=== PATIENT | male | born 1935 | race Caucasian/White ===

== ENCOUNTER 2017-01-01 13:13 | Emergency (ER) | payer MEDICARE ==
[~2017-01-01] VITALS: Ht 182.9 cm; Wt 72.8 kg
[~2017-01-01 13:13] MED LIST: ASPI325T PO; AVOD0.5C PO; CARB25TA9 PO; CLON0.5T PO; GEMF600T PO; LIPI20TA PO; NIFE15TA PO; PLAV75TA29 PO; WALKER WHEELS/F1 MIS
[2017-01-01 13:35] VITALS: BP 123/64; PULSE 82; RESP 16; TEMP 98.2; O2SAT 100
[2017-01-01] MEDS ORDERED: BACT400T PO (15:10)
[2017-01-01] MEDS ORDERED: CALCTAB80 PO (15:10)
[2017-01-01] MEDS ORDERED: FISH120014 (15:10)
[2017-01-01] MEDS ORDERED: LEVI20TA PO (15:10)
[2017-01-01] MEDS ORDERED: CLINDAMYCIN INJ 900 MG in SODIUM CHLORIDE 0.9% INJ 100 ML IV ONE (15:45)
--- NOTE | 2017-01-01 15:58 | PD ---
HPI Chief Complaint: Skin Problem Time Seen by Provider: 15:49 Travel History International Travel<30 days: No Contact w/Intl Traveler<30days: No Traveled to known affect area: No History of Present Illness HPI Patient is an 81-year-old male brought in by his for evaluation of of right elbow swelling. He states it started 3 weeks ago, and was a lot more swollen then. Patient went to his primary doctor last week and was prescribed Bactrim, states it started to get better until yesterday when the redness returned. She does state that it is much less swollen than it was initially. reports picking the scab on his elbow thinking it was a foreign body. Patient has not had any fevers, chills, nausea, vomiting, chest pain, shortness of breath, headache. PFSH Past Medical History Cancer: Yes (NON MALIGNANT SKIN CANCER) Cardiovascular Problems: No High Cholesterol: Yes Cerebrovascular Accident: Yes (TIA) Coronary Artery Disease: Yes Diabetes: No Diminished Hearing: No Endocrine: No GERD: Yes Glaucoma: No Genitourinary: No Hepatitis: No Hiatal Hernia: No Hypertension: Yes Immune Disorder: No Musculoskeletal: No Parkinson's Disease: Yes Psychiatric: No Reproductive: No Respiratory: No Thyroid Disease: Yes (THYROID PROBLEM S/P VIRUS--RESOLVED) Tetanus Vaccination: > 5 Years Influenza Vaccination: Yes Past Surgical History AICD: No Eye Surgery: Yes (CATARACTS) Joint Replacement: No Pacemaker: No Tonsillectomy: Yes Other Surgery: Yes (carotid endarterectomy) Social History Alcohol Use: No Tobacco Use: No Substance Use: No Allergies-Medications (Allergen,Severity, Reaction): Coded Allergies: Enalapril (Verified Allergy, Severe, SWELLING, 09/19/16) Reported Meds & Prescriptions Reported Meds & Active Scripts Active Walker with Front Wheels (Device) 1 Mis Mis 1 Units .XX DIRECTED Lipitor (Atorvastatin Calcium) 20 Mg Tab 20 Mg PO HS Aspirin 325 Mg Tab 325 Mg PO DAILY 30 Days Reported Bactrim (Sulfamethoxazole-Trimethoprim) 400-80 Mg Tab 1 Tab PO BID Calcium 1000 + D (Calcium Carbonate-Cholecalciferol) 1,000-800 Mg-Unit Tab 1 Tab PO Fish Oil ([place]-3 Fatty Acids) 1,200 Mg Cap Levitra (Vardenafil) 20 Mg Tab 20 Mg PO DAILY PRN Avodart (Dutasteride) 0.5 Mg Cap 0.5 Mg PO DAILY Gemfibrozil 600 Mg Tab 600 Mg PO DAILY Take 30 minutes prior to breakfast and dinner. Clonazepam 0.5 Mg Tab 0.5 Mg PO HS Carbidopa-Levodopa 25-100 Mg Tab 1 Tab PO Q5 Review of Systems Except as stated in HPI: all other systems reviewed are Neg Musculoskeletal: Positive: Edema Skin: Positive Change in Pigmentation Physical Exam Narrative GENERAL: Well-developed, well-nourished, alert elderly gentleman. Resting comfortably in no acute distress. at bedside. SKIN: Warm and dry. Dry flaky skin. HEAD: Atraumatic. Normocephalic. EYES: Pupils equal and round. No scleral icterus. No injection or drainage. ENT: No nasal bleeding or discharge. Mucous membranes pink and moist. NECK: Trachea midline. No JVD. CARDIOVASCULAR: Regular rate and rhythm. No murmur appreciated. RESPIRATORY: No accessory muscle use. Clear to auscultation. Breath sounds equal bilaterally. GASTROINTESTINAL: Abdomen soft, non-tender, nondistended. Hepatic and splenic margins not palpable. MUSCULOSKELETAL: No obvious deformities. No clubbing. No cyanosis. Edema noted to the right old cranial process. Mildly erythematous, warm to the touch. Nontender to palpation, full range of motion in right elbow. Positive radial pulse, brisk less than 3 second capillary refill. NEUROLOGICAL: Awake and alert. No obvious cranial nerve deficits. Motor grossly within normal limits. Normal speech. PSYCHIATRIC: Appropriate mood and affect; insight and judgment normal. Data Data Last Documented VS Vital Signs Date Time Temp Pulse Resp B/P Pulse Ox O2 Delivery O2 Flow Rate FiO2 01/01/17 13:35 98.2 82 16 123/64 100 Orders Complete Blood Count With Diff (01/01/17 15:40) Comprehensive Metabolic Panel (01/01/17 15:40) Iv Access Insert/Monitor (01/01/17 15:40) Clindamycin Inj (Cleocin Inj) (01/01/17 15:45) Sodium Chlor 0.9% 1000 Ml Inj (Ns 1000 M (01/01/17 16:45) Labs Laboratory Tests Test 01/01/17 16:10 White Blood Count 5.9 TH/MM3 Red Blood Count 4.43 MIL/MM3 Hemoglobin 13.2 GM/DL Hematocrit 40.1 % Mean Corpuscular Volume 90.4 FL Mean Corpuscular Hemoglobin 29.7 PG Mean Corpuscular Hemoglobin 32.9 % Concent Red Cell Distribution Width 11.9 % Platelet Count 171 TH/MM3 Mean Platelet Volume 8.8 FL Neutrophils (%) (Auto) 60.3 % Lymphocytes (%) (Auto) 24.9 % Monocytes (%) (Auto) 9.2 % Eosinophils (%) (Auto) 4.7 % Basophils (%) (Auto) 0.9 % Neutrophils # (Auto) 3.5 TH/MM3 Lymphocytes # (Auto) 1.5 TH/MM3 Monocytes # (Auto) 0.5 TH/MM3 Eosinophils # (Auto) 0.3 TH/MM3 Basophils # (Auto) 0.1 TH/MM3 CBC Comment DIFF FINAL Differential Comment Sodium Level 139 MEQ/L Potassium Level 4.5 MEQ/L Chloride Level 104 MEQ/L Carbon Dioxide Level 28.5 MEQ/L Anion Gap 7 MEQ/L Blood Urea Nitrogen 32 MG/DL Creatinine 1.80 MG/DL Estimat Glomerular Filtration 36 ML/MIN Rate Random Glucose 90 MG/DL Calcium Level 9.2 MG/DL Total Bilirubin 0.3 MG/DL Aspartate Amino Transf 19 U/L (AST/SGOT) Alanine Aminotransferase 9 U/L (ALT/SGPT) Alkaline Phosphatase 70 U/L Total Protein 7.9 GM/DL Albumin 3.8 GM/DL MDM Medical Decision Making Medical Screen Exam Complete: Yes Emergency Medical Condition: Yes Interpretation(s) Vital Signs Date Time Temp Pulse Resp B/P Pulse Ox O2 Delivery O2 Flow Rate FiO2 01/01/17 13:35 98.2 82 16 123/64 100 Differential Diagnosis Cellulitis versus bursitis versus abscess versus septic arthritis Narrative Course Patient is a 81-year-old male presenting to emergency department for evaluation of right elbow swelling. Exam is consistent with bursitis, it is mildly erythematous and warm to the touch. Patient has been on Bactrim consistently for the last 5 days, reported interval improvement until yesterday when she states it started to get more red again. Patient is afebrile, his vital signs are stable. We will check CBC and chemistry and patient will be given one dose of IV clindamycin in the emergency department. Prior to discharge patient will be changed to oral clindamycin. He has a follow-up appointment on Wednesday with Dr. Caal, orthopedic surgeon. 1625- CBC reviewed and is unremarkable. 1637-chemistry with elevated BUN and creatinine, consistent with a prior evaluation in September 2016. Patient will be given 1 L IV fluids prior to discharge. Patient was encouraged to increase oral fluid intake at home, he states he doesn 't drink a lot of water, mostly coffee. They were encouraged to keep appointment with orthopedic surgeon on Wednesday. Encouraged to return to emergency department for any new or worsening symptoms in the interim. They verbalized understanding of these instructions. Patient will be stable for discharge. Diagnosis Primary Impression: Bursitis of elbow Qualified Code: M70.30 - Bursitis of elbow, unspecified laterality Additional Impression: Cellulitis Qualified Code: L03.113 - Cellulitis of right upper extremity Referrals: Abilio Patten Jr., MD 3 days As scheduled on Wednesday Patient Instructions: Cellulitis (ED), Elbow Bursitis (ED), General Instructions Additional Instructions: Follow-up with your primary doctor Follow up with Dr. Caal on Wednesday as scheduled Discontinue the Bactrim Complete full course of antibiotics as prescribed Return to emergency department for any new or worsening symptoms Med/Other Pt SpecificInfo: Prescription(s) given Scripts Saccharomyces Boulardii (Florastor)250 Mg Nuv249 Mg PO TIDPC 7 Days Ref 0 Prov:Karina Cevallos 01/01/17 Clindamycin 300 Mg Agv143 Mg PO TID 7 Days Ref 0 Prov:Karina Cevallos 01/01/17 Disposition: 01 DISCHARGE HOME Condition: Stable Karina Cevallos Jan 01, 2017 15:58
[2017-01-01 16:18] LABS: AUTOMATED NEUTROPHIL # 3.5 TH/MM3 (1.8-7.7); BASOPHIL # 0.1 TH/MM3 (0-0.2); BASOPHIL % 0.9 % (0.0-2.0); EOSINOPHIL # 0.3 TH/MM3 (0-0.4); EOSINOPHIL % 4.7 % (0.0-4.0); HEMATOCRIT 40.1 % (39.0-51.0); HEMO FLAGS DIFF FINAL; LYMPH % 24.9 % (9.0-44.0); LYMPHOCYTE # 1.5 TH/MM3 (1.0-4.8); MEAN CELL VOLUME 90.4 FL (80.0-100.0); MEAN CORPUSCULAR HEMOGLOBIN 29.7 PG (27.0-34.0); MEAN CORPUSCULAR HGB CONC 32.9 % (32.0-36.0); MONO % 9.2 % (0.0-8.0); NEUT % 60.3 % (16.0-70.0); PLATELET COUNT 171 TH/MM3 (150-450); RED BLOOD COUNT 4.43 MIL/MM3 (4.50-5.90); RED CELL DISTRIBUTION WIDTH 11.9 % (11.6-17.2); WHITE BLOOD COUNT 5.9 TH/MM3 (4.0-11.0)
[2017-01-01 16:26] LABS: CHLORIDE 104 MEQ/L (98-107); POTASSIUM 4.5 MEQ/L (3.5-5.1); SODIUM (NA) 139 MEQ/L (136-145)
[2017-01-01 16:30] LABS: ANION GAP 7 MEQ/L (5-15); BICARBONATE 28.5 MEQ/L (21.0-32.0); BLOOD UREA NITROGEN 32 MG/DL (7-18)
[2017-01-01 16:33] LABS: ALT (GPT) 9 U/L (12-78); AST (GOT) 19 U/L (15-37); GLOMERULAR FILTRATION RATE 36 ML/MIN (>89)
[2017-01-01 16:35] LABS: TOTAL BILIRUBIN ADULT 0.3 MG/DL (0.2-1.0)
[2017-01-01 16:36] LABS: ALKALINE PHOSPHATASE 70 U/L (45-117)
[2017-01-01] MEDS ORDERED: SODIUM CHLOR 0.9% 1000 ML INJ 1,000 ML IV ONE (16:45)
[2017-01-01] MEDS ORDERED: CLIN1CAP6 PO (16:57)
[2017-01-01] MEDS ORDERED: FLOR250C PO (16:57)
== END 2017-01-01 17:42 | disposition home or self-care (01) ==
LOC: PHED 13:13 → PHEFT 17:42
DX: M70.31 Other bursitis of elbow, right elbow (principal); L03.113 Cellulitis of right upper limb
CPT/HCPCS: 80053; 85025; 96365; 99283; J7030

== ENCOUNTER 2017-05-06 09:50 | Emergency (ER) | payer MEDICARE ==
[~2017-05-06] VITALS: Ht 182.9 cm; Wt 70.0 kg
[~2017-05-06 09:50] MED LIST changes: +BACT400T PO; +CALCTAB80 PO; +CLIN1CAP6 PO; +FISH120014; +FLOR250C PO; +LEVI20TA PO; -NIFE15TA PO; -PLAV75TA29 PO
[2017-05-06 09:54] VITALS: BP 121/61; PULSE 80; RESP 16; TEMP 98.3; O2SAT 100
--- NOTE | 2017-05-06 10:38 | PD ---
HPI Chief Complaint: Laceration/Skin Injury Time Seen by Provider: 10:31 Travel History International Travel<30 days: No Contact w/Intl Traveler<30days: No Traveled to known affect area: No History of Present Illness HPI This is an 82-year-old gentleman who has a history of Parkinson's disease who likes to work out in the yard and was lifting a pot when he fell forward scraping admission in his left arm. He has a small wound on his left lower leg which he thought might need stitches. Otherwise he didn't hit his head and denies any other injuries. He does take aspirin every day. He doesn't remember when his last tetanus shot was. PFSH Past Medical History Cancer: Yes (NON MALIGNANT SKIN CANCER) Cardiovascular Problems: No High Cholesterol: Yes Cerebrovascular Accident: Yes (TIA) Coronary Artery Disease: Yes Diabetes: No Diminished Hearing: No Endocrine: No Gastrointestinal Disorders: No GERD: Yes Glaucoma: No Genitourinary: No Hepatitis: No Hiatal Hernia: No Hypertension: Yes Immune Disorder: No Implanted Vascular Access Dvce: No Medical other: No Musculoskeletal: No Parkinson's Disease: Yes Psychiatric: No Reproductive: No Respiratory: No Thyroid Disease: Yes (THYROID PROBLEM S/P VIRUS--RESOLVED) Past Surgical History AICD: No Eye Surgery: Yes (CATARACTS) Joint Replacement: No Pacemaker: No Tonsillectomy: Yes Other Surgery: Yes (carotid endarterectomy) Social History Alcohol Use: No Tobacco Use: No Substance Use: No Allergies-Medications (Allergen,Severity, Reaction): Coded Allergies: Enalapril (Verified Allergy, Severe, SWELLING, 05/06/17) Reported Meds & Prescriptions Reported Meds & Active Scripts Active Aspirin 325 Mg Tab 325 Mg PO DAILY 30 Days Reported Viagra (Sildenafil Citrate) 50 Mg Tab 50 Mg PO DAILY PRN Calcium 1000 + D (Calcium Carbonate-Cholecalciferol) 1,000-800 Mg-Unit Tab 1 Tab PO Avodart (Dutasteride) 0.5 Mg Cap 0.5 Mg PO DAILY Gemfibrozil 600 Mg Tab 600 Mg PO DAILY Take 30 minutes prior to breakfast and dinner. Clonazepam 0.5 Mg Tab 0.5 Mg PO HS Carbidopa-Levodopa 25-100 Mg Tab 1 Tab PO Q5 Review of Systems General / Constitutional: No: Fever, Chills Respiratory: No: Shortness of Breath Physical Exam Narrative GENERAL: Well-appearing, no acute distress, nontoxic SKIN: 2 cm skin tear left lower extremity, small abrasions right forearm HEAD: Atraumatic. Normocephalic. ENT: No nasal bleeding or discharge. Moist mucous membranes MUSCULOSKELETAL: No obvious deformities. No clubbing. No cyanosis. No edema. NEUROLOGICAL: Awake and alert. No obvious cranial nerve deficits. Motor grossly within normal limits. Normal speech. PSYCHIATRIC: Appropriate mood and affect; insight and judgment normal. Data Data Last Documented VS Vital Signs Date Time Temp Pulse Resp B/P Pulse Ox O2 Delivery O2 Flow Rate FiO2 05/06/17 09:54 98.3 80 16 121/61 100 Orders Tetanus/Diphtheria Tox Adult (Tetanus/Di (05/06/17 10:45) MDM Medical Decision Making Medical Screen Exam Complete: Yes Emergency Medical Condition: Yes Differential Diagnosis laceration, abrasion, wound infection Narrative Course This is an 82-year-old male who presents to the emergency department having sustained a skin tear while he was working outside. He was given a tetanus shot. Wound care was provided by the ED technicians. Steri-Strips were applied to the wound. Patient was prescribed a topical antibiotic and discharged home. Diagnosis Primary Impression: Skin tear of left lower leg without complication Qualified Code: S81.812A - Skin tear of left lower leg without complication, initial encounter Patient Instructions: General Instructions Additional Instructions: If you develop fevers, redness, swelling, or discharge from your wound return to the emergency room. Keep your wound dry for 24 hours. After that time, wash gently with warm soap and water. Do not use peroxide. Do not soak in baths or go swimming. Med/Other Pt SpecificInfo: Prescription(s) given Scripts Bacitracin-Polymyxin B Topical (Polysporin Topical)500-10,000 Unit/Gm Oint1 Applic TOPICAL BID #1 TUBE Ref 0 Prov:Guerda Cavazos MD 05/06/17 Disposition: 01 DISCHARGE HOME Condition: Stable Guerda Cavazos MD May 06, 2017 10:38
[2017-05-06] MEDS ORDERED: VIAG50TA PO (10:39)
[2017-05-06] MEDS ORDERED: BACI28.3 TOPICAL (10:44)
[2017-05-06] MEDS ORDERED: TETANUS/DIPHTHERIA TOXOID ADULT 0.5 ML VIAL IM ONE (10:45)
== END 2017-05-06 10:56 | disposition home or self-care (01) ==
LOC: PHED 09:50
DX: S81.812A Laceration without foreign body, left lower leg, initial encounter (principal); W19.XXXA Unspecified fall, initial encounter; G20 Parkinson's disease; I10 Essential (primary) hypertension; K21.9 Gastro-esophageal reflux disease without esophagitis; I25.10 Atherosclerotic heart disease of native coronary artery without angina pectoris; Z86.73 Personal history of transient ischemic attack (TIA), and cerebral infarction without residual deficits; E78.00 Pure hypercholesterolemia, unspecified; Z85.828 Personal history of other malignant neoplasm of skin
CPT/HCPCS: 90471; 90714

== ENCOUNTER 2017-06-06 18:07 | Emergency (ER) | payer MEDICARE ==
[~2017-06-06] VITALS: Ht 182.9 cm; Wt 69.0 kg
[~2017-06-06 18:07] MED LIST changes: +BACI28.3 TOPICAL; -BACT400T PO; -CLIN1CAP6 PO; -FISH120014; -FLOR250C PO; -LEVI20TA PO; -LIPI20TA PO; +VIAG50TA PO; -WALKER WHEELS/F1 MIS
[2017-06-06 18:20] VITALS: BP 99/76; PULSE 20; PULSE 76; RESP 20; TEMP 98.1; O2SAT 100
[2017-06-06] MEDS ORDERED: SODIUM CHLORIDE 0.9% FLUSH 10 ML FLUSH IVF PRN (18:30)
--- NOTE | 2017-06-06 18:33 | PD ---
HPI Chief Complaint: Fall Time Seen by Provider: 18:20 Travel History International Travel<30 days: No Contact w/Intl Traveler<30days: No Traveled to known affect area: No History of Present Illness HPI 82-year-old male with history of Parkinson's, previous CVA with mild residual left-sided facial droop presents for evaluation after fall. He reports that he was at a great grandchild's birthday walking in the house. He reports that he was walking when he stepped up onto an elevated floor and he fell backwards, landing on his back. He says that he felt mildly dizzy causing the fall. He reports that he hit his head on a cushion. He is now complaining of some pain in his mid and lower back. The pain is mild, aggravated by movement. He denies any other injuries. He denies any headache, blurred vision, chest pain or shortness of breath, nausea or vomiting, abdominal pain, injury or weakness to the extremities. He does report that he occasionally gets dizzy secondary to hypotension, he reports that he is prescribed steroids in order to help with the hypotension but he did not take his usual dose today. Upon my initial examination he was quite hypertensive with blood pressure of 230/100. He reports that he has "terrible white coat syndrome." He takes an aspirin daily. No other blood thinners. No other complaints. PFSH Past Medical History Hx Anticoagulant Therapy: Yes (asa) Cancer: Yes (NON MALIGNANT SKIN CANCER) Cardiovascular Problems: No High Cholesterol: Yes Cerebrovascular Accident: Yes (stroke and parkinsons) Coronary Artery Disease: Yes Diabetes: No Diminished Hearing: No Endocrine: No Gastrointestinal Disorders: No GERD: Yes Glaucoma: No Genitourinary: No Hepatitis: No Hiatal Hernia: No Hypertension: Yes Immune Disorder: No Implanted Vascular Access Dvce: No Musculoskeletal: No Parkinson's Disease: Yes Psychiatric: No Reproductive: No Respiratory: No Thyroid Disease: Yes (THYROID PROBLEM S/P VIRUS--RESOLVED) Past Surgical History AICD: No Eye Surgery: Yes (CATARACTS) Joint Replacement: No Pacemaker: No Tonsillectomy: Yes Other Surgery: Yes (carotid endarterectomy) Social History Alcohol Use: No Tobacco Use: No Substance Use: No Allergies-Medications (Allergen,Severity, Reaction): Coded Allergies: Enalapril (Verified Allergy, Severe, SWELLING, 7/30/17) Reported Meds & Prescriptions Reported Meds & Active Scripts Active Tramadol (Tramadol HCl) 50 Mg Tab 50 Mg PO Q6H PRN Aspirin 325 Mg Tab 325 Mg PO DAILY 30 Days Reported Fludrocortisone (Fludrocortisone Acetate) 0.1 Mg Tab 0.1 Mg PO BID Viagra (Sildenafil Citrate) 50 Mg Tab 50 Mg PO DAILY PRN Calcium 1000 + D (Calcium Carbonate-Cholecalciferol) 1,000-800 Mg-Unit Tab 1 Tab PO Avodart (Dutasteride) 0.5 Mg Cap 0.5 Mg PO DAILY Gemfibrozil 600 Mg Tab 600 Mg PO DAILY Take 30 minutes prior to breakfast and dinner. Clonazepam 0.5 Mg Tab 0.5 Mg PO HS Carbidopa-Levodopa 25-100 Mg Tab 1 Tab PO Q5 Review of Systems Except as stated in HPI: all other systems reviewed are Neg Physical Exam Narrative GENERAL: Pleasant well-developed well-nourished male in no acute distress resting comfortable in hospital bed. SKIN: Warm and dry. HEAD: Atraumatic. Normocephalic. EYES: Pupils equal and round. No scleral icterus. No injection or drainage. ENT: No nasal bleeding or discharge. Mucous membranes pink and moist. NECK: Trachea midline. No JVD. CARDIOVASCULAR: Regular rate and rhythm. No murmur appreciated. RESPIRATORY: No accessory muscle use. Clear to auscultation. Breath sounds equal bilaterally. GASTROINTESTINAL: Abdomen soft, non-tender, nondistended. Hepatic and splenic margins not palpable. MUSCULOSKELETAL: No obvious deformities. No tenderness to palpation along the cervical thoracic or lumbar midline spine. No tenderness to palpation of the rib cage, no Bruising or soft tissue swelling NEUROLOGICAL: Awake and alert. No obvious cranial nerve deficits. Motor grossly within normal limits. Normal speech. PSYCHIATRIC: Appropriate mood and affect; insight and judgment normal. Data Data Last Documented VS Vital Signs Date Time Temp Pulse Resp B/P Pulse Ox O2 Delivery O2 Flow Rate FiO2 06/06/17 19:55 78 18 215/109 99 Room Air 06/06/17 18:20 98.1 Orders Electrocardiogram (06/06/17 18:29) Basic Metabolic Panel (Bmp) (06/06/17 18:29) Complete Blood Count With Diff (06/06/17 18:29) Magnesium (Mg) (06/06/17 18:29) Ckmb (Isoenzyme) Profile (06/06/17 18:29) Troponin I (06/06/17 18:29) Ct Brain W/O Iv Contrast(Rout) (06/06/17 18:29) Ecg Monitoring (06/06/17 18:29) Iv Access Insert/Monitor (06/06/17 18:29) Oximetry (06/06/17 18:29) Sodium Chloride 0.9% Flush (Ns Flush) (06/06/17 18:30) Spine, Thoracic-Ap/Lat/Sw(3vw) (06/06/17 ) Spine, Lumbar - Ltd (Ap & Lat) (06/06/17 ) Ct Lumb Spine W/O Contrast (06/06/17 ) Morphine Inj (Morphine Inj) (06/06/17 19:30) Ondansetron Inj (Zofran Inj) (06/06/17 19:30) Clonidine (Catapres) (06/06/17 20:15) Splint Or Brace Apply/Monitor (06/06/17 20:26) CKMB (06/06/17 20:00) CKMB% (06/06/17 20:00) Labs Laboratory Tests Test 06/06/17 20:00 White Blood Count 8.2 TH/MM3 Red Blood Count 4.60 MIL/MM3 Hemoglobin 13.7 GM/DL Hematocrit 41.7 % Mean Corpuscular Volume 90.7 FL Mean Corpuscular Hemoglobin 29.9 PG Mean Corpuscular Hemoglobin 33.0 % Concent Red Cell Distribution Width 12.8 % Platelet Count 155 TH/MM3 Mean Platelet Volume 8.8 FL Neutrophils (%) (Auto) 74.1 % Lymphocytes (%) (Auto) 15.0 % Monocytes (%) (Auto) 7.8 % Eosinophils (%) (Auto) 2.8 % Basophils (%) (Auto) 0.3 % Neutrophils # (Auto) 6.1 TH/MM3 Lymphocytes # (Auto) 1.2 TH/MM3 Monocytes # (Auto) 0.6 TH/MM3 Eosinophils # (Auto) 0.2 TH/MM3 Basophils # (Auto) 0.0 TH/MM3 CBC Comment DIFF FINAL Differential Comment Sodium Level 141 MEQ/L Potassium Level 4.0 MEQ/L Chloride Level 105 MEQ/L Carbon Dioxide Level 30.6 MEQ/L Anion Gap 5 MEQ/L Blood Urea Nitrogen 23 MG/DL Creatinine 1.32 MG/DL Estimat Glomerular Filtration 52 ML/MIN Rate Random Glucose 87 MG/DL Calcium Level 8.9 MG/DL Magnesium Level 2.4 MG/DL Total Creatine Kinase 199 U/L Troponin I LESS THAN 0.02 NG/ML MDM Medical Decision Making Medical Screen Exam Complete: Yes Emergency Medical Condition: Yes Medical Record Reviewed: Yes Interpretation(s) EKG sinus rhythm, occasional PVCs CT lumbar spine reveals acute compression deformity at L3 CBC unremarkable BMP BUN 23 creatinine 1.32 consistent with baseline Total CK unremarkable, troponin negative Differential Diagnosis Orthostatic hypotension, electrolyte abnormality, arrhythmia, contusion, fracture, retroperitoneal hematoma Narrative Course 82-year-old male presents after a brief dizzy episode resulted in him falling backwards and landing on his back. He hit his head on a trace and has no pain in his head. He is complaining of mild pain in his mid and lower back. He reports that the dizziness has completely resolved and he has no other symptoms currently. The patient's laboratory and imaging studies to been reviewed. His lumbar spine CT does reveal an acute compression deformity at L3 with loss of height 10 %. I discussed with the on-call neurosurgeon Dr. Ho who does recommend outpatient follow-up with neurosurgery, O brace. I discussed these recommendations with the patient. I did discuss the option of possibly the patient however he reports that he feels quite well. He has mild pain when he was sitting on the edge of the bed but he felt fine when standing. He has had no additional dizziness or lightheadedness. He would prefer to be discharged for outpatient follow-up. Diagnosis Primary Impression: Compression fracture of L3 lumbar vertebra Qualified Code: S32.030A - Compression fracture of L3 lumbar vertebra, closed , initial encounter Referrals: Ran Jesus MD Additional Instructions: As discussed, follow-up with a neurosurgeon such as Dr. Jesus in the next week. Tramadol for breakthrough pain. Do not drive or drink alcohol when using this medication. Monitor blood pressure on a regular basis. Follow-up with primary care physician and return for any emergent medical conditions. Med/Other Pt SpecificInfo: Prescription(s) given, Orthopedic Instructions Scripts Tramadol 50 Mg Tab50 Mg PO Q6H PRN (PAIN) #20 TAB Ref 0 Prov:Jamarcus Short MD 06/06/17 Disposition: 01 DISCHARGE HOME Condition: Stable Everett Levy Jun 06, 2017 18:33
[2017-06-06 18:35] VITALS: RESP 19; O2SAT 96
[2017-06-06] MEDS ORDERED: FLUD.1 PO (18:59)
--- NOTE | 2017-06-06 19:15 | RADRPT ---
EXAM DATE/TIME: 06/06/2017 18:42 [facility] COMPARISON: No previous studies available for comparison. INDICATIONS : Back pain due to fall today. MEDICAL HISTORY : Parkinsons Disease. SURGICAL HISTORY : None. ENCOUNTER: Initial ACUITY: 1 day PAIN SCORE: 6/10 LOCATION: middle Lower back FINDINGS: There is normal alignment of the thoracic vertebral bodies. Vertebral body height is maintained. No evidence of fracture or subluxation. Pedicles are intact at all levels. Bridging anterior paravert ebral ossification is present throughout the thoracic spine. The lateral paravertebral reflections a re intact.. CONCLUSION: No evidence of compression deformity or spondylolisthesis. Bridging anterior paravertebral ossificat ion throughout the thoracic spine characteristic of idiopathic skeletal hyperostosis. Ascencion Frausto MD on June 06, 2017 at 19:12 Board Certified Radiologist. This report was verified electronically.
--- NOTE | 2017-06-06 19:16 | RADRPT ---
EXAM DATE/TIME: 06/06/2017 18:43 [facility] COMPARISON: No previous studies available for comparison. INDICATIONS : Back pain due to fall today. MEDICAL HISTORY : Parkinson Disease. SURGICAL HISTORY : None. ENCOUNTER: Initial ACUITY: 1 day PAIN SCORE: 6/10 LOCATION: middle Lower back FINDINGS: There is angulated compression of the superior endplate of L3 with approximately 10% loss of vertebra l body height. The posterior cortex of the lumbar vertebral bodies remains in alignment. Nonbridgin g anterior paravertebral ossification is present throughout the lumbar spine. Pedicles are seen at t he levels. CONCLUSION: Superior endplate compression fracture of L3 with 10% loss of height. Ascencion Frausto MD on June 06, 2017 at 19:13 Board Certified Radiologist. This report was verified electronically.
[2017-06-06 19:28] VITALS: BP_SYST 142; BP_SYST 160; BP_SYST 208; BP_SYST 209; BP_SYST 222; BP_SYST 237; BP_DIAS 102; BP_DIAS 11; BP_DIAS 71; BP_DIAS 74; BP_DIAS 95; BP_DIAS 97; RESP 18
[2017-06-06] MEDS ORDERED: MORPHINE SULFATE 4 MG/ML INJ IV PUSH ONE (19:30)
[2017-06-06] MEDS ORDERED: ONDANSETRON HCL 4 MG/2 ML VIAL IV PUSH ONE (19:30)
--- NOTE | 2017-06-06 19:41 | RADRPT ---
EXAM DATE/TIME: 06/06/2017 19:21 [facility] COMPARISON: CT BRAIN W/O CONTRAST, September 19, 2016, 12:09. INDICATIONS : Dizziness today. RADIATION DOSE: 56.35 CTDIvol (mGy) MEDICAL HISTORY : Stroke. Parkinsons. Hypertension.skin cancer SURGICAL HISTORY : None. ENCOUNTER: Initial ACUITY: 1 day PAIN SCALE: 0/10 LOCATION: Bilateral head TECHNIQUE: Multiple contiguous axial images were obtained of the head. Using automated exposure control and adj ustment of the mA and/or kV according to patient size, radiation dose was kept as low as reasonably a chievable to obtain optimal diagnostic quality images. DICOM format image data is available electro nically for review and comparison. FINDINGS: CEREBRUM: The ventricles are normal for age. No evidence of midline shift, mass lesion, hemorrhage or acute in farction. No extra-axial fluid collections are seen. POSTERIOR FOSSA: The cerebellum and brainstem are intact. The 4th ventricle is midline. The cerebellopontine angle i s unremarkable. EXTRACRANIAL: The visualized portion of the orbits is intact. SKULL: The calvaria is intact. No evidence of skull fracture. CONCLUSION: Age-appropriate atrophy. No acute findings. Ascencion Frausto MD on June 06, 2017 at 19:38 Board Certified Radiologist. This report was verified electronically.
[2017-06-06 19:55] VITALS: BP 215/109; PULSE 78; RESP 18; O2SAT 99
[2017-06-06] MEDS ORDERED: cloNIDine HCL 0.1 MG TAB PO ONE (20:15)
[2017-06-06 20:19] LABS: AUTOMATED NEUTROPHIL # 6.1 TH/MM3 (1.8-7.7); BASOPHIL % 0.3 % (0.0-2.0); EOSINOPHIL # 0.2 TH/MM3 (0-0.4); EOSINOPHIL % 2.8 % (0.0-4.0); HEMATOCRIT 41.7 % (39.0-51.0); HEMO FLAGS DIFF FINAL; LYMPHOCYTE # 1.2 TH/MM3 (1.0-4.8); MEAN CELL VOLUME 90.7 FL (80.0-100.0); MEAN CORPUSCULAR HEMOGLOBIN 29.9 PG (27.0-34.0); MONO % 7.8 % (0.0-8.0); NEUT % 74.1 % (16.0-70.0); PLATELET COUNT 155 TH/MM3 (150-450); RED CELL DISTRIBUTION WIDTH 12.8 % (11.6-17.2); WHITE BLOOD COUNT 8.2 TH/MM3 (4.0-11.0)
--- NOTE | 2017-06-06 20:19 | RADRPT ---
EXAM DATE/TIME: 06/06/2017 19:29 [facility] COMPARISON: SPINE LUMBAR LTD (AP & LAT), June 06, 2017, 18:43. INDICATIONS : Trauma, fall today. RADIATION DOSE: 17.0 CTDIvol (mGy) MEDICAL HISTORY : Stroke. Parkinsons. Hypertension.skin cancer SURGICAL HISTORY : None. ENCOUNTER: Initial ACUITY: 1 day PAIN SCALE: 5/10 LOCATION: Bilateral lower back TECHNIQUE: Volumetric scanning of the lumbar spine was performed. Multiplanar reconstructions in the sagittal, coronal and oblique axial planes were performed. Using automated exposure control and adjustment of the mA and/or kV according to patient size, radiation dose was kept as low as reasonably achievable t o obtain optimal diagnostic quality images. DICOM format image data is available electronically for review and comparison. FINDINGS: There is normal alignment of the vertebral bodies of the lumbar spine and the height of the posterior vertebral bodies is maintained at all levels. There is an acute compression fracture of the anterio r one half of the superior endplate of L3 with 1 mm step off of the left lateral fracture line and no step-off of the right fracture line. There is a horizontal component through the anterior one third of the L1 vertebral body with 2-3 mm separation. No fracture seen of the pedicle or posterior eleme nts. The remainder of the lumbar vertebral bodies are intact. No additional fractures seen. There is mild bulging of the L3-4 and L4-5 disc causing flattening of the ventral margin of the theca l sac. The neuroforamina remain patent. CONCLUSION: Acute horizontal fracture of the anterior one third of L3 extending to the superior endplate. There is less than 10% loss of height. No involvement of the posterior half of L3 or the posterior element jorge Frausto MD on June 06, 2017 at 20:14 Board Certified Radiologist. This report was verified electronically.
[2017-06-06 20:39] LABS: ANION GAP 5 MEQ/L (5-15); BICARBONATE 30.6 MEQ/L (21.0-32.0); BLOOD UREA NITROGEN 23 MG/DL (7-18); CHLORIDE 105 MEQ/L (98-107); GLOMERULAR FILTRATION RATE 52 ML/MIN (>89); MAGNESIUM 2.4 MG/DL (1.5-2.5); SODIUM (NA) 141 MEQ/L (136-145)
[2017-06-06 20:43] LABS: CREATINE KINASE 199 U/L (39-308)
[2017-06-06] MEDS ORDERED: TRAM50TA PO (20:44)
--- NOTE | 2017-06-07 14:22 | EKG ---
Date Performed: 06/06/2017 Time Performed: 20:12:59 PTAGE: 82 years EKG: Sinus rhythm WITH OCCASIONAL VENTRICULAR PREMATURE COMPLEXES WITH OCCASIONAL SUPRAVENTRICULAR PREMATURE COMPLEXES POSSIBLE RIGHT VENTRICULAR CONDUCTION DELAY Compared to prior tracing no significant change BORDERLI NE ECG PREVIOUS TRACING :09/19/16 DOCTOR: Iglesia Kidd Interpretating Date/Time 06/07/2017 14:21:31
== END 2017-06-06 21:30 | disposition home or self-care (01) ==
LOC: NEPC 18:07
DX: S32.030A Wedge compression fracture of third lumbar vertebra, initial encounter for closed fracture (principal); R42 Dizziness and giddiness; I10 Essential (primary) hypertension; I25.10 Atherosclerotic heart disease of native coronary artery without angina pectoris; G20 Parkinson's disease; W19.XXXA Unspecified fall, initial encounter; Y93.01 Activity, walking, marching and hiking; Z79.82 Long term (current) use of aspirin; Z79.899 Other long term (current) drug therapy
CPT/HCPCS: 70450; 72072; 72100; 72131; 80048; 82550; 82552; 83735; 84484; 85025; 93005; 96374; 96375; 99285; J2270; J2405; L0484

== ENCOUNTER 2017-06-09 09:54 | Observation (INO) | payer MEDICARE ==
[~2017-06-09] VITALS: Ht 182.9 cm; Wt 75.0 kg
[~2017-06-09 09:54] MED LIST changes: -BACI28.3 TOPICAL; +FLUD.1 PO; +TRAM50TA PO
[2017-06-09 09:56] VITALS: BP 196/87; PULSE 86; RESP 16; TEMP 98.3; O2SAT 98
[2017-06-09 11:19] LABS: AUTOMATED NEUTROPHIL # 7.6 TH/MM3 (1.8-7.7); BASOPHIL % 0.4 % (0.0-2.0); EOSINOPHIL # 0.1 TH/MM3 (0-0.4); EOSINOPHIL % 0.7 % (0.0-4.0); HEMATOCRIT 40.3 % (39.0-51.0); HEMO FLAGS DIFF FINAL; LYMPH % 6.1 % (9.0-44.0); LYMPHOCYTE # 0.5 TH/MM3 (1.0-4.8); MEAN CELL VOLUME 90.5 FL (80.0-100.0); MEAN CORPUSCULAR HEMOGLOBIN 29.6 PG (27.0-34.0); MEAN CORPUSCULAR HGB CONC 32.7 % (32.0-36.0); MONO % 8.3 % (0.0-8.0); NEUT % 84.5 % (16.0-70.0); PLATELET COUNT 136 TH/MM3 (150-450); RED BLOOD COUNT 4.45 MIL/MM3 (4.50-5.90); RED CELL DISTRIBUTION WIDTH 12.6 % (11.6-17.2)
[2017-06-09 11:24] LABS: PROTHROMBIN TIME - PATIENT 11.1 SEC (9.8-11.6)
[2017-06-09 11:50] LABS: BICARBONATE 26.7 MEQ/L (21.0-32.0)
--- NOTE | 2017-06-09 11:56 | PD ---
HPI Chief Complaint: Altered Mental Status Time Seen by Provider: 11:53 Travel History International Travel<30 days: No Contact w/Intl Traveler<30days: No Traveled to known affect area: No History of Present Illness HPI 82-year-old male presents to the emergency department with his daughter and at bedside for evaluation of altered mental status. The patient was seen here on June 06, 2017 for evaluation after a fall. Patient was found to have acute horizontal fracture the anterior one third at L3 extending to the superior endplate with less than 10% loss of height. Neurosurgeon was contacted who recommended brace and follow-up. He was discharged prescription for tramadol for pain. His states that she felt this on Wednesday. She states that he started yesterday with altered mentation. He is hallucinating, bleeding that his cat that has been for years is still alive and not making sense. He normally is alert and oriented 3 without any hallucinations or problems. She states she was concerned it might be due to the tramadol also she stopped giving it to him. His last dose was last night at 6 PM. However, she states that the mentation has not changed. She denies any new injury. She does state that he took his Parkinson's medication, carbidopa twice this morning by accident. Otherwise, he has not had any new incident happened. He does state that he vomited once this morning. He complains of constipation. His gave him a Dulcolax and stated that he had a small bowel movement this morning. The patient complains of constipation and states that he is unable to have a bowel movement. Patient denies any fevers or chills. No headache. No chest pain or shortness of breath. Patient states his history of Parkinson's, CVA, hyperlipidemia. The patient and his state that his blood pressure normally runs low and he is actually on medication to raise his blood pressure. However, he has severe white coat syndrome and his blood pressure is always elevated when he is at the doctor's office or in the hospital. PFSH Past Medical History Hx Anticoagulant Therapy: Yes (ASPIRIN) Cancer: Yes (NON MALIGNANT SKIN CANCER) Cardiovascular Problems: No High Cholesterol: Yes Cerebrovascular Accident: Yes (SEPTEMBER 2016, ENDARTERECTOMY) Coronary Artery Disease: Yes Diabetes: No Diminished Hearing: No Endocrine: No Gastrointestinal Disorders: No GERD: Yes Glaucoma: No Genitourinary: No Hepatitis: No Hiatal Hernia: No Hypertension: Yes Immune Disorder: No Implanted Vascular Access Dvce: No Musculoskeletal: No Parkinson's Disease: Yes Psychiatric: No Reproductive: No Respiratory: No Thyroid Disease: Yes (THYROID PROBLEM S/P VIRUS--RESOLVED) Past Surgical History AICD: No Eye Surgery: Yes (CATARACTS) Joint Replacement: No Pacemaker: No Tonsillectomy: Yes Other Surgery: Yes (carotid endarterectomy) Social History Alcohol Use: No Tobacco Use: No Substance Use: No Allergies-Medications (Allergen,Severity, Reaction): Coded Allergies: Enalapril (Verified Allergy, Severe, SWELLING, 06/09/17) Reported Meds & Prescriptions Reported Meds & Active Scripts Active Tramadol (Tramadol HCl) 50 Mg Tab 50 Mg PO Q6H PRN Aspirin 325 Mg Tab 325 Mg PO DAILY 30 Days Reported Fludrocortisone (Fludrocortisone Acetate) 0.1 Mg Tab 0.1 Mg PO BID Viagra (Sildenafil Citrate) 50 Mg Tab 50 Mg PO DAILY PRN Calcium 1000 + D (Calcium Carbonate-Cholecalciferol) 1,000-800 Mg-Unit Tab 1 Tab PO Avodart (Dutasteride) 0.5 Mg Cap 0.5 Mg PO DAILY Gemfibrozil 600 Mg Tab 600 Mg PO DAILY Take 30 minutes prior to breakfast and dinner. Clonazepam 0.5 Mg Tab 0.5 Mg PO HS Carbidopa-Levodopa 25-100 Mg Tab 1 Tab PO Q5 Review of Systems Except as stated in HPI: all other systems reviewed are Neg Physical Exam Narrative GENERAL: Well-nourished, well-developed elderly male patient, afebrile. Patient is alert and oriented to person, place, time. However, he takes a while to think when asked what the year or the president was. At first he stated present was pushed, but then changed his mind. He states this is unusual for him. His family agrees that this is unusual. SKIN: Focused skin assessment warm/dry. HEAD: Normocephalic. Atraumatic. EYES: No scleral icterus. No injection or drainage. PERRLA. EOM intact. ENT: Mucosa pink and moist. No erythema or exudates. No uvular edema. No uvular , palatal, or tonsillar deviation. Airway patent. Nasal turbinates appear normal without nasal blood, purulent drainage or septal hematoma. Bilateral tympanic membranes are clear without erythema or perforation. NECK: Supple, trachea midline. No JVD or lymphadenopathy. CARDIOVASCULAR: Regular rate and rhythm without murmurs, gallops, or rubs. RESPIRATORY: Breath sounds equal bilaterally. No accessory muscle use. Lungs sounds are clear to auscultation. GASTROINTESTINAL: Abdomen soft, non-tender, nondistended. MUSCULOSKELETAL: No cyanosis, or edema. Bilateral upper and lower extremity strength 5/5. All extremities are neurovascularly intact. BACK: Nontender without obvious deformity. No CVA tenderness. Data Data Last Documented VS Vital Signs Date Time Temp Pulse Resp B/P Pulse Ox O2 Delivery O2 Flow Rate FiO2 06/09/17 12:19 16 99 Room Air 06/09/17 12:10 97.8 78 178/93 Orders Iv Access Insert/Monitor (06/09/17 10:05) Complete Blood Count With Diff (06/09/17 10:05) Prothrombin Time / Inr (Pt) (06/09/17 10:05) Basic Metabolic Panel (Bmp) (06/09/17 10:05) Urinalysis - C+S If Indicated (06/09/17 10:05) Lactic Acid (06/09/17 10:05) Blood Culture (06/09/17 10:05) Electrocardiogram (06/09/17 11:50) Chest, Single Ap (06/09/17 11:50) Ct Brain W/O Iv Contrast(Rout) (06/09/17 11:50) Blood Glucose (06/09/17 11:50) Ecg Monitoring (06/09/17 11:50) Oximetry (06/09/17 11:50) Sodium Chloride 0.9% Flush (Ns Flush) (06/09/17 12:00) Hepatic Functional Panel (06/09/17 11:50) Sodium Chlorid 0.9% 500 Ml Inj (Ns 500 M (06/09/17 12:00) Creatine Kinase (Cpk) (06/09/17 11:50) Troponin I (06/09/17 11:50) Cath For Specimen (06/09/17 11:50) Ct Abd/Pel W Iv Contrast(Rout) (06/09/17 ) Lipase (06/09/17 11:59) Iohexol 350 Inj (Omnipaque 350 Inj) (06/09/17 13:03) Admit Order (Ed Use Only) (06/09/17 13:59) Labs Laboratory Tests Test 06/09/17 06/09/17 06/09/17 10:20 11:50 12:22 White Blood Count 9.0 TH/MM3 Red Blood Count 4.45 MIL/MM3 Hemoglobin 13.2 GM/DL Hematocrit 40.3 % Mean Corpuscular Volume 90.5 FL Mean Corpuscular Hemoglobin 29.6 PG Mean Corpuscular Hemoglobin 32.7 % Concent Red Cell Distribution Width 12.6 % Platelet Count 136 TH/MM3 Mean Platelet Volume 9.2 FL Neutrophils (%) (Auto) 84.5 % Lymphocytes (%) (Auto) 6.1 % Monocytes (%) (Auto) 8.3 % Eosinophils (%) (Auto) 0.7 % Basophils (%) (Auto) 0.4 % Neutrophils # (Auto) 7.6 TH/MM3 Lymphocytes # (Auto) 0.5 TH/MM3 Monocytes # (Auto) 0.7 TH/MM3 Eosinophils # (Auto) 0.1 TH/MM3 Basophils # (Auto) 0.0 TH/MM3 CBC Comment DIFF FINAL Differential Comment Prothrombin Time 11.1 SEC Prothromb Time International 1.0 RATIO Ratio Sodium Level 138 MEQ/L Potassium Level 4.0 MEQ/L Chloride Level 102 MEQ/L Carbon Dioxide Level 26.7 MEQ/L Anion Gap 9 MEQ/L Blood Urea Nitrogen 31 MG/DL Creatinine 1.24 MG/DL Estimat Glomerular Filtration 56 ML/MIN Rate Random Glucose 113 MG/DL Lactic Acid Level 1.2 mmol/L Calcium Level 9.7 MG/DL Total Bilirubin 0.7 MG/DL Direct Bilirubin 0.2 MG/DL Indirect Bilirubin 0.5 MG/DL Aspartate Amino Transf 22 U/L (AST/SGOT) Alanine Aminotransferase 8 U/L (ALT/SGPT) Alkaline Phosphatase 59 U/L Total Creatine Kinase 176 U/L Troponin I LESS THAN 0.02 NG/ML Total Protein 8.0 GM/DL Albumin 3.9 GM/DL Lipase 73 U/L Urine Color YELLOW Urine Turbidity CLEAR Urine pH 5.5 Urine Specific [place] 1.027 Urine Protein 30 mg/dL Urine Glucose (UA) NEG mg/dL Urine Ketones 10 mg/dL Urine Occult Blood SMALL Urine Nitrite NEG Urine Bilirubin NEG Urine Urobilinogen LESS THAN 2.0 MG/DL Urine Leukocyte Esterase NEG Urine RBC 13 /hpf Urine WBC 4 /hpf Urine Squamous Epithelial <1 /hpf Cells Urine Hyaline Casts 2 /lpf Urine Mucus FEW /lpf Microscopic Urinalysis Comment CATH-CULT NOT IND MDM Medical Decision Making Medical Screen Exam Complete: Yes Emergency Medical Condition: Yes Medical Record Reviewed: Yes Interpretation(s) CT brain - CONCLUSION: 1. Senescent changes 2. No acute intracranial abnormality or significant interval change. CT abdomen/pelvis - CONCLUSION: Moderate stool throughout the colon. Prominent prostate with mild prominence to the distal ureters. Otherwise negative for acute process. chest x-ray - CONCLUSION: No acute disease. Differential Diagnosis Electrolyte abnormality versus dehydration versus medication reaction versus intracranial abnormality versus UTI versus diverticulitis versus bowel obstruction Narrative Course 82-year-old male presents to the emergency department with his and daughter at bedside for evaluation of altered mentation that started yesterday. He does report vomiting 1 and is complaining of constipation. EKG, CBC, CMP , lactic acid, lipase, CK, troponin, PT/INR, UA, blood cultures x2 are ordered and pending. CT of the brain and CT abdomen/pelvis are ordered and pending. Chest x-ray is ordered and pending. Patient is given normal saline 500 mL bolus. EKG shows sinus tachycardia, HR 102, no acute ST changes. CBC shows normal WBC of 9.0, neutrophil 84.5. CMP shows BUN 31, currently 1.24, glucose 113. CK is 176. Troponin is less than 0.02. Lipase is 73. Lactic acid is 1.2. PT/INR are unremarkable. UA shows small occult blood, no evidence of acute infection. Chest x-ray shows no acute disease. Ct of the brain shows no acute changes. CT abdomen/pelvis shows moderate stool, prominent prostate with mild prominence to the distal ureters, otherwise negative for acute process [facility] is paged for admission. Dr. Noonan accepted admission. Diagnosis Primary Impression: Altered mental status, unspecified Admitting Information Admitting Physician Requests: Desirae Youssef Jun 09, 2017 11:56
[2017-06-09] MEDS ORDERED: SODIUM CHLORIDE 0.9% FLUSH 5 ML FLUSH IV FLUSH PRN (12:00)
[2017-06-09] MEDS ORDERED: SODIUM CHLORID 0.9% 500 ML INJ 500 ML IV ONE (12:00)
[2017-06-09 12:10] VITALS: BP 178/93; PULSE 78; RESP 17; TEMP 97.8; O2SAT 98
[2017-06-09 12:19] VITALS: RESP 16; O2SAT 99
[2017-06-09 12:32] LABS: ALT (GPT) 8 U/L (12-78); AST (GOT) 22 U/L (15-37)
[2017-06-09 12:35] LABS: ALKALINE PHOSPHATASE 59 U/L (45-117); CREATINE KINASE 176 U/L (39-308); INDIRECT BILIRUBIN 0.5 MG/DL (0.0-0.8); TOTAL BILIRUBIN ADULT 0.7 MG/DL (0.2-1.0)
[2017-06-09] MEDS ORDERED: IOHEXOL 350 MG/ML 10 ML VIAL (for RAD DIAG) IV ONE (13:03)
[2017-06-09 13:06] LABS: BLOOD, URINE SMALL (NEG); GLUCOSE,URINE NEG (NEG); HYALINE CAST, URINE 2 /lpf (RARE); KETONE, URINE 10 mg/dL (NEG); MUCUS URINE FEW /lpf (OCC); NITRITE,URINE NEG (NEG); PH, URINE 5.5 (5.0-8.5); SQUAMOUS EPITHELIAL CELL URINE <1 /hpf (0-5); URINE COLOR YELLOW (YELLW/STRAW)
[2017-06-09 13:09] LABS: COMMENT (UR) CATH-CULT NOT IND; CULTURE IF INDICATED CATH CULTURE NOT IND
--- NOTE | 2017-06-09 13:34 | RADRPT ---
EXAM DATE/TIME: 06/09/2017 12:46 [facility] COMPARISON: CT BRAIN W/O CONTRAST, June 06, 2017, 19:21. INDICATIONS : Fall Wednesday now having altered mental status RADIATION DOSE: 56.35 CTDIvol (mGy) MEDICAL HISTORY : Cardiovascular disease. Hypertension. Parkinsons. SURGICAL HISTORY : Endarectomy ENCOUNTER: Initial ACUITY: 2 days PAIN SCALE: 6/10 LOCATION: cranial TECHNIQUE: Multiple contiguous axial images were obtained of the head. Using automated exposure control and adj ustment of the mA and/or kV according to patient size, radiation dose was kept as low as reasonably a chievable to obtain optimal diagnostic quality images. DICOM format image data is available electro nically for review and comparison. FINDINGS: CEREBRUM: Moderate diffuse cerebral atrophy. Mild periventricular white matter hypodensities consistent with is chemic white matter demyelination. The ventricles are normal for degree of atrophy and stable from pr ior exam. No evidence of midline shift, mass lesion, hemorrhage or acute infarction. No extra-axial fluid collections are seen. POSTERIOR FOSSA: The cerebellum and brainstem are intact. The 4th ventricle is midline. The cerebellopontine angle i s unremarkable. EXTRACRANIAL: The visualized portion of the orbits is intact. SKULL: The calvaria is intact. No evidence of skull fracture. CONCLUSION: 1. Senescent changes 2. No acute intracranial abnormality or significant interval change. Baldemar Jacobs MD on June 09, 2017 at 13:30 Board Certified Radiologist. This report was verified electronically.
--- NOTE | 2017-06-09 13:37 | RADRPT ---
EXAM DATE/TIME: 06/09/2017 12:52 [facility] COMPARISON: No previous studies available for comparison. INDICATIONS : Fall Wednesday, back pain with constipation. IV CONTRAST: 71 cc Omnipaque 350 (iohexol) IV ORAL CONTRAST: No oral contrast ingested. RADIATION DOSE: 9.96 CTDIvol (mGy) MEDICAL HISTORY : Cardiovascular disease. Hypertension. Parkinsons. SURGICAL HISTORY : Endarectomy ENCOUNTER: Initial ACUITY: 1 day PAIN SCALE: 6/10 LOCATION: Abdomen TECHNIQUE: Volumetric scanning of the abdomen and pelvis was performed. Using automated exposure control and ad justment of the mA and/or kV according to patient size, radiation dose was kept as low as reasonably achievable to obtain optimal diagnostic quality images. DICOM format image data is available electro nically for review and comparison. FINDINGS: LOWER LUNGS: The visualized lower lungs are clear. LIVER: Incidental 5 mm low-density lesion is evident. SPLEEN: Granulomas are noted. PANCREAS: Within normal limits. KIDNEYS: 1 cm incidental left renal cyst is noted. ADRENAL GLANDS: Within normal limits. VASCULAR: Moderate vascular calcifications are noted. BOWEL/MESENTERY: The stomach, small bowel, and colon demonstrate no acute abnormality. There is no free intraperitone al air or fluid. ABDOMINAL WALL: Within normal limits. RETROPERITONEUM: There is no lymphadenopathy. BLADDER: Prominent with enlarged prostate. The ureters are prominent as well. INGUINAL: There is no lymphadenopathy or hernia. MUSCULOSKELETAL: Degenerative changes are seen both SI joints. CONCLUSION: Moderate stool throughout the colon. Prominent prostate with mild prominence to the distal ureters. Otherwise negative for acute process. Zachary Arango MD FACR on June 09, 2017 at 13:30 Board Certified Radiologist. This report was verified electronically.
--- NOTE | 2017-06-09 14:07 | RADRPT ---
EXAM DATE/TIME: 06/09/2017 13:18 [facility] COMPARISON: CHEST SINGLE AP, September 19, 2016, 12:15. INDICATIONS : Weakness. Altered mental status. MEDICAL HISTORY : Cardiovascular disease. Hypertension. Parkinsons. SURGICAL HISTORY : Endarectomy ENCOUNTER: Initial ACUITY: 1 day PAIN SCORE: 0/10 LOCATION: Bilateral chest FINDINGS: A single view of the chest demonstrates the lungs to be symmetrically aerated without evidence of mas s, infiltrate or effusion. The cardiomediastinal contours are unremarkable. Osseous structures are intact. CONCLUSION: No acute disease. Zachary Arango MD FACR on June 09, 2017 at 14:06 Board Certified Radiologist. This report was verified electronically.
[2017-06-09 14:16] VITALS: BP_SYST 181; BP_DIAS 86; BP_DIAS 96; PULSE 81; RESP 16; TEMP 97.9; O2SAT 98
[2017-06-09] MEDS ORDERED: ACETAMINOPHEN 325 MG TAB PO PRN (14:45)
[2017-06-09] MEDS ORDERED: SODIUM CHLORIDE 0.9% FLUSH 10 ML FLUSH IV FLUSH PRN (14:45)
[2017-06-09] MEDS ORDERED: NALOXONE HCL 0.4 MG/ML AMP IV PRN (14:45)
[2017-06-09] MEDS ORDERED: MAGNESIUM HYDROXIDE SUSP 30 ML CUP PO PRN (14:45)
[2017-06-09] MEDS ORDERED: ONDANSETRON HCL 4 MG/2 ML VIAL IVP PRN (14:45)
--- NOTE | 2017-06-09 15:17 | HHI.HP ---
HPI Service [facility] Hospitalists Primary Care Physician Marco Monae M.D. Admission Diagnosis altered mental status Chief Complaint: AMS Travel History International Travel<30 Days: No Contact w/Intl Traveler <30 Da: No Traveled to Known Affected Are: No History of Present Illness Patient is a pleasant 82-year-old male with history of Parkinson's disease, TIA , carotid endarterectomy. Patient was seen in the [place] ER 06/06/17 following a fall. At that time patient was diagnosed with acute L3 compression fracture. Case was reviewed by neurosurgery and conservative therapy with brace and outpatient follow-up was recommended. Patient was prescribed Toradol for pain. Per patient's , patient soon thereafter became confused with hallucinations. Patient received last dose of Toradol 6 PM yesterday. denies any new falls or injuries. Patient vomited once this morning. And accidentally took an extra dose of his Sinemet this morning as well. CT of the brain was obtained in the ER (06/09/17) showing no acute findings. Most likely patient's acute altered mental status is due to narcotics, pain, and decreased oral intake. Patient is admitted to [facility] for further evaluation and treatment. Review of Systems Constitutional: DENIES: Diaphoretic episodes, Fatigue, Fever, Weight gain, Weight loss, Chills, Dizziness, Change in appetite, Night Sweats Endocrine: DENIES: Heat/cold intolerance, Polydipsia, Polyuria, Polyphagia Eyes: DENIES: Blurred vision, Diplopia, Eye inflammation, Eye pain, Vision loss , Photosensitivity, Double Vision Ears, nose, mouth, throat: DENIES: Tinnitus, Hearing loss, Vertigo, Nasal discharge, Oral lesions, Throat pain, Hoarseness, Ear Pain, Running Nose, Epistaxis, Sinus Pain, Toothache, Odynophagia Respiratory: DENIES: Apneas, Cough, Snoring, Wheezing, Hemoptysis, Sputum production, Shortness of breath Cardiovascular: DENIES: Chest pain, Palpitations, Syncope, Dyspnea on Exertion , PND, Lower Extremity Edema, Orthopnea, Claudication Gastrointestinal: DENIES: Abdominal pain, Black stools, Bloody stools, BRB per rectum, Constipation, Diarrhea, GERD, Nausea, Reflux, Vomiting, Difficulty Swallowing, Anorexia Genitourinary: DENIES: Urinary frequency, Urinary incontinence, Urgency, Hematuria, Dysuria, Nocturia Musculoskeletal: DENIES: Joint pain, Muscle aches, Stiffness, Joint Swelling, Back pain, Neck pain Integumentary: DENIES: Abnormal pigmentation, Nail changes, Pruritus, Rash Hematologic/lymphatic: DENIES: Bruising, Lymphadenopathy Immunologic/allergic: DENIES: Eczema, Urticaria Neurologic: DENIES: Abnormal gait, Headache, Localized weakness, Paresthesias, Seizures, Speech Problems, Tremor, Poor Balance Psychiatric: DENIES: Anxiety, Confusion, Mood changes, Depression, Hallucinations, Agitation, Suicidal Ideation, Homicidal Ideation, Delusions, History of Bipolar, History of Schizophrenia Past Family Social History Past Medical History 1) OA 2) BPH 3) Hyperlipidemia 4) Hypothyroid 5) lumbar radiculopathy 6) Parkinson's disease, patient follows with Dr. 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 SKIN: No rashes, ecchymoses or lesions. Cool and dry. HEAD: Atraumatic. Normocephalic. No temporal or scalp tenderness. EYES: Pupils equal round and reactive. Extraocular motions intact. No scleral icterus. No injection or drainage. ENT: Nose without bleeding, purulent drainage or septal hematoma. Throat without erythema, tonsillar hypertrophy or exudate. Uvula midline. Airway patent. NECK: Trachea midline. No JVD or lymphadenopathy. Supple, nontender, no meningeal signs. CARDIOVASCULAR: Regular rate and rhythm without murmurs, gallops, or rubs. RESPIRATORY: Clear to auscultation. Breath sounds equal bilaterally. No wheezes , rales, or rhonchi. GASTROINTESTINAL: Abdomen soft, non-tender, nondistended. No hepato-splenomegaly , or palpable masses. No guarding. MUSCULOSKELETAL: Extremities without clubbing, cyanosis, or edema. No joint tenderness, effusion, or edema noted. No calf tenderness. Negative Homans sign bilaterally. NEUROLOGICAL: Awake and alert. Cranial nerves II through XII intact. Motor and sensory grossly within normal limits. Five out of 5 muscle strength in all muscle groups. Normal speech. Laboratory Laboratory Tests Test 06/09/17 06/09/17 06/09/17 10:20 11:50 12:22 White Blood Count 9.0 Red Blood Count 4.45 Hemoglobin 13.2 Hematocrit 40.3 Mean Corpuscular Volume 90.5 Mean Corpuscular Hemoglobin 29.6 Mean Corpuscular Hemoglobin 32.7 Concent Red Cell Distribution Width 12.6 Platelet Count 136 Mean Platelet Volume 9.2 Neutrophils (%) (Auto) 84.5 Lymphocytes (%) (Auto) 6.1 Monocytes (%) (Auto) 8.3 Eosinophils (%) (Auto) 0.7 Basophils (%) (Auto) 0.4 Neutrophils # (Auto) 7.6 Lymphocytes # (Auto) 0.5 Monocytes # (Auto) 0.7 Eosinophils # (Auto) 0.1 Basophils # (Auto) 0.0 CBC Comment DIFF FINAL Differential Comment Prothrombin Time 11.1 Prothromb Time International 1.0 Ratio Sodium Level 138 Potassium Level 4.0 Chloride Level 102 Carbon Dioxide Level 26.7 Anion Gap 9 Blood Urea Nitrogen 31 Creatinine 1.24 Estimat Glomerular Filtration 56 Rate Random Glucose 113 Lactic Acid Level 1.2 Calcium Level 9.7 Total Bilirubin 0.7 Direct Bilirubin 0.2 Indirect Bilirubin 0.5 Aspartate Amino Transf 22 (AST/SGOT) Alanine Aminotransferase 8 (ALT/SGPT) Alkaline Phosphatase 59 Total Creatine Kinase 176 Troponin I LESS THAN 0.02 Total Protein 8.0 Albumin 3.9 Lipase 73 Urine Color YELLOW Urine Turbidity CLEAR Urine pH 5.5 Urine Specific [place] 1.027 Urine Protein 30 Urine Glucose (UA) NEG Urine Ketones 10 Urine Occult Blood SMALL Urine Nitrite NEG Urine Bilirubin NEG Urine Urobilinogen LESS THAN 2.0 Urine Leukocyte Esterase NEG Urine RBC 13 Urine WBC 4 Urine Squamous Epithelial <1 Cells Urine Hyaline Casts 2 Urine Mucus FEW Microscopic Urinalysis Comment CATH-CULT NOT IND Date/Time Procedure Status Source Growth 06/09/17 10:20 Aerobic Blood Culture Received Blood Peripheral Pending 06/09/17 10:20 Anaerobic Blood Culture Received Blood Peripheral Pending Result Diagram: 06/09/17 1020 06/09/17 1020 Imaging Last Impressions Head CT 06/09/17 1150 Signed Impressions: Service Date/Time: Friday, June 09, 2017 12:46 - CONCLUSION: 1. Senescent changes 2. No acute intracranial abnormality or significant interval change. Baldemar Jacobs MD Chest X-Ray 06/09/17 1150 Signed Impressions: Service Date/Time: Wednesday, June 09, 2017 13:18 - CONCLUSION: No acute disease. Zachary Arango MD FACR Abdomen/Pelvis CT 06/09/17 0000 Signed Impressions: Service Date/Time: Friday, June 09, 2017 12:52 - CONCLUSION: Moderate stool throughout the colon. Prominent prostate with mild prominence to the distal ureters. Otherwise negative for acute process. Zachary Arango MD FACR Septic Shock Reassessment Heart: Regular rate and rhythm Lungs: Clear Skin: Warm Peripheral Pulses: Bounding Right Radial Bounding Left Radial Bounding Right Popliteal Bounding Left Popliteal Bounding Right Dorsalis Pedis Bounding Left Dorsalis Pedis Bounding Right Posterior Tibial Bounding Left Posterior Tibial Capillary Refill: Brisk Assessment and Plan Problem List: (1) Altered mental status, unspecified Status: Acute Plan: - Patient has prior history of TIA requiring admission September 2016 - Patient underwent right carotid endarterectomy [address] Patel - Given patient's history, confusion is most likely due to narcotic, pain, and oral intake - CT brain (06/09/17) showed no acute findings - Obtain MRI brain, to rule out acute processes - Obtain TSH, free T4, B-12, folate, RPR, ammonia level - Hold narcotics - Intravenous fluids - Supportive care - DVT prophylaxis (2) Compression fracture of L3 lumbar vertebra Status: Acute Plan: - See above - Hold narcotics for now - TSLO brace while out of bed - Request physical therapy evaluation - Patient might benefit from SNF at the end of this hospitalization (3) BPH (benign prostatic hyperplasia) Status: Chronic Plan: - Continue Avodart (4) Parkinson disease Status: Chronic Plan: - Continue Sinemet Problem Qualifiers (1) BPH (benign prostatic hyperplasia): Qualified Code: N40.0 - Benign prostatic hyperplasia, unspecified whether lower urinary tract symptoms present Kolby Noonan DO Jun 09, 2017 15:17
--- NOTE | 2017-06-09 15:54 | PD ---
Physical Exam Narrative GENERAL: Well-nourished, well-developed patient. SKIN: Warm and dry. HEAD: Normocephalic and atraumatic. EYES: No injection or drainage. ENT: No nasal drainage noted. NECK: Supple, trachea midline. RESPIRATORY: No increased effort. No accessory muscle use. NEUROLOGICAL: Moves extremities, clear speech Data Data Last Documented VS Vital Signs Date Time Temp Pulse Resp B/P Pulse Ox O2 Delivery O2 Flow Rate FiO2 06/09/17 12:19 16 99 Room Air 06/09/17 12:10 97.8 78 178/93 Orders Iv Access Insert/Monitor (06/09/17 10:05) Complete Blood Count With Diff (06/09/17 10:05) Prothrombin Time / Inr (Pt) (06/09/17 10:05) Basic Metabolic Panel (Bmp) (06/09/17 10:05) Urinalysis - C+S If Indicated (06/09/17 10:05) Lactic Acid (06/09/17 10:05) Blood Culture (06/09/17 10:05) Electrocardiogram (06/09/17 11:50) Chest, Single Ap (06/09/17 11:50) Ct Brain W/O Iv Contrast(Rout) (06/09/17 11:50) Blood Glucose (06/09/17 11:50) Ecg Monitoring (06/09/17 11:50) Oximetry (06/09/17 11:50) Sodium Chloride 0.9% Flush (Ns Flush) (06/09/17 12:00) Hepatic Functional Panel (06/09/17 11:50) Sodium Chlorid 0.9% 500 Ml Inj (Ns 500 M (06/09/17 12:00) Creatine Kinase (Cpk) (06/09/17 11:50) Troponin I (06/09/17 11:50) Cath For Specimen (06/09/17 11:50) Ct Abd/Pel W Iv Contrast(Rout) (06/09/17 ) Lipase (06/09/17 11:59) Iohexol 350 Inj (Omnipaque 350 Inj) (06/09/17 13:03) Admit Order (Ed Use Only) (06/09/17 13:59) Labs Laboratory Tests Test 8/2/17 8/2/17 8/2/17 10:20 11:50 12:22 White Blood Count 9.0 TH/MM3 Red Blood Count 4.45 MIL/MM3 Hemoglobin 13.2 GM/DL Hematocrit 40.3 % Mean Corpuscular Volume 90.5 FL Mean Corpuscular Hemoglobin 29.6 PG Mean Corpuscular Hemoglobin 32.7 % Concent Red Cell Distribution Width 12.6 % Platelet Count 136 TH/MM3 Mean Platelet Volume 9.2 FL Neutrophils (%) (Auto) 84.5 % Lymphocytes (%) (Auto) 6.1 % Monocytes (%) (Auto) 8.3 % Eosinophils (%) (Auto) 0.7 % Basophils (%) (Auto) 0.4 % Neutrophils # (Auto) 7.6 TH/MM3 Lymphocytes # (Auto) 0.5 TH/MM3 Monocytes # (Auto) 0.7 TH/MM3 Eosinophils # (Auto) 0.1 TH/MM3 Basophils # (Auto) 0.0 TH/MM3 CBC Comment DIFF FINAL Differential Comment Prothrombin Time 11.1 SEC Prothromb Time International 1.0 RATIO Ratio Sodium Level 138 MEQ/L Potassium Level 4.0 MEQ/L Chloride Level 102 MEQ/L Carbon Dioxide Level 26.7 MEQ/L Anion Gap 9 MEQ/L Blood Urea Nitrogen 31 MG/DL Creatinine 1.24 MG/DL Estimat Glomerular Filtration 56 ML/MIN Rate Random Glucose 113 MG/DL Lactic Acid Level 1.2 mmol/L Calcium Level 9.7 MG/DL Total Bilirubin 0.7 MG/DL Direct Bilirubin 0.2 MG/DL Indirect Bilirubin 0.5 MG/DL Aspartate Amino Transf 22 U/L (AST/SGOT) Alanine Aminotransferase 8 U/L (ALT/SGPT) Alkaline Phosphatase 59 U/L Total Creatine Kinase 176 U/L Troponin I LESS THAN 0.02 NG/ML Total Protein 8.0 GM/DL Albumin 3.9 GM/DL Lipase 73 U/L Urine Color YELLOW Urine Turbidity CLEAR Urine pH 5.5 Urine Specific [place] 1.027 Urine Protein 30 mg/dL Urine Glucose (UA) NEG mg/dL Urine Ketones 10 mg/dL Urine Occult Blood SMALL Urine Nitrite NEG Urine Bilirubin NEG Urine Urobilinogen LESS THAN 2.0 MG/DL Urine Leukocyte Esterase NEG Urine RBC 13 /hpf Urine WBC 4 /hpf Urine Squamous Epithelial <1 /hpf Cells Urine Hyaline Casts 2 /lpf Urine Mucus FEW /lpf Microscopic Urinalysis Comment CATH-CULT NOT IND MDM Supervised Visit with CATHY: Yes Interpretation(s) CBC & BMP Diagram 06/09/17 10:20 Last [address] 06/09/17 1150 Signed Impressions: Service Date/Time: Friday, June 09, 2017 12:46 - CONCLUSION: 1. Senescent changes 2. No acute intracranial abnormality or significant interval change. Baldemar Jacobs MD Chest X-Ray 06/09/17 1150 Signed Impressions: Service Date/Time: Friday, June 09, 2017 13:18 - CONCLUSION: No acute disease. Zachary Arango MD FACR Abdomen/Pelvis CT 06/09/17 0000 Signed Impressions: Service Date/Time: Friday, June 09, 2017 12:52 - CONCLUSION: Moderate stool throughout the colon. Prominent prostate with mild prominence to the distal ureters. Otherwise negative for acute process. Zachary Arango MD FACR Narrative Course I, Dr. calvillo, have reviewed the advance practice practitioner's documentation and am in agreement, met with the patient face to face, made the diagnosis, and the medical decision making was done by me. *My assessment and Findings: 82-year-old male presents with altered mental status. Initial workup shows no acute process. We will place patient in observation Diagnosis Primary Impression: Altered mental status, unspecified Monica Calvillo MD Jun 09, 2017 15:54
[2017-06-09] MEDS: NS + KCL 20 MEQ INJ 1,000 ML IV SCH (16:32)
[2017-06-09] MEDS: CARBIDOPA/LEVODOPA 25 MG/100 MG TAB PO SCH ×2 (16:35→22:48)
[2017-06-09 20:22] VITALS: BP 167/87; PULSE 74; RESP 16; TEMP 97.8; O2SAT 94
[2017-06-09] MEDS: SODIUM CHLORIDE 0.9% FLUSH 10 ML FLUSH IV FLUSH SCH (21:00)
--- NOTE | 2017-06-09 21:42 | RADRPT ---
EXAM DATE/TIME: 06/09/2017 20:59 [facility] COMPARISON: No previous studies available for comparison. INDICATIONS : Hematuria. MEDICAL HISTORY : Hypercholesterolemia. Gastroesophageal reflux disease. Cerebrovascular accident. Coronary artery d isease. Acid reflux. Parkinsons. Carcinoma, skin. SURGICAL HISTORY : Tonsillectomy. Total knee replacement, right. Carotid endarterectomy. ENCOUNTER: Initial ACUITY: 1 day PAIN SCORE: 6/10 LOCATION: Bilateral flank MEASUREMENTS: RIGHT KIDNEY: 9.2 x 4.4 x 4.3 cm LEFT KIDNEY: 9.1 x 4.5 x 5.2 cm FINDINGS: RIGHT KIDNEY: Renal cortex is normal in thickness and echotexture. No hydronephrosis, stone, or mass. LEFT KIDNEY: Renal cortex is normal in thickness and echotexture. No hydronephrosis, stone, or mass. BLADDER: Moderate distention. The prostate is prominent measuring 7.0 x 6.3 x 4.7 cm. CONCLUSION: 1. Negative ultrasound of the kidneys without evidence of hydronephrosis. 2. Enlarged prostate. Ascencion Frausto MD on June 09, 2017 at 21:40 Board Certified Radiologist. This report was verified electronically.
[2017-06-10] VITALS (8 sets, daily range): BP systolic 142–185; BP diastolic 65–84; PULSE 70–104; RESP 18; TEMP 97.8–98.8; O2SAT 94–98
[2017-06-10] MEDS: NS + KCL 20 MEQ INJ 1,000 ML IV SCH (03:46)
[2017-06-10] MEDS: CARBIDOPA/LEVODOPA 25 MG/100 MG TAB PO SCH ×4 (04:29→21:20)
[2017-06-10 07:33] LABS: AUTOMATED NEUTROPHIL # 9.8 TH/MM3 (1.8-7.7); BASOPHIL % 0.2 % (0.0-2.0); EOSINOPHIL % 0.1 % (0.0-4.0); HEMATOCRIT 36.7 % (39.0-51.0); HEMO FLAGS DIFF FINAL; LYMPH % 5.3 % (9.0-44.0); LYMPHOCYTE # 0.6 TH/MM3 (1.0-4.8); MEAN CELL VOLUME 88.9 FL (80.0-100.0); MEAN CORPUSCULAR HEMOGLOBIN 29.8 PG (27.0-34.0); MEAN CORPUSCULAR HGB CONC 33.6 % (32.0-36.0); MONO % 9.3 % (0.0-8.0); NEUT % 85.1 % (16.0-70.0); PLATELET COUNT 131 TH/MM3 (150-450); RED BLOOD COUNT 4.13 MIL/MM3 (4.50-5.90); RED CELL DISTRIBUTION WIDTH 12.4 % (11.6-17.2); WHITE BLOOD COUNT 11.5 TH/MM3 (4.0-11.0)
[2017-06-10] MEDS: GEMFIBROZIL 600 MG TAB PO SCH (08:20)
[2017-06-10 08:21] LABS: BICARBONATE 27.3 MEQ/L (21.0-32.0); POTASSIUM 3.5 MEQ/L (3.5-5.1)
[2017-06-10] MEDS: ASPIRIN 325 MG TAB PO SCH (08:21)
[2017-06-10] MEDS: FINASTERIDE 5 MG TAB PO SCH (08:21)
[2017-06-10] MEDS: SODIUM CHLORIDE 0.9% FLUSH 10 ML FLUSH IV FLUSH SCH ×2 (08:22→21:19)
[2017-06-10 08:47] LABS: FREE T4 1.08 NG/DL (0.76-1.46)
--- NOTE | 2017-06-10 11:01 | HHI.PR ---
Subjective Remarks confused at times, but per mentation is overall improved from admission Pt's back pain is controlled. Objective Vitals Vital Signs Date Time Temp Pulse Resp B/P Pulse Ox O2 Delivery O2 Flow Rate FiO2 06/10/17 07:54 98.4 83 18 185/84 97 06/10/17 05:50 98.4 74 18 147/74 97 06/10/17 01:26 98.8 74 18 157/84 98 06/09/17 20:22 97.8 74 16 167/87 94 06/09/17 14:16 97.9 81 16 181/86 98 Room Air 06/09/17 12:19 16 99 Room Air 06/09/17 12:10 97.8 78 17 178/93 98 Room Air 06/09/17 12:09 86 17 98 Room Air Result Diagram: 06/10/17 0715 06/10/17 0715 Imaging Last Impressions Head CT 06/09/17 1150 Signed Impressions: Service Date/Time: Friday, June 09, 2017 12:46 - CONCLUSION: 1. Senescent changes 2. No acute intracranial abnormality or significant interval change. Baldemar Jacobs MD Chest X-Ray 06/09/17 1150 Signed Impressions: Service Date/Time: Friday, June 09, 2017 13:18 - CONCLUSION: No acute disease. Zachary Arango MD FACR Renal Ultrasound 06/09/17 0000 Signed Impressions: Service Date/Time: Friday, June 09, 2017 20:59 - CONCLUSION: 1. Negative ultrasound of the kidneys without evidence of hydronephrosis. 2. Enlarged prostate. Ascencion Frausto MD Abdomen/Pelvis CT 06/09/17 0000 Signed Impressions: Service Date/Time: Friday, June 09, 2017 12:52 - CONCLUSION: Moderate stool throughout the colon. Prominent prostate with mild prominence to the distal ureters. Otherwise negative for acute process. Zachary Arango MD FACR Objective Remarks GENERAL: This is a well-nourished, well-developed patient, in no apparent distress. CARDIOVASCULAR: Regular rate and rhythm without murmurs, gallops, or rubs. RESPIRATORY: Clear to auscultation. Breath sounds equal bilaterally. No wheezes , rales, or rhonchi. GASTROINTESTINAL: Abdomen soft, non-tender, nondistended. Normal active bowel sounds MUSCULOSKELETAL: Extremities without clubbing, cyanosis, or edema. NEURO: Alert & Oriented x3, but confused at times. BOYD A/P Problem List: (1) Altered mental status, unspecified Status: Acute Plan: - Patient has prior history of TIA requiring admission September 2016 - Patient underwent right carotid endarterectomy [address] Patel - Given patient's history, confusion is most likely due to narcotic, pain, and oral intake - CT brain (06/09/17) showed no acute findings - MRI brain (06/09/17) --> pending - TSH, free T4, RPR --> WNL - B-12, folate --> elevated (supplements?) - RPR --> pending - Hold narcotics - Supportive care - DVT prophylaxis (2) Compression fracture of L3 lumbar vertebra Status: Acute Plan: - See above - Hold narcotics for now - TSLO brace while out of bed - PT - SNF at the conclusion of hospitalization, probably 06/11 (3) BPH (benign prostatic hyperplasia) Status: Chronic Plan: - Continue Avodart (4) Parkinson disease Status: Chronic Plan: - Continue Sinemet (5) HTN (hypertension) Status: Chronic Plan: - pt actually takes fludrocortisone at home to raise his blood pressure - start procardia XL 30mg daily - observe response Problem Qualifiers (1) BPH (benign prostatic hyperplasia): Qualified Code: N40.0 - Benign prostatic hyperplasia, unspecified whether lower urinary tract symptoms present (2) HTN (hypertension): Qualified Code: I10 - Essential hypertension Kolby Noonan DO Jun 10, 2017 11:01
[2017-06-10] MEDS ORDERED: LORazepam 2 MG/ML VIAL IM PRN (11:30)
[2017-06-10] MEDS ORDERED: NIFEdipine 30 MG SUSTAINED RELEASE TAB PO SCH (12:00)
[2017-06-10] MEDS: cloNIDine HCL 0.2 MG TAB PO PRN ×2 (12:38→21:20)
[2017-06-10] MEDS: NIFEdipine 30 MG SUSTAINED RELEASE TAB PO SCH (14:38)
--- NOTE | 2017-06-10 15:04 | EKG ---
Date Performed: 06/09/2017 Time Performed: 12:40:13 PTAGE: 82 years EKG: SINUS TACHYCARDIA WITH OCCASIONAL SUPRAVENTRICULAR PREMATURE COMPLEXES MINIMAL VOLTAGE CRIT ERIA FOR LVH, CONSIDER NORMAL VARIANT SEPTAL MYOCARDIAL INFARCTION Baserline artifact When compared t o previous tracing, patient is now tachycardic. ABNORMAL ECG PREVIOUS TRACING : 06/06/2017 20.12 DOCTOR: Kaylynn Parrish Interpretating Date/Time 06/10/2017 15:03:39
--- NOTE | 2017-06-10 16:46 | RADRPT ---
EXAM DATE/TIME: 06/10/2017 15:29 [facility] COMPARISON: No previous studies available for comparison. INDICATIONS : Patient has been constipated since yesterday. MEDICAL HISTORY : Hypercholesterolemia. Gastroesophageal reflux disease. Cerebrovascular accident. SURGICAL HISTORY : Tonsillectomy. Total knee replacement, right. Carotid endarterectomy. ENCOUNTER: Initial ACUITY: 1 day PAIN SCORE: 2/10 LOCATION: Bilateral Abdomen. FINDINGS: Supine view of the abdomen was performed. The abdominal bowel gas pattern is normal. No abnormal ma sses, calcifications, or organomegaly is seen. The osseous structures are unremarkable. CONCLUSION: Normal bowel gas pattern. No high volume of stool to suggest constipation. Ascencion Etienne Jr., MD on June 10, 2017 at 16:44 Board Certified Radiologist. This report was verified electronically.
[2017-06-10] MEDS ORDERED: LORazepam 2 MG/ML VIAL IV PUSH PRN (20:23)
--- NOTE | 2017-06-10 22:37 | RADRPT ---
EXAM DATE/TIME: 06/10/2017 21:37 [facility] COMPARISON: CT BRAIN W/O CONTRAST, June 09, 2017, 12:46. MRI BRAIN W & W/O CONTRAST, September 19, 2016, 15:15 . INDICATIONS : Altered mental status. CONTRAST: 15 cc Omniscan (gadodiamide) IV MEDICAL HISTORY : Hypertension. Parkinson's. SURGICAL HISTORY : Knee surgery. ENCOUNTER: Initial ACUITY: 3 day PAIN SCORE: 0/10 LOCATION: Head. TECHNIQUE: Multiplanar, multisequence MRI of the brain was performed both prior to and following the administrat ion of paramagnetic contrast. FINDINGS: CEREBRUM: The ventricles, sulci, basal cisterns are prominent, characteristic of moderate severity central jaci ical atrophy; the atrophy is unchanged from prior examination in September 2016.. No evidence of midl ine shift, mass lesion, hemorrhage or acute infarction. No extraaxial fluid collections are seen. T he pituitary gland and suprasellar cistern are normal in configuration. WHITE MATTER: No significant signal abnormalities are seen in the white matter. POSTERIOR FOSSA: The cerebellum and brainstem are intact. The 4th ventricle is midline. The cerebellopontine angle is unremarkable. The cerebellar tonsils are normal in position. DIFFUSION IMAGING: No focal areas of restricted diffusion are seen. No evidence of acute infarction. EXTRACRANIAL: The visualized portions of the orbits and paranasal sinuses are unremarkable. POST-CONTRAST: No abnormal areas of parenchymal or dural enhancement. No evidence of blood-brain barrier breakdown. CONCLUSION: No acute findings. Moderate central and cortical atrophy, stable. Ascencion Frausto MD on June 10, 2017 at 22:32 Board Certified Radiologist. This report was verified electronically.
[2017-06-10] MEDS ORDERED: GADODIAMIDE PF 287 MG/ML 5 ML VIAL (for RAD MRI) IV ONE (22:43)
[2017-06-11 00:13] VITALS: BP 147/75; PULSE 74; RESP 18; TEMP 98.4; O2SAT 97
[2017-06-11 04:00] VITALS: BP 135/62; PULSE 67; RESP 20; TEMP 98.4; O2SAT 98
[2017-06-11] MEDS: CARBIDOPA/LEVODOPA 25 MG/100 MG TAB PO SCH ×3 (04:11→16:33)
[2017-06-11 08:02] VITALS: BP 129/62; PULSE 66; RESP 16; TEMP 99; O2SAT 97
[2017-06-11] MEDS: GEMFIBROZIL 600 MG TAB PO SCH (08:16)
[2017-06-11] MEDS: NIFEdipine 30 MG SUSTAINED RELEASE TAB PO SCH (08:17)
[2017-06-11] MEDS: ASPIRIN 325 MG TAB PO SCH (08:17)
[2017-06-11] MEDS: FINASTERIDE 5 MG TAB PO SCH (08:17)
[2017-06-11] MEDS: SODIUM CHLORIDE 0.9% FLUSH 10 ML FLUSH IV FLUSH SCH (08:18)
[2017-06-11 12:05] VITALS: BP 140/68; PULSE 79; RESP 18; TEMP 98.1; O2SAT 98
[2017-06-11 15:54] VITALS: BP 161/70; PULSE 74; RESP 16; TEMP 98.2; O2SAT 98
[2017-06-11] MEDS ORDERED: NIFE30TA8 PO (16:16)
[2017-06-11] MEDS ORDERED: CLON0.5T PO (16:28)
[2017-06-11] MEDS ORDERED: ACET1TAB86 PO (16:30)
--- NOTE | 2017-06-11 16:34 | HHI.PR ---
Subjective Remarks improved mentation from admission. still with some mild confusion, baseline? pain is controlled. Objective Vitals Vital Signs Date Time Temp Pulse Resp B/P Pulse Ox O2 Delivery O2 Flow Rate FiO2 06/11/17 15:54 98.2 74 16 161/70 98 06/11/17 12:05 98.1 79 18 140/68 98 06/11/17 08:02 99.0 66 16 129/62 97 06/11/17 04:00 98.4 67 20 135/62 98 06/11/17 00:13 98.4 74 18 147/75 97 06/10/17 20:06 97.8 104 18 179/81 94 06/10/17 06/10/17 06/11/17 15:00 23:00 07:00 Intake Total 510 ml Balance 510 ml Intake IV Total 510 ml # Bowel Movements 10 Result Diagram: 06/10/17 0715 06/10/17 0715 Imaging Last Impressions Brain MRI 06/10/17 0000 Signed Impressions: Service Date/Time: June 21:37 - CONCLUSION: No acute findings. Moderate central and cortical atrophy, stable. Ascencion Frausto MD Abdomen X-Ray 06/10/17 0000 Signed Impressions: Service Date/Time: June 15:29 - CONCLUSION: Normal bowel gas pattern. No high volume of stool to suggest constipation. Ascencion Etienne Jr., MD Head CT 06/09/17 1150 Signed Impressions: Service Date/Time: Friday, June 09, 2017 12:46 - CONCLUSION: 1. Senescent changes 2. No acute intracranial abnormality or significant interval change. Baldemar Jacobs MD Chest X-Ray 06/09/17 1150 Signed Impressions: Service Date/Time: Friday, June 09, 2017 13:18 - CONCLUSION: No acute disease. Zachary Arango MD FACR Renal Ultrasound 06/09/17 0000 Signed Impressions: Service Date/Time: Friday, June 09, 2017 20:59 - CONCLUSION: 1. Negative ultrasound of the kidneys without evidence of hydronephrosis. 2. Enlarged prostate. Ascencion Frausto MD Abdomen/Pelvis CT 06/09/17 0000 Signed Impressions: Service Date/Time: Wednesday, June 09, 2017 12:52 - CONCLUSION: Moderate stool throughout the colon. Prominent prostate with mild prominence to the distal ureters. Otherwise negative for acute process. Zachary Arango MD FACR Objective Remarks GENERAL: This is a well-nourished, well-developed patient, in no apparent distress. CARDIOVASCULAR: Regular rate and rhythm without murmurs, gallops, or rubs. RESPIRATORY: Clear to auscultation. Breath sounds equal bilaterally. No wheezes , rales, or rhonchi. GASTROINTESTINAL: Abdomen soft, non-tender, nondistended. Normal active bowel sounds MUSCULOSKELETAL: Extremities without clubbing, cyanosis, or edema. NEURO: Alert & Oriented x3, but confused at times. BOYD A/P Problem List: (1) Altered mental status, unspecified Status: Acute Plan: - Patient has prior history of TIA requiring admission September 2016 - Patient underwent right carotid endarterectomy [address] Patel - Given patient's history, confusion is most likely due to narcotic, pain, and oral intake - CT brain (06/09/17) showed no acute findings - MRI brain (06/09/17) --> N0 acute findings - TSH, free T4 --> WNL - B-12, folate --> elevated (supplements?) - RPR --> negative - Hold narcotics - tylenol prn pain - transfer to SNF - see discharge orders (2) Compression fracture of L3 lumbar vertebra Status: Acute Plan: - See above - Hold narcotics for now - TSLO brace while out of bed - PT - SNF at the conclusion of hospitalization, probably 06/11 (3) BPH (benign prostatic hyperplasia) Status: Chronic Plan: - Continue Avodart (4) Parkinson disease Status: Chronic Plan: - Continue Sinemet (5) HTN (hypertension) Status: Chronic Plan: - pt actually takes fludrocortisone at home to raise his blood pressure - continue procardia XL 30mg daily - observe response Problem Qualifiers (1) BPH (benign prostatic hyperplasia): Qualified Code: N40.0 - Benign prostatic hyperplasia, unspecified whether lower urinary tract symptoms present (2) HTN (hypertension): Qualified Code: I10 - Essential hypertension Kolby Noonan DO Jun 11, 2017 16:33
== END 2017-06-11 17:37 ==
LOC: NEPC 09:54 → NEDA 14:00 → NEPFCDU 15:55
PROVIDERS: ADMIT Hospitalist; ATTEND Hospitalist
DX: R41.82 Altered mental status, unspecified (principal); S32.039A Unspecified fracture of third lumbar vertebra, initial encounter for closed fracture; W19.XXXA Unspecified fall, initial encounter; G20 Parkinson's disease; E78.5 Hyperlipidemia, unspecified; K59.00 Constipation, unspecified; I10 Essential (primary) hypertension; E78.00 Pure hypercholesterolemia, unspecified; K21.9 Gastro-esophageal reflux disease without esophagitis; I25.10 Atherosclerotic heart disease of native coronary artery without angina pectoris; R94.31 Abnormal electrocardiogram [ECG] [EKG]; E03.9 Hypothyroidism, unspecified; N40.0 Benign prostatic hyperplasia without lower urinary tract symptoms; G62.9 Polyneuropathy, unspecified; M19.90 Unspecified osteoarthritis, unspecified site; Z86.73 Personal history of transient ischemic attack (TIA), and cerebral infarction without residual deficits; Z85.828 Personal history of other malignant neoplasm of skin; Z79.899 Other long term (current) drug therapy
CPT/HCPCS: 70450; 70553; 71010; 74000; 74177; 76775; 80048; 80076; 81001; 82140; 82550; 82607; 82746; 83605; 83690; 84439; 84443; 84484; 85025; 85610; 86592; 87040; 88304; 93005; 96361; 96374; 97162; 99285; A9579; G0378; G8987; G8988; J2060; J3480; J7040; P9612; Q9967; 88300

== ENCOUNTER 2018-02-27 18:28 | Inpatient (IN) | payer MEDICARE ==
[~2018-02-27] VITALS: Ht 182.9 cm; Wt 66.2 kg
[2018-02-27] VITALS (7 sets, daily range): BP systolic 118–227; BP diastolic 61–107; PULSE 56–88; RESP 13–20; TEMP 97.8–98.7; O2SAT 97–100
[~2018-02-27 18:28] MED LIST changes: +ASPI-516 CHEW; -ASPI325T PO; +CITA10TA4; +FAMO1TAB37 PO; -FLUD.1 PO; +NIFE30TA8 PO; +PLAV75TA29 PO; -TRAM50TA PO; -VIAG50TA PO
[2018-02-27] MEDS ORDERED: IOHEXOL 350 MG/ML 10 ML VIAL (for RAD DIAG) IVCONTRAST ONE (18:29)
[2018-02-27] MEDS ORDERED: LABETALOL HCL 100 MG/20 ML VIAL IV PUSH ONE ×3 (18:45→19:15)
--- NOTE | 2018-02-27 18:53 | RADRPT ---
EXAM DATE/TIME: 02/27/2018 18:42 [facility] COMPARISON: CT BRAIN W/O CONTRAST, September 12, 2017, 18:51. INDICATIONS : Stroke alert, slurred speech. RADIATION DOSE: 38.99 CTDIvol (mGy) This report was called by Dr. Saucedo to [facility] at 1850 MEDICAL HISTORY : Non-responsive. SURGICAL HISTORY : Non-responsive. ENCOUNTER: Initial ACUITY: 1 day PAIN SCALE: Non-responsive LOCATION: Bilateral head TECHNIQUE: Multiple contiguous axial images were obtained of the head. Using automated exposure control and adj ustment of the mA and/or kV according to patient size, radiation dose was kept as low as reasonably a chievable to obtain optimal diagnostic quality images. DICOM format image data is available electro nically for review and comparison. FINDINGS: CEREBRUM: The ventricles are normal for age. Mild, symmetric cortical atrophy. Minimal periventricular small v essel ischemic demyelination around the frontal horns. No evidence of midline shift, mass lesion, hem orrhage or acute infarction. No extra-axial fluid collections are seen. POSTERIOR FOSSA: The cerebellum and brainstem are intact. The 4th ventricle is midline. The cerebellopontine angle i s unremarkable. EXTRACRANIAL: The visualized portion of the orbits is intact. SKULL: The calvaria is intact. No evidence of skull fracture. CONCLUSION: 1. Stable, minimal chronic changes with some symmetric cortical atrophy and some periventricular smal l vessel ischemic demyelination around the frontal horns of the lateral ventricles. 2. No acute intracranial process. No hemorrhage. Mikey Saucedo MD on February 27, 2018 at 18:47 Board Certified Radiologist. This report was verified electronically.
[2018-02-27 18:55] LABS: BASOPHIL % 0.9 % (0.0-2.0); EOSINOPHIL # 0.2 TH/MM3 (0-0.4); HEMATOCRIT 39.6 % (39.0-51.0); LYMPH % 33.1 % (9.0-44.0); LYMPHOCYTE # 1.8 TH/MM3 (1.0-4.8); MEAN CELL VOLUME 87.9 FL (80.0-100.0); MEAN CORPUSCULAR HEMOGLOBIN 28.8 PG (27.0-34.0); MEAN CORPUSCULAR HGB CONC 32.8 % (32.0-36.0); MEAN PLATELET VOLUME 8.6 FL (7.0-11.0); MONO % 8.2 % (0.0-8.0); MONOCYTE # 0.4 TH/MM3 (0-0.9); NEUT % 54.8 % (16.0-70.0); PLATELET COUNT 183 TH/MM3 (150-450); RED CELL DISTRIBUTION WIDTH 13.3 % (11.6-17.2); WHITE BLOOD COUNT 5.5 TH/MM3 (4.0-11.0)
--- NOTE | 2018-02-27 19:03 | RADRPT ---
EXAM DATE/TIME: 02/27/2018 18:46 [facility] COMPARISON: No previous studies available for comparison. INDICATIONS : Stroke Alert. Right hand weakness with slurred speech. IV CONTRAST: 85 cc Omnipaque 350 (iohexol) IV ; Cumulative dose for multiple exams. RADIATION DOSE: 22.79 CTDIvol (mGy) MEDICAL HISTORY : Parkinson's. Cerebrovascular disease. Hypertension. SURGICAL HISTORY : None. ENCOUNTER: Initial ACUITY: 1 day PAIN SCALE: 0/10 LOCATION: cranial TECHNIQUE: Volumetric scanning was performed using a multi-row detector CT scanner. The data was post processed with a variety of visualization algorithms including full volume maximum intensity projection, multi -planar sliding thin slab reformation, curved planar reformation, and surface rendering techniques. Using automated exposure control and adjustment of the mA and/or kV according to patient size, radiat ion dose was kept as low as reasonably achievable to obtain optimal diagnostic quality images. DICO M format image data is available electronically for review and comparison. FINDINGS: Anterior circulation: The internal carotid arteries demonstrate no significant stenosis. There is mild atherosclerotic calc ification of the intracranial internal carotid arteries. A1 segments and more distal anterior cerebra l arteries are symmetric and within normal limits. The middle cerebral artery branches demonstrate a symmetric appearance. No aneurysm or high-grade stenosis is identified. Posterior circulation: There are patent posterior cerebral arteries bilaterally. Left vertebral artery is dominant. The basi lar artery and posterior cerebral arteries demonstrate no significant stenosis or abnormality. No ane urysm is visualized. CONCLUSION: No acute intracranial vascular abnormality is identified. Siva Rojas MD on February 27, 2018 at 18:58 Board Certified Radiologist. This report was verified electronically.
[2018-02-27 19:09] LABS: TROPONIN I LESS THAN 0.02 NG/ML (0.02-0.05)
[2018-02-27] MEDS ORDERED: SODIUM CHLORIDE 0.9% 50 ML BAG IVF ONE (19:15)
[2018-02-27] MEDS ORDERED: NURSING INFORMATION XX PRN (19:15)
[2018-02-27] MEDS ORDERED: ALTEPLASE BOLUS 9 MG/9 ML SYR IV ONE (19:15)
[2018-02-27] MEDS ORDERED: ALTEPLASE DRIP IV ONE (19:15)
[2018-02-27 19:22] LABS: INTERNATIONAL NORMALIZED RATIO 1.1 RATIO; PROTHROMBIN TIME - PATIENT 10.7 SEC (9.8-11.6)
--- NOTE | 2018-02-27 19:30 | RADRPT ---
EXAM DATE/TIME: 02/27/2018 18:46 [facility] COMPARISON: No previous studies available for comparison. INDICATIONS : Stroke Alert. Right hand weakness with slurred speech. IV CONTRAST: 85 cc Omnipaque 350 (iohexol) IV ; Cumulative dose for multiple exams. RADIATION DOSE: 27.78 CTDIvol (mGy) MEDICAL HISTORY : Parkinson's. Cerebrovascular disease. Hypertension. SURGICAL HISTORY : None. ENCOUNTER: Initial ACUITY: 1 day PAIN SCALE: 0/10 LOCATION: Bilateral carotids Elevated flow velocities and ICA/CCA ratios have been found to correlate with increased degrees of vessel stenosis, calculated as percentage of diameter relative to a normal segment of distal ICA/CCA. TECHNIQUE: Volumetric scanning was performed using a multirow detector CT scanner. The data was post processed with a variety of visualization algorithms including full-volume maximum intensity projection, multip lanar sliding thin-slab reformation, curved-planar reformation, and surface-rendering techniques. Us ing automated exposure control and adjustment of the mA and/or kV according to patient size, radiatio n dose was kept as low as reasonably achievable to obtain optimal diagnostic quality images. DICOM f ormat image data is available electronically for review and comparison. FINDINGS: AORTIC ARCH: There is a three-vessel origin of the great vessels from the aorta. No evidence of ostial narrowing. RIGHT CAROTID: Common carotid artery demonstrates no significant stenosis. There may be intimal thickening of the ca rotid bulb and internal carotid artery but again the adjacent clips this could be related to prior en darterectomy. There is no significant stenosis of the internal carotid artery. LEFT CAROTID: Common carotid artery demonstrates no significant stenosis. There is mild calcified and noncalcified plaque in the carotid bulb and proximal internal carotid artery. There is less than 50% stenosis pres ent. VERTEBRALS: Left vertebral artery is dominant. No significant stenosis is identified. The visualized surrounding structures demonstrate no acute abnormality. There is mild parasepta l emphysema in the upper lobes. Focal area of groundglass opacity in the right upper lobe measures ap proximately 9 mm. CONCLUSION: 1. 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 No significant stenosis is prese nt within either internal carotid artery (less than 50% stenosis). 2. There is focal 9 mm opacity in the right upper lobe. Suggest attention to this at followup CT. Siva Rojas MD on February 27, 2018 at 19:25 Board Certified Radiologist. This report was verified electronically.
--- NOTE | 2018-02-27 19:39 | PD ---
HPI Chief Complaint: Stroke Alert Time Seen by Provider: 18:34 Travel History International Travel<30 days: No Contact w/Intl Traveler<30days: No Traveled to known affect area: No History of Present Illness HPI Patient is a 82-year-old male approximately 20 minutes prior to arrival the patient was getting in the shower and then had a slip and fall, after the patient's found him he was having severe difficulty speaking and making up words according for and she noticed some right hand weakness. Patient apparently had a history of recurrent small TIA/strokes in the past is never received TPA but his recognizes symptoms and brought here emergently, on arrival the patient is only moderately dysarthric and having trouble finding some words. 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 He denies any headache denies any injuries to any extremities. Symptoms are moderate, started approximately 20 minutes prior to arrival, context as above, associated signs and symptoms. states on arrival the patient's symptoms are improving. PFSH Past Medical History Hx Anticoagulant Therapy: Yes (ASA) Asthma: No Blood Disorders: No Heart Rhythm Problems: No Cancer: Yes (hx of skin cancer) Cardiovascular Problems: Yes High Cholesterol: Yes Chemotherapy: No Chest Pain: No Congestive Heart Failure: No COPD: No Cerebrovascular Accident: Yes Coronary Artery Disease: Yes Diabetes: No Diminished Hearing: No Endocrine: No Gastrointestinal Disorders: Yes (acid reflux) GERD: Yes Glaucoma: No Genitourinary: No Hepatitis: No Hiatal Hernia: No Hypertension: Yes Immune Disorder: No Implanted Vascular Access Dvce: No Musculoskeletal: Yes (parkinsons) Neurologic: Yes ( reports hx of TIA, parkinsons) Parkinson's Disease: Yes Psychiatric: No Reproductive: No Respiratory: No Radiation Therapy: No Sleep Apnea: No Thyroid Disease: No Tetanus Vaccination: < 5 Years Influenza Vaccination: Yes Past Surgical History AICD: No Eye Surgery: Yes (CATARACTS) Joint Replacement: No Pacemaker: No Tonsillectomy: Yes Other Surgery: Yes (carotid endarterectomy) Social History Alcohol Use: No Tobacco Use: No (QUIT 30 YEARS) Substance Use: No Allergies-Medications (Allergen,Severity, Reaction): Coded Allergies: enalaprilat (Verified Allergy, Severe, SWELLING, 02/27/18) Reported Meds & Prescriptions Reported Meds & Active Scripts Active Nifedipine ER 24 HR (Nifedipine) 30 Mg Tab 30 Mg PO BID Aspirin 81 Mg Chew 81 Mg CHEW DAILY 30 Days Clonazepam 0.5 Mg Tab 0.5 Mg PO Q8H PRN Reported Pepcid (Famotidine) 20 Mg Tab 20 Mg PO DAILY Calcium 1000 + D (Calcium Carbonate-Cholecalciferol) 1,000-800 Mg-Unit Tab 1 Tab PO Avodart (Dutasteride) 0.5 Mg Cap 0.5 Mg PO DAILY Gemfibrozil 600 Mg Tab 600 Mg PO DAILY Take 30 minutes prior to breakfast and dinner. Carbidopa-Levodopa 25-100 Mg Tab 1.5 Tab PO TID Review of Systems Except as stated in HPI: all other systems reviewed are Neg Physical Exam Narrative GENERAL: WD/WN in nad. SKIN: Focused skin assessment warm/dry. HEAD: Atraumatic. Normocephalic. No ibrahim signs no raccoons eyes EYES: Pupils equal and round. No scleral icterus. No injection or drainage. ENT: No nasal bleeding or discharge. Mucous membranes pink and moist. NECK: Trachea midline. No JVD. CARDIOVASCULAR: Regular rate and rhythm. No murmur appreciated. RESPIRATORY: No accessory muscle use. Clear to auscultation. Breath sounds equal bilaterally. GASTROINTESTINAL: Abdomen soft, non-tender, nondistended. Hepatic and splenic margins not palpable. MUSCULOSKELETAL: No obvious deformities. No clubbing. No cyanosis. No edema. NEUROLOGICAL: Awake and alert. Cranial nerves II through XII are grossly intact and nonfocal, patient does have dysarthric and stuttering speech. He is perhaps 4 out of 5 strength in the right seaman officer strength and 5 out of 5 strength in the left upper extremity as well as 5 out of 5 strength in bilateral lower extremities. Babinski was not able to be elicited bilaterally, total NIH stroke scale is 2. PSYCHIATRIC: Appropriate mood and affect; insight and judgment normal. Data Data Last Documented VS Vital Signs Date Time Temp Pulse Resp B/P (MAP) Pulse Ox O2 Delivery O2 Flow Rate FiO2 02/27/18 19:00 77 17 227/100 (142) 100 Room Air 02/27/18 18:35 21 02/27/18 18:31 97.8 Orders Orders Electrocardiogram (02/27/18 ) I-Stat Profile (02/27/18 18:34) Prothrombin Time / Inr (Pt) (02/27/18 18:34) Act Partial Throm Time (Ptt) (02/27/18 18:34) Complete Blood Count With Diff (02/27/18 18:34) Fibrinogen (02/27/18 18:34) Creatine Kinase (Cpk) (02/27/18 18:34) Troponin I (02/27/18 18:34) Drug Screen, Random Urine (02/27/18 18:34) Type And Screen (02/27/18 18:34) Ct Brain W/O Iv Contrast(Rout) (02/27/18 ) Chest, Single Ap (02/27/18 ) Cta Brain W Iv Contrast W 3d (02/27/18 18:34) Cta Neck W Iv Contrast W 3d (02/27/18 18:34) Labetalol Inj (Trandate Inj) (02/27/18 18:45) Iohexol 350 Inj (Omnipaque 350 Inj) (02/27/18 18:29) ^ Call Pharmacy (02/27/18 19:11) Nih Stroke Scale - Nihss .ONCE (02/27/18 19:11) Urinary Catheter Insert/Apply (02/27/18 19:11) Anticoagulant Alert (02/27/18 19:11) ^ Post Infusion Restrictions (02/27/18 19:11) ^ Medication Alert (02/27/18 19:11) Vital Signs (Adult) .As directed (02/27/18 19:11) Notify Dr: Blood Pressure (02/27/18 19:11) ^ Medication Alert (02/27/18 19:11) Alteplase Bolus (Activase Bolus) (02/27/18 19:15) Alteplase Drip (Activase Drip) (02/27/18 19:15) Sodium Chloride 0.9% Inj (Ns Inj) (02/27/18 19:15) Misc Nursing Information (02/27/18 19:15) Resp Oxygen Nc Stroke (02/27/18 ) Ct Brain W/O Iv Contrast(Rout) (02/28/18 ) Nicardipine Inj (Cardene Inj) (02/27/18 19:15) Labetalol Inj (Trandate Inj) (02/27/18 19:15) Labetalol Inj (Trandate Inj) (02/27/18 19:15) Consult Neurology (02/27/18 ) Admit Order (Ed Use Only) (02/27/18 ) Labs Laboratory Tests Test 02/27/18 18:40 White Blood Count 5.5 TH/MM3 Red Blood Count 4.50 MIL/MM3 Hemoglobin 13.0 GM/DL Bedside Hemoglobin 12.9 G/DL Hematocrit 39.6 % Bedside Hematocrit 38.0 % Mean Corpuscular Volume 87.9 FL Mean Corpuscular Hemoglobin 28.8 PG Mean Corpuscular Hemoglobin Concent 32.8 % Red Cell Distribution Width 13.3 % Platelet Count 183 TH/MM3 Mean Platelet Volume 8.6 FL Neutrophils (%) (Auto) 54.8 % Lymphocytes (%) (Auto) 33.1 % Monocytes (%) (Auto) 8.2 % Eosinophils (%) (Auto) 3.0 % Basophils (%) (Auto) 0.9 % Neutrophils # (Auto) 3.0 TH/MM3 Lymphocytes # (Auto) 1.8 TH/MM3 Monocytes # (Auto) 0.4 TH/MM3 Eosinophils # (Auto) 0.2 TH/MM3 Basophils # (Auto) 0.0 TH/MM3 CBC Comment DIFF FINAL Differential Comment Prothrombin Time 10.7 SEC Prothromb Time International Ratio 1.1 RATIO Activated Partial Thromboplast Time 23.9 SEC Fibrinogen 282 mg/dL Bedside Sodium 143 MMOL/L Bedside Potassium 3.3 MMOL/L Bedside Chloride 102 MMOL/L Bedside Blood Urea Nitrogen 22 MG/DL Bedside Creatinine 1.2 MG/DL Bedside Glucose 89 MG/DL Total Creatine Kinase 156 U/L Troponin I LESS THAN 0.02 NG/ML MDM Medical Screen Exam Complete: Yes Emergency Medical Condition: Yes Differential Diagnosis Acute embolic CVA, hemorrhagic stroke, head injury, Narrative Course Patient arrived him a stroke alert still for an NIH stroke scale of 2 his speech deficits seem to be the only symptom on arrival. He was taken to the CAT scan we had a noncontrast CT which was negative, initial blood pressure 170 systolic, repeated and the CAT scan are now 240 systolic, his states that he has significant trouble controlling his blood pressure at home. Patient had CTA performed while nurses were getting labetalol. He was taken back to the examination room where he was reexamined and his symptoms had significantly worsened, he is having extreme difficulty finding any words and has inattention now as well. He is unable to identify my pen or my glasses. His NIH stroke scale has an increase to 8. I did discuss with the patient's is a patient is currently unable to make his own decisions, discussed the risk of bleeding and the TPA may help him have more profound recovery, after discussions his risk benefits complications and alternatives patient's consented for TPA verbally. The patient's blood pressure significantly elevated on return from CAT scan, 10 mg of labetalol was given in CT, an additional 20 mg was given when he returned to the examination room, Cardene drip was also started but was quickly weaned off his blood pressure seemed to respond quite well to labetalol. Having been in the reference range for TPA a bolus dose was given at 1910 followed by the infusion. Patient was then discussed with Dr. Allen for admission. Critical Care Narrative Aggregate critical care time was 65 minutes. Time to perform other separately billable procedures was not included in the critical care time. My time did not include minutes spent treating any other patients simultaneously or on activities that did not directly contribute to the patient's treatment. The services I provided to this patient were to treat and/or prevent clinically significant deterioration that could result in: , disability, organ failure I provided critical care services requiring my management, as noted below: Chart data review, documentation time, medication orders and management, vital sign assessments/reviewing monitor data, ordering and reviewing lab tests, ordering and interpreting/reviewing x-rays and diagnostic studies, care of the patient and discussion of the patient with the admitting physicians. Stroke Alert NIHSS NIH Stroke Scale Result: 2 NIHSS Time Completed: 18:33 Thrombolytic Contraindications Contraindications Comment: Patient declined any recent surgeries history of blood thinner use or prior intracranial hemorrhage or GI hemorrhage. Thrombolytic Delayed Delay Comment: There was some delay as the patient's blood pressure needed to be managed. Diagnosis Diagnosis: Primary Impression: CVA (cerebral vascular accident) Qualified Codes: I63.9 - Cerebral infarction, unspecified Admitting Physician Requests: Admit Condition: Stable Clint Vasquez MD Feb 27, 2018 19:39
[2018-02-27] MEDS ORDERED: VIAG50TA PO (19:44)
[2018-02-27] MEDS ORDERED: VITA1000 PO (19:44)
[2018-02-27] MEDS ORDERED: CITA10TA4 PO (19:44)
[2018-02-27] MEDS: niCARdipine INJ 25 MG in SODIUM CHLOR 0.9% 250 ML INJ 240 ML IV PRN (19:55)
[2018-02-27] MEDS ORDERED: RESP: ALBUTEROL 2.5 MG/IPRATROPIUM 0.5 MG NEB (PRN) INH (20:30)
[2018-02-27] MEDS ORDERED: BISACODYL 10 MG SUPP RECTAL PRN (20:30)
[2018-02-27] MEDS ORDERED: LACTULOSE SYRUP 20 GM/30 ML CUP PO PRN (20:30)
[2018-02-27] MEDS ORDERED: SODIUM CHLORIDE 0.9% FLUSH 10 ML FLUSH IV FLUSH PRN (20:30)
[2018-02-27] MEDS ORDERED: CHLORHEXIDINE GLUCONATE 2 % 1 PACK (2 CLOTHS) TOP PRN (20:30)
[2018-02-27] MEDS ORDERED: MAGNESIUM HYDROXIDE SUSP 30 ML CUP PO PRN (20:30)
[2018-02-27] MEDS ORDERED: clonazePAM 0.5 MG TAB PO PRN (20:30)
[2018-02-27] MEDS ORDERED: ONDANSETRON HCL 4 MG/2 ML VIAL IV PUSH PRN (20:30)
[2018-02-27] MEDS ORDERED: NURSING INFORMATION XX SCH (20:30)
[2018-02-27] MEDS ORDERED: ACETAMINOPHEN 325 MG TAB PO PRN (20:30)
[2018-02-27] MEDS ORDERED: SENNOSIDES 8.6 MG TAB PO PRN (20:30)
[2018-02-27] MEDS ORDERED: PILL SPLITTER OTHER PRN (20:45)
[2018-02-27] MEDS: DOCUSATE SODIUM 50 MG/SENNA 8.6 MG TAB PO SCH (21:00)
--- NOTE | 2018-02-27 21:00 | RADRPT ---
EXAM DATE/TIME: 02/27/2018 20:34 [facility] COMPARISON: CHEST SINGLE AP, June 09, 2017, 13:18. INDICATIONS : Stroke Alert MEDICAL HISTORY : Parkinson's. cerebrovascular disease. hypertension SURGICAL HISTORY : None. ENCOUNTER: Initial ACUITY: 1 day PAIN SCORE: Non-responsive. LOCATION: chest FINDINGS: Portable AP view of the chest demonstrates a normal-sized cardiac silhouette. EKG lines overlie the p atient. No effusion, consolidation, or pneumothorax is identified. The bones and soft tissues demonst rate no acute finding. CONCLUSION: No acute cardiopulmonary abnormality is identified. Siva Rojas MD on February 27, 2018 at 20:55 Board Certified Radiologist. This report was verified electronically.
[2018-02-27] MEDS: FAMOTIDINE 20 MG/2 ML VIAL IV PUSH SCH (22:06)
[2018-02-27] MEDS: SODIUM CHLORIDE 0.9% FLUSH 10 ML FLUSH IV FLUSH SCH (22:06)
[2018-02-27] MEDS: SODIUM CHLOR 0.9% 1000 ML INJ 1,000 ML IV SCH (22:06)
--- NOTE | 2018-02-27 23:05 | HHI.HP ---
HPI Service Critical Care Medicine Primary Care Physician Larry Monae M.D. Admission Diagnosis Acute Stroke Diagnosis: Travel History International Travel<30 Days: No Contact w/Intl Traveler <30 Da: No Traveled to Known Affected Are: No History of Present Illness 82-year-old male presents as a stroke alert. About 20 minutes prior to arrival the patient was getting in the shower and then had a slip and fall, after the patient's found him he was having severe difficulty speaking and making up words according for and she noticed some right hand weakness. The patient has a history of multiple TIA/strokes in the past but has never received TPA. The patient's recognizes symptoms and brought here emergently. On arrival the patient was only moderately dysarthric and having trouble finding some words. The case was discussed with neurologist on-call and the decision was made to administer TPA infusion. Review of Systems ROS Unable to obtain due to patient's dysarthria Past Family Social History Allergies: Coded Allergies: enalaprilat (Verified Allergy, Severe, SWELLING, 02/27/18) Past Medical History Osteoarthritis BPH Hyperlipidemia Hypothyroid lumbar radiculopathy Parkinson's disease, patient follows with Dr. Cobos GERD peripheral neuropathy skin cancer, unspecified L3 compression fracture, dx 06/06/17 Past Surgical History cataract surgery epidural steroid injection knee arthroscopy needle biopsy of the prostate Reported Medications Reported Meds & Active Scripts Active Aspirin 81 Mg Chew 81 Mg CHEW DAILY 30 Days Clonazepam 0.5 Mg Tab 0.5 Mg PO Q8H PRN Reported Viagra (Sildenafil Citrate) 50 Mg Tab 50 Mg PO DAILY PRN Citalopram (Citalopram Hydrobromide) 10 Mg Tab 10 Mg PO DAILY Vitamin D-1000 (Cholecalciferol) 1,000 Unit Tab 1,000 Units PO DAILY Pepcid (Famotidine) 20 Mg Tab 20 Mg PO DAILY Calcium 1000 + D (Calcium Carbonate-Cholecalciferol) 1,000-800 Mg-Unit Tab 1 Tab PO Avodart (Dutasteride) 0.5 Mg Cap 0.5 Mg PO DAILY Gemfibrozil 600 Mg Tab 600 Mg PO DAILY Take 30 minutes prior to breakfast and dinner. Carbidopa-Levodopa 25-100 Mg Tab 1.5 Tab PO TID Active Ordered Medications Current Medications Medications (Trade) Dose Ordered Sig/Leida Route PRN Reason Start Time Stop Time Status Last Admin Dose Admin Miscellaneous Information No Heparin, Warfarin, Aspir... UNSCH PRN XX SEE DOSE INSTRUCTIONS 02/27/18 19:15 02/28/18 19:14 Nicardipine HCl 25 mg/Sodium Chloride 250 ml @ 50 mls/hr TITRATE PRN IV Blood pressure management 02/27/18 19:15 02/27/18 19:55 Aspirin (Aspirin Chew) 81 mg DAILY CHEW 02/28/18 09:00 Carbidopa/Levodopa (Sinemet 25-100 Mg) 1.5 tab TID PO 02/28/18 09:00 Citalopram Hydrobromide (CeleXA) 10 mg DAILY PO 02/28/18 09:00 Clonazepam (KlonoPIN) 0.5 mg q8h PRN PO agitation 02/27/18 20:30 Gemfibrozil (Lopid) 600 mg DAILY PO 02/28/18 09:00 Finasteride (Proscar) 5 mg DAILY PO 02/28/18 09:00 Miscellaneous (Pill Splitter) 1 ea UNSCH PRN OTHER SEE LABEL COMMENTS 02/27/18 20:45 Sodium Chloride 1,000 ml @ 84 mls/hr [id number] IV 02/27/18 21:00 02/27/18 22:06 Sodium Chloride (NS Flush) 2 ml UNSCH PRN IV FLUSH FLUSH AFTER USING IV ACCESS 02/27/18 20:30 Sodium Chloride (NS Flush) 2 ml BID IV FLUSH 02/27/18 21:00 02/27/18 22:06 Acetaminophen (Tylenol) 650 mg Q6H PRN PO PAIN 1-10 AND/OR FEVER >101F 02/27/18 20:30 Famotidine (Pepcid Inj) 20 mg Q12HR IV PUSH 02/27/18 21:00 02/27/18 22:06 Ondansetron HCl (Zofran Inj) 4 mg Q6H PRN IV PUSH NAUSEA OR VOMITING 02/27/18 20:30 Albuterol/ Ipratropium (Duoneb Neb) 1 ampule Q2HR NEB PRN INH WHEEZING 02/27/18 20:30 Heparin Sodium (Porcine) (Heparin Inj) 5,000 units Q8H SQ 02/28/18 22:00 Miscellaneous Information 1 Q361D XX 02/27/18 20:30 02/27/18 20:30 Chlorhexidine Gluconate (Chlorhexidine 2% Cloth) 3 pack Taper DAILY@04 TOP 02/28/18 04:00 02/24/19 03:59 Chlorhexidine Gluconate (Chlorhexidine 2% Cloth) 3 pack UNSCH PRN TOP HYGIENIC CARE 02/27/18 20:30 Senna/Docusate Sodium (Jessie-Colace) 1 tab BID PO 02/27/18 21:00 Magnesium Hydroxide (Milk Of Magnesia Liq) 30 ml Q12H PRN PO Mild constipation 02/27/18 20:30 Sennosides (Senokot) 17.2 mg Q12H PRN PO Moderate constipation 02/27/18 20:30 Bisacodyl (Dulcolax Supp) 10 mg DAILY PRN RECTAL SEVERE CONSITIPATION 02/27/18 20:30 Lactulose (Lactulose Liq) 30 ml DAILY PRN PO SEVERE CONSITIPATION 02/27/18 20:30 Family History No family history significant of early coronary artery disease or strokes Social History Negative for tobacco, alcohol, or illicit drug abuse Physical Exam Vital Signs Vital Signs Date Time Temp Pulse Resp B/P (MAP) Pulse Ox O2 Delivery O2 Flow Rate FiO2 02/27/18 20:43 78 17 153/90 (111) 98 02/27/18 19:55 70 211/91 02/27/18 19:00 77 17 227/100 (142) 100 Room Air 02/27/18 18:35 99 21 02/27/18 18:35 99 21 02/27/18 18:31 97.8 81 17 223/107 (145) 98 02/27/18 18:31 85 18 98 Physical Exam GENERAL: Elderly gentleman with slurred speech in no acute distress. SKIN: Focused skin assessment warm/dry. HEAD: Atraumatic. Normocephalic. No ibrahim signs no raccoons eyes EYES: Pupils equal and round. No scleral icterus. No injection or drainage. ENT: No nasal bleeding or discharge. Mucous membranes pink and moist. NECK: Trachea midline. No JVD. CARDIOVASCULAR: Regular rate and rhythm. No murmur appreciated. RESPIRATORY: No accessory muscle use. Clear to auscultation. Breath sounds equal bilaterally. GASTROINTESTINAL: Abdomen soft, non-tender, nondistended. Hepatic and splenic margins not palpable. MUSCULOSKELETAL: No obvious deformities. No clubbing. No cyanosis. No edema. NEUROLOGICAL: Awake and alert. Cranial nerves II through XII are grossly intact and nonfocal, patient does have dysarthric and slurred speech. 4 out of 5 strength in the right core machine operator strength and 5 out of 5 strength in the left upper extremity. 5 out of 5 strength in bilateral lower extremities. Babinski was not able to be elicited bilaterally. Laboratory Laboratory Tests Test 02/27/18 18:40 02/27/18 20:00 02/27/18 20:58 White Blood Count 5.5 Red Blood Count 4.50 Hemoglobin 13.0 Bedside Hemoglobin 12.9 Hematocrit 39.6 Bedside Hematocrit 38.0 Mean Corpuscular Volume 87.9 Mean Corpuscular Hemoglobin 28.8 Mean Corpuscular Hemoglobin Concent 32.8 Red Cell Distribution Width 13.3 Platelet Count 183 Mean Platelet Volume 8.6 Neutrophils (%) (Auto) 54.8 Lymphocytes (%) (Auto) 33.1 Monocytes (%) (Auto) 8.2 Eosinophils (%) (Auto) 3.0 Basophils (%) (Auto) 0.9 Neutrophils # (Auto) 3.0 Lymphocytes # (Auto) 1.8 Monocytes # (Auto) 0.4 Eosinophils # (Auto) 0.2 Basophils # (Auto) 0.0 CBC Comment DIFF FINAL Differential Comment Prothrombin Time 10.7 Prothromb Time International Ratio 1.1 Activated Partial Thromboplast Time 23.9 Fibrinogen 282 Bedside Sodium 143 Bedside Potassium 3.3 Bedside Chloride 102 Bedside Blood Urea Nitrogen 22 Bedside Creatinine 1.2 Bedside Glucose 89 Total Creatine Kinase 156 Troponin I LESS THAN 0.02 Urine Opiates Screen NEG Urine Barbiturates Screen NEG Urine Amphetamines Screen NEG Urine Benzodiazepines Screen NEG Urine Cocaine Screen NEG Urine Cannabinoids Screen NEG Result Diagram: 02/27/181839 Imaging Last 24 hours Impressions Neck CTA 02/27/181833 Signed Impressions: Service Date/Time: Tuesday, February 27, 2018 18:46 - CONCLUSION: 1. 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 No significant stenosis is present within either internal carotid artery (less than 50%% stenosis). 2. There is focal 9 mm opacity in the right upper lobe. Suggest attention to this at followup CT. Siva Rojas MD Head CTA 02/27/18 1834 Signed Impressions: Service Date/Time: Tuesday, February 27, 2018 18:46 - CONCLUSION: No acute intracranial vascular abnormality is identified. Siva Rojas MD Head CT 02/27/18 0000 Signed Impressions: Service Date/Time: Tuesday, February 27, 2018 18:42 - CONCLUSION: 1. Stable, minimal chronic changes with some symmetric cortical atrophy and some periventricular small vessel ischemic demyelination around the frontal horns of the lateral ventricles. 2. No acute intracranial process. No hemorrhage. Mikey Saucedo MD Chest X-Ray 02/27/18 0000 Signed Impressions: Service Date/Time: Tuesday, February 27, 2018 20:34 - CONCLUSION: No acute cardiopulmonary abnormality is identified. MD Tawanda Alonso VTE Risk Assessment Tawanda VTE Risk Assessment: Mod/High Risk (score >= 2) Caprini Risk Assessment Model Point Value = 1 Point Value = 2 Point Value = 3 Point Value = 5 Age 41-60 Minor surgery BMI > 25 kg/m2 Swollen legs Varicose veins or History of unexplained or recurrent spontaneous Oral contraceptives or hormone replacement Sepsis (< 1 month) Serious lung disease, including pneumonia (< 1 month) Abnormal pulmonary function Acute myocardial infarction Congestive heart failure (< 1 month) History of inflammatory bowel disease Medical patient at bed rest Age 61-74 Arthroscopic surgery Major open surgery (> 45 min) Laparoscopic surgery (> 45 min) Malignancy Confined to bed (> 72 hours) Immobilizing plaster cast Central venous access Age >= 75 History of VTE Family history of VTE Factor V Leiden Prothrombin 30420P Lupus anticoagulant Anticardiolipin antibodies Elevated serum homocysteine Heparin-induced thrombocytopenia Other congenital or acquired thrombophilia Stroke (< 1 month) Elective arthroplasty Hip, pelvis, or leg fracture Acute spinal cord injury (< 1 month) Prophylaxis Regimen Total Risk Factor Score Risk Level Prophylaxis Regimen 0-1 Low Early ambulation 2 Moderate Order ONE of the following: *Sequential Compression Device (SCD) *Heparin 5000 units SQ BID 3-4 Higher Order ONE of the following medications: *Heparin 5000 units SQ TID *Enoxaparin/Lovenox 40 mg SQ daily (WT < 150 kg, CrCl > 30 mL/min) *Enoxaparin/Lovenox 30 mg SQ daily (WT < 150 kg, CrCl > 10-29 mL/min) *Enoxaparin/Lovenox 30 mg SQ BID (WT < 150 kg, CrCl > 30 mL/min) AND/OR *Sequential Compression Device (SCD) 5 or more Highest Order ONE of the following medications: *Heparin 5000 units SQ TID (Preferred with Epidurals) *Enoxaparin/Lovenox 40 mg SQ daily (WT < 150 kg, CrCl > 30 mL/min) *Enoxaparin/Lovenox 30 mg SQ daily (WT < 150 kg, CrCl > 10-29 mL/min) *Enoxaparin/Lovenox 30 mg SQ BID (WT < 150 kg, CrCl > 30 mL/min) AND *Sequential Compression Device (SCD) Assessment and Plan Assessment and Plan Acute CVA/TIA -Status post TPA administration -Admit to neuro ICU -Neuro checks per unit protocol -CT head a.m. -Management per neurology Hypertension -Cardene drip -Labetalol as needed to keep SBP less than 180 Parkinson's disease - Carbidopa/Levodopa Depression/anxiety - Citalopram - Clonazepam Dyslipidemia - Gemfibrozil BPH - Finasteride DVT GI prophylaxis -Chuck's and SCDs -Subcu heparin to start 24 hours post TPA administration -Pepcid Critical Care: The total critical care time was 35 minutes. Time to perform other separately billable procedures was not included in the critical care time. Jonhy Allen MD Feb 27, 2018 11:05 pm
--- NOTE | 2018-02-27 23:47 | EKG ---
Date Performed: 02/27/2018 Time Performed: 18:35:18 PTAGE: 82 years EKG: Sinus rhythm WITH FIRST DEGREE AV BLOCK WITH OCCASIONAL SUPRAVENTRICULAR PREMATURE COMPLEXES POSSIBLE RIGHT VENTR ICULAR CONDUCTION DELAY SEPTAL MYOCARDIAL INFARCTION ABNORMAL ECG Since the PREVIOUS TRACING , no significant change noted DOCTOR: Lloyd Jean-Baptiste Interpretating Date/Time 02/27/2018 23:46:55
[2018-02-28] VITALS (25 sets, daily range): BP systolic 119–149; BP diastolic 55–68; PULSE 64–92; RESP 12–24; TEMP 97.9–99.1; O2SAT 93–100
--- NOTE | 2018-02-28 00:12 | MB ---
cc: Jesse Solitario MD DATE: 02/27/2018 HISTORY OF PRESENT ILLNESS: This is an 82-year-old. He is seen for a stroke alert call. The case was discussed with Dr. Patel on a couple of occasions before I came to see the patient. This evening, apparently about 20 minutes before coming to the hospital, he had a fall at home and his found him to have a lot of difficulty speaking, and he also admitted some right hand numbness. He was brought to the hospital quickly. He was evaluated and felt to be a candidate for tPA. His NIH stroke scale was about 6. Initially he seemed to be doing better in the emergency room, but at the time he went to the CAT scan, and there in the CT scan his speech became more impaired again. I came in just about the time the tPA was completed. The patient was lying in bed flat, awake, alert, in no obvious distress, at times trying to verbalize some simple words but quite significantly aphasic, difficult for him to comprehend and follow simple commands. To mimics, he seemed to be following commands. He was moving all 4 extremities grossly equally. There was no arm drift. There was no obvious facial weakness. He seems to be gazing right and left and seems to respond to visual threat. Probably has symmetrical perception to sensory stimulation. Reflexes were 1+, trace but present at the ankles, and plantar responses were flexor. The patient had a CT brain that was negative for acute process. CT angio head and neck essentially negative studies, and specifically, no intracranial thrombus noted. The CTA neck was also showing less than 50% stenosis. The patient has a history of Parkinson's, taking Sinemet, apparently 1-1/2 tablets of 25 mg, 25/100 mg 3 times a day. He may take some Florinef, Avodart and gemfibrozil. He had a couple of strokes in the past; the first one was in September 2016, the second one in September 2017. He had carotid endarterectomy, apparently right side, after the first stroke. He recovered well from previous strokes. ASSESSMENT AND PLAN: Stroke alert, left middle cerebral artery distribution ischemic event. He was felt to be a tPA candidate. His blood pressure initially was around 240 and he was treated with Cardene and subsequently given tPA. CT angio shows no lesion compatible with interventional treatment/thrombectomy. He is going to be transferred to the intensive care unit for close monitoring with post-tPA protocol orders. Discussed with the patient's and their son at bedside. I will follow the neurological course. Plan to obtain echocardiogram, continue cardiac monitoring. So far, no atrial fibrillation. Checking a lipid profile. Start antiplatelet therapy, and depending upon the clinical course, even anticoagulant therapy after 24 hours. Thank you for asking us to assist in his care. We will follow the patient with you. MD KETURAH Weinstein/SUGEY , 09:10 PM , 12:11 AM
[2018-02-28] MEDS: CHLORHEXIDINE GLUCONATE 2 % 1 PACK (2 CLOTHS) TOP SCH (01:39)
[2018-02-28] MEDS: SODIUM CHLOR 0.9% 1000 ML INJ 1,000 ML IV SCH (08:34)
[2018-02-28] MEDS: SODIUM CHLORIDE 0.9% FLUSH 10 ML FLUSH IV FLUSH SCH ×2 (08:35→20:17)
[2018-02-28] MEDS: FAMOTIDINE 20 MG/2 ML VIAL IV PUSH SCH ×2 (08:35→20:17)
[2018-02-28] MEDS: CARBIDOPA/LEVODOPA 25 MG/100 MG TAB PO SCH ×3 (08:36→17:39)
[2018-02-28] MEDS: CITALOPRAM HYDROBROMIDE 20 MG TAB PO SCH (08:36)
[2018-02-28] MEDS: FINASTERIDE 5 MG TAB PO SCH (08:36)
[2018-02-28] MEDS: GEMFIBROZIL 600 MG TAB PO SCH (08:36)
[2018-02-28] MEDS: DOCUSATE SODIUM 50 MG/SENNA 8.6 MG TAB PO SCH ×2 (08:36→20:17)
[2018-02-28] MEDS ORDERED: ASPIRIN 81 MG CHEW TAB CHEW SCH (09:00)
--- NOTE | 2018-02-28 15:51 | HHI.PR ---
Review/Management Daily Summary 02/28 doing much beetter, s/p tpa alert and talking nearly normal per moves [address] brain later today may need cardio input about rhythm and risk for cardioembolism echo pending rehab Subjective Subjective Comments No acute events reported No headache Active Medications Current Medications Medications (Trade) Dose Ordered Sig/Leida Route Start Time Stop Time Status Last Admin Miscellaneous Information No Heparin, Warfarin, Aspir... UNSCH PRN XX 02/27/18 19:15 02/28/18 19:14 Nicardipine HCl 25 mg/Sodium Chloride 250 ml @ 50 mls/hr TITRATE PRN IV 02/27/18 19:15 02/28/18 00:00 (Aspirin Chew) 81 mg DAILY CHEW 02/28/18 09:00 02/28/18 08:35 (Sinemet 25-100 Mg) 1.5 tab TID PO 02/28/18 09:00 02/28/18 12:23 (CeleXA) 10 mg DAILY PO 02/28/18 09:00 02/28/18 08:36 (KlonoPIN) 0.5 mg q8h PRN PO 02/27/18 20:30 02/28/18 01:14 (Lopid) 600 mg DAILY PO 02/28/18 09:00 02/28/18 08:36 (Proscar) 5 mg DAILY PO 02/28/18 09:00 02/28/18 08:36 (Pill Splitter) 1 ea UNSCH PRN OTHER 02/27/18 20:45 Sodium Chloride 1,000 ml @ 84 mls/hr [id number] IV 02/27/18 21:00 02/27/18 22:06 (NS Flush) 2 ml UNSCH PRN IV FLUSH 02/27/18 20:30 (NS Flush) 2 ml BID IV FLUSH 02/27/18 21:00 02/28/18 08:35 (Tylenol) 650 mg Q6H PRN PO 02/27/18 20:30 (Pepcid Inj) 20 mg Q12HR IV PUSH 02/27/18 21:00 02/28/18 08:35 (Zofran Inj) 4 mg Q6H PRN IV PUSH 02/27/18 20:30 (Duoneb Neb) 1 ampule Q2HR NEB PRN INH 02/27/18 20:30 (Heparin Inj) 5,000 units Q8H SQ 02/28/18 22:00 Miscellaneous Information 1 Q361D XX 02/27/18 20:30 02/27/18 20:30 (Chlorhexidine 2% Cloth) 3 pack Taper DAILY@04 TOP 02/28/18 04:00 02/24/19 03:59 (Chlorhexidine 2% Cloth) 3 pack UNSCH PRN TOP 02/27/18 20:30 (Jessie-Colace) 1 tab BID PO 02/27/18 21:00 02/28/18 08:36 (Milk Of Magnesia Liq) 30 ml Q12H PRN PO 02/27/18 20:30 (Senokot) 17.2 mg Q12H PRN PO 02/27/18 20:30 (Dulcolax Supp) 10 mg DAILY PRN RECTAL 02/27/18 20:30 (Lactulose Liq) 30 ml DAILY PRN PO 02/27/18 20:30 Allergies Allergies Coded Allergies enalaprilat (Verified Allergy, Severe, SWELLING, 02/27/18) Exam I&O / VS Vital Signs Date Time Temp Pulse Resp B/P (MAP) Pulse Ox O2 Delivery O2 Flow Rate FiO2 02/28/18 15:00 98.2 70 18 134/62 (86) 99 02/28/18 14:00 74 02/28/18 14:00 98.2 73 20 129/62 (84) 94 02/28/18 13:00 98.0 74 21 124/60 (81) 94 02/28/18 12:00 69 02/28/18 12:00 98.0 72 15 125/57 (79) 97 02/28/18 11:00 98.6 67 21 120/58 (78) 95 02/28/18 10:00 76 02/28/18 10:00 98.6 79 24 124/60 (81) 97 02/28/18 09:00 98.6 75 20 130/62 (84) 97 02/28/18 08:00 76 02/28/18 08:00 99.1 80 15 139/64 (89) 98 02/28/18 07:53 96 02/28/18 07:00 98 Room Air 02/28/18 07:00 99.1 77 15 139/62 (87) 97 02/28/18 06:00 82 02/28/18 06:00 98.5 82 12 119/55 (76) 98 02/28/18 05:00 98.6 88 19 131/58 (82) 97 02/28/18 04:00 86 02/28/18 04:00 98.7 87 14 129/60 (83) 98 02/28/18 03:00 98.7 86 15 129/60 (83) 94 02/28/18 02:00 88 02/28/18 02:00 98.6 88 16 140/65 (90) 93 02/28/18 01:00 98.4 91 20 133/60 (84) 100 02/28/18 00:00 98.5 92 14 137/64 (88) 98 02/28/18 00:00 92 02/28/18 00:00 92 137/64 02/27/18 23:00 98.7 88 15 139/63 (88) 97 02/27/18 23:00 88 02/27/18 22:00 98.5 82 13 121/61 (81) 100 02/27/18 21:00 98.5 81 20 146/65 (92) 99 02/27/18 20:43 78 17 153/90 (111) 98 02/27/18 19:55 70 211/91 02/27/18 19:00 77 17 227/100 (142) 100 Room Air 02/27/18 18:35 99 21 02/27/18 18:35 99 21 02/27/18 18:31 97.8 81 17 223/107 (145) 98 02/27/18 18:31 85 18 98 Objective Micro and Labs Laboratory Tests Test 02/27/18 18:40 02/27/18 20:00 02/27/18 20:58 White Blood Count 5.5 Red Blood Count 4.50 Hemoglobin 13.0 Bedside Hemoglobin 12.9 Hematocrit 39.6 Bedside Hematocrit 38.0 Mean Corpuscular Volume 87.9 Mean Corpuscular Hemoglobin 28.8 Mean Corpuscular Hemoglobin Concent 32.8 Red Cell Distribution Width 13.3 Platelet Count 183 Mean Platelet Volume 8.6 Neutrophils (%) (Auto) 54.8 Lymphocytes (%) (Auto) 33.1 Monocytes (%) (Auto) 8.2 Eosinophils (%) (Auto) 3.0 Basophils (%) (Auto) 0.9 Neutrophils # (Auto) 3.0 Lymphocytes # (Auto) 1.8 Monocytes # (Auto) 0.4 Eosinophils # (Auto) 0.2 Basophils # (Auto) 0.0 CBC Comment DIFF FINAL Differential Comment Prothrombin Time 10.7 Prothromb Time International Ratio 1.1 Activated Partial Thromboplast Time 23.9 Fibrinogen 282 Bedside Sodium 143 Bedside Potassium 3.3 Bedside Chloride 102 Bedside Blood Urea Nitrogen 22 Bedside Creatinine 1.2 Bedside Glucose 89 Total Creatine Kinase 156 Troponin I LESS THAN 0.02 Urine Opiates Screen NEG Urine Barbiturates Screen NEG Urine Amphetamines Screen NEG Urine Benzodiazepines Screen NEG Urine Cocaine Screen NEG Urine Cannabinoids Screen NEG Nasal Screen MRSA (PCR) MRSA NOT DETECTED Jesse Solitario MD Feb 28, 2018 15:51
[2018-02-28] MEDS ORDERED: POTASSIUM CHLORIDE 20 MEQ CONTROLLED RELEASE TAB PO ONE (16:00)
--- NOTE | 2018-02-28 17:22 | HHI.PR ---
Subjective Remarks Pt moving all extremities. Pt has NO new complaints. Objective Vitals Vital Signs Date Time Temp Pulse Resp B/P (MAP) Pulse Ox O2 Delivery O2 Flow Rate FiO2 02/28/18 16:00 69 02/28/18 15:00 98.2 70 18 134/62 (86) 99 02/28/18 14:00 74 02/28/18 14:00 98.2 73 20 129/62 (84) 94 02/28/18 13:00 98.0 74 21 124/60 (81) 94 02/28/18 12:00 69 02/28/18 12:00 98.0 72 15 125/57 (79) 97 02/28/18 11:00 98.6 67 21 120/58 (78) 95 02/28/18 10:00 76 02/28/18 10:00 98.6 79 24 124/60 (81) 97 02/28/18 09:00 98.6 75 20 130/62 (84) 97 02/28/18 08:00 76 02/28/18 08:00 99.1 80 15 139/64 (89) 98 02/28/18 07:53 96 02/28/18 07:00 98 Room Air 02/28/18 07:00 99.1 77 15 139/62 (87) 97 02/28/18 06:00 82 02/28/18 06:00 98.5 82 12 119/55 (76) 98 02/28/18 05:00 98.6 88 19 131/58 (82) 97 02/28/18 04:00 86 02/28/18 04:00 98.7 87 14 129/60 (83) 98 02/28/18 03:00 98.7 86 15 129/60 (83) 94 02/28/18 02:00 88 02/28/18 02:00 98.6 88 16 140/65 (90) 93 02/28/18 01:00 98.4 91 20 133/60 (84) 100 02/28/18 00:00 98.5 92 14 137/64 (88) 98 02/28/18 00:00 92 02/28/18 00:00 92 137/64 02/27/18 23:00 98.7 88 15 139/63 (88) 97 02/27/18 23:00 88 02/27/18 22:00 98.5 82 13 121/61 (81) 100 02/27/18 21:00 98.5 81 20 146/65 (92) 99 02/27/18 20:43 78 17 153/90 (111) 98 02/27/18 19:55 70 211/91 02/27/18 19:00 77 17 227/100 (142) 100 Room Air 02/27/18 18:35 99 21 02/27/18 18:35 99 21 02/27/18 18:31 97.8 81 17 223/107 (145) 98 02/27/18 18:31 85 18 98 Result Diagram: 02/27/18 1840 Imaging Last Impressions Head CT 02/28/18 0000 Signed Impressions: Service Date/Time: Wednesday, February 28, 2018 18:49 - CONCLUSION: No bleed or other acute intracranial abnormality. Siva Beckett MD Neck CTA 02/27/181833 Signed Impressions: Service Date/Time: Tuesday, February 27, 2018 18:46 - CONCLUSION: 1. 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 No significant stenosis is present within either internal carotid artery (less than 50%% stenosis). 2. There is focal 9 mm opacity in the right upper lobe. Suggest attention to this at followup CT. Siva Rojas MD Head CTA 02/27/181833 Signed Impressions: Service Date/Time: Tuesday, February 27, 2018 18:46 - CONCLUSION: No acute intracranial vascular abnormality is identified. Siva Rojas MD Chest X-Ray 02/27/18 0000 Signed Impressions: Service Date/Time: Tuesday, February 27, 2018 20:34 - CONCLUSION: No acute cardiopulmonary abnormality is identified. Siva Rojas MD Objective Remarks GENERAL: This is a well-nourished, well-developed patient, in no apparent distress. CARDIOVASCULAR: Regular rate and rhythm without murmurs, gallops, or rubs. RESPIRATORY: Clear to auscultation. Breath sounds equal bilaterally. No wheezes , rales, or rhonchi. GASTROINTESTINAL: Abdomen soft, non-tender, nondistended. Normal active bowel sounds MUSCULOSKELETAL: Extremities without clubbing, cyanosis, or edema. NEURO: Alert & Oriented x4 to person, place, time, situation. Moves all ext x4 A/P Problem List: (1) CVA (cerebral vascular accident) ICD Codes: I63.9 - Cerebral infarction, unspecified Status: Acute Plan: - Pt admitted with c/o difficulty speaking and right hand weakness - Pt with prior h/o TIA - Pt received TPA in the ER - CT brain (02/27) --> NO acute findings - CTA brain (02/27) --> NO acute findings - CTA neck (02/27) --> NO hemodynamically significant stenosis - LDL 87 (02/28) - Pt receiving Lopid - PT/ST ordered - comgmt with Neurology - Pt on cardene drip, orders to wean - outpt metoprolol resumed - DVT prophylaxis - supportive care (2) HTN (hypertension) ICD Codes: I10 - Essential (primary) hypertension Status: Chronic Plan: - see above (3) Parkinson disease ICD Codes: G20 - Parkinson's disease Status: Chronic Plan: - continue outpt sinemet (4) BPH (benign prostatic hyperplasia) ICD Codes: N40.0 - Benign prostatic hyperplasia without lower urinary tract symptoms Status: Chronic Plan: - continue outpt medications Problem Qualifiers (1) CVA (cerebral vascular accident): Qualified Codes: I63.9 - Cerebral infarction, unspecified (2) HTN (hypertension): Qualified Codes: I10 - Essential (primary) hypertension (3) BPH (benign prostatic hyperplasia): Qualified Codes: N40.0 - Benign prostatic hyperplasia without lower urinary tract symptoms Kolby Noonan DO Feb 28, 2018 17:22
[2018-02-28] MEDS: METOPROLOL TARTRATE 25 MG TAB PO SCH (17:45)
--- NOTE | 2018-02-28 19:11 | RADRPT ---
EXAM DATE/TIME: 02/28/2018 18:49 [facility] COMPARISON: CT BRAIN W/O CONTRAST, February 27, 2018, 18:42. INDICATIONS : Post TPA. RADIATION DOSE: 38.47 CTDIvol (mGy) ; Patient motion MEDICAL HISTORY : Parkinson's. Stroke Hypertension. SURGICAL HISTORY : Carotid endarterectomy. ENCOUNTER: Initial ACUITY: 1 day PAIN SCALE: 0/10 LOCATION: Bilateral head TECHNIQUE: Multiple contiguous axial images were obtained of the head. Using automated exposure control and adj ustment of the mA and/or kV according to patient size, radiation dose was kept as low as reasonably a chievable to obtain optimal diagnostic quality images. DICOM format image data is available electro nically for review and comparison. FINDINGS: CEREBRUM: The ventricles are normal for age. No evidence of midline shift, mass lesion, hemorrhage or acute in farction. No extra-axial fluid collections are seen. POSTERIOR FOSSA: The cerebellum and brainstem are intact. The 4th ventricle is midline. The cerebellopontine angle i s unremarkable. EXTRACRANIAL: The visualized portion of the orbits is intact. SKULL: The calvaria is intact. No evidence of skull fracture. CONCLUSION: No bleed or other acute intracranial abnormality. Siva Beckett MD on February 28, 2018 at 19:08 Board Certified Radiologist. This report was verified electronically.
[2018-02-28] MEDS: clonazePAM 0.5 MG TAB PO PRN (20:31)
--- NOTE | 2018-02-28 20:37 | EKG ---
Date Performed: 02/28/2018 Time Performed: 17:54:22 PTAGE: 82 years EKG: Sinus rhythm WITH OCCASIONAL VENTRICULAR PREMATURE COMPLEXES SEPTAL MYOCARDIAL INFARCTION , OF INDETERMINATE AGE ABNORMAL ECG PREVIOUS TRACING : 02/27/2018 18.35 No significant change from previous tracing noted. DOCTOR: Saad Coates Interpretating Date/Time 02/28/2018 20:36:13
[2018-02-28] MEDS ORDERED: HEPARIN SODIUM - SQ 10,000 UNITS/ML VIAL SQ SCH (22:00)
[2018-02-28 22:11] LABS: AUTOMATED NEUTROPHIL # 6.9 TH/MM3 (1.8-7.7); BASOPHIL % 0.2 % (0.0-2.0); EOSINOPHIL # 0.1 TH/MM3 (0-0.4); EOSINOPHIL % 1.1 % (0.0-4.0); HEMATOCRIT 36.2 % (39.0-51.0); LYMPH % 13.3 % (9.0-44.0); LYMPHOCYTE # 1.2 TH/MM3 (1.0-4.8); MEAN CELL VOLUME 87.9 FL (80.0-100.0); MEAN CORPUSCULAR HEMOGLOBIN 29.1 PG (27.0-34.0); MEAN CORPUSCULAR HGB CONC 33.1 % (32.0-36.0); MEAN PLATELET VOLUME 9.3 FL (7.0-11.0); MONO % 9.8 % (0.0-8.0); MONOCYTE # 0.9 TH/MM3 (0-0.9); NEUT % 75.6 % (16.0-70.0); PLATELET COUNT 173 TH/MM3 (150-450); RED BLOOD COUNT 4.12 MIL/MM3 (4.50-5.90); RED CELL DISTRIBUTION WIDTH 13.1 % (11.6-17.2); WHITE BLOOD COUNT 9.1 TH/MM3 (4.0-11.0)
[2018-02-28 22:27] LABS: ALBUMIN 3.4 GM/DL (3.4-5.0); ALT (GPT) 12 U/L (12-78); AST (GOT) 39 U/L (15-37); BICARBONATE 26.3 MEQ/L (21.0-32.0); BLOOD UREA NITROGEN 22 MG/DL (7-18); CALCIUM 8.6 MG/DL (8.5-10.1); CHLORIDE 110 MEQ/L (98-107); CHOLESTEROL 155 MG/DL (120-200); CREATININE 1.21 MG/DL (0.60-1.30); GLOMERULAR FILTRATION RATE 57 ML/MIN (>89); GLUCOSE,RANDOM 88 MG/DL (74-106); MAGNESIUM 2.2 MG/DL (1.5-2.5); SODIUM (NA) 145 MEQ/L (136-145)
[2018-02-28 22:31] LABS: ALKALINE PHOSPHATASE 56 U/L (45-117); CHOLESTEROL/ HDL RATIO 2.64 RATIO; HDL CHOLESTEROL 58.5 MG/DL (40.0-60.0); LDL CHOLESTEROL 87 MG/DL (0-99); TOTAL BILIRUBIN ADULT 0.7 MG/DL (0.2-1.0); TOTAL PROTEIN 7.1 GM/DL (6.4-8.2); TRIGLYCERIDES 46 MG/DL (42-150)
[2018-02-28] MEDS: niCARdipine INJ 25 MG in SODIUM CHLOR 0.9% 250 ML INJ 240 ML IV PRN ×3 (22:31)
[2018-03-01] VITALS (17 sets, daily range): BP systolic 117–154; BP diastolic 58–73; PULSE 57–84; RESP 12–29; TEMP 97.8–98.7; O2SAT 95–99
[2018-03-01] MEDS ORDERED: ICU - POTASSIUM PHOSPHATE 30 MMOL/NS 250 ML IV ONE ×2 (03:00)
[2018-03-01] MEDS: CHLORHEXIDINE GLUCONATE 2 % 1 PACK (2 CLOTHS) TOP SCH (03:37)
[2018-03-01] MEDS: CARBIDOPA/LEVODOPA 25 MG/100 MG TAB PO SCH ×3 (06:42→16:35)
[2018-03-01] MEDS: niCARdipine INJ 25 MG in SODIUM CHLOR 0.9% 250 ML INJ 240 ML IV PRN ×3 (06:47→16:35)
[2018-03-01] MEDS: CITALOPRAM HYDROBROMIDE 20 MG TAB PO SCH (09:21)
[2018-03-01] MEDS: FAMOTIDINE 20 MG/2 ML VIAL IV PUSH SCH (09:21)
[2018-03-01] MEDS: FINASTERIDE 5 MG TAB PO SCH (09:21)
[2018-03-01] MEDS: SODIUM CHLORIDE 0.9% FLUSH 10 ML FLUSH IV FLUSH SCH ×2 (09:22→21:40)
[2018-03-01] MEDS: DOCUSATE SODIUM 50 MG/SENNA 8.6 MG TAB PO SCH ×2 (09:22→21:40)
[2018-03-01] MEDS: GEMFIBROZIL 600 MG TAB PO SCH (09:22)
[2018-03-01] MEDS: METOPROLOL TARTRATE 25 MG TAB PO SCH (09:22)
--- NOTE | 2018-03-01 16:58 | HHI.PR ---
Subjective Remarks No new complaints. Pt ambulated in the hallway using walker and with physical therapist. Nursing reports that pt can be impulsive at times. Objective Vitals Vital Signs Date Time Temp Pulse Resp B/P (MAP) Pulse Ox O2 Delivery O2 Flow Rate FiO2 03/01/18 16:35 84 130/59 03/01/18 16:00 66 03/01/18 14:00 66 03/01/18 12:00 66 03/01/18 12:00 98.6 66 29 117/66 (83) 96 03/01/18 11:41 92 132/78 03/01/18 10:00 65 03/01/18 08:19 98 03/01/18 08:00 97.8 72 17 138/63 (88) 97 03/01/18 08:00 72 03/01/18 07:00 97 Room Air 03/01/18 06:47 86 129/60 03/01/18 06:00 98.4 84 19 154/71 (98) 97 03/01/18 06:00 84 03/01/18 05:00 98.4 76 12 146/73 (97) 99 03/01/18 04:00 78 03/01/18 04:00 98.4 78 13 150/70 (96) 95 03/01/18 03:00 98.4 77 19 145/64 (91) 96 03/01/18 02:00 98.4 57 24 121/58 (79) 96 03/01/18 02:00 57 03/01/18 01:00 98.4 60 13 132/60 (84) 98 03/01/18 00:00 98.4 65 12 135/63 (87) 96 03/01/18 00:00 75 02/28/18 23:00 98.6 68 24 133/58 (83) 97 02/28/18 22:31 68 133/63 02/28/18 22:00 98.6 64 16 129/58 (81) 94 02/28/18 22:00 75 02/28/18 21:00 98.6 70 23 149/68 (95) 97 02/28/18 20:00 75 02/28/18 20:00 98.6 72 12 137/65 (89) 97 02/28/18 19:00 97 Room Air 02/28/18 19:00 97.9 76 15 142/61 (88) 97 02/28/18 18:00 97.9 75 14 149/67 (94) 97 02/28/18 18:00 75 02/28/18 17:00 97.9 76 19 137/64 (88) 97 Result Diagram: 02/28/18212202/28/182132 Imaging Last Impressions Head CT 02/28/18 0000 Signed Impressions: Service Date/Time: Wednesday, February 28, 2018 18:49 - CONCLUSION: No bleed or other acute intracranial abnormality. Siva Beckett MD Neck CTA [id number] Signed Impressions: Service Date/Time: Tuesday, February 27, 2018 18:46 - CONCLUSION: 1. 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 No significant stenosis is present within either internal carotid artery (less than 50%% stenosis). 2. There is focal 9 mm opacity in the right upper lobe. Suggest attention to this at followup CT. Siva Rojas MD Head CTA [id number] Signed Impressions: Service Date/Time: Tuesday, February 27, 2018 18:46 - CONCLUSION: No acute intracranial vascular abnormality is identified. Siva Rojas MD Chest X-Ray 02/27/18 0000 Signed Impressions: Service Date/Time: Tuesday, February 27, 2018 20:34 - CONCLUSION: No acute cardiopulmonary abnormality is identified. Siva Rojas MD Objective Remarks GENERAL: This is a well-nourished, well-developed patient, in no apparent distress. CARDIOVASCULAR: Regular rate and rhythm without murmurs, gallops, or rubs. RESPIRATORY: Clear to auscultation. Breath sounds equal bilaterally. No wheezes , rales, or rhonchi. GASTROINTESTINAL: Abdomen soft, non-tender, nondistended. Normal active bowel sounds MUSCULOSKELETAL: Extremities without clubbing, cyanosis, or edema. NEURO: Alert & Oriented x4 to person, place, time, situation. Moves all ext x4 A/P Problem List: (1) CVA (cerebral vascular accident) ICD Codes: I63.9 - Cerebral infarction, unspecified Status: Acute Plan: - Pt admitted with c/o difficulty speaking and right hand weakness - Pt with prior h/o TIA - Pt received TPA in the ER - CT brain (02/27) --> NO acute findings - CTA brain (02/27) --> NO acute findings - CTA neck (02/27) --> NO hemodynamically significant stenosis - LDL 87 (02/28) - Pt receiving Lopid - PT/ST ordered - comgmt with Neurology - Case d/w Neurology, Dr. Bolaños (03/01) - Start ASA & plavix - obtain holter - telemetry does NOT show afib - echardiogram --> done, awaiting reading - Pt on cardene drip, orders to wean - increase metoprolol to 50mg BID - transfer to general medical floor once off cardene - DVT prophylaxis - supportive care (2) HTN (hypertension) ICD Codes: I10 - Essential (primary) hypertension Status: Chronic Plan: - see above (3) Parkinson disease ICD Codes: G20 - Parkinson's disease Status: Chronic Plan: - continue outpt sinemet (4) BPH (benign prostatic hyperplasia) ICD Codes: N40.0 - Benign prostatic hyperplasia without lower urinary tract symptoms Status: Chronic Plan: - continue outpt medications Problem Qualifiers (1) CVA (cerebral vascular accident): Qualified Codes: I63.9 - Cerebral infarction, unspecified (2) HTN (hypertension): Qualified Codes: I10 - Essential (primary) hypertension (3) BPH (benign prostatic hyperplasia): Qualified Codes: N40.0 - Benign prostatic hyperplasia without lower urinary tract symptoms Kolby Noonan DO Mar 01, 2018 16:58
[2018-03-01] MEDS: ASPIRIN EC 81 MG TABEC PO SCH (17:55)
[2018-03-01] MEDS: CLOPIDOGREL 75 MG TAB PO SCH (17:56)
[2018-03-01] MEDS ORDERED: niCARdipine INJ 25 MG in SODIUM CHLOR 0.9% 250 ML INJ 240 ML IV PRN (18:00)
[2018-03-01] MEDS ORDERED: METOPROLOL TARTRATE 50 MG TAB PO ONE (18:00)
--- NOTE | 2018-03-01 19:01 | ECHRPT ---
Indication: CVA/TIA CONCLUSIONS In limited views, the left ventricular systolic function is normal with an estimated ejection fracti on in the range of 55-60%. Trace mitral valve regurgitation. There is trace tricuspid valve regurgitation. BP: / HR: 70 Rhythm: Sinus MEASUREMENTS (Male / Female) Normal Values Technical Quality:Fair 2D ECHO LV Diastolic Diameter PLAX 4.4 cm 4.2 - 5.9 / 3.9 - 5.3 cm LV Systolic Diameter PLAX 3.3 cm IVS Diastolic Thickness 1.1 cm 0.6 - 1.0 / 0.6 - 0.9 cm LVPW Diastolic Thickness 1.1 cm 0.6 - 1.0 / 0.6 - 0.9 cm LV Relative Wall Thickness 0.5 LVOT Diameter 2.2 cm M-MODE Aortic Root Diameter MM 2.7 cm LA Systolic Diameter MM 3.0 cm LA Ao Ratio MM 1.1 AV Cusp Separation MM 1.8 cm DOPPLER AV Peak Velocity 132.0 cm/s AV Peak Gradient 7.0 mmHg LVOT Peak Velocity 79.0 cm/s LVOT Peak Gradient 2.5 mmHg AV Area Cont Eq pk 2.3 cm MR Peak Velocity 295.0 cm/s MR Peak Gradient 34.8 mmHg Mitral E Point Velocity 84.9 cm/s Mitral A Point Velocity 75.5 cm/s Mitral E to A Ratio 1.1 LV E' Lateral Velocity 6.3 cm/s Mitral E to LV E' Lateral Ratio 13.4 LV E' Septal Velocity 5.9 cm/s Mitral E to LV E' Septal Ratio 14.5 TR Peak Velocity 167.0 cm/s TR Peak Gradient 11.2 mmHg Right Atrial Pressure 10.0 mmHg Pulmonary Artery Systolic Pressu 21.2 mmHg Right Ventricular Systolic Press 21.2 mmHg PV Peak Velocity 143.0 cm/s PV Peak Gradient 8.2 mmHg FINDINGS LEFT VENTRICLE In limited views, the left ventricular systolic function is normal with an estimated ejection fracti on in the range of 55-60%. Normal left ventricular size. Wall thickness is measured at the upper limits of normal. RIGHT VENTRICLE Grossly normal LEFT ATRIUM The left atrial size is normal. RIGHT ATRIUM The right atrial size is normal. ATRIAL SEPTUM Normal atrial septal thickness AORTA The aortic root and proximal ascending aorta are normal in size on limited imaging. MITRAL VALVE Grossly normal Trace mitral valve regurgitation. AORTIC VALVE The aortic valve is not well visualized. No aortic valve regurgitation. No aortic valve stenosis. TRICUSPID VALVE Grossly normal There is trace tricuspid valve regurgitation. The estimated pulmonary arterial pressure is 21.2 mmHg. PULMONARY VALVE No pulmonary valve regurgitation or stenosis. VESSELS The inferior vena cava is normal in size. PERICARDIUM No pericardial effusion. Lloyd Jean-Baptiste DO (Electronically Signed) Final Date:01 March 2018 19:01
[2018-03-01] MEDS ORDERED: FAMOTIDINE 20 MG TAB PO SCH (21:00)
[2018-03-01] MEDS: FAMOTIDINE 20 MG TAB PO SCH (21:40)
[2018-03-01] MEDS: clonazePAM 0.5 MG TAB PO PRN (21:40)
[2018-03-02] VITALS (14 sets, daily range): BP systolic 139–174; BP diastolic 65–80; PULSE 57–96; RESP 13–27; TEMP 98.4–98.8; O2SAT 96–98
[2018-03-02] MEDS: CHLORHEXIDINE GLUCONATE 2 % 1 PACK (2 CLOTHS) TOP SCH (03:38)
[2018-03-02] MEDS: CARBIDOPA/LEVODOPA 25 MG/100 MG TAB PO SCH ×3 (06:31→16:00)
[2018-03-02] MEDS: CITALOPRAM HYDROBROMIDE 20 MG TAB PO SCH (07:45)
[2018-03-02] MEDS: METOPROLOL TARTRATE 50 MG TAB PO SCH ×2 (07:46→19:52)
[2018-03-02] MEDS: CLOPIDOGREL 75 MG TAB PO SCH (07:46)
[2018-03-02] MEDS: FAMOTIDINE 20 MG TAB PO SCH ×2 (07:46→19:51)
[2018-03-02] MEDS: DOCUSATE SODIUM 50 MG/SENNA 8.6 MG TAB PO SCH ×2 (07:47→19:51)
[2018-03-02] MEDS: SODIUM CHLORIDE 0.9% FLUSH 10 ML FLUSH IV FLUSH SCH ×2 (07:47→19:52)
[2018-03-02] MEDS: FINASTERIDE 5 MG TAB PO SCH (07:47)
[2018-03-02] MEDS: GEMFIBROZIL 600 MG TAB PO SCH (07:50)
[2018-03-02] MEDS: ASPIRIN EC 81 MG TABEC PO SCH (07:51)
--- NOTE | 2018-03-02 08:49 | HHI.PR ---
Review/Management Daily Summary 02/28 doing much beetter, s/p tpa alert and talking nearly normal per moves [address] brain later today may need cardio input about rhythm and risk for cardioembolism echo pending rehab 03/02 restless and agitated, confused moves 4 limbs well counts fingers bilaterally will run mri brain f/u stroke low dose seroquel trying to alleviate agitation without heavy sedation Subjective Subjective Comments confused and agitated Active Medications Current Medications Medications (Trade) Dose Ordered Sig/Leida Route Start Time Stop Time Status Last Admin (Aspirin Chew) 81 mg DAILY CHEW 02/28/18 09:00 Future Hold 02/28/18 08:35 (CeleXA) 10 mg DAILY PO 02/28/18 09:00 03/02/18 07:45 (Lopid) 600 mg DAILY PO 02/28/18 09:00 03/02/18 07:50 (Proscar) 5 mg DAILY PO 02/28/18 09:00 03/02/18 07:47 (Pill Splitter) 1 ea UNSCH PRN OTHER 02/27/18 20:45 (NS Flush) 2 ml UNSCH PRN IV FLUSH 02/27/18 20:30 (NS Flush) 2 ml BID IV FLUSH 02/27/18 21:00 03/02/18 07:47 (Tylenol) 650 mg Q6H PRN PO 02/27/18 20:30 (Zofran Inj) 4 mg Q6H PRN IV PUSH 02/27/18 20:30 (Duoneb Neb) 1 ampule Q2HR NEB PRN INH 02/27/18 20:30 (Heparin Inj) 5,000 units Q8H SQ 02/28/18 22:00 Future Hold Miscellaneous Information 1 Q361D XX 02/27/18 20:30 02/27/18 20:30 (Chlorhexidine 2% Cloth) 3 pack Taper DAILY@04 TOP 02/28/18 04:00 02/24/19 03:59 03/02/18 03:38 (Chlorhexidine 2% Cloth) 3 pack UNSCH PRN TOP 02/27/18 20:30 (Jessie-Colace) 1 tab BID PO 02/27/18 21:00 03/02/18 07:47 (Milk Of Magnesia Liq) 30 ml Q12H PRN PO 02/27/18 20:30 (Senokot) 17.2 mg Q12H PRN PO 02/27/18 20:30 (Dulcolax Supp) 10 mg DAILY PRN RECTAL 02/27/18 20:30 (Lactulose Liq) 30 ml DAILY PRN PO 02/27/18 20:30 02/28/18 17:45 (Sinemet 25-100 Mg) 1.5 tab TID@0600,1100,1600 PO 02/28/18 16:30 03/02/18 06:31 (KlonoPIN) 0.5 mg HS PRN PO 02/28/18 17:30 03/01/18 21:40 (Pepcid) 20 mg BID PO 03/01/18 21:00 03/02/18 07:46 (Ecotrin Ec) 81 mg DAILY PO 03/01/18 17:00 03/02/18 07:51 (Plavix) 75 mg DAILY PO 03/01/18 17:00 03/02/18 07:46 Nicardipine HCl 25 mg/Sodium Chloride 250 ml @ 50 mls/hr TITRATE PRN IV 03/01/18 18:00 (Lopressor) 50 mg Q12H PO 03/02/18 08:00 03/02/18 07:46 Allergies Allergies Coded Allergies enalaprilat (Verified Allergy, Severe, SWELLING, 02/27/18) Exam I&O / VS Vital Signs Date Time Temp Pulse Resp B/P (MAP) Pulse Ox O2 Delivery O2 Flow Rate FiO2 03/02/18 06:00 90 03/02/18 04:00 98.5 96 27 168/70 (102) 96 03/02/18 04:00 96 03/02/18 02:00 88 03/02/18 00:00 98.4 70 13 145/65 (91) 98 03/02/18 00:00 70 03/01/18 22:00 72 03/01/18 21:20 98 21 03/01/18 20:00 82 03/01/18 20:00 98.4 82 25 152/73 (99) 99 03/01/18 19:00 98 Room Air 03/01/18 18:00 82 03/01/18 16:35 84 130/59 03/01/18 16:00 66 03/01/18 16:00 98.7 76 15 153/67 (95) 98 03/01/18 14:00 66 03/01/18 12:00 66 03/01/18 12:00 98.6 66 29 117/66 (83) 96 03/01/18 11:41 92 132/78 03/01/18 10:00 65 Objective Micro and Labs Laboratory Tests Test 03/01/18 16:59 Phosphorus Level 2.5 Jesse Solitario MD Mar 02, 2018 08:49
[2018-03-02] MEDS: NIFEdipine 30 MG SUSTAINED RELEASE TAB PO SCH (12:24)
[2018-03-02] MEDS: LORazepam 2 MG/ML VIAL IV PUSH PRN (12:42)
--- NOTE | 2018-03-02 14:32 | RADRPT ---
EXAM DATE/TIME: 03/02/2018 13:40 [facility] COMPARISON: MRI BRAIN W/O CONTRAST, September 12, 2017, 20:36. INDICATIONS : Stroke alert with slurred speech and TPA. MEDICAL HISTORY : Hypertension. CAD, parkinsons SURGICAL HISTORY : Rt knee surgery ENCOUNTER: Subsequent ACUITY: 3 day PAIN SCORE: 0/10 LOCATION: cranial TECHNIQUE: Multiplanar, multisequence MRI of the brain was performed without contrast. FINDINGS: CEREBRUM: There is diffuse atrophy present. No significant mass or mass effect. WHITE MATTER: There is mild diffuse atrophy. Mild ischemic demyelinization. No mass or mass effect. POSTERIOR FOSSA: The cerebellum and brainstem are intact. The 4th ventricle is midline. The cerebellopontine angle is unremarkable. The cerebellar tonsils are normal in position. DIFFUSION IMAGING: No focal areas of restricted diffusion are seen. No evidence of acute infarction. EXTRACRANIAL: The visualized portions of the orbits and paranasal sinuses are unremarkable. CONCLUSION: Diffuse atrophy is present. No evidence of acute stroke or mass effect. No significant edema is noted . Jacques Knutsno MD on March 02, 2018 at 14:28 Board Certified Radiologist. This report was verified electronically.
--- NOTE | 2018-03-02 17:50 | HHI.PR ---
Subjective Remarks Patient calm and resting after receiving Ativan for MRI Per RN patient has had episode of agitation Objective Vitals Vital Signs Date Time Temp Pulse Resp B/P (MAP) Pulse Ox O2 Delivery O2 Flow Rate FiO2 03/02/18 16:00 59 03/02/18 16:00 98.4 57 17 159/80 (106) 98 03/02/18 14:00 68 03/02/18 12:00 67 03/02/18 12:00 98.4 59 17 164/75 (104) 98 03/02/18 10:00 95 03/02/18 08:00 95 03/02/18 08:00 98.5 81 25 139/70 (93) 96 03/02/18 07:48 97 21 03/02/18 07:00 98 Room Air 03/02/18 06:00 90 03/02/18 04:00 98.5 96 27 168/70 (102) 96 03/02/18 04:00 96 03/02/18 02:00 88 03/02/18 00:00 98.4 70 13 145/65 (91) 98 03/02/18 00:00 70 03/01/18 22:00 72 03/01/18 21:20 98 21 03/01/18 20:00 82 03/01/18 20:00 98.4 82 25 152/73 (99) 99 03/01/18 19:00 98 Room Air 03/01/18 18:00 82 Result Diagram: 02/28/18212202/28/182132 Other Results Laboratory Tests Test 02/27/18 18:40 02/27/18 20:00 02/27/18 20:58 02/28/18 21:23 White Blood Count 5.5 TH/MM3 9.1 TH/MM3 Red Blood Count 4.50 MIL/MM3 4.12 MIL/MM3 Hemoglobin 13.0 GM/DL 12.0 GM/DL Bedside Hemoglobin 12.9 G/DL Hematocrit 39.6 % 36.2 % Bedside Hematocrit 38.0 % Mean Corpuscular Volume 87.9 FL 87.9 FL Mean Corpuscular Hemoglobin 28.8 PG 29.1 PG Mean Corpuscular Hemoglobin Concent 32.8 % 33.1 % Red Cell Distribution Width 13.3 % 13.1 % Platelet Count 183 TH/MM3 173 TH/MM3 Mean Platelet Volume 8.6 FL 9.3 FL Neutrophils (%) (Auto) 54.8 % 75.6 % Lymphocytes (%) (Auto) 33.1 % 13.3 % Monocytes (%) (Auto) 8.2 % 9.8 % Eosinophils (%) (Auto) 3.0 % 1.1 % Basophils (%) (Auto) 0.9 % 0.2 % Neutrophils # (Auto) 3.0 TH/MM3 6.9 TH/MM3 Lymphocytes # (Auto) 1.8 TH/MM3 1.2 TH/MM3 Monocytes # (Auto) 0.4 TH/MM3 0.9 TH/MM3 Eosinophils # (Auto) 0.2 TH/MM3 0.1 TH/MM3 Basophils # (Auto) 0.0 TH/MM3 0.0 TH/MM3 CBC Comment DIFF FINAL DIFF FINAL Differential Comment Prothrombin Time 10.7 SEC Prothromb Time International Ratio 1.1 RATIO Activated Partial Thromboplast Time 23.9 SEC 25.3 SEC Fibrinogen 282 mg/dL Bedside Sodium 143 MMOL/L Bedside Potassium 3.3 MMOL/L Bedside Chloride 102 MMOL/L Bedside Blood Urea Nitrogen 22 MG/DL Bedside Creatinine 1.2 MG/DL Bedside Glucose 89 MG/DL Total Creatine Kinase 156 U/L Troponin I LESS THAN 0.02 NG/ML Urine Opiates Screen NEG Urine Barbiturates Screen NEG Urine Amphetamines Screen NEG Urine Benzodiazepines Screen NEG Urine Cocaine Screen NEG Urine Cannabinoids Screen NEG Nasal Screen MRSA (PCR) MRSA NOT DETECTED Test 02/28/18 21:33 03/01/18 16:59 Blood Urea Nitrogen 22 MG/DL Creatinine 1.21 MG/DL Random Glucose 88 MG/DL Total Protein 7.1 GM/DL Albumin 3.4 GM/DL Calcium Level 8.6 MG/DL Phosphorus Level 2.0 MG/DL 2.5 MG/DL Magnesium Level 2.2 MG/DL Alkaline Phosphatase 56 U/L Aspartate Amino Transf (AST/SGOT) 39 U/L Alanine Aminotransferase (ALT/SGPT) 12 U/L Total Bilirubin 0.7 MG/DL Sodium Level 145 MEQ/L Potassium Level 3.5 MEQ/L Chloride Level 110 MEQ/L Carbon Dioxide Level 26.3 MEQ/L Anion Gap 9 MEQ/L Estimat Glomerular Filtration Rate 57 ML/MIN Triglycerides Level 46 MG/DL Cholesterol Level 155 MG/DL LDL Cholesterol 87 MG/DL HDL Cholesterol 58.5 MG/DL Cholesterol/HDL Ratio 2.64 RATIO Imaging Last Impressions Head CT 02/28/18 0000 Signed Impressions: Service Date/Time: Wednesday, February 28, 2018 18:49 - CONCLUSION: No bleed or other acute intracranial abnormality. Siva Beckett MD Neck CTA [id number]/27/181833 Signed Impressions: Service Date/Time: Tuesday, February 27, 2018 18:46 - CONCLUSION: 1. 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 No significant stenosis is present within either internal carotid artery (less than 50%% stenosis). 2. There is focal 9 mm opacity in the right upper lobe. Suggest attention to this at followup CT. Siva Rojas MD Head CTA 02/27/181833 Signed Impressions: Service Date/Time: Tuesday, February 27, 2018 18:46 - CONCLUSION: No acute intracranial vascular abnormality is identified. Siva Rojas MD Chest X-Ray 02/27/18 0000 Signed Impressions: Service Date/Time: Tuesday, February 27, 2018 20:34 - CONCLUSION: No acute cardiopulmonary abnormality is identified. Siva Rojas MD Objective Remarks GENERAL: This is a well-nourished, well-developed patient, in no apparent distress. CARDIOVASCULAR: Regular rate and rhythm RESPIRATORY: Clear to auscultation. Breath sounds equal bilaterally. GASTROINTESTINAL: Abdomen soft, non-tender, nondistended. Normal active bowel sounds MUSCULOSKELETAL: Extremities without clubbing, cyanosis, or edema. NEURO: intermitted periods of confusion. Moves all ext x4 A/P Problem List: (1) CVA (cerebral vascular accident) ICD Codes: I63.9 - Cerebral infarction, unspecified Status: Acute Plan: - Pt admitted with c/o difficulty speaking and right hand weakness - Pt with prior h/o TIA - Pt received TPA in the ER - CT brain (02/27) --> NO acute findings - CTA brain (02/27) --> NO acute findings - CTA neck (02/27) --> NO hemodynamically significant stenosis - LDL 87 (02/28) - Pt receiving Lopid - PT/ST ordered - comgmt with Neurology - Case d/w Neurology, Dr. Bolaños (03/01) - Start ASA & plavix - obtain holter - telemetry does NOT show afib - echardiogram --> done, awaiting reading - Pt on cardene drip, orders to wean - increase metoprolol to 50mg BID - transfer to general medical floor once off cardene - DVT prophylaxis - supportive care (2) HTN (hypertension) ICD Codes: I10 - Essential (primary) hypertension Status: Chronic Plan: - see above (3) Parkinson disease ICD Codes: G20 - Parkinson's disease Status: Chronic Plan: - continue outpt sinemet (4) BPH (benign prostatic hyperplasia) ICD Codes: N40.0 - Benign prostatic hyperplasia without lower urinary tract symptoms Status: Chronic Plan: - continue outpt medications Problem Qualifiers (1) CVA (cerebral vascular accident): Qualified Codes: I63.9 - Cerebral infarction, unspecified (2) HTN (hypertension): Qualified Codes: I10 - Essential (primary) hypertension (3) BPH (benign prostatic hyperplasia): Qualified Codes: N40.0 - Benign prostatic hyperplasia without lower urinary tract symptoms Eli Saleh Mar 02, 2018 17:50
[2018-03-02] MEDS: cloNIDine HCL 0.1 MG TAB PO PRN (18:33)
[2018-03-02] MEDS: QUEtiapine FUMARATE 25 MG TAB PO SCH (19:52)
[2018-03-03] VITALS (9 sets, daily range): BP systolic 111–229; BP diastolic 56–98; PULSE 60–71; RESP 12–20; TEMP 97.9–98.7; O2SAT 97–100
[2018-03-03] MEDS: LORazepam 2 MG/ML VIAL IV PUSH PRN (00:42)
[2018-03-03] MEDS: CHLORHEXIDINE GLUCONATE 2 % 1 PACK (2 CLOTHS) TOP SCH (04:00)
[2018-03-03] MEDS: CARBIDOPA/LEVODOPA 25 MG/100 MG TAB PO SCH ×3 (06:45→16:27)
[2018-03-03] MEDS: METOPROLOL TARTRATE 50 MG TAB PO SCH ×2 (08:02→20:16)
[2018-03-03] MEDS: FAMOTIDINE 20 MG TAB PO SCH ×2 (08:02→20:15)
[2018-03-03] MEDS: FINASTERIDE 5 MG TAB PO SCH (08:02)
[2018-03-03] MEDS: QUEtiapine FUMARATE 25 MG TAB PO SCH ×2 (08:02→20:16)
[2018-03-03] MEDS: DOCUSATE SODIUM 50 MG/SENNA 8.6 MG TAB PO SCH ×2 (08:02→20:15)
[2018-03-03] MEDS: NIFEdipine 30 MG SUSTAINED RELEASE TAB PO SCH (08:02)
[2018-03-03] MEDS: GEMFIBROZIL 600 MG TAB PO SCH (08:02)
[2018-03-03] MEDS: ASPIRIN EC 81 MG TABEC PO SCH (08:03)
[2018-03-03] MEDS: CLOPIDOGREL 75 MG TAB PO SCH (08:03)
[2018-03-03] MEDS: CITALOPRAM HYDROBROMIDE 20 MG TAB PO SCH (08:03)
[2018-03-03] MEDS: SODIUM CHLORIDE 0.9% FLUSH 10 ML FLUSH IV FLUSH SCH ×2 (08:33→20:16)
[2018-03-03] MEDS: cloNIDine HCL 0.1 MG TAB PO PRN (08:37)
--- NOTE | 2018-03-03 17:13 | HM ---
Date Performed: 03/01/2018 Time Performed: 19:45:00 HOOKUP DATE: 03/01/18 07:45:00 PM Tue ANALYSIS START TIME: 03/01/2018 7:50:00 PM ANALYSIS END TIME: 03/02/2018 1:34:40 PM PATIENT AGE: 82 PATIENT HEIGHT PATIENT WEIGHT DRUG LIST PATIENT DIAGNOSIS: ACUTE STROKE TEST NARRATIVE: The patient's average heart rate was 80 BPM. Heart rates greater than 120 B PM were noted < 1% of the time. No episodes of bradycardia were noted. No pauses exceeding 2.0 s econds were noted. 112 ventricular ectopics, which represented < 1% of the total beat count, were noted. The highest ventricular ectopic frequency occurred from 05:00 AM to 06:00 AM Wed. During th is time 12 VE(s) occurred. Ventricular ectopics were observed as 110 isolated beat(s) and as 1 coupl et(s). No runs were noted. 428 supraventricular ectopics, which represented 1% of the total beat count, were noted. The highest supraventricular ectopic frequency occurred from 11:00 AM to 12:00 P M Wed. During this time 106 SVE(s) occurred. No episodes of ST depression (defined as -1.0 mm or more) were noted in channel 1. No episodes of ST depression (defined as -1.0 mm or more) were noted in channel 2. No episodes of ST depression (defined as -1.0 mm or more) were noted in channel 3. TEST INTERPRETATION: Patient was monitored for 17hrs and 45mins. Patient was in normal sinus ryt . Average heart rate of 80bpm. Appears in sinus bradycardia 53bpm at 1132am. Appears in sinus tachy cardia to 122bpm in 0620am. 110 PVC's and 416 PAC's. No accuracy, interpretations is limited by inter mittent baseline artifact. Signed by : Chris Thomas
--- NOTE | 2018-03-03 17:43 | RADRPT ---
EXAM DATE/TIME: 03/03/2018 17:05 [facility] COMPARISON: No previous studies available for comparison. INDICATIONS : Altered mental status RADIATION DOSE: 39.96 CTDIvol (mGy) MEDICAL HISTORY : Cerebrovascular disease. Cardiovascular disease Hypertension.Skin cancer, Parkinsons SURGICAL HISTORY : None. ENCOUNTER: Subsequent ACUITY: 4 - 6 days PAIN SCALE: 0/10 LOCATION: cranial TECHNIQUE: Multiple contiguous axial images were obtained of the head. Using automated exposure control and adj ustment of the mA and/or kV according to patient size, radiation dose was kept as low as reasonably a chievable to obtain optimal diagnostic quality images. DICOM format image data is available electro nically for review and comparison. FINDINGS: CEREBRUM: The ventricles are normal for age. No evidence of midline shift, mass lesion, hemorrhage or acute in farction. No extra-axial fluid collections are seen. POSTERIOR FOSSA: The cerebellum and brainstem are intact. The 4th ventricle is midline. The cerebellopontine angle i s unremarkable. EXTRACRANIAL: The visualized portion of the orbits is intact. SKULL: The calvaria is intact. No evidence of skull fracture. CONCLUSION: Normal examination. Jacques Knutson MD on March 03, 2018 at 17:40 Board Certified Radiologist. This report was verified electronically.
--- NOTE | 2018-03-03 18:39 | HHI.PR ---
Subjective Remarks Patient c/o constipation nurse reports episode of decreased mental status while on the BSC during attempt to have BM earlier today, patient mental status improved spontaneously after he was assisted back to bed Objective Vitals Vital Signs Date Time Temp Pulse Resp B/P (MAP) Pulse Ox O2 Delivery O2 Flow Rate FiO2 03/03/18 16:00 98.6 61 20 134/61 (85) 98 03/03/18 16:00 61 03/03/18 12:00 60 03/03/18 12:00 98.6 60 15 117/57 (77) 98 03/03/18 09:30 111/56 (74) 03/03/18 08:00 98.6 71 12 229/98 (141) 100 03/03/18 08:00 71 03/03/18 07:38 99 21 03/03/18 07:00 Room Air 03/03/18 04:00 98.7 62 12 162/68 (99) 97 03/03/18 04:00 62 03/03/18 00:00 70 03/03/18 00:00 98.6 65 16 166/74 (104) 97 03/02/18 22:00 68 03/02/18 20:00 71 03/02/18 20:00 98.8 74 15 174/75 (108) 98 03/02/18 19:08 97 21 03/02/18 19:00 98 Room Air 03/03/18 03/03/18 03/04/18 14:59 22:59 06:59 Output Total 700 ml Balance -700 ml Output Urine Total 700 ml # Bowel Movements 1 Result Diagram: 02/28/18212202/28/182132 Imaging Last Impressions Head CT 02/28/18 0000 Signed Impressions: Service Date/Time: Wednesday, February 28, 2018 18:49 - CONCLUSION: No bleed or other acute intracranial abnormality. Siva Beckett MD Neck CTA 02/27/18 1834 Signed Impressions: Service Date/Time: Tuesday, February 27, 2018 18:46 - CONCLUSION: 1. 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 No significant stenosis is present within either internal carotid artery (less than 50%% stenosis). 2. There is focal 9 mm opacity in the right upper lobe. Suggest attention to this at followup CT. Siva Rojas MD Head CTA 02/27/18 1834 Signed Impressions: Service Date/Time: Tuesday, February 27, 2018 18:46 - CONCLUSION: No acute intracranial vascular abnormality is identified. Siva Rojas MD Chest X-Ray 02/27/18 0000 Signed Impressions: Service Date/Time: Tuesday, February 27, 2018 20:34 - CONCLUSION: No acute cardiopulmonary abnormality is identified. Siva Rojas MD Objective Remarks GENERAL: This is a well-nourished, well-developed patient, in no apparent distress. CARDIOVASCULAR: Regular rate and rhythm RESPIRATORY: Clear to auscultation. Breath sounds equal bilaterally. GASTROINTESTINAL: Abdomen soft, non-tender, nondistended. Normal active bowel sounds MUSCULOSKELETAL: Extremities without clubbing, cyanosis, or edema. NEURO: intermitted periods of confusion. Moves all ext x4 A/P Problem List: (1) CVA (cerebral vascular accident) ICD Codes: I63.9 - Cerebral infarction, unspecified Status: Acute Plan: - Pt admitted with c/o difficulty speaking and right hand weakness - Pt with prior h/o TIA - Pt received TPA in the ER - CT brain (02/27) --> NO acute findings - CTA brain (02/27) --> NO acute findings - CTA neck (02/27) --> NO hemodynamically significant stenosis - LDL 87 (02/28) - Pt receiving Lopid - PT/ST ordered - comgmt with Neurology - Case d/w Neurology, Dr. Bolaños (03/01) - Start ASA & plavix - obtain holter - telemetry does NOT show afib - echardiogram --> done, awaiting reading - Pt on cardene drip, orders to wean - increase metoprolol to 50mg BID - transfer to general medical floor 03/03 episode of decreased mental status while on the BSC during attempt to have BM earlier today, patient mental status improved spontaneously after he was assisted back to bed - CT head normal exam - EEG pending - TSH, free T4, RPR, vit B-12, folate acid, ammonia pending - If labs and EEG normal plan to DC to SNF tomorrow - DVT prophylaxis - supportive care (2) HTN (hypertension) ICD Codes: I10 - Essential (primary) hypertension Status: Chronic Plan: - see above (3) Parkinson disease ICD Codes: G20 - Parkinson's disease Status: Chronic Plan: - continue outpt sinemet (4) BPH (benign prostatic hyperplasia) ICD Codes: N40.0 - Benign prostatic hyperplasia without lower urinary tract symptoms Status: Chronic Plan: - continue outpt medications Assessment and Plan Patient examined. Assessment and plan formulated with Eli Saleh PA-C. I agree with the above. Problem Qualifiers (1) CVA (cerebral vascular accident): Qualified Codes: I63.9 - Cerebral infarction, unspecified (2) HTN (hypertension): Qualified Codes: I10 - Essential (primary) hypertension (3) BPH (benign prostatic hyperplasia): Qualified Codes: N40.0 - Benign prostatic hyperplasia without lower urinary tract symptoms Eli Saleh Mar 03, 2018 18:39 Kolby Noonan DO Mar 07, 2018 05:38
[2018-03-03 19:19] LABS: FOLATE 18.3 NG/ML (3.1-17.5); FREE T4 1.13 NG/DL (0.76-1.46)
[2018-03-04] VITALS: BP 147/65; PULSE 52; RESP 11; TEMP 97.9; O2SAT 96
[2018-03-04 04:00] VITALS: BP 120/57; PULSE 53; RESP 12; TEMP 98; O2SAT 96
[2018-03-04] MEDS: CHLORHEXIDINE GLUCONATE 2 % 1 PACK (2 CLOTHS) TOP SCH (04:00)
[2018-03-04] MEDS: cloNIDine HCL 0.1 MG TAB PO PRN ×3 (04:04→17:45)
[2018-03-04] MEDS: CARBIDOPA/LEVODOPA 25 MG/100 MG TAB PO SCH ×3 (06:00→17:10)
[2018-03-04 08:00] VITALS: BP 149/63; PULSE 52; RESP 21; TEMP 98; O2SAT 97
[2018-03-04] MEDS: METOPROLOL TARTRATE 50 MG TAB PO SCH (08:00)
[2018-03-04] MEDS: QUEtiapine FUMARATE 25 MG TAB PO SCH (08:40)
[2018-03-04] MEDS: GEMFIBROZIL 600 MG TAB PO SCH (08:41)
[2018-03-04] MEDS: ASPIRIN EC 81 MG TABEC PO SCH (08:41)
[2018-03-04] MEDS: CLOPIDOGREL 75 MG TAB PO SCH (08:41)
[2018-03-04] MEDS: NIFEdipine 30 MG SUSTAINED RELEASE TAB PO SCH (08:41)
[2018-03-04] MEDS: CITALOPRAM HYDROBROMIDE 20 MG TAB PO SCH (08:41)
[2018-03-04] MEDS: FINASTERIDE 5 MG TAB PO SCH (08:41)
[2018-03-04] MEDS: FAMOTIDINE 20 MG TAB PO SCH (08:41)
[2018-03-04] MEDS: DOCUSATE SODIUM 50 MG/SENNA 8.6 MG TAB PO SCH (08:41)
[2018-03-04] MEDS: SODIUM CHLORIDE 0.9% FLUSH 10 ML FLUSH IV FLUSH SCH (08:42)
[2018-03-04 08:46] VITALS: O2SAT 97
[2018-03-04] MEDS ORDERED: PLAV75TA29 PO (08:47)
[2018-03-04] MEDS ORDERED: SERO25TA PO (08:47)
[2018-03-04] MEDS ORDERED: NIFE30TA8 PO (08:47)
[2018-03-04] MEDS ORDERED: METO-309 PO (08:47)
[2018-03-04] MEDS ORDERED: CLON.1 PO (08:47)
[2018-03-04] MEDS ORDERED: ACET325T15 PO (08:47)
--- NOTE | 2018-03-04 08:58 | HHI.DS ---
Discharge Summary Admission Date Feb 27, 2018 at 19:16 Discharge Date: Mar 04, 2018 Admitting Diagnosis Acute Stroke (1) CVA (cerebral vascular accident) Diagnosis: Principal ICD Codes: I63.9 - Cerebral infarction, unspecified Status: Acute (2) HTN (hypertension) Diagnosis: Secondary ICD Codes: I10 - Essential (primary) hypertension Status: Chronic (3) Parkinson disease Diagnosis: Secondary ICD Codes: G20 - Parkinson's disease Status: Chronic (4) BPH (benign prostatic hyperplasia) Diagnosis: Secondary ICD Codes: N40.0 - Benign prostatic hyperplasia without lower urinary tract symptoms Status: Chronic Consultants Dr. Jensen and Dr. Solitario, Neurology Dr. Allen, ICU Procedures TPA 02/27/18 CBC/BMP: 02/28/18212202/28/182132 Significant Findings Laboratory Tests Test 03/01/18 16:59 03/03/18 17:57 Folate 18.3 NG/ML (3.1-17.5) Imaging Last Impressions Head CT 03/03/18 0000 Signed Impressions: Service Date/Time: February 17:05 - CONCLUSION: Normal examination. Jacques Knutson MD Brain MRI 03/02/18 0000 Signed Impressions: Service Date/Time: Friday, March 02, 2018 13:40 - CONCLUSION: Diffuse atrophy is present. No evidence of acute stroke or mass effect. No significant edema is noted. Jacques Knutson MD Neck CTA 02/27/18 1834 Signed Impressions: Service Date/Time: Tuesday, February 27, 2018 18:46 - CONCLUSION: 1. 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 No significant stenosis is present within either internal carotid artery (less than 50%% stenosis). 2. There is focal 9 mm opacity in the right upper lobe. Suggest attention to this at followup CT. Siva Rojas MD Head CTA 02/27/18 1834 Signed Impressions: Service Date/Time: Tuesday, February 27, 2018 18:46 - CONCLUSION: No acute intracranial vascular abnormality is identified. Siva Rojas MD Chest X-Ray 02/27/18 0000 Signed Impressions: Service Date/Time: Tuesday, February 27, 2018 20:34 - CONCLUSION: No acute cardiopulmonary abnormality is identified. Siva Rojas MD PE at Discharge GENERAL: This is a well-nourished, well-developed patient, in no apparent distress. CARDIOVASCULAR: Regular rate and rhythm RESPIRATORY: Clear to auscultation. Breath sounds equal bilaterally. GASTROINTESTINAL: Abdomen soft, non-tender, nondistended. Normal active bowel sounds MUSCULOSKELETAL: Extremities without clubbing, cyanosis, or edema. NEURO: intermitted periods of confusion. Moves all ext x4 Hospital Course CVA (cerebral vascular accident) - Pt admitted with c/o difficulty speaking and right hand weakness - Pt with prior h/o TIA - Pt received TPA in the ER - CT brain (02/27) --> NO acute findings - CTA brain (02/27) --> NO acute findings - CTA neck (02/27) --> NO hemodynamically significant stenosis - LDL 87 (02/28) - Pt receiving Lopid - PT/ST ordered - comgmt with Neurology - Case d/w Neurology, Dr. Bolaños (03/01) - Start ASA & plavix - Holter monitor completed: Patient was monitored for 17 hours and 45 minutes. Patient was in normal sinus rhythm. Average heart rate 80 bpm. Appears in sinus bradycardia 53 bpm at 11:32 AM. Appears in sinus tachycardia at 122 bpm at 6:20 AM. 111 PVCs and 416 PACs. Interpretation is limited by intermittent baseline artifact - telemetry does NOT show afib - echocardiogram --> In limited views, the left ventricular systolic function is normal with an estimated ejection fraction in the range of 55-60%. Trace mitral valve regurgitation. There is trace tricuspid valve regurgitation. - Pt on cardene drip initially, which was weaned - increase metoprolol to 50mg BID, add nifedipine 30 mg daily - clonidine 0.1 mg PO PRN - transfer to general medical floor 03/03 episode of decreased mental status while on the BSC during attempt to have BM earlier today, patient mental status improved spontaneously after he was assisted back to bed - CT head normal exam - EEG read as a Normal electroencephalogram. - TSH 1.67, free T4 1.13, vit B-12 517, folate 18.3, ammonia 10 - DVT prophylaxis - supportive care HTN (hypertension) - improved - see above Parkinson disease - continue outpt Sinemet BPH (benign prostatic hyperplasia) - continue outpt medications - Patient had urinary retention 03/[address] - Will DC to SNF with gonzales in place plan for patient to have voiding trail at SNF Pt Condition on Discharge: Stable Discharge Disposition: Discharge to SNF Discharge Instructions DIET: Follow Instructions for: Heart Healthy Diet Speech Therapy-Diet Recommends: Mechanical Soft, [place] Thickened Liquids Activities you can perform: Regular-No Restrictions Follow up Referrals: Neurology - 2 Weeks with Jesse Solitario MD PCP Follow-up - [address] Monae New Medications: Acetaminophen (Eq Acetaminophen) 325 Mg Tab 650 MG PO Q6H PRN for PAIN 1-10 AND/OR FEVER >101F for 10 Days, #80 TAB 0 Refills Clonidine (Catapres) 0.1 Mg Tab 0.1 MG PO Q6H PRN for SBP>160, DBP>90 for 10 Days, #40 TAB 0 Refills Clopidogrel (Plavix) 75 Mg Tab 75 MG PO DAILY for Blood Clot Prevention, #30 TAB Metoprolol Tartrate (Lopressor) 50 Mg Tab 50 MG PO Q12H for Blood Pressure Management, #60 TAB 0 Refills Nifedipine ER 24 HR (Nifedipine ER 24 HR) 30 Mg Tab 30 MG PO DAILY for Blood Pressure Management, #30 TAB 0 Refills Quetiapine (Seroquel) 25 Mg Tab 25 MG PO BID for Agitation, #60 TAB 0 Refills Continued Medications: Aspirin (Aspirin) 81 Mg Chew 81 MG CHEW DAILY for Blood Clot Prevention for 30 Days, #30 TAB 0 Refills Calcium Carbonate-Cholecalciferol (Calcium 1000 + D) 1,000-800 Mg-Unit Tab 1 TAB PO, TAB Carbidopa-Levodopa (Carbidopa-Levodopa) 25-100 Mg Tab 1.5 TAB PO TID for Parkinson Disease Mgmt, #90 TAB 0 Refills Cholecalciferol (Vitamin D-1000) 1,000 Unit Tab 1000 UNITS PO DAILY for Nutritional Supplement, #1 BOTTLE 0 Refills Citalopram (Citalopram) 10 Mg Tab 10 MG PO DAILY for Control Depression, #30 TAB 0 Refills Dutasteride (Avodart) 0.5 Mg Cap 0.5 MG PO DAILY for Manage Prostate Problems, #30 CAP 0 Refills Famotidine (Pepcid) 20 Mg Tab 20 MG PO DAILY, #60 TAB 0 Refills Gemfibrozil (Gemfibrozil) 600 Mg Tab 600 MG PO DAILY, #60 TAB 0 Refills Take 30 minutes prior to breakfast and dinner. Discontinued Medications: Sildenafil (Viagra) 50 Mg Tab 50 MG PO DAILY PRN for ERECTILE DYSFUNCTION, TAB 0 Refills Additional Information Patient examined. Assessment and plan formulated with Eli Saleh PA-C. I agree with the above. Eli Saleh Mar 04, 2018 08:58 Kolby Noonan DO Mar 07, 2018 05:39
--- NOTE | 2018-03-04 09:44 | HHI.DCPOC ---
Discharge Care Plan Diagnosis: (1) CVA (cerebral vascular accident) (2) Parkinson disease (3) HTN (hypertension) (4) BPH (benign prostatic hyperplasia) Goals to Promote Your Health * To prevent worsening of your condition and complications * To maintain your health at the optimal level Directions to Meet Your Goals Take your medications as prescribed Follow your dietary instruction Follow activity as directed Keep your appointments as scheduled Take your immunizations and boosters as scheduled If your symptoms worsen call your PCP, if no PCP go to Urgent Care Center or Emergency Room Smoking is Dangerous to Your Health. Avoid second hand smoke Call the 24-hour hour crisis hotline for domestic abuse at Eli Saleh Mar 04, 2018 09:44
--- NOTE | 2018-03-04 10:05 | HHI.PR ---
Review/Management Daily Summary 02/28 doing much beetter, s/p tpa alert and talking nearly normal per moves [address] brain later today may need cardio input about rhythm and risk for cardioembolism echo pending rehab 03/02 restless and agitated, confused moves 4 limbs well counts fingers bilaterally will run mri brain f/u stroke low dose seroquel trying to alleviate agitation without heavy sedation 03/04 doing well today follows all commands alert and oriented though some difficulry with date knows place moves all limbs strongly at bedside no residual aphasia will sign off Subjective Subjective Comments No acute events reported No headache Active Medications Current Medications Medications (Trade) Dose Ordered Sig/Leida Route Start Time Stop Time Status Last Admin (Aspirin Chew) 81 mg DAILY CHEW 02/28/18 09:00 Future Hold 02/28/18 08:35 (CeleXA) 10 mg DAILY PO 02/28/18 09:00 03/04/18 08:41 (Lopid) 600 mg DAILY PO 02/28/18 09:00 03/04/18 08:41 (Proscar) 5 mg DAILY PO 02/28/18 09:00 03/04/18 08:41 (Pill Splitter) 1 ea UNSCH PRN OTHER 02/27/18 20:45 (NS Flush) 2 ml UNSCH PRN IV FLUSH 02/27/18 20:30 (NS Flush) 2 ml BID IV FLUSH 02/27/18 21:00 03/04/18 08:42 (Tylenol) 650 mg Q6H PRN PO 02/27/18 20:30 (Zofran Inj) 4 mg Q6H PRN IV PUSH 02/27/18 20:30 (Duoneb Neb) 1 ampule Q2HR NEB PRN INH 02/27/18 20:30 (Heparin Inj) 5,000 units Q8H SQ 02/28/18 22:00 Future Hold Miscellaneous Information 1 Q361D XX 02/27/18 20:30 02/27/18 20:30 (Chlorhexidine 2% Cloth) 3 pack Taper DAILY@04 TOP 02/28/18 04:00 02/24/19 03:59 03/02/18 03:38 (Chlorhexidine 2% Cloth) 3 pack UNSCH PRN TOP 02/27/18 20:30 (Jessie-Colace) 1 tab BID PO 02/27/18 21:00 03/04/18 08:41 (Milk Of Magnesia Liq) 30 ml Q12H PRN PO 02/27/18 20:30 03/03/18 18:34 (Senokot) 17.2 mg Q12H PRN PO 02/27/18 20:30 (Dulcolax Supp) 10 mg DAILY PRN RECTAL 02/27/18 20:30 (Lactulose Liq) 30 ml DAILY PRN PO 02/27/18 20:30 02/28/18 17:45 (Sinemet 25-100 Mg) 1.5 tab TID@0600,1100,1600 PO 02/28/18 16:30 03/04/18 06:00 (KlonoPIN) 0.5 mg HS PRN PO 02/28/18 17:30 03/01/18 21:40 (Pepcid) 20 mg BID PO 03/01/18 21:00 03/04/18 08:41 (Ecotrin Ec) 81 mg DAILY PO 03/01/18 17:00 03/04/18 08:41 (Plavix) 75 mg DAILY PO 03/01/18 17:00 03/04/18 08:41 Nicardipine HCl 25 mg/Sodium Chloride 250 ml @ 50 mls/hr TITRATE PRN IV 03/01/18 18:00 (Lopressor) 50 mg Q12H PO 03/02/18 08:00 03/03/18 20:16 (Ativan Inj) 0.5 mg Q4H PRN IV PUSH 03/02/18 11:15 03/03/18 00:42 (Procardia Xl) 30 mg DAILY PO 03/02/18 12:00 03/04/18 08:41 (Catapres) 0.1 mg Q6H PRN PO 03/02/18 17:45 03/04/18 09:40 (SEROquel) 25 mg BID PO 03/02/18 21:00 03/04/18 08:40 Allergies Allergies Coded Allergies enalaprilat (Verified Allergy, Severe, SWELLING, 02/27/18) Exam I&O / VS Vital Signs Date Time Temp Pulse Resp B/P (MAP) Pulse Ox O2 Delivery O2 Flow Rate FiO2 03/04/18 08:46 97 21 03/04/18 07:00 96 Room Air 4/27/18 04:00 98.0 53 12 120/57 (78) 96 03/04/18 04:00 53 03/04/18 00:00 52 03/04/18 00:00 97.9 52 11 147/65 (92) 96 03/03/18 20:00 97.9 66 19 138/71 (93) 98 03/03/18 20:00 61 03/03/18 19:48 97 03/03/18 19:00 96 Room Air 03/03/18 16:00 98.6 61 20 134/61 (85) 98 03/03/18 16:00 61 03/03/18 12:00 60 03/03/18 12:00 98.6 60 15 117/57 (77) 98 Objective Radiology Results Last [address] 03/03/18 0000 Signed Impressions: Service Date/Time: February 17:05 - CONCLUSION: Normal examination. Jacques Knutson MD Micro and Labs Laboratory Tests Test 03/03/18 17:57 Ammonia 11 Vitamin B12 Level 517 Folate 18.3 Free Thyroxine 1.13 Thyroid Stimulating Hormone 3rd Gen 1.670 Rapid Plasma Reagin NON-REACTIVE Jesse Solitario MD Mar 04, 2018 10:05
[2018-03-04 12:00] VITALS: BP 137/60; PULSE 61; RESP 14; TEMP 98.5; O2SAT 99
--- NOTE | 2018-03-04 15:06 | MG ---
cc: Marco Jensen MD, PhD DATE OF STUDY: 03/03/2018 TEST NUMBER: [id number] TECHNIQUE: This is a 17-channel EEG. DESCRIPTION: Background rhythm reveals a symmetrical alpha rhythm with a frequency of 8 Hz. Amplitude is about 20 microvolts. During drowsiness, there is mild slowing in the theta range at about 6 Hz. There is some muscle artifact present. There are no lateralizing features identified and no epileptiform features identified. During sleep, this is normal sleep activity in terms of sleep spindles. Photic is done in a stepwise fashion with a normal driving response. INTERPRETATION: Normal electroencephalogram. Marco Jensen MD, PhD [place] , 02:54 PM , 03:06 PM
[2018-03-04 16:00] VITALS: BP 137/60; PULSE 62; RESP 17; TEMP 98.3; O2SAT 99
== END 2018-03-04 19:04 | DRG 63 ==
LOC: NEPC 18:28 → NEDA 19:16 → N03B 20:47
PROVIDERS: ADMIT Hospitalist; ATTEND Hospitalist
DX: I63.9 Cerebral infarction, unspecified (principal); G20 Parkinson's disease; I10 Essential (primary) hypertension; N40.0 Benign prostatic hyperplasia without lower urinary tract symptoms; R33.9 Retention of urine, unspecified; E03.9 Hypothyroidism, unspecified; E78.5 Hyperlipidemia, unspecified; F41.8 Other specified anxiety disorders; I25.10 Atherosclerotic heart disease of native coronary artery without angina pectoris; R47.1 Dysarthria and anarthria; K21.9 Gastro-esophageal reflux disease without esophagitis; K59.00 Constipation, unspecified; R29.702 NIHSS score 2; W01.0XXA Fall on same level from slipping, tripping and stumbling without subsequent striking against object, initial encounter; Z85.828 Personal history of other malignant neoplasm of skin; Z86.73 Personal history of transient ischemic attack (TIA), and cerebral infarction without residual deficits; Z88.8 Allergy status to other drugs, medicaments and biological substances; Z79.82 Long term (current) use of aspirin
CPT/HCPCS: 70450; 70496; 70498; 70551; 71045; 80048; 80053; 80061; 80307; 82140; 82550; 82607; 82746; 83735; 84100; 84439; 84443; 84484; 85025; 85384; 85610; 85730; 86592; 86850; 86900; 86901; 87641; 93005; 93225; 93226; 93306; 95819; 96374; J2060; J2997; J7030; J7050; Q9967

== ENCOUNTER 2018-03-16 21:40 | Inpatient (IN) | payer MEDICARE ==
[~2018-03-16] VITALS: Ht 182.9 cm; Wt 65.8 kg
[~2018-03-16 21:40] MED LIST changes: +ACET325T15 PO; -CITA10TA4; +CITA10TA4 PO; +CLON.1 PO; -CLON0.5T PO; +METO-309 PO; +SERO25TA PO; +VITA1000 PO
[2018-03-16 22:01] VITALS: BP 222/97; PULSE 65; RESP 18; TEMP 98.2; O2SAT 100
[2018-03-16] MEDS ORDERED: ACETAMINOPHEN 325 MG TAB PO ONE (22:45)
--- NOTE | 2018-03-16 22:58 | PD ---
HPI Chief Complaint: Fall Time Seen by Provider: 22:32 Travel History International Travel<30 days: No Contact w/Intl Traveler<30days: No Traveled to known affect area: No History of Present Illness HPI Patient is an 82-year-old male with history of Parkinson's disease presents emergency department for evaluation of right hip pain after a fall. Patient states normally ambulate with a walker but wanted to try and annually without it today, he states he normally has a very short gait and his feet started going faster and faster and fell forward. Denies loss of consciousness denies any head injury or neck injury. States he landed primarily on his right knee with an abrasion but his chief complaint is right hip pain. Symptoms started just prior to arrival, right hip, associated with inability to bear weight, context as above. No numbness no tingling peer PFSH Past Medical History Hx Anticoagulant Therapy: Yes (ASA) Asthma: No Blood Disorders: No Heart Rhythm Problems: No Cancer: Yes (hx of skin cancer) Cardiovascular Problems: Yes High Cholesterol: Yes Chemotherapy: No Chest Pain: No Congestive Heart Failure: No COPD: No Cerebrovascular Accident: Yes Coronary Artery Disease: Yes Diabetes: No Diminished Hearing: No Endocrine: No Gastrointestinal Disorders: Yes (acid reflux) GERD: Yes Glaucoma: No Genitourinary: No Hepatitis: No Hiatal Hernia: No Hypertension: Yes Immune Disorder: No Implanted Vascular Access Dvce: No Musculoskeletal: Yes (parkinsons) Neurologic: Yes ( reports hx of TIA, parkinsons) Parkinson's Disease: Yes Psychiatric: No Reproductive: No Respiratory: No Radiation Therapy: No Sleep Apnea: No Thyroid Disease: No Tetanus Vaccination: < 5 Years Influenza Vaccination: Yes Past Surgical History AICD: No Eye Surgery: Yes (CATARACTS) Joint Replacement: No Pacemaker: No Tonsillectomy: Yes Other Surgery: Yes (carotid endarterectomy) Social History Alcohol Use: No (former) Tobacco Use: No (QUIT 30 YEARS) Substance Use: No Allergies-Medications (Allergen,Severity, Reaction): Coded Allergies: enalaprilat (Verified Allergy, Severe, SWELLING, 03/16/18) Reported Meds & Prescriptions Reported Meds & Active Scripts Active Seroquel (Quetiapine Fumarate) 25 Mg Tab 25 Mg PO BID Eq Acetaminophen (Acetaminophen) 325 Mg Tab 650 Mg PO Q6H PRN 10 Days Nifedipine ER 24 HR (Nifedipine) 30 Mg Tab 30 Mg PO DAILY Lopressor (Metoprolol Tartrate) 50 Mg Tab 50 Mg PO Q12H Catapres (Clonidine) 0.1 Mg Tab 0.1 Mg PO Q6H PRN 10 Days Plavix (Clopidogrel Bisulfate) 75 Mg Tab 75 Mg PO DAILY Aspirin 81 Mg Chew 81 Mg CHEW DAILY 30 Days Reported Citalopram (Citalopram Hydrobromide) 10 Mg Tab 10 Mg PO DAILY Vitamin D-1000 (Cholecalciferol) 1,000 Unit Tab 1,000 Units PO DAILY Pepcid (Famotidine) 20 Mg Tab 20 Mg PO DAILY Calcium 1000 + D (Calcium Carbonate-Cholecalciferol) 1,000-800 Mg-Unit Tab 1 Tab PO Avodart (Dutasteride) 0.5 Mg Cap 0.5 Mg PO DAILY Gemfibrozil 600 Mg Tab 600 Mg PO DAILY Take 30 minutes prior to breakfast and dinner. Carbidopa-Levodopa 25-100 Mg Tab 1.5 Tab PO TID Review of Systems Except as stated in HPI: all other systems reviewed are Neg Physical Exam Narrative GENERAL: Well-developed well-nourished no obvious SKIN: Focused skin assessment warm/dry. HEAD: Atraumatic. Normocephalic. No ibrahim signs no raccoons eyes EYES: Pupils equal and round. No scleral icterus. No injection or drainage. ENT: No nasal bleeding or discharge. Mucous membranes pink and moist. NECK: Trachea midline. No JVD. CARDIOVASCULAR: Regular rate and rhythm. No murmur appreciated. RESPIRATORY: No accessory muscle use. Clear to auscultation. Breath sounds equal bilaterally. GASTROINTESTINAL: Abdomen soft, non-tender, nondistended. Hepatic and splenic margins not palpable. MUSCULOSKELETAL: No obvious deformities. No clubbing. No cyanosis. No edema. Pelvis is stable, there is some tenderness to the right hip. There is tenderness with internal/external rotation. No true shortening. Pulses motor and sensory intact distally in all 4 extremities, 5 out of 5 plantar flexion. There is no midline CT or L-spine tenderness peer NEUROLOGICAL: Awake and alert. No obvious cranial nerve deficits. Motor grossly within normal limits. Normal speech. PSYCHIATRIC: Appropriate mood and affect; insight and judgment normal. Data Data Last Documented VS Vital Signs Date Time Temp Pulse Resp B/P (MAP) Pulse Ox O2 Delivery O2 Flow Rate FiO2 03/17/18 00:57 74 16 130/58 (82) 97 Room Air 03/16/18 22:01 98.2 Orders Orders Ice/Cold Pack (03/16/18 22:10) Hip, Uni(Ap&Lat) Wo Ap Pelvis (03/16/18 22:10) Knee, Complete (4vws) (03/16/18 22:10) Acetaminophen (Tylenol) (03/16/18 22:45) Consult Orthopedic (03/16/18 ) Basic Metabolic Panel (Bmp) (03/16/18 23:54) Ckmb (Isoenzyme) Profile (03/16/18 23:54) Complete Blood Count With Diff (03/16/18 23:54) Magnesium (Mg) (03/16/18 23:54) Prothrombin Time / Inr (Pt) (03/16/18 23:54) Act Partial Throm Time (Ptt) (03/16/18 23:54) Troponin I (03/16/18 23:54) Iv Access Insert/Monitor (03/16/18 23:54) Oximetry (03/16/18 23:54) Oxygen Administration (03/16/18 23:54) Sodium Chloride 0.9% Flush (Ns Flush) (03/17/18 00:00) Morphine Inj (Morphine Inj) (03/17/18 00:00) Ondansetron Inj (Zofran Inj) (03/17/18 00:00) Hydralazine Inj (Apresoline Inj) (03/17/18 00:15) Chest, Single Ap (03/17/18 ) Ondansetron Odt (Zofran Odt) (03/17/18 00:15) Urinalysis - C+S If Indicated (03/17/18 00:38) Vital Signs (Adult) Q4H (03/17/18 01:03) Diet Npo (03/17/18 Breakfast) Activity Bed Rest (03/17/18 01:03) Notify Dr: Other (03/17/18 01:03) Sodium Chlor 0.9% 1000 Ml Inj (Ns 1000 M (03/17/18 01:15) Admit Order (Ed Use Only) (03/17/18 ) Labs Laboratory Tests Test 03/17/18 00:20 White Blood Count 15.1 TH/MM3 Red Blood Count 4.23 MIL/MM3 Hemoglobin 12.3 GM/DL Hematocrit 37.5 % Mean Corpuscular Volume 88.5 FL Mean Corpuscular Hemoglobin 29.0 PG Mean Corpuscular Hemoglobin Concent 32.7 % Red Cell Distribution Width 13.7 % Platelet Count 258 TH/MM3 Mean Platelet Volume 8.5 FL Neutrophils (%) (Auto) 87.8 % Lymphocytes (%) (Auto) 5.7 % Monocytes (%) (Auto) 5.2 % Eosinophils (%) (Auto) 1.1 % Basophils (%) (Auto) 0.2 % Neutrophils # (Auto) 13.3 TH/MM3 Lymphocytes # (Auto) 0.9 TH/MM3 Monocytes # (Auto) 0.8 TH/MM3 Eosinophils # (Auto) 0.2 TH/MM3 Basophils # (Auto) 0.0 TH/MM3 CBC Comment DIFF FINAL Differential Comment Prothrombin Time 10.5 SEC Prothromb Time International Ratio 1.0 RATIO Activated Partial Thromboplast Time 25.2 SEC Blood Urea Nitrogen 23 MG/DL Creatinine 1.48 MG/DL Random Glucose 96 MG/DL Calcium Level 9.1 MG/DL Magnesium Level 2.2 MG/DL Sodium Level 140 MEQ/L Potassium Level 4.3 MEQ/L Chloride Level 104 MEQ/L Carbon Dioxide Level 29.3 MEQ/L Anion Gap 7 MEQ/L Estimat Glomerular Filtration Rate 46 ML/MIN Total Creatine Kinase 77 U/L Troponin I LESS THAN 0.02 NG/ML MDM Medical Decision Making Medical Screen Exam Complete: Yes Emergency Medical Condition: Yes Differential Diagnosis Hip fracture, hip strain, hip sprain, knee fracture, knee skin avulsion. Narrative Course Patient room to the emergency department, x-rays confirmed an intertrochanteric hip fracture on the right side. Knee x-ray is negative. C-spine and head were cleared clinically. He is alert and awake and oriented, discussed the results with him and discussed he will need to be admitted to the hospital for consultation with orthopedics. He is not on any blood thinners but is on aspirin and Plavix. Patient will be discussed with Dr. Garcia for admission. Patient initially reluctant to have opiate pain medications is made him "loopy" . In the past. Tylenol is not relieving his pain, we will therefore add morphine after discussion with him. Patient was discussed with Dr. Hoang Salo for admission to Dr. Momo Noonan, placed routine consult and for orthopedic surgery, will be n.p.o. as it is after midnight. His pain is much reasonably in control he was given hydralazine for asymptomatic blood pressure his blood pressures corrected nicely Diagnosis Primary Impression: Hip fracture, right Qualified Codes: S72.001A - Fracture of unspecified part of neck of right femur, initial encounter for closed fracture Admitting Information Admitting Physician Requests: Admit Condition: Stable Clint Vasquez MD March 16, 2018 22:58
[2018-03-17] MEDS ORDERED: ONDANSETRON HCL 4 MG/2 ML VIAL IV PUSH ONE
[2018-03-17] MEDS ORDERED: MORPHINE SULFATE 4 MG/ML INJ IV PUSH ONE
--- NOTE | 2018-03-17 00:04 | RADRPT ---
EXAM DATE/TIME: 03/16/2018 23:27 [facility] COMPARISON: No previous studies available for comparison. INDICATIONS : Right hip pain after fall. MEDICAL HISTORY : Cerebrovascular disease. Cardiovascular disease. Hypertension. Skin cancer. SURGICAL HISTORY : None. ENCOUNTER: Initial ACUITY: 1 day PAIN SCORE: 10/10 LOCATION: Right hip. FINDINGS: Oblique slightly displaced acute intertrochanteric fracture seen of the proximal right femur. Femoral head is intact. No subluxations. There is moderate osteoarthritis. CONCLUSION: Mildly displaced right hip intertrochanteric fracture. Siva Beckett MD on March 17, 2018 at 0:01 Board Certified Radiologist. This report was verified electronically.
--- NOTE | 2018-03-17 00:05 | RADRPT ---
EXAM DATE/TIME: 03/16/2018 23:27 [facility] COMPARISON: No previous studies available for comparison. INDICATIONS : Right knee pain after fall. MEDICAL HISTORY : Cerebrovascular disease. Cardiovascular disease. Hypertension. Skin cancer. SURGICAL HISTORY : None. ENCOUNTER: Initial ACUITY: 1 day PAIN SCORE: 10/10 LOCATION: Right knee. FINDINGS: No fracture or subluxation of the right knee. No perceptible joint effusion. There is moderate tricom partment osteoarthritis. Atherosclerotic popliteal artery. CONCLUSION: Intact right knee. Moderate severity osteoarthritis. Siva Beckett MD on March 17, 2018 at 0:03 Board Certified Radiologist. This report was verified electronically.
[2018-03-17] MEDS ORDERED: ONDANSETRON ODT 4 MG TAB PO ONE (00:15)
[2018-03-17] MEDS ORDERED: hydrALAZINE HCL 20 MG/ML VIAL IV PUSH ONE (00:15)
[2018-03-17] MEDS: SODIUM CHLORIDE 0.9% FLUSH 10 ML FLUSH IVF PRN ×2 (00:21→00:28)
--- NOTE | 2018-03-17 00:24 | RADRPT ---
EXAM DATE/TIME: 03/17/2018 00:03 [facility] COMPARISON: CHEST SINGLE AP, February 27, 2018, 20:34. INDICATIONS : Evaluate for pneumonia, pneumothorax, or any communicable disesase. Pre op right hip. MEDICAL HISTORY : Parkinson's. cerebrovascular disease. hypertension. SURGICAL HISTORY : None. ENCOUNTER: Initial ACUITY: 1 day PAIN SCORE: 0/10 LOCATION: Bilateral chest FINDINGS: A single view of the chest demonstrates the lungs to be symmetrically aerated without evidence of mas s, infiltrate or effusion. The cardiomediastinal contours are unremarkable. Osseous structures are intact. CONCLUSION: No evidence of acute cardiopulmonary disease. Siva Beckett MD on March 17, 2018 at 0:22 Board Certified Radiologist. This report was verified electronically.
[2018-03-17 00:37] LABS: AUTOMATED NEUTROPHIL # 13.3 TH/MM3 (1.8-7.7); BASOPHIL % 0.2 % (0.0-2.0); EOSINOPHIL # 0.2 TH/MM3 (0-0.4); EOSINOPHIL % 1.1 % (0.0-4.0); HEMATOCRIT 37.5 % (39.0-51.0); HEMOGLOBIN 12.3 GM/DL (13.0-17.0); LYMPH % 5.7 % (9.0-44.0); LYMPHOCYTE # 0.9 TH/MM3 (1.0-4.8); MEAN CELL VOLUME 88.5 FL (80.0-100.0); MEAN CORPUSCULAR HGB CONC 32.7 % (32.0-36.0); MEAN PLATELET VOLUME 8.5 FL (7.0-11.0); MONO % 5.2 % (0.0-8.0); MONOCYTE # 0.8 TH/MM3 (0-0.9); NEUT % 87.8 % (16.0-70.0); PLATELET COUNT 258 TH/MM3 (150-450); RED BLOOD COUNT 4.23 MIL/MM3 (4.50-5.90); RED CELL DISTRIBUTION WIDTH 13.7 % (11.6-17.2); WHITE BLOOD COUNT 15.1 TH/MM3 (4.0-11.0)
[2018-03-17 00:48] LABS: PROTHROMBIN TIME - PATIENT 10.5 SEC (9.8-11.6)
[2018-03-17 00:50] LABS: BICARBONATE 29.3 MEQ/L (21.0-32.0); BLOOD UREA NITROGEN 23 MG/DL (7-18); CALCIUM 9.1 MG/DL (8.5-10.1); CHLORIDE 104 MEQ/L (98-107); CREATININE 1.48 MG/DL (0.60-1.30); GLOMERULAR FILTRATION RATE 46 ML/MIN (>89); GLUCOSE,RANDOM 96 MG/DL (74-106); MAGNESIUM 2.2 MG/DL (1.5-2.5); SODIUM (NA) 140 MEQ/L (136-145)
[2018-03-17 00:53] LABS: TROPONIN I LESS THAN 0.02 NG/ML (0.02-0.05)
[2018-03-17 00:57] VITALS: BP 130/58; PULSE 74; RESP 16; O2SAT 97
[2018-03-17] MEDS ORDERED: SODIUM CHLOR 0.9% 1000 ML INJ 1,000 ML IV SCH (01:15)
[2018-03-17 02:05] LABS: BILIRUBIN, URINE NEG (NEG); BLOOD, URINE SMALL (NEG); GLUCOSE,URINE NEG (NEG); KETONE, URINE NEG (NEG); MUCUS URINE FEW /lpf (OCC); NITRITE,URINE NEG (NEG); URINE COLOR LIGHT-YELLOW (YELLW/STRAW); URINE LEUKOCYTE ESTERASE NEG (NEG)
[2018-03-17] MEDS: MORPHINE SULFATE 4 MG/ML INJ IV PRN ×2 (04:28→08:45)
[2018-03-17 07:36] VITALS: BP 166/76; PULSE 72; RESP 18; TEMP 98.1; O2SAT 96
[2018-03-17] MEDS: CARBIDOPA/LEVODOPA 25 MG/100 MG TAB PO SCH ×3 (09:00→17:28)
[2018-03-17] MEDS: QUEtiapine FUMARATE 25 MG TAB PO SCH ×3 (09:00→21:52)
[2018-03-17] MEDS ORDERED: cloNIDine HCL 0.1 MG TAB PO PRN (09:00)
--- NOTE | 2018-03-17 09:29 | HHI.HP ---
HPI Service [facility] Hospitalists Primary Care Physician Larry Monae M.D. Admission Diagnosis Right Hip Fracture Chief Complaint: right hip pain after a fall Travel History International Travel<30 Days: No Contact w/Intl Traveler <30 Da: No Traveled to Known Affected Are: No History of Present Illness This is a 82 year male patient with a past medical osteoarthritis, BPH, hyperlipidemia, hypothyroidism, lumbar radiculopathy, Parkinson's disease, GERD , peripheral neuropathy, skin cancer, unspecified, L3 compression fracture . Patient states normally ambulates with a walker but wanted to try to ambulate without it today. Patient reports that his feet started going faster and faster and fell forward. Denies loss of consciousness denies any head injury or neck injury. States he landed primarily on his right knee with an abrasion but his chief complaint is right hip pain. Symptoms started just prior to arrival, right hip, associated with inability to bear weight, context as above. No numbness no tingling peer right hip Xray Mildly displaced right hip intertrochanteric fracture right knee Xray intact right knee. Moderate severity osteoarthritis Patient recently had CVA received TPA 02/27/18. Review of Systems Musculoskeletal: COMPLAINS OF: Joint pain, Stiffness Past Family Social History Past Medical History Osteoarthritis BPH Hyperlipidemia Hypothyroid lumbar radiculopathy Parkinson's disease, patient follows with Dr. Papito OLIVO peripheral neuropathy skin cancer, unspecified L3 compression fracture, dx 06/06/17 Past Surgical History cataract surgery epidural steroid injection knee arthroscopy needle biopsy of the prostate Reported Medications Seroquel (Quetiapine Fumarate) 25 Mg Tab 25 Mg PO BID Eq Acetaminophen (Acetaminophen) 325 Mg Tab 650 Mg PO Q6H PRN 10 Days Nifedipine ER 24 HR (Nifedipine) 30 Mg Tab 30 Mg PO DAILY Lopressor (Metoprolol Tartrate) 50 Mg Tab 50 Mg PO Q12H Catapres (Clonidine) 0.1 Mg Tab 0.1 Mg PO Q6H PRN 10 Days Plavix (Clopidogrel Bisulfate) 75 Mg Tab 75 Mg PO DAILY Aspirin 81 Mg Chew 81 Mg CHEW DAILY 30 Days Citalopram (Citalopram Hydrobromide) 10 Mg Tab 10 Mg PO DAILY Vitamin D-1000 (Cholecalciferol) 1,000 Unit Tab 1,000 Units PO DAILY Pepcid (Famotidine) 20 Mg Tab 20 Mg PO DAILY Calcium 1000 + D (Calcium Carbonate-Cholecalciferol) 1,000-800 Mg-Unit Tab 1 Tab PO Avodart (Dutasteride) 0.5 Mg Cap 0.5 Mg PO DAILY Gemfibrozil 600 Mg Tab 600 Mg PO DAILY Take 30 minutes prior to breakfast and dinner. Carbidopa-Levodopa 25-100 Mg Tab 1.5 Tab PO TID Allergies: Coded Allergies: enalaprilat (Verified Allergy, Severe, SWELLING, 03/16/18) Family History No family history significant of early coronary artery disease or strokes Social History Negative for tobacco, alcohol, or illicit drug abuse Physical Exam Vital Signs Vital Signs Date Time Temp Pulse Resp B/P (MAP) Pulse Ox O2 Delivery O2 Flow Rate FiO2 03/17/18 07:36 98.1 72 18 166/76 (106) 96 03/17/18 02:25 03/17/18 01:30 100 Room Air 03/17/18 00:57 74 16 130/58 (82) 97 Room Air 03/16/18 22:01 98.2 65 18 222/97 (138) 100 Physical Exam GENERAL: This is an elderly 82 year old male patient, in no apparent distress. HEAD: Atraumatic. Normocephalic. No temporal or scalp tenderness. EYES: Extraocular motions intact. No scleral icterus. No injection or drainage. CARDIOVASCULAR: Regular rate and rhythm RESPIRATORY: Clear to auscultation. Breath sounds equal bilaterally. GASTROINTESTINAL: Abdomen soft, non-tender, nondistended. MUSCULOSKELETAL: Extremities without clubbing, cyanosis, or edema. No joint tenderness, effusion, or edema noted. No calf tenderness. Negative Homans sign bilaterally. right lower extremity shortened and rotated NEUROLOGICAL: Awake and alert. Motor and sensory grossly within normal limits, with the exception of right lower extremity. Normal speech. Laboratory Laboratory Tests Test 03/17/18 00:20 03/17/18 01:45 White Blood Count 15.1 Red Blood Count 4.23 Hemoglobin 12.3 Hematocrit 37.5 Mean Corpuscular Volume 88.5 Mean Corpuscular Hemoglobin 29.0 Mean Corpuscular Hemoglobin Concent 32.7 Red Cell Distribution Width 13.7 Platelet Count 258 Mean Platelet Volume 8.5 Neutrophils (%) (Auto) 87.8 Lymphocytes (%) (Auto) 5.7 Monocytes (%) (Auto) 5.2 Eosinophils (%) (Auto) 1.1 Basophils (%) (Auto) 0.2 Neutrophils # (Auto) 13.3 Lymphocytes # (Auto) 0.9 Monocytes # (Auto) 0.8 Eosinophils # (Auto) 0.2 Basophils # (Auto) 0.0 CBC Comment DIFF FINAL Differential Comment Prothrombin Time 10.5 Prothromb Time International Ratio 1.0 Activated Partial Thromboplast Time 25.2 Blood Urea Nitrogen 23 Creatinine 1.48 Random Glucose 96 Calcium Level 9.1 Magnesium Level 2.2 Sodium Level 140 Potassium Level 4.3 Chloride Level 104 Carbon Dioxide Level 29.3 Anion Gap 7 Estimat Glomerular Filtration Rate 46 Total Creatine Kinase 77 Troponin I LESS THAN 0.02 Urine Color LIGHT-YELLOW Urine Turbidity CLEAR Urine pH 7.0 Urine Specific [place] 1.008 Urine Protein TRACE Urine Glucose (UA) NEG Urine Ketones NEG Urine Occult Blood SMALL Urine Nitrite NEG Urine Bilirubin NEG Urine Urobilinogen LESS THAN 2.0 Urine Leukocyte Esterase NEG Urine RBC 24 Urine WBC 1 Urine Mucus FEW Microscopic Urinalysis Comment CULT NOT INDICATED Result Diagram: 03/17/18 0020 03/17/18 0020 Imaging Last Impressions Hip X-Ray 03/17/18 0000 Signed Impressions: Service Date/Time: March 13:28 - CONCLUSION: 1. Claudy fixation proximal right femur. Dae Foster MD Chest X-Ray 03/17/18 0000 Signed Impressions: Service Date/Time: March 00:03 - CONCLUSION: No evidence of acute cardiopulmonary disease. Siva Beckett MD Knee X-Ray [id number]/[id number] Signed Impressions: Service Date/Time: Friday, March 16, 2018 23:27 - CONCLUSION: Intact right knee. Moderate severity osteoarthritis. MD Kalyani Matthewsi VTE Risk Assessment Caprini VTE Risk Assessment: Mod/High Risk (score >= 2) Caprini Risk Assessment Model Point Value = 1 Point Value = 2 Point Value = 3 Point Value = 5 Age 41-60 Minor surgery BMI > 25 kg/m2 Swollen legs Varicose veins or History of unexplained or recurrent spontaneous Oral contraceptives or hormone replacement Sepsis (< 1 month) Serious lung disease, including pneumonia (< 1 month) Abnormal pulmonary function Acute myocardial infarction Congestive heart failure (< 1 month) History of inflammatory bowel disease Medical patient at bed rest Age 61-74 Arthroscopic surgery Major open surgery (> 45 min) Laparoscopic surgery (> 45 min) Malignancy Confined to bed (> 72 hours) Immobilizing plaster cast Central venous access Age >= 75 History of VTE Family history of VTE Factor V Leiden Prothrombin [id number] Lupus anticoagulant Anticardiolipin antibodies Elevated serum homocysteine Heparin-induced thrombocytopenia Other congenital or acquired thrombophilia Stroke (< 1 month) Elective arthroplasty Hip, pelvis, or leg fracture Acute spinal cord injury (< 1 month) Prophylaxis Regimen Total Risk Factor Score Risk Level Prophylaxis Regimen 0-1 Low Early ambulation 2 Moderate Order ONE of the following: *Sequential Compression Device (SCD) *Heparin 5000 units SQ BID 3-4 Higher Order ONE of the following medications: *Heparin 5000 units SQ TID *Enoxaparin/Lovenox 40 mg SQ daily (WT < 150 kg, CrCl > 30 mL/min) *Enoxaparin/Lovenox 30 mg SQ daily (WT < 150 kg, CrCl > 10-29 mL/min) *Enoxaparin/Lovenox 30 mg SQ BID (WT < 150 kg, CrCl > 30 mL/min) AND/OR *Sequential Compression Device (SCD) 5 or more Highest Order ONE of the following medications: *Heparin 5000 units SQ TID (Preferred with Epidurals) *Enoxaparin/Lovenox 40 mg SQ daily (WT < 150 kg, CrCl > 30 mL/min) *Enoxaparin/Lovenox 30 mg SQ daily (WT < 150 kg, CrCl > 10-29 mL/min) *Enoxaparin/Lovenox 30 mg SQ BID (WT < 150 kg, CrCl > 30 mL/min) AND *Sequential Compression Device (SCD) Assessment and Plan Problem List: (1) Hip fracture, right ICD Codes: S72.001A - Fracture of unspecified part of neck of right femur, initial encounter for closed fracture Status: Acute Plan: Patient states normally ambulates with a walker but wanted to try to ambulate without it today. Patient reports that his feet started going faster and faster and fell forward. right hip Xray Mildly displaced right hip intertrochanteric fracture right knee Xray intact right knee. Moderate severity osteoarthritis Consult orthopedic surgery patient NPO for hip surgery Anticoagulation per surgery PT requested (2) CVA (cerebral vascular accident) ICD Codes: I63.9 - Cerebral infarction, unspecified Status: Acute Plan: recent CVA CVA (cerebral vascular accident) - Pt admitted with c/o difficulty speaking and right hand weakness - Pt with prior h/o TIA - Pt received TPA in the ER - CT brain (02/27) --> NO acute findings - CTA brain (02/27) --> NO acute findings - CTA neck (02/27) --> NO hemodynamically significant stenosis - LDL 87 (02/28) - Pt receiving Lopid - PT/ST ordered - comgmt with Neurology - Case d/w Neurology, Dr. Bolaños (03/01) - Start ASA & plavix - Holter monitor completed: Patient was monitored for 17 hours and 45 minutes. Patient was in normal sinus rhythm. Average heart rate 80 bpm. Appears in sinus bradycardia 53 bpm at 11:32 AM. Appears in sinus tachycardia at 122 bpm at 6:20 AM. 111 PVCs and 416 PACs. Interpretation is limited by intermittent baseline artifact - telemetry does NOT show afib - echocardiogram --> In limited views, the left ventricular systolic function is normal with an estimated ejection fraction in the range of 55-60%. Trace mitral valve regurgitation. There is trace tricuspid valve regurgitation. - Pt on cardene drip initially, which was weaned - increase metoprolol to 50mg BID, add nifedipine 30 mg daily - clonidine 0.1 mg PO PRN - transfer to general medical floor 03/03 episode of decreased mental status while on the BSC during attempt to have BM earlier today, patient mental status improved spontaneously after he was assisted back to bed - CT head normal exam - EEG read as a Normal electroencephalogram. - TSH 1.67, free T4 1.13, vit B-12 517, folate 18.3, ammonia 10 - DVT prophylaxis - supportive care (3) BPH (benign prostatic hyperplasia) ICD Codes: N40.0 - Benign prostatic hyperplasia without lower urinary tract symptoms Status: Chronic Plan: Continue patient's home Avodart (4) HTN (hypertension) ICD Codes: I10 - Essential (primary) hypertension Status: Chronic Plan: Continue patient's home Metoprolol 50 mg Q12H, Nifedipine 30 mg daily with hold parameters clonidine as needed (5) Parkinson disease ICD Codes: G20 - Parkinson's disease Status: Chronic Plan: Continue home Carbidopa-Levodopa 25-100 mg Assessment and Plan Patient examined. Assessment and plan formulated with Eli Saleh PA-C. I agree with the above. Physician Certification 2 Midnight Certification Type: Admission for Inpatient Services Order for Inpatient Services The services are ordered in accordance with Medicare regulations or non- Medicare payer requirements, as applicable. In the case of services not specified as inpatient-only, they are appropriately provided as inpatient services in accordance with the 2-midnight benchmark. Estimated LOS (days): 2 days is the estimated time the patient will need to remain in the hospital, assuming treatment plan goals are met and no additional complications. Post-Hospital Plan: SNF Problem Qualifiers (1) Hip fracture, right: Qualified Codes: S72.001A - Fracture of unspecified part of neck of right femur , initial encounter for closed fracture Eli Saleh March 17, 2018 09:29 Kolby Noonan DO March 20, 2018 09:43
[2018-03-17] MEDS ORDERED: PILL SPLITTER OTHER PRN (09:30)
[2018-03-17] MEDS ORDERED: NALOXONE HCL 0.4 MG/ML AMP IV PUSH PRN (10:30)
[2018-03-17] MEDS ORDERED: ACETAMINOPHEN 325 MG TAB PO PRN (10:30)
[2018-03-17] MEDS ORDERED: ONDANSETRON HCL 4 MG/2 ML VIAL IVP PRN ×2 (10:30→14:00)
[2018-03-17] MEDS ORDERED: MAGNESIUM HYDROXIDE SUSP 30 ML CUP PO PRN (10:30)
[2018-03-17] MEDS ORDERED: BISACODYL 10 MG SUPP RECTAL PRN (10:30)
[2018-03-17] MEDS: METOPROLOL TARTRATE 50 MG TAB PO SCH ×2 (11:01→21:52)
[2018-03-17] MEDS: NIFEdipine 30 MG SUSTAINED RELEASE TAB PO SCH (11:01)
[2018-03-17 11:36] VITALS: BP 197/87; PULSE 77; RESP 18; TEMP 98.3; O2SAT 95
[2018-03-17] MEDS ORDERED: ceFAZolin INJ 1,000 MG VIAL ONE (11:43)
[2018-03-17] MEDS ORDERED: GENTAMICIN SULFATE 80 MG/2 ML VIAL ONE (11:43)
[2018-03-17] MEDS ORDERED: ACETAMINOPHEN 1000 MG/100 ML 100 ML IV ONE (11:44)
[2018-03-17] MEDS ORDERED: ePHEDrine/NS 25 MG/5 ML SYRINGE IV ONE (12:00)
[2018-03-17] MEDS ORDERED: PROPOFOL 200 MG/20 ML AMP IV ONE (12:00)
[2018-03-17] MEDS ORDERED: LIDOCAINE HCL 1% PF 5 ML SYRINGE OTHER ONE (12:00)
--- NOTE | 2018-03-17 13:55 | PD.CONS ---
[facility] Service Orthopedic Surgeons Consult Requested By Hoang Solis Reason for Consult Fracture of the right hip Primary Care Physician Larry Monae M.D. Admission Diagnosis Right Hip Fracture Diagnoses: (1) Hip fracture, right Diagnosis: Principal (2) CVA (cerebral vascular accident) Diagnosis: Secondary (3) BPH (benign prostatic hyperplasia) Diagnosis: Secondary (4) HTN (hypertension) Diagnosis: Secondary (5) Parkinson disease Diagnosis: Secondary Chief Complaint: Right hip pain and inability to ambulate History of Present Illness This patient is an 82-year-old male who tripped and fell sustaining an injury to his right hip. He was brought to [facility]. X-rays showed evidence of a right peritrochanteric hip fracture. I have been asked to see him in consultation regarding the same. He is felt to be a candidate for surgical treatment Review of Systems Constitutional: DENIES: Diaphoretic episodes, Fatigue, Fever, Weight gain, Weight loss, Chills, Dizziness, Change in appetite, Night Sweats Endocrine: DENIES: Heat/cold intolerance, Polydipsia, Polyuria, Polyphagia Eyes: DENIES: Blurred vision, Diplopia, Eye inflammation, Eye pain, Vision loss , Photosensitivity, Double Vision Ears, nose, mouth, throat: DENIES: Tinnitus, Hearing loss, Vertigo, Nasal discharge, Oral lesions, Throat pain, Hoarseness, Ear Pain, Running Nose, Epistaxis, Sinus Pain, Toothache, Odynophagia Respiratory: DENIES: Apneas, Cough, Snoring, Wheezing, Hemoptysis, Sputum production, Shortness of breath Cardiovascular: DENIES: Chest pain, Palpitations, Syncope, Dyspnea on Exertion , PND, Lower Extremity Edema, Orthopnea, Claudication Gastrointestinal: DENIES: Abdominal pain, Black stools, Bloody stools, Constipation, Diarrhea, Nausea, Vomiting, Difficulty Swallowing, Anorexia Genitourinary: DENIES: Urinary frequency, Urinary incontinence, Urgency, Hematuria, Dysuria, Nocturia, Penile Discharge, Testicular Pain, Testicular Swelling Musculoskeletal: COMPLAINS OF: Joint pain, Stiffness Integumentary: DENIES: Abnormal pigmentation, Nail changes, Pruritus, Rash Hematologic/lymphatic: COMPLAINS OF: Bruising Immunologic/allergic: DENIES: Eczema, Urticaria Neurologic: COMPLAINS OF: Abnormal gait, Poor Balance Psychiatric: DENIES: Anxiety, Confusion, Mood changes, Depression, Hallucinations, Agitation, Suicidal Ideation, Homicidal Ideation, Delusions Past Family Social History Allergies: Coded Allergies: enalaprilat (Verified Allergy, Severe, SWELLING, 03/16/18) Active Ordered Medications Current Medications Medications (Trade) Dose Ordered Sig/Leida Route Start Time Stop Time Status Last Admin Sodium Chloride 1,000 ml @ 42 mls/hr [id number] IV 03/17/18 01:15 03/17/18 01:15 (Morphine Inj) 4 mg Q3H PRN IV 03/17/18 04:15 03/17/18 08:45 (Sinemet 25-100 Mg) 1.5 tab TID PO 03/17/18 09:00 (CeleXA) 10 mg DAILY PO 03/17/18 09:00 (Catapres) 0.1 mg Q6H PRN PO 03/17/18 09:00 (Pepcid) 20 mg DAILY PO 03/17/18 09:00 (Lopid) 600 mg DAILY PO 03/17/18 09:00 (Lopressor) 50 mg Q12H PO 03/17/18 09:00 03/17/18 11:01 (Procardia Xl) 30 mg DAILY PO 03/17/18 09:00 03/17/18 11:01 (SEROquel) 25 mg BID PO 03/17/18 09:00 (Proscar) 5 mg DAILY PO 03/17/18 10:00 (Pill Splitter) 1 ea UNSCH PRN OTHER 03/17/18 09:30 (NS Flush) 2 ml UNSCH PRN IV FLUSH 03/17/18 10:30 (NS Flush) 2 ml BID IV FLUSH 03/17/18 21:00 (Tylenol) 650 mg Q4H PRN PO 03/17/18 10:30 (Zofran Inj) 4 mg Q6H PRN IVP 03/17/18 10:30 (Narcan Inj) 0.4 mg UNSCH PRN IV PUSH 03/17/18 10:30 (Jessie-Colace) 1 tab BID PO 03/17/18 21:00 (Milk Of Magnesia Liq) 30 ml Q12H PRN PO 03/17/18 10:30 (Dulcolax Supp) 10 mg DAILY PRN RECTAL 03/17/18 10:30 Reported Meds & Active Scripts Active Seroquel (Quetiapine Fumarate) 25 Mg Tab 25 Mg PO BID Eq Acetaminophen (Acetaminophen) 325 Mg Tab 650 Mg PO Q6H PRN 10 Days Nifedipine ER 24 HR (Nifedipine) 30 Mg Tab 30 Mg PO DAILY Lopressor (Metoprolol Tartrate) 50 Mg Tab 50 Mg PO Q12H Catapres (Clonidine) 0.1 Mg Tab 0.1 Mg PO Q6H PRN 10 Days Plavix (Clopidogrel Bisulfate) 75 Mg Tab 75 Mg PO DAILY Aspirin 81 Mg Chew 81 Mg CHEW DAILY 30 Days Reported Citalopram (Citalopram Hydrobromide) 10 Mg Tab 10 Mg PO DAILY Vitamin D-1000 (Cholecalciferol) 1,000 Unit Tab 1,000 Units PO DAILY Pepcid (Famotidine) 20 Mg Tab 20 Mg PO DAILY Calcium 1000 + D (Calcium Carbonate-Cholecalciferol) 1,000-800 Mg-Unit Tab 1 Tab PO Avodart (Dutasteride) 0.5 Mg Cap 0.5 Mg PO DAILY Gemfibrozil 600 Mg Tab 600 Mg PO DAILY Take 30 minutes prior to breakfast and dinner. Carbidopa-Levodopa 25-100 Mg Tab 1.5 Tab PO TID Physical Exam Vital Signs Vital Signs Date Time Temp Pulse Resp B/P (MAP) Pulse Ox O2 Delivery O2 Flow Rate FiO2 03/17/18 11:36 98.3 77 18 197/87 (123) 95 03/17/18 07:36 98.1 72 18 166/76 (106) 96 03/17/18 02:25 03/17/18 01:30 100 Room Air 03/17/18 00:57 74 16 130/58 (82) 97 Room Air 03/16/18 22:01 98.2 65 18 222/97 (138) 100 Physical Exam HEENT: Normocephalic atraumatic pupils equal round reactive. NECK: Supple. No abnormal masses. Full range of motion. CHEST: Clear to auscultation with no rales or rhonchi's or wheezes. HEART: Regular rate and rhythm. No murmurs. ABDOMEN: Soft, nontender, no masses. Normal active bowel sounds. GENITOURINARY: Deferred MUSCULOSKELETAL: The right hip is externally rotated. There is pain with range of motion. He tends to lie on the right side. Dorsalis pedis 1+. Sensation is normal. No calf tenderness Laboratory Laboratory Tests Test 03/17/18 00:20 03/17/18 01:45 White Blood Count 15.1 Red Blood Count 4.23 Hemoglobin 12.3 Hematocrit 37.5 Mean Corpuscular Volume 88.5 Mean Corpuscular Hemoglobin 29.0 Mean Corpuscular Hemoglobin Concent 32.7 Red Cell Distribution Width 13.7 Platelet Count 258 Mean Platelet Volume 8.5 Neutrophils (%) (Auto) 87.8 Lymphocytes (%) (Auto) 5.7 Monocytes (%) (Auto) 5.2 Eosinophils (%) (Auto) 1.1 Basophils (%) (Auto) 0.2 Neutrophils # (Auto) 13.3 Lymphocytes # (Auto) 0.9 Monocytes # (Auto) 0.8 Eosinophils # (Auto) 0.2 Basophils # (Auto) 0.0 CBC Comment DIFF FINAL Differential Comment Prothrombin Time 10.5 Prothromb Time International Ratio 1.0 Activated Partial Thromboplast Time 25.2 Blood Urea Nitrogen 23 Creatinine 1.48 Random Glucose 96 Calcium Level 9.1 Magnesium Level 2.2 Sodium Level 140 Potassium Level 4.3 Chloride Level 104 Carbon Dioxide Level 29.3 Anion Gap 7 Estimat Glomerular Filtration Rate 46 Total Creatine Kinase 77 Troponin I LESS THAN 0.02 Urine Color LIGHT-YELLOW Urine Turbidity CLEAR Urine pH 7.0 Urine Specific [place] 1.008 Urine Protein TRACE Urine Glucose (UA) NEG Urine Ketones NEG Urine Occult Blood SMALL Urine Nitrite NEG Urine Bilirubin NEG Urine Urobilinogen LESS THAN 2.0 Urine Leukocyte Esterase NEG Urine RBC 24 Urine WBC 1 Urine Mucus FEW Microscopic Urinalysis Comment CULT NOT INDICATED Result Diagram: 03/17/18 0020 03/17/18 0020 Imaging Review of x-rays and review of the radiologist's interpretation shows evidence of a right peritrochanteric hip fracture. He has moderately adequate bone stock Assessment & Plan Assessment and Plan Right peritrochanteric hip fracture. PLAN: Surgery: Open treatment internal fixation right hip fracture. Consent: There are risks of surgery including infection, bleeding, loss of motion, continued pain, need for further surgery, neurologic or vascular injury. He understands these issues and wishes to proceed forward with surgery as outlined above Christiano Sheehan MD March 17, 2018 13:54
--- NOTE | 2018-03-17 13:58 | PD.OP ---
cc: Christiano Sheehan MD Operative Report Date of Surgery: March 17, 2018 Preoperative Diagnosis: Right peritrochanteric hip fracture Postoperative Diagnosis: Same Procedure: Open treatment internal fixation right hip fracture with trochanteric nail Anesthesia: General Surgeon: Christiano Sheehan Legal Activity Adjudicator(s): DEEPTI Sales Operation and Findings: EBL: 100 cc INDICATION: This patient is an 82-year-old male who fell yesterday sustaining the above fracture. He presents for surgical treatment. NOTE: Colette Salse PA-C was present for the entire surgical procedure as my service assistant. In my medical opinion her skill and care was necessary for proper management of this patient PROCEDURE: The patient was brought to the operating room and anesthetized in the supine position. He was placed on the fracture table with the right leg held extended. The opposite leg was in the well leg meza. The hip fracture was reduced anatomically. The hip and leg was scrubbed with alcohol followed by Hibiclens followed by ChloraPrep. A timeout was done and antibiotics were given within 1 hour time window. A longitudinal incision was made over the lateral aspect of the proximal femur. Dissection continued down to the top of the greater trochanter. A cannulated awl was placed down through the top of the greater trochanter followed by placement of the guidepin along the shaft of the femur. This was reamed distally to 1 mm greater than the татьяна size and proximally to 17 mm. A separate incision was made laterally followed by placement of guidepin to the proper position of the femoral head. This is reamed and tapped in the proper length was placed up into the proper location. A single transverse screw was placed distally through the татьяна. Intraoperative x-rays were obtained. Alignment was satisfactory. No complication was noted. The wound was irrigated copiously. Hemostasis was controlled. The fascia was closed with interrupted Vicryl suture, subcutaneous tissue 2-0 Vicryl suture, skin with running intradermal 3-0 Vicryl followed by Steri-Strips and benzoin. A sterile dressing was applied The patient was awakened and taken to the recovery room in satisfactory condition. FINDINGS: There was evidence of a minimally comminuted 2 part peritrochanteric hip fracture with slight comminution of the lesser trochanter. The final fixation was excellent. We feel this patient likely can be weightbearing as tolerated Christiano Sheehan MD March 17, 2018 13:58
[2018-03-17] MEDS ORDERED: ENOX30P SQ (14:00)
[2018-03-17] MEDS ORDERED: NURSING INFORMATION XX PRN (14:00)
[2018-03-17] MEDS ORDERED: Post-op Orders (for Pharmacy) XX ONE (14:00)
[2018-03-17] MEDS ORDERED: ACETAMINOPHEN/HYDROcodone 325 MG/7.5 MG TAB PO PRN (14:00)
[2018-03-17] MEDS ORDERED: ALUMINUM/MAGNESIUM/SIMETH 30 ML CUP PO PRN (14:00)
[2018-03-17] MEDS ORDERED: PHARMACY INFORMATION XX ONE (14:00)
[2018-03-17] MEDS ORDERED: HYDR-3580 PO (14:00)
[2018-03-17] MEDS ORDERED: MORPHINE SULFATE 8 MG/ML INJ IM PRN (14:00)
[2018-03-17] MEDS ORDERED: TEMAZEPAM 15 MG CAP PO PRN (14:00)
[2018-03-17] MEDS ORDERED: DO NOT ADM ANY ANTICOAGULANT DRUGS PRN (14:45)
[2018-03-17 15:46] VITALS: BP 149/66; PULSE 83; RESP 18; TEMP 97.7; O2SAT 95
[2018-03-17] MEDS: LACTATED RINGER'S 1000 ML INJ 1,000 ML IV SCH (15:49)
[2018-03-17] MEDS: GEMFIBROZIL 600 MG TAB PO SCH (16:03)
[2018-03-17] MEDS: FAMOTIDINE 20 MG TAB PO SCH (16:04)
[2018-03-17] MEDS: CITALOPRAM HYDROBROMIDE 20 MG TAB PO SCH (16:04)
[2018-03-17] MEDS: FINASTERIDE 5 MG TAB PO SCH (16:05)
--- NOTE | 2018-03-17 16:19 | RADRPT ---
EXAM DATE/TIME: 03/17/2018 13:28 [facility] COMPARISON: No previous studies available for comparison. INDICATIONS : IM troch nail right hip. MEDICAL HISTORY : Hypertension. CAD, parkinsons SURGICAL HISTORY : Rt knee surgery ENCOUNTER: Subsequent ACUITY: 2 days PAIN SCORE: Non-responsive. LOCATION: Right Hip. FINDINGS: There is claudy fixation and screw fixation across an intratrochanteric fracture of the proximal right f emur. No complications identified. CONCLUSION: 1. Claudy fixation proximal right femur. Dae Foster MD on March 17, 2018 at 15:59 Board Certified Radiologist. This report was verified electronically.
[2018-03-17] MEDS ORDERED: ONDANSETRON ODT 4 MG TAB PO PRN (17:45)
--- NOTE | 2018-03-17 19:38 | EKG ---
Date Performed: 03/16/2018 Time Performed: 22:34:18 PTAGE: 82 years EKG: Sinus rhythm WITH FIRST DEGREE AV BLOCK POSSIBLE RIGHT VENTRICULAR CONDUCTION DELAY SEPTAL MYOCARDIAL INFARCTION ABNORMAL ECG Since the PREVIOUS TRACING , no significant change noted PREVIOUS TRACIN02/28/2018 17.54 DOCTOR: Say Mckeon Interpretating Date/Time 03/17/2018 19:35:56
[2018-03-17 21:15] VITALS: BP 190/80; PULSE 80; RESP 16; TEMP 98; O2SAT 92
[2018-03-17] MEDS: SENNOSIDES 8.6 MG TAB PO SCH (21:52)
[2018-03-17] MEDS: MAGNESIUM HYDROXIDE SUSP 30 ML CUP PO SCH (21:52)
[2018-03-17] MEDS: SODIUM CHLORIDE 0.9% FLUSH 10 ML FLUSH IV FLUSH SCH (21:53)
[2018-03-17] MEDS: DOCUSATE SODIUM 50 MG/SENNA 8.6 MG TAB PO SCH (21:53)
[2018-03-17] MEDS: ACETAMINOPHEN/HYDROcodone 325 MG/7.5 MG TAB PO PRN (21:53)
[2018-03-17] MEDS: SODIUM CHLORIDE 0.9% FLUSH 10 ML FLUSH IV FLUSH PRN (21:54)
[2018-03-18 00:50] VITALS: BP 128/53; PULSE 78; RESP 16; TEMP 98.7; O2SAT 93
[2018-03-18] MEDS: LACTATED RINGER'S 1000 ML INJ 1,000 ML IV SCH ×2 (03:30→16:00)
[2018-03-18 05:00] VITALS: BP 130/67; PULSE 67; RESP 17; TEMP 97.6; O2SAT 94
[2018-03-18] MEDS: SODIUM CHLORIDE 0.9% FLUSH 10 ML FLUSH IV FLUSH PRN (05:57)
[2018-03-18 06:14] LABS: AUTOMATED NEUTROPHIL # 8.6 TH/MM3 (1.8-7.7); BASOPHIL # 0.1 TH/MM3 (0-0.2); BASOPHIL % 0.7 % (0.0-2.0); EOSINOPHIL # 0.5 TH/MM3 (0-0.4); EOSINOPHIL % 4.9 % (0.0-4.0); HEMOGLOBIN 8.8 GM/DL (13.0-17.0); LYMPH % 8.5 % (9.0-44.0); LYMPHOCYTE # 0.9 TH/MM3 (1.0-4.8); MEAN CORPUSCULAR HEMOGLOBIN 29.6 PG (27.0-34.0); MEAN CORPUSCULAR HGB CONC 33.7 % (32.0-36.0); MEAN PLATELET VOLUME 8.6 FL (7.0-11.0); MONO % 6.1 % (0.0-8.0); MONOCYTE # 0.7 TH/MM3 (0-0.9); NEUT % 79.8 % (16.0-70.0); PLATELET COUNT 193 TH/MM3 (150-450); RED BLOOD COUNT 2.96 MIL/MM3 (4.50-5.90); RED CELL DISTRIBUTION WIDTH 13.8 % (11.6-17.2); WHITE BLOOD COUNT 10.7 TH/MM3 (4.0-11.0)
[2018-03-18 06:31] LABS: BICARBONATE 27.8 MEQ/L (21.0-32.0); CALCIUM 8.1 MG/DL (8.5-10.1); CREATININE 1.57 MG/DL (0.60-1.30)
[2018-03-18 08:00] VITALS: BP 127/60; PULSE 68; RESP 18; TEMP 98; O2SAT 100
--- NOTE | 2018-03-18 08:14 | PD.ORT.PN ---
Subjective Subjective Remarks Doing well. Lying in bed and comfortable. Complains of some pain in hip with range of motion Objective Vitals Vital Signs Date Time Temp Pulse Resp B/P (MAP) Pulse Ox O2 Delivery O2 Flow Rate FiO2 03/18/18 05:00 97.6 67 17 130/67 (88) 94 03/18/18 04:39 Nasal Cannula 2.00 03/18/18 00:50 98.7 78 16 128/53 (78) 93 03/17/18 21:15 98.0 80 16 190/80 (116) 92 03/17/18 15:46 97.7 83 18 149/66 (93) 95 03/17/18 15:00 76 16 137/61 (86) 95 Nasal Cannula 2 03/17/18 14:45 78 16 104/53 (70) 95 Nasal Cannula 2 03/17/18 14:30 78 16 131/58 (82) 95 Nasal Cannula 2 03/17/18 14:15 84 16 118/56 (76) 93 Nasal Cannula 2 03/17/18 14:00 97.5 94 16 152/70 (97) 93 Nasal Cannula 2 03/17/18 11:36 98.3 77 18 197/87 (123) 95 I/O 03/17/18 03/17/18 03/17/18 03/18/18 03/18/18 03/18/18 07:00 15:00 23:00 07:00 15:00 23:00 Intake Total 950 ml 600 ml 400 ml Output Total 120 ml 400 ml 600 ml Balance 830 ml 200 ml -200 ml Intake Oral 400 ml 400 ml IV Total 50 ml 200 ml Other 900 ml Output Urine Total 20 ml 400 ml 600 ml Estimated Blood Loss 100 ml # Bowel Movements 0 0 Result Diagram: 03/18/18 0530 03/18/18 0530 Objective Remarks Incision dry. No abnormal swelling. No calf tenderness. Motor examination is normal Assessment & Plan Assessment and Plan Right peritrochanteric hip fracture.. ORIF right hip, IM татьяна/troch nail: POD #1 PLAN: Weightbearing as tolerated. Lovenox 30 mg daily for 25 days, unless changed by medical staff. [place] as needed for pain. Likely SNF on Wednesday or Wednesday, when medically cleared. Preoperative history of Parkinson's disease which will affect rehabilitation. No dressing change unless saturated. Hemoglobin 8.8. Patient may need transfusion if it drops below 8 or clinically symptomatic. Orthopedically stable Christiano Sheehan MD March 18, 2018 08:14
[2018-03-18] MEDS: SODIUM CHLORIDE 0.9% FLUSH 10 ML FLUSH IV FLUSH SCH ×2 (09:00→20:19)
[2018-03-18] MEDS: MAGNESIUM HYDROXIDE SUSP 30 ML CUP PO SCH ×2 (09:00→20:19)
[2018-03-18] MEDS: DOCUSATE SODIUM 50 MG/SENNA 8.6 MG TAB PO SCH ×2 (09:00→20:19)
[2018-03-18] MEDS: NIFEdipine 30 MG SUSTAINED RELEASE TAB PO SCH (10:43)
[2018-03-18] MEDS: CARBIDOPA/LEVODOPA 25 MG/100 MG TAB PO SCH ×2 (10:43→16:03)
[2018-03-18] MEDS: GEMFIBROZIL 600 MG TAB PO SCH (10:44)
[2018-03-18] MEDS: CITALOPRAM HYDROBROMIDE 20 MG TAB PO SCH (10:44)
[2018-03-18] MEDS: FINASTERIDE 5 MG TAB PO SCH (10:45)
[2018-03-18] MEDS: METOPROLOL TARTRATE 50 MG TAB PO SCH ×2 (10:45→20:19)
[2018-03-18] MEDS: QUEtiapine FUMARATE 25 MG TAB PO SCH ×2 (10:45→20:18)
[2018-03-18] MEDS: FAMOTIDINE 20 MG TAB PO SCH (10:46)
[2018-03-18 12:00] VITALS: BP 139/64; PULSE 77; RESP 18; TEMP 98.1; O2SAT 100
[2018-03-18] MEDS: ENOXAPARIN SODIUM 30 MG/0.3 ML SYRINGE SQ SCH (14:10)
[2018-03-18 16:00] VITALS: BP 145/65; PULSE 82; RESP 16; TEMP 97.6; O2SAT 98
--- NOTE | 2018-03-18 16:09 | MG ---
cc: Simran Charles MD DATE OF : 1935 AGE: [age] years old EEG NUMBER: [id number] REFERRING PHYSICIAN: Kolby Noonan DO ROOM: [facility]. NOTE: With photic stimulation. EEG is awake, drowsy, asleep. Last EEG 03/04/2018 was normal. MRI 03/02/2018 shows atrophy. This is an 82-year-old man who fell without loss of consciousness, right hip fracture. Has a recent stroke. Had tPA on 02/27/2018. Had a staring spell. MEDICATIONS: Cefazolin, Lopid, Procardia, Celexa, Proscar. DESCRIPTION OF RECORD: The patient has overall some mild slowing of the background, 5 Hz. There is a lot of eye movement seen throughout. Otherwise, slowing is notable bilaterally. A lead that was replaced during epoch 42. Some arm twitching; however, just more artifact. Photic stimulation: There is minimal driving response. More eye movement artifact. The patient starts talking. IMPRESSION: Mild slowing of background likely consistent with encephalopathic process without any epileptic activity or discharges. Clinical correlation. Simran Charles MD DF/KIKE , 03:20 PM , 04:08 PM
--- NOTE | 2018-03-18 16:52 | HHI.PR ---
Subjective Remarks Patient laying in bed awake and alert with family members at bedside Per RN and patient's patient had a staring spell earlier today. Patient offers no complaints Objective Vitals Vital Signs Date Time Temp Pulse Resp B/P (MAP) Pulse Ox O2 Delivery O2 Flow Rate FiO2 03/18/18 12:00 98.1 77 18 139/64 (89) 100 03/18/18 10:45 Nasal Cannula 2.00 03/18/18 08:00 98.0 68 18 127/60 (82) 100 03/18/18 05:00 97.6 67 17 130/67 (88) 94 03/18/18 04:39 Nasal Cannula 2.00 03/18/18 00:50 98.7 78 16 128/53 (78) 93 03/17/18 21:15 98.0 80 16 190/80 (116) 92 Result Diagram: 03/18/18 0530 03/18/18 0530 Other Results Laboratory Tests Test 03/17/18 00:20 03/17/18 01:45 03/18/18 05:30 White Blood Count 15.1 TH/MM3 10.7 TH/MM3 Red Blood Count 4.23 MIL/MM3 2.96 MIL/MM3 Hemoglobin 12.3 GM/DL 8.8 GM/DL Hematocrit 37.5 % 26.0 % Mean Corpuscular Volume 88.5 FL 88.0 FL Mean Corpuscular Hemoglobin 29.0 PG 29.6 PG Mean Corpuscular Hemoglobin Concent 32.7 % 33.7 % Red Cell Distribution Width 13.7 % 13.8 % Platelet Count 258 TH/MM3 193 TH/MM3 Mean Platelet Volume 8.5 FL 8.6 FL Neutrophils (%) (Auto) 87.8 % 79.8 % Lymphocytes (%) (Auto) 5.7 % 8.5 % Monocytes (%) (Auto) 5.2 % 6.1 % Eosinophils (%) (Auto) 1.1 % 4.9 % Basophils (%) (Auto) 0.2 % 0.7 % Neutrophils # (Auto) 13.3 TH/MM3 8.6 TH/MM3 Lymphocytes # (Auto) 0.9 TH/MM3 0.9 TH/MM3 Monocytes # (Auto) 0.8 TH/MM3 0.7 TH/MM3 Eosinophils # (Auto) 0.2 TH/MM3 0.5 TH/MM3 Basophils # (Auto) 0.0 TH/MM3 0.1 TH/MM3 CBC Comment DIFF FINAL DIFF FINAL Differential Comment Prothrombin Time 10.5 SEC Prothromb Time International Ratio 1.0 RATIO Activated Partial Thromboplast Time 25.2 SEC Blood Urea Nitrogen 23 MG/DL 31 MG/DL Creatinine 1.48 MG/DL 1.57 MG/DL Random Glucose 96 MG/DL 108 MG/DL Calcium Level 9.1 MG/DL 8.1 MG/DL Magnesium Level 2.2 MG/DL Sodium Level 140 MEQ/L 139 MEQ/L Potassium Level 4.3 MEQ/L 4.9 MEQ/L Chloride Level 104 MEQ/L 104 MEQ/L Carbon Dioxide Level 29.3 MEQ/L 27.8 MEQ/L Anion Gap 7 MEQ/L 7 MEQ/L Estimat Glomerular Filtration Rate 46 ML/MIN 43 ML/MIN Total Creatine Kinase 77 U/L Troponin I LESS THAN 0.02 NG/ML Urine Color LIGHT-YELLOW Urine Turbidity CLEAR Urine pH 7.0 Urine Specific [place] 1.008 Urine Protein TRACE mg/dL Urine Glucose (UA) NEG mg/dL Urine Ketones NEG mg/dL Urine Occult Blood SMALL Urine Nitrite NEG Urine Bilirubin NEG Urine Urobilinogen LESS THAN 2.0 MG/DL Urine Leukocyte Esterase NEG Urine RBC 24 /hpf Urine WBC 1 /hpf Urine Mucus FEW /lpf Microscopic Urinalysis Comment CULT NOT INDICATED Imaging Last Impressions Hip X-Ray 03/17/18 0000 Signed Impressions: Service Date/Time: March 13:28 - CONCLUSION: 1. Claudy fixation proximal right femur. Dae Foster MD Chest X-Ray 03/17/18 0000 Signed Impressions: Service Date/Time: March 00:03 - CONCLUSION: No evidence of acute cardiopulmonary disease. Siva Beckett MD Knee X-Ray 03/16/18 2210 Signed Impressions: Service Date/Time: Friday, March 16, 2018 23:27 - CONCLUSION: Intact right knee. Moderate severity osteoarthritis. Siva Beckett MD Objective Remarks GENERAL: This is an elderly 82 year old male patient, in no apparent distress. SKIN: Post-op dressing dry and intact CARDIOVASCULAR: Regular rate and rhythm RESPIRATORY: Clear to auscultation. Breath sounds equal bilaterally. GASTROINTESTINAL: Abdomen soft, non-tender, nondistended. MUSCULOSKELETAL: Extremities without clubbing, cyanosis, or edema. No joint tenderness, effusion, or edema noted. No calf tenderness. Negative Homans sign bilaterally NEUROLOGICAL: Awake and alert. Motor and sensory grossly within normal limits, with the exception of post-op right lower extremity. Normal speech. Procedures ORIF right hip, IM claudy/troch nail 03/17/[address] Sheehan A/P Problem List: (1) Hip fracture, right ICD Codes: S72.001A - Fracture of unspecified part of neck of right femur, initial encounter for closed fracture Status: Acute Plan: Patient states normally ambulates with a walker but wanted to try to ambulate without it today. Patient reports that his feet started going faster and faster and fell forward. right hip Xray Mildly displaced right hip intertrochanteric fracture right knee Xray intact right knee. Moderate severity osteoarthritis Consult orthopedic surgery S/P ORIF right hip, IM claudy/troch nail 03/17/[address] Sheehan Anticoagulation per surgery recommendations Lovenox 30 mg SQ daily x 25 days PT requested hgb 8.8 (03/18) recheck CBC in AM, plan to transfuse if hgb< 8 Plan to DC to SNF tomorrow is patient remains stable (2) CVA (cerebral vascular accident) ICD Codes: I63.9 - Cerebral infarction, unspecified Status: Acute Plan: recent CVA 02/27/18 - Pt received TPA in the ER 02/27/18 - CT brain (02/27) --> NO acute findings - CTA brain (02/27) --> NO acute findings - CTA neck (02/27) --> NO hemodynamically significant stenosis - echocardiogram --> In limited views, the left ventricular systolic function is normal with an estimated ejection fraction in the range of 55-60%. Trace mitral valve regurgitation. There is trace tricuspid valve regurgitation. 03/03 episode of decreased mental status while on the BSC during attempt to have BM earlier today, patient mental status improved spontaneously after he was assisted back to bed - CT head normal exam - EEG read as a Normal electroencephalogram. - TSH 1.67, free T4 1.13, vit B-12 517, folate 18.3, ammonia 10 03/18 patient had "staring spell" earlier today Patient's reports this was similar to his previous episodes that he has been having at home EEG: impression mild slowing of background likely consistent with encephalopathia process without any epileptic activity or discharges. Patient has been following outpatient with Dr. Cobos and was recently started in an "antiseizure medication. Patient plans to bring in the bottle/ prescription tomorrow. Dr. Noonan placed a call to Dr. Cobos, but was unable to get in touch with him Patient's Plavix and aspirin are on hold due to surgery. Plan to touch base with orthopedic surgery tomorrow for clearance to resume aspirin and Plavix (3) BPH (benign prostatic hyperplasia) ICD Codes: N40.0 - Benign prostatic hyperplasia without lower urinary tract symptoms Status: Chronic Plan: Continue patient's home Avodart (4) HTN (hypertension) ICD Codes: I10 - Essential (primary) hypertension Status: Chronic Plan: Continue patient's home Metoprolol 50 mg Q12H, Nifedipine 30 mg daily with hold parameters clonidine as needed (5) Parkinson disease ICD Codes: G20 - Parkinson's disease Status: Chronic Plan: Continue home Carbidopa-Levodopa 25-100 mg Assessment and Plan Patient examined. Assessment and plan formulated with Eli Saleh PA-C. I agree with the above. Nursing reports that pt had staring spell earlier today. Per this has happened at home. /family are concerned that pt might have underlying seizure disorder. Pt had EEG at [facility] 03/04/18 which showed NO seizure activity. Per family, pt was started on AED drug by Dr. Cobos. Family to bring in prescription to show me. Problem Qualifiers (1) Hip fracture, right: Qualified Codes: S72.001A - Fracture of unspecified part of neck of right femur , initial encounter for closed fracture Eli Saleh March 18, 2018 16:52 Kolby Noonan DO March 19, 2018 14:10
[2018-03-18 20:00] VITALS: BP 119/58; PULSE 72; RESP 18; TEMP 98.5; O2SAT 97
[2018-03-18] MEDS: SENNOSIDES 8.6 MG TAB PO SCH (20:18)
[2018-03-19] VITALS (8 sets, daily range): BP systolic 115–131; BP diastolic 57–92; PULSE 75–98; RESP 16–18; TEMP 98.4–100.8; O2SAT 92–96
[2018-03-19] MEDS: ACETAMINOPHEN/HYDROcodone 325 MG/7.5 MG TAB PO PRN ×2 (04:00→11:54)
[2018-03-19] MEDS: LACTATED RINGER'S 1000 ML INJ 1,000 ML IV SCH ×2 (04:01→16:46)
[2018-03-19] MEDS: CARBIDOPA/LEVODOPA 25 MG/100 MG TAB PO SCH ×3 (05:35→16:46)
--- NOTE | 2018-03-19 07:08 | PD.ORT.PN ---
Subjective Subjective Remarks pt has history of parkinson's post-operative hip pain Objective Vitals Vital Signs Date Time Temp Pulse Resp B/P (MAP) Pulse Ox O2 Delivery O2 Flow Rate FiO2 03/19/18 04:00 100.8 80 18 115/57 (76) 95 03/19/18 01:56 96 03/19/18 00:00 98.4 98 18 128/92 (104) 96 03/18/18 20:18 Room Air 03/18/18 20:00 98.5 72 18 119/58 (78) 97 03/18/18 16:00 97.6 82 16 145/65 (91) 98 03/18/18 12:00 98.1 77 18 139/64 (89) 100 03/18/18 10:45 Nasal Cannula 2.00 03/18/18 08:00 98.0 68 18 127/60 (82) 100 I/O 03/18/18 03/18/18 03/18/18 03/19/18 03/19/18 03/19/18 07:00 15:00 23:00 07:00 15:00 23:00 Intake Total 400 ml 480 ml Output Total 600 ml Balance -200 ml 480 ml Intake Oral 400 ml 480 ml Output Urine Total 600 ml # Voids 3 # Bowel Movements 0 0 Result Diagram: 03/18/18 0530 03/18/18 0530 Objective Remarks R hip dressings are saturated No abnormal swelling. No calf tenderness. Motor examination is normal Assessment & Plan Assessment and Plan Right peritrochanteric hip fracture.. ORIF right hip, IM татьяна/troch nail: POD #2 PLAN: Weightbearing as tolerated. Lovenox 30 mg daily for 25 days, unless changed by medical staff. [place] as needed for pain. Likely SNF today or Wednesday, when medically cleared. Preoperative history of Parkinson's disease which will affect rehabilitation. dressing change today Hemoglobin 8.8. Patient may need transfusion if it drops below 8 or clinically symptomatic. Orthopedically stable Ermias Sheehan MD March 19, 2018 07:08
[2018-03-19 07:29] LABS: AUTOMATED NEUTROPHIL # 7.6 TH/MM3 (1.8-7.7); BASOPHIL % 0.5 % (0.0-2.0); EOSINOPHIL # 0.4 TH/MM3 (0-0.4); EOSINOPHIL % 4.2 % (0.0-4.0); HEMATOCRIT 24.2 % (39.0-51.0); HEMOGLOBIN 8.3 GM/DL (13.0-17.0); LYMPH % 6.7 % (9.0-44.0); LYMPHOCYTE # 0.6 TH/MM3 (1.0-4.8); MEAN CELL VOLUME 87.4 FL (80.0-100.0); MEAN CORPUSCULAR HEMOGLOBIN 29.9 PG (27.0-34.0); MEAN CORPUSCULAR HGB CONC 34.2 % (32.0-36.0); MONO % 6.6 % (0.0-8.0); MONOCYTE # 0.6 TH/MM3 (0-0.9); PLATELET COUNT 152 TH/MM3 (150-450); RED BLOOD COUNT 2.77 MIL/MM3 (4.50-5.90); RED CELL DISTRIBUTION WIDTH 13.6 % (11.6-17.2); WHITE BLOOD COUNT 9.2 TH/MM3 (4.0-11.0)
[2018-03-19 07:58] LABS: CREATININE 1.42 MG/DL (0.60-1.30)
[2018-03-19 07:59] LABS: BICARBONATE 28.3 MEQ/L (21.0-32.0); MAGNESIUM 2.4 MG/DL (1.5-2.5)
--- NOTE | 2018-03-19 08:17 | EKG ---
Date Performed: 03/18/2018 Time Performed: 09:23:07 PTAGE: 82 years EKG: Sinus rhythm ELECTRCAL INTERFERENCES PREVIOUS TRACING : 03/16/2018 22.34 DOCTOR: Navin Coles Interpretating Date/Time 03/19/2018 08:17:12
[2018-03-19] MEDS: CITALOPRAM HYDROBROMIDE 20 MG TAB PO SCH (09:16)
[2018-03-19] MEDS: DOCUSATE SODIUM 50 MG/SENNA 8.6 MG TAB PO SCH ×2 (09:16→21:00)
[2018-03-19] MEDS: SODIUM CHLORIDE 0.9% FLUSH 10 ML FLUSH IV FLUSH SCH ×2 (09:16→21:00)
[2018-03-19] MEDS: QUEtiapine FUMARATE 25 MG TAB PO SCH ×2 (09:16→21:00)
[2018-03-19] MEDS: NIFEdipine 30 MG SUSTAINED RELEASE TAB PO SCH (09:16)
[2018-03-19] MEDS: GEMFIBROZIL 600 MG TAB PO SCH (09:16)
[2018-03-19] MEDS: METOPROLOL TARTRATE 50 MG TAB PO SCH ×2 (09:16→21:00)
[2018-03-19] MEDS: FINASTERIDE 5 MG TAB PO SCH (09:16)
[2018-03-19] MEDS: MAGNESIUM HYDROXIDE SUSP 30 ML CUP PO SCH ×2 (09:16→21:00)
[2018-03-19] MEDS: FAMOTIDINE 20 MG TAB PO SCH (09:16)
[2018-03-19] MEDS: ENOXAPARIN SODIUM 30 MG/0.3 ML SYRINGE SQ SCH (11:54)
--- NOTE | 2018-03-19 12:01 | RADRPT ---
EXAM DATE/TIME: 03/19/2018 11:33 [facility] COMPARISON: CHEST SINGLE AP, March 17, 2018, 0:03. HIP RIGHT (AP&LAT 2/3VWS) WO AP PELVIS, March 17, 2018, 13:28. INDICATIONS : Fever and shortness of breath. MEDICAL HISTORY : Cardiovascular disease. Cerebrovascular disease. SURGICAL HISTORY : None. ENCOUNTER: Subsequent ACUITY: 2 days PAIN SCORE: 0/10 LOCATION: chest FINDINGS: Minimal apical pleural thickening is present worse on the right, nonspecific. The heart and pulmonary vascularity are normal. The portion of the bony skeleton visualized is unremarkable. CONCLUSION: Minimal asymmetrical apical pleural thickening worse on the right. Very minimal progression. Zachary Arango MD FACR on March 19, 2018 at 11:58 Board Certified Radiologist. This report was verified electronically.
--- NOTE | 2018-03-19 14:19 | HHI.PR ---
Subjective Remarks Pt had fever overnight with Tmax 100.8F at 4PM Pt denies cough or dysuria. Pt has NO new medical complaints. Objective Vitals Vital Signs Date Time Temp Pulse Resp B/P (MAP) Pulse Ox O2 Delivery O2 Flow Rate FiO2 03/19/18 08:07 96 21 03/19/18 08:00 98.9 75 16 119/57 (77) 95 03/19/18 08:00 95 Room Air 03/19/18 04:00 100.8 80 18 115/57 (76) 95 03/19/18 01:56 96 03/19/18 00:00 98.4 98 18 128/92 (104) 96 03/18/18 20:18 Room Air 03/18/18 20:00 98.5 72 18 119/58 (78) 97 03/18/18 16:00 97.6 82 16 145/65 (91) 98 Result Diagram: 03/19/18 0632 03/19/18 0556 Imaging Last Impressions Chest X-Ray 03/19/18 0000 Signed Impressions: Service Date/Time: Monday, March 19, 2018 11:33 - CONCLUSION: Minimal asymmetrical apical pleural thickening worse on the right. Very minimal progression. Zachary Arango MD FACR Hip X-Ray 03/17/18 0000 Signed Impressions: Service Date/Time: March 13:28 - CONCLUSION: 1. Claudy fixation proximal right femur. Dae Foster MD Knee X-Ray 03/16/18 2210 Signed Impressions: Service Date/Time: Friday, March 16, 2018 23:27 - CONCLUSION: Intact right knee. Moderate severity osteoarthritis. Siva Beckett MD Objective Remarks GENERAL: This is an elderly 82 year old male patient, in no apparent distress. SKIN: Post-op dressing dry and intact CARDIOVASCULAR: Regular rate and rhythm RESPIRATORY: Clear to auscultation. Breath sounds equal bilaterally. GASTROINTESTINAL: Abdomen soft, non-tender, nondistended. MUSCULOSKELETAL: Extremities without clubbing, cyanosis, or edema. No joint tenderness, effusion, or edema noted. No calf tenderness. Negative Homans sign bilaterally NEUROLOGICAL: Awake and alert. Motor and sensory grossly within normal limits, with the exception of post-op right lower extremity. Normal speech. Procedures ORIF right hip, IM claudy/troch nail 03/17/[address] Sheehan A/P Problem List: (1) Hip fracture, right ICD Codes: S72.001A - Fracture of unspecified part of neck of right femur, initial encounter for closed fracture Status: Acute Plan: - comgmt with Orthopedic Surgery - Patient states normally ambulates with a walker but wanted to try to ambulate without it today. Patient reports that his feet started going faster and faster and fell forward. - right hip Xray (03/16) Mildly displaced right hip intertrochanteric fracture - right knee Xray (03/16) intact right knee. Moderate severity osteoarthritis - S/P ORIF right hip, IM claudy/troch nail 03/17/[address] Sheehan - Lovenox 30 mg SQ daily x 25 days per Ortho - PT - hgb 8.8 (03/18), 9.2 (03/19) - hold DC d/t fever. Post op fever? - repeat UA --> pending - repeat CXR (03/19/18) --> NO infiltrates - Anticipate d/c to SNF 03/20/18 (2) CVA (cerebral vascular accident) ICD Codes: I63.9 - Cerebral infarction, unspecified Status: Acute Plan: recent CVA 02/27/18 - Pt received TPA in the ER 02/27/18 - CT brain (02/27) --> NO acute findings - CTA brain (02/27) --> NO acute findings - CTA neck (02/27) --> NO hemodynamically significant stenosis - echocardiogram --> In limited views, the left ventricular systolic function is normal with an estimated ejection fraction in the range of 55-60%. Trace mitral valve regurgitation. There is trace tricuspid valve regurgitation. 03/03 episode of decreased mental status while on the BSC during attempt to have BM earlier today, patient mental status improved spontaneously after he was assisted back to bed - CT head normal exam - EEG read as a Normal electroencephalogram. - TSH 1.67, free T4 1.13, vit B-12 517, folate 18.3, ammonia 10 03/18 patient had "staring spell" earlier today Patient's reports this was similar to his previous episodes that he has been having at home - EEG at [place] 03/04/18 which showed NO seizure activity. - Repeat EEG (03/18) impression mild slowing of background likely consistent with encephalopathia process without any epileptic activity or discharges. - Patient has been following outpatient with Dr. Cobos and was recently started in an "antiseizure medication. - Pt started on Keppra 500mg BID by outpt Neurologist, Dr. Cobos. Will resume keppra. - Case d/w Orthopedics. Okay to resume plavix and ASA (3) BPH (benign prostatic hyperplasia) ICD Codes: N40.0 - Benign prostatic hyperplasia without lower urinary tract symptoms Status: Chronic Plan: Continue patient's home Avodart (4) HTN (hypertension) ICD Codes: I10 - Essential (primary) hypertension Status: Chronic Plan: Continue patient's home Metoprolol 50 mg Q12H, Nifedipine 30 mg daily with hold parameters clonidine as needed (5) Parkinson disease ICD Codes: G20 - Parkinson's disease Status: Chronic Plan: Continue home Carbidopa-Levodopa 25-100 mg Assessment and Plan Problem Qualifiers (1) Hip fracture, right: Qualified Codes: S72.001A - Fracture of unspecified part of neck of right femur , initial encounter for closed fracture Kolby Noonan DO March 19, 2018 14:19
[2018-03-19 18:07] LABS: BILIRUBIN, URINE NEG (NEG); BLOOD, URINE NEG (NEG); GLUCOSE,URINE NEG (NEG); KETONE, URINE NEG (NEG); MUCUS URINE FEW /lpf (OCC); NITRITE,URINE NEG (NEG); PH, URINE 5.5 (5.0-8.5); URINE COLOR YELLOW (YELLW/STRAW); URINE LEUKOCYTE ESTERASE NEG (NEG)
[2018-03-19] MEDS: levETIRAcetam 500 MG TAB PO SCH (21:00)
[2018-03-19] MEDS: SENNOSIDES 8.6 MG TAB PO SCH (21:00)
[2018-03-20] VITALS: BP 143/60; PULSE 82; RESP 16; TEMP 98.7; O2SAT 92
[2018-03-20 04:00] VITALS: BP 118/57; PULSE 76; RESP 18; TEMP 98.6; O2SAT 93
[2018-03-20] MEDS: CARBIDOPA/LEVODOPA 25 MG/100 MG TAB PO SCH ×2 (05:15→11:44)
[2018-03-20 05:55] LABS: AUTOMATED NEUTROPHIL # 3.6 TH/MM3 (1.8-7.7); BASOPHIL % 0.3 % (0.0-2.0); EOSINOPHIL # 0.2 TH/MM3 (0-0.4); EOSINOPHIL % 4.8 % (0.0-4.0); HEMATOCRIT 23.1 % (39.0-51.0); HEMOGLOBIN 7.7 GM/DL (13.0-17.0); LYMPH % 13.8 % (9.0-44.0); LYMPHOCYTE # 0.7 TH/MM3 (1.0-4.8); MEAN CELL VOLUME 87.5 FL (80.0-100.0); MEAN CORPUSCULAR HEMOGLOBIN 29.2 PG (27.0-34.0); MEAN CORPUSCULAR HGB CONC 33.4 % (32.0-36.0); MEAN PLATELET VOLUME 9.1 FL (7.0-11.0); MONO % 11.2 % (0.0-8.0); MONOCYTE # 0.6 TH/MM3 (0-0.9); NEUT % 69.9 % (16.0-70.0); PLATELET COUNT 161 TH/MM3 (150-450); RED BLOOD COUNT 2.64 MIL/MM3 (4.50-5.90); RED CELL DISTRIBUTION WIDTH 13.7 % (11.6-17.2); WHITE BLOOD COUNT 5.2 TH/MM3 (4.0-11.0)
[2018-03-20 06:27] LABS: BICARBONATE 29.6 MEQ/L (21.0-32.0); CALCIUM 8.3 MG/DL (8.5-10.1); CREATININE 1.23 MG/DL (0.60-1.30)
--- NOTE | 2018-03-20 06:38 | PD.ORT.PN ---
Subjective Subjective Remarks pt has history of parkinson's post-operative hip pain Objective Vitals Vital Signs Date Time Temp Pulse Resp B/P (MAP) Pulse Ox O2 Delivery O2 Flow Rate FiO2 03/20/18 04:00 98.6 76 18 118/57 (77) 93 03/20/18 00:00 98.7 82 16 143/60 (87) 92 03/19/18 19:30 99.7 88 17 131/61 (84) 92 03/19/18 15:45 93 21 03/19/18 12:00 99.4 81 16 124/60 (81) 93 03/19/18 08:07 96 21 03/19/18 08:00 98.9 75 16 119/57 (77) 95 03/19/18 08:00 95 Room Air I/O 03/19/18 03/19/18 03/19/18 03/20/18 03/20/18 03/20/18 07:00 15:00 23:00 07:00 15:00 23:00 Intake Total 480 ml 120 ml Balance 480 ml 120 ml Intake Oral 480 ml 120 ml # Voids 3 2 # Bowel Movements 0 0 Result Diagram: 03/20/18 0515 03/20/18 0515 Objective Remarks R hip dressing dry and intact No abnormal swelling. No calf tenderness. Motor examination is normal Assessment & Plan Assessment and Plan Right peritrochanteric hip fracture.. ORIF right hip, IM татьяна/troch nail: POD #3 PLAN: Weightbearing as tolerated. spoke to medical about d/c lovenox and putting on pre op plavix and aspirin, fine to change [place] as needed for pain. Likely SNF today, orthopedically stable Preoperative history of Parkinson's disease which will affect rehabilitation. Ermias Sheehan MD March 20, 2018 06:38
[2018-03-20 08:00] VITALS: BP 114/57; PULSE 71; RESP 18; TEMP 98; O2SAT 96
[2018-03-20] MEDS ORDERED: ASPIRIN 81 MG CHEW TAB CHEW SCH (09:00)
[2018-03-20] MEDS ORDERED: CLOPIDOGREL 75 MG TAB PO SCH (09:00)
[2018-03-20] MEDS: LACTATED RINGER'S 1000 ML INJ 1,000 ML IV SCH (10:30)
[2018-03-20] MEDS: NIFEdipine 30 MG SUSTAINED RELEASE TAB PO SCH (10:35)
[2018-03-20] MEDS: levETIRAcetam 500 MG TAB PO SCH (10:35)
[2018-03-20] MEDS: FAMOTIDINE 20 MG TAB PO SCH (10:35)
[2018-03-20] MEDS: GEMFIBROZIL 600 MG TAB PO SCH (10:35)
[2018-03-20] MEDS: METOPROLOL TARTRATE 50 MG TAB PO SCH (10:35)
[2018-03-20] MEDS: QUEtiapine FUMARATE 25 MG TAB PO SCH (10:35)
[2018-03-20] MEDS: FINASTERIDE 5 MG TAB PO SCH (10:35)
[2018-03-20] MEDS: DOCUSATE SODIUM 50 MG/SENNA 8.6 MG TAB PO SCH (10:35)
[2018-03-20] MEDS: SODIUM CHLORIDE 0.9% FLUSH 10 ML FLUSH IV FLUSH SCH (10:35)
[2018-03-20] MEDS: MAGNESIUM HYDROXIDE SUSP 30 ML CUP PO SCH (10:36)
[2018-03-20] MEDS: CITALOPRAM HYDROBROMIDE 20 MG TAB PO SCH (10:36)
[2018-03-20] MEDS: ACETAMINOPHEN/HYDROcodone 325 MG/7.5 MG TAB PO PRN (10:37)
--- NOTE | 2018-03-20 11:33 | HHI.DS ---
Discharge Summary Admission Date March 17, 2018 at 01:08 Discharge Date: March 20, 2018 Admitting Diagnosis Right Hip Fracture (1) Hip fracture, right Diagnosis: Principal ICD Codes: S72.001A - Fracture of unspecified part of neck of right femur, initial encounter for closed fracture Status: Acute (2) CVA (cerebral vascular accident) Diagnosis: Secondary ICD Codes: I63.9 - Cerebral infarction, unspecified Status: Acute (3) BPH (benign prostatic hyperplasia) Diagnosis: Secondary ICD Codes: N40.0 - Benign prostatic hyperplasia without lower urinary tract symptoms Status: Chronic (4) HTN (hypertension) Diagnosis: Secondary ICD Codes: I10 - Essential (primary) hypertension Status: Chronic (5) Parkinson disease Diagnosis: Secondary ICD Codes: G20 - Parkinson's disease Status: Chronic Consultants Dr. Ermias Whitehead, Orthopedic Surgeon Procedures ORIF right hip, IM татьяна/troch nail 03/17/[address] Sheehan Brief History This is a 82 year male patient with a past medical osteoarthritis, BPH, hyperlipidemia, hypothyroidism, lumbar radiculopathy, Parkinson's disease, GERD , peripheral neuropathy, skin cancer, unspecified, L3 compression fracture . Patient states normally ambulates with a walker but wanted to try to ambulate without it today. Patient reports that his feet started going faster and faster and fell forward. Denies loss of consciousness denies any head injury or neck injury. States he landed primarily on his right knee with an abrasion but his chief complaint is right hip pain. Symptoms started just prior to arrival, right hip, associated with inability to bear weight, context as above. No numbness no tingling peer right hip Xray Mildly displaced right hip intertrochanteric fracture right knee Xray intact right knee. Moderate severity osteoarthritis Patient recently had CVA received TPA 02/27/18. CBC/BMP: 03/20/18 0515 03/20/18 0515 Significant Findings Laboratory Tests Test 03/18/18 05:30 03/19/18 05:56 03/19/18 06:32 03/19/18 17:15 Red Blood Count 2.96 MIL/MM3 (4.50-5.90) 2.77 MIL/MM3 (4.50-5.90) Hemoglobin 8.8 GM/DL (13.0-17.0) 8.3 GM/DL (13.0-17.0) Hematocrit 26.0 % (39.0-51.0) 24.2 % (39.0-51.0) Neutrophils (%) (Auto) 79.8 % (16.0-70.0) 82.0 % (16.0-70.0) Lymphocytes (%) (Auto) 8.5 % (9.0-44.0) 6.7 % (9.0-44.0) Eosinophils (%) (Auto) 4.9 % (0.0-4.0) 4.2 % (0.0-4.0) Neutrophils # (Auto) 8.6 TH/MM3 (1.8-7.7) Lymphocytes # (Auto) 0.9 TH/MM3 (1.0-4.8) 0.6 TH/MM3 (1.0-4.8) Eosinophils # (Auto) 0.5 TH/MM3 (0-0.4) Blood Urea Nitrogen 31 MG/DL (7-18) 30 MG/DL (7-18) Creatinine 1.57 MG/DL (0.60-1.30) 1.42 MG/DL (0.60-1.30) Random Glucose 108 MG/DL (74-106) 112 MG/DL (74-106) Calcium Level 8.1 MG/DL (8.5-10.1) 8.0 MG/DL (8.5-10.1) Estimat Glomerular Filtration Rate 43 ML/MIN (>89) 48 ML/MIN (>89) Urine Protein 30 mg/dL (NEG-TRACE) Urine Mucus FEW /lpf (OCC) Test 03/20/18 05:15 Red Blood Count 2.64 MIL/MM3 (4.50-5.90) Hemoglobin 7.7 GM/DL (13.0-17.0) Hematocrit 23.1 % (39.0-51.0) Monocytes (%) (Auto) 11.2 % (0.0-8.0) Eosinophils (%) (Auto) 4.8 % (0.0-4.0) Lymphocytes # (Auto) 0.7 TH/MM3 (1.0-4.8) Blood Urea Nitrogen 31 MG/DL (7-18) Random Glucose 110 MG/DL (74-106) Calcium Level 8.3 MG/DL (8.5-10.1) Estimat Glomerular Filtration Rate 56 ML/MIN (>89) PE at Discharge GENERAL: This is an elderly 82 year old male patient, in no apparent distress. SKIN: Post-op dressing dry and intact CARDIOVASCULAR: Regular rate and rhythm RESPIRATORY: Clear to auscultation. Breath sounds equal bilaterally. GASTROINTESTINAL: Abdomen soft, non-tender, nondistended. MUSCULOSKELETAL: Extremities without clubbing, cyanosis, or edema. No joint tenderness, effusion, or edema noted. No calf tenderness. Negative Homans sign bilaterally NEUROLOGICAL: Awake and alert. Motor and sensory grossly within normal limits, with the exception of post-op right lower extremity. Normal speech. Hospital Course (1) Hip fracture, right ICD Codes: S72.001A - Fracture of unspecified part of neck of right femur, initial encounter for closed fracture Status: Acute Plan: - comgmt with Orthopedic Surgery - Patient states normally ambulates with a walker but wanted to try to ambulate without it today. Patient reports that his feet started going faster and faster and fell forward. - right hip Xray (03/16) Mildly displaced right hip intertrochanteric fracture - right knee Xray (03/16) intact right knee. Moderate severity osteoarthritis - S/P ORIF right hip, IM татьяна/troch nail 03/17/[address] Sheehan - PT - hgb 8.8 (03/18), 9.2 (03/19) - hold DC d/t fever. Post op fever? - repeat UA --> negative - repeat CXR (03/19/18) --> NO infiltrates - Will resume ASA/Plavix for recent CVA which will also cover for pt's DVT prophylaxis. See Orthopedic note. - d/c to SNF today - see discharge orders. (2) CVA (cerebral vascular accident) ICD Codes: I63.9 - Cerebral infarction, unspecified Status: Acute Plan: recent CVA 02/27/18 - Pt received TPA in the ER 02/27/18 - CT brain (02/27) --> NO acute findings - CTA brain (02/27) --> NO acute findings - CTA neck (02/27) --> NO hemodynamically significant stenosis - echocardiogram --> In limited views, the left ventricular systolic function is normal with an estimated ejection fraction in the range of 55-60%. Trace mitral valve regurgitation. There is trace tricuspid valve regurgitation. 03/03 episode of decreased mental status while on the BSC during attempt to have BM earlier today, patient mental status improved spontaneously after he was assisted back to bed - CT head normal exam - EEG read as a Normal electroencephalogram. - TSH 1.67, free T4 1.13, vit B-12 517, folate 18.3, ammonia 10 03/18 patient had "staring spell" earlier today Patient's reports this was similar to his previous episodes that he has been having at home - EEG at [place] 03/04/18 which showed NO seizure activity. - Repeat EEG (03/18) impression mild slowing of background likely consistent with encephalopathia process without any epileptic activity or discharges. - Patient has been following outpatient with Dr. Cobos and was recently started in an "antiseizure medication. - Pt started on Keppra 500mg BID by outpt Neurologist, Dr. Cobos. Will resume keppra. - plavix and ASA (3) BPH (benign prostatic hyperplasia) ICD Codes: N40.0 - Benign prostatic hyperplasia without lower urinary tract symptoms Status: Chronic Plan: Continue patient's home Avodart (4) HTN (hypertension) ICD Codes: I10 - Essential (primary) hypertension Status: Chronic Plan: Continue patient's home Metoprolol 50 mg Q12H, Nifedipine 30 mg daily with hold parameters clonidine as needed (5) Parkinson disease ICD Codes: G20 - Parkinson's disease Status: Chronic Plan: Continue home Carbidopa-Levodopa 25-100 mg Pt Condition on Discharge: Stable Discharge Disposition: Discharge to SNF Discharge Instructions DIET: Follow Instructions for: Heart Healthy Diet Activities you can perform: Weight Bearing as Jose Activities to Avoid: Strenuous Activity Follow up Referrals: Neurology - 3-5 Days with Everett Cobos Md Orthopedics - 2 Weeks with Ermias Sheehan MD PCP Follow-up - [address] Larry Monae f/u with PCP, Dr. Larry Monae, one week after discharge from SNF New Medications: Hydrocodone/Acetaminophen (Hydrocodone-Acetamin 7.5-325) 7.5 Mg-325 Mg Tablet 1 TAB PO Q4H PRN for Pain, #42 TAB Levetiracetam (Keppra) 500 Mg Tab 500 MG PO Q12HR for possible epilepsy for 30 Days, TAB Continued Medications: Acetaminophen (Eq Acetaminophen) 325 Mg Tab 650 MG PO Q6H PRN for PAIN 1-10 AND/OR FEVER >101F for 10 Days, #80 TAB 0 Refills Aspirin (Aspirin) 81 Mg Chew 81 MG CHEW DAILY for Blood Clot Prevention for 30 Days, #30 TAB 0 Refills Calcium Carbonate-Cholecalciferol (Calcium 1000 + D) 1,000-800 Mg-Unit Tab 1 TAB PO, TAB Carbidopa-Levodopa (Carbidopa-Levodopa) 25-100 Mg Tab 1.5 TAB PO TID for Parkinson Disease Mgmt, #90 TAB 0 Refills Nothing by mouth for a hour or after the medication Cholecalciferol (Vitamin D-1000) 1,000 Unit Tab 1000 UNITS PO DAILY for Nutritional Supplement, #1 BOTTLE 0 Refills Citalopram (Citalopram) 10 Mg Tab 10 MG PO DAILY for Control Depression, #30 TAB 0 Refills Clonidine (Catapres) 0.1 Mg Tab 0.1 MG PO Q6H PRN for SBP>160, DBP>90 for 10 Days, #40 TAB 0 Refills Clopidogrel (Plavix) 75 Mg Tab 75 MG PO DAILY for Blood Clot Prevention, #30 TAB Dutasteride (Avodart) 0.5 Mg Cap 0.5 MG PO DAILY for Manage Prostate Problems, #30 CAP 0 Refills Famotidine (Pepcid) 20 Mg Tab 20 MG PO DAILY, #60 TAB 0 Refills Gemfibrozil (Gemfibrozil) 600 Mg Tab 600 MG PO DAILY, #60 TAB 0 Refills Take 30 minutes prior to breakfast and dinner. Metoprolol Tartrate (Lopressor) 50 Mg Tab 50 MG PO Q12H for Blood Pressure Management, #60 TAB 0 Refills Nifedipine ER 24 HR (Nifedipine ER 24 HR) 30 Mg Tab 30 MG PO DAILY for Blood Pressure Management, #30 TAB 0 Refills Quetiapine (Seroquel) 25 Mg Tab 25 MG PO BID for Agitation, #60 TAB 0 Refills Kolby Noonan DO March 20, 2018 11:33
[2018-03-20] MEDS ORDERED: LEVE500 PO (11:37)
--- NOTE | 2018-03-20 11:42 | HHI.DCPOC ---
Discharge Care Plan Diagnosis: (1) Hip fracture, right (2) Parkinson disease (3) HTN (hypertension) (4) BPH (benign prostatic hyperplasia) (5) CVA (cerebral vascular accident) Goals to Promote Your Health * To prevent worsening of your condition and complications * To maintain your health at the optimal level Directions to Meet Your Goals Take your medications as prescribed Follow your dietary instruction Follow activity as directed Keep your appointments as scheduled Take your immunizations and boosters as scheduled If your symptoms worsen call your PCP, if no PCP go to Urgent Care Center or Emergency Room Smoking is Dangerous to Your Health. Avoid second hand smoke Call the 24-hour hour crisis hotline for domestic abuse at Kolby Noonan DO March 20, 2018 11:42
[2018-03-20] MEDS: ENOXAPARIN SODIUM 30 MG/0.3 ML SYRINGE SQ SCH (11:46)
[2018-03-20 12:24] VITALS: O2SAT 92
== END 2018-03-20 14:55 | DRG 482 ==
LOC: NEPC 21:40 → NEDA 03-17 01:08 → N05A 03-17 02:19 → N06B 03-18 16:21
PROVIDERS: ADMIT Hospitalist; ATTEND Hospitalist
PROC: 0QS606Z Reposition Right Upper Femur with Intramedullary Internal Fixation Device, Open Approach (ICD-10-PCS; principal; 2018-03-17 12:15)
DX: S72.141A Displaced intertrochanteric fracture of right femur, initial encounter for closed fracture (principal); G62.9 Polyneuropathy, unspecified; G20 Parkinson's disease; S80.211A Abrasion, right knee, initial encounter; E78.5 Hyperlipidemia, unspecified; I25.10 Atherosclerotic heart disease of native coronary artery without angina pectoris; K21.9 Gastro-esophageal reflux disease without esophagitis; I10 Essential (primary) hypertension; E03.9 Hypothyroidism, unspecified; N40.0 Benign prostatic hyperplasia without lower urinary tract symptoms; R40.4 Transient alteration of awareness; G89.18 Other acute postprocedural pain; R50.82 Postprocedural fever; M17.11 Unilateral primary osteoarthritis, right knee; M54.16 Radiculopathy, lumbar region; W01.0XXA Fall on same level from slipping, tripping and stumbling without subsequent striking against object, initial encounter; Z85.828 Personal history of other malignant neoplasm of skin; Z86.73 Personal history of transient ischemic attack (TIA), and cerebral infarction without residual deficits; Z87.891 Personal history of nicotine dependence
CPT/HCPCS: 71045; 71046; 73502; 73564; 76000; 80048; 81001; 82550; 82948; 83735; 84484; 85025; 85610; 85730; 93005; 94150; 95819; 96374; 96375; C1713; J0131; J0360; J0690; J1580; J1650; J2270; J2405; J3010; J7030; J7120

== ENCOUNTER 2018-03-22 11:01 | Inpatient (IN) | payer MEDICARE ==
[~2018-03-22] VITALS: Ht 182.9 cm; Wt 65.2 kg
[2018-03-22] VITALS (10 sets, daily range): BP systolic 88–185; BP diastolic 51–85; PULSE 66–95; RESP 16–19; TEMP 97.2–98.7; O2SAT 95–100
[~2018-03-22 11:01] MED LIST changes: +HYDR-3580 PO; +LEVE500 PO
--- NOTE | 2018-03-22 11:55 | PD ---
HPI Chief Complaint: Altered Mental Status Time Seen by Provider: 11:37 Travel History International Travel<30 days: No Contact w/Intl Traveler<30days: No Traveled to known affect area: No History of Present Illness HPI This is an 82-year-old male who presents by EMS from [facility] with a rehabilitation facility for evaluation. Reportedly the patient was performing physical therapy today when he had a syncopal type event in which she passed out on the ground. Per EMS report there is concern that he was pulseless and thus 3 chest compressions were performed. The patient promptly woke up and asked that the compression to be stopped. Patient is currently awake and alert. He reports that for the past month he has been feeling lightheaded and tired, worse when ambulating, but she denies any acute symptoms today. He denies any acute headache, blurred vision, chest pain, shortness of breath, nausea, vomiting, abdominal pain, diarrhea, constipation, focal weakness, slurred speech. Family notes that he was recently started on Keppra 500 mg BID for potential seizure disorder. There was no reported seizure-like activity today. Neurologist Dr. Cobos. He was just discharged on March 20 after being admitted for right hip fracture. This was repaired by Dr. Dinh. He also has a history of BPH, hyperlipidemia, CVA, lumbar radiculopathy, hypothyroidism , Parkinson's, peripheral neuropathy, GERD. Primary care physician is Dr. Bull. [facility] Past Medical History Hx Anticoagulant Therapy: Yes (ASA) Asthma: No Blood Disorders: No Heart Rhythm Problems: No Cancer: Yes (hx of skin cancer) Cardiovascular Problems: Yes High Cholesterol: Yes Chemotherapy: No Chest Pain: No Congestive Heart Failure: No COPD: No Cerebrovascular Accident: Yes Coronary Artery Disease: Yes Diabetes: No Diminished Hearing: No Endocrine: No Gastrointestinal Disorders: Yes (acid reflux) GERD: Yes Glaucoma: No Genitourinary: No Hepatitis: No Hiatal Hernia: No Hypertension: Yes Immune Disorder: No Implanted Vascular Access Dvce: No Musculoskeletal: Yes (parkinsons) Neurologic: Yes ( reports hx of TIA, parkinsons) Parkinson's Disease: Yes Psychiatric: No Reproductive: No Respiratory: No Radiation Therapy: No Sleep Apnea: No Thyroid Disease: No ?: Not Past Surgical History AICD: No Eye Surgery: Yes (CATARACTS) Joint Replacement: No Pacemaker: No Tonsillectomy: Yes Other Surgery: Yes (carotid endarterectomy) Social History Alcohol Use: No (former) Tobacco Use: No (QUIT 30 YEARS) Substance Use: No Allergies-Medications (Allergen,Severity, Reaction): Coded Allergies: enalaprilat (Verified Allergy, Severe, SWELLING, 03/22/18) Reported Meds & Prescriptions Reported Meds & Active Scripts Active Keppra (Levetiracetam) 500 Mg Tab 500 Mg PO Q12HR 30 Days Hydrocodone-Acetamin 7.5-325 (Hydrocodone/Acetaminophen) 7.5 Mg-325 Mg Tablet 1 Tab PO Q4H PRN Seroquel (Quetiapine Fumarate) 25 Mg Tab 25 Mg PO BID Eq Acetaminophen (Acetaminophen) 325 Mg Tab 650 Mg PO Q6H PRN 10 Days Nifedipine ER 24 HR (Nifedipine) 30 Mg Tab 30 Mg PO DAILY Lopressor (Metoprolol Tartrate) 50 Mg Tab 50 Mg PO Q12H Catapres (Clonidine) 0.1 Mg Tab 0.1 Mg PO Q6H PRN 10 Days Plavix (Clopidogrel Bisulfate) 75 Mg Tab 75 Mg PO DAILY Aspirin 81 Mg Chew 81 Mg CHEW DAILY 30 Days Reported Citalopram (Citalopram Hydrobromide) 10 Mg Tab 10 Mg PO DAILY Vitamin D-1000 (Cholecalciferol) 1,000 Unit Tab 1,000 Units PO DAILY Pepcid (Famotidine) 20 Mg Tab 20 Mg PO DAILY Calcium 1000 + D (Calcium Carbonate-Cholecalciferol) 1,000-800 Mg-Unit Tab 1 Tab PO Avodart (Dutasteride) 0.5 Mg Cap 0.5 Mg PO DAILY Gemfibrozil 600 Mg Tab 600 Mg PO DAILY Take 30 minutes prior to breakfast and dinner. Carbidopa-Levodopa 25-100 Mg Tab 1.5 Tab PO TID Nothing by mouth for a hour or after the medication Review of Systems Except as stated in HPI: all other systems reviewed are Neg Physical Exam Narrative GENERAL: Well-developed well-nourished male no acute distress SKIN: Warm and dry. Incision noted to lateral right hip appears to be healing well. HEAD: Atraumatic. Normocephalic. EYES: Pupils equal and round. No scleral icterus. No injection or drainage. ENT: No nasal bleeding or discharge. Mucous membranes pink and moist. NECK: Trachea midline. No JVD. CARDIOVASCULAR: Regular rate and rhythm. No murmur appreciated. RESPIRATORY: No accessory muscle use. Clear to auscultation. Breath sounds equal bilaterally. GASTROINTESTINAL: Abdomen soft, non-tender, nondistended. Hepatic and splenic margins not palpable. MUSCULOSKELETAL: No obvious deformities. No clubbing. No cyanosis. No edema. NEUROLOGICAL: Awake and alert. No obvious cranial nerve deficits. Motor grossly within normal limits. Normal speech. PSYCHIATRIC: Appropriate mood and affect; insight and judgment normal. Data Data Last Documented VS Vital Signs Date Time Temp Pulse Resp B/P (MAP) Pulse Ox O2 Delivery O2 Flow Rate FiO2 03/22/18 11:50 99 Room Air 03/22/18 11:43 98.5 66 16 Orders Orders Electrocardiogram (03/22/18 ) Electrocardiogram (03/22/18 11:48) Complete Blood Count With Diff (03/22/18 11:48) Comprehensive Metabolic Panel (03/22/18 11:48) Magnesium (Mg) (03/22/18 11:48) Ckmb (Isoenzyme) Profile (03/22/18 11:48) Troponin I (03/22/18 11:48) Urinalysis - C+S If Indicated (03/22/18 11:48) Chest, Single Ap (03/22/18 11:48) Ct Brain W/O Iv Contrast(Rout) (03/22/18 11:48) Blood Glucose (03/22/18 11:48) Ecg Monitoring (03/22/18 11:48) Iv Access Insert/Monitor (03/22/18 11:48) Oximetry (03/22/18 11:48) Sodium Chloride 0.9% Flush (Ns Flush) (03/22/18 12:00) Type And Screen (03/22/18 12:57) Pantoprazole Inj (Protonix Inj) (03/22/18 13:00) Admit Order (Ed Use Only) (03/22/18 13:08) Labs Laboratory Tests Test 03/22/18 12:00 White Blood Count 5.9 TH/MM3 Red Blood Count 2.80 MIL/MM3 Hemoglobin 8.1 GM/DL Hematocrit 24.4 % Mean Corpuscular Volume 87.0 FL Mean Corpuscular Hemoglobin 29.1 PG Mean Corpuscular Hemoglobin Concent 33.4 % Red Cell Distribution Width 13.2 % Platelet Count 205 TH/MM3 Mean Platelet Volume 9.1 FL Neutrophils (%) (Auto) 79.5 % Lymphocytes (%) (Auto) 6.5 % Monocytes (%) (Auto) 10.8 % Eosinophils (%) (Auto) 2.4 % Basophils (%) (Auto) 0.8 % Neutrophils # (Auto) 4.7 TH/MM3 Lymphocytes # (Auto) 0.4 TH/MM3 Monocytes # (Auto) 0.6 TH/MM3 Eosinophils # (Auto) 0.1 TH/MM3 Basophils # (Auto) 0.0 TH/MM3 CBC Comment DIFF FINAL Differential Comment Blood Urea Nitrogen 24 MG/DL Creatinine 1.10 MG/DL Random Glucose 104 MG/DL Total Protein 6.7 GM/DL Albumin 2.7 GM/DL Calcium Level 8.5 MG/DL Magnesium Level 2.2 MG/DL Alkaline Phosphatase 73 U/L Aspartate Amino Transf (AST/SGOT) 17 U/L Alanine Aminotransferase (ALT/SGPT) 8 U/L Total Bilirubin 0.6 MG/DL Sodium Level 137 MEQ/L Potassium Level 4.2 MEQ/L Chloride Level 101 MEQ/L Carbon Dioxide Level 26.3 MEQ/L Anion Gap 10 MEQ/L Estimat Glomerular Filtration Rate 64 ML/MIN Total Creatine Kinase 95 U/L Troponin I LESS THAN 0.02 NG/ML MDM Medical Decision Making Medical Screen Exam Complete: Yes Emergency Medical Condition: Yes Medical Record Reviewed: Yes Differential Diagnosis Syncope, orthostatic hypotension, electrolyte abnormality, arrhythmia, dehydration, seizure, cardiac arrest Narrative Course The history is most consistent with syncope during physical therapy. It is unlikely that the patient was truly pulseless and he immediately woke up after 3 compressions were performed. The patient was placed on ECG monitoring pulse oximetry. A 12 EKG was obtained. Lab work, chest x-ray, CT the brain have been ordered. Lab work is been reviewed. Hemoglobin is 8.1, hemoglobin on March 17 was 12.3, trended down to 7.7 over the last few days. It is slightly improved from March 20 when it was 7.7. He is on aspirin and Plavix. He has Hemoccult positive brown stool. This may be contributing to his syncope. His lab work is otherwise unremarkable. The patient will be admitted for further evaluation. Diagnosis Primary Impression: Syncope Additional Impression: GI bleed Admitting Information Admitting Physician Requests: Admit Cam,Everett P. PA March 22, 2018 11:55
[2018-03-22] MEDS ORDERED: SODIUM CHLORIDE 0.9% FLUSH 10 ML FLUSH IVF PRN (12:00)
[2018-03-22 12:22] LABS: AUTOMATED NEUTROPHIL # 4.7 TH/MM3 (1.8-7.7); BASOPHIL % 0.8 % (0.0-2.0); EOSINOPHIL # 0.1 TH/MM3 (0-0.4); EOSINOPHIL % 2.4 % (0.0-4.0); HEMATOCRIT 24.4 % (39.0-51.0); HEMOGLOBIN 8.1 GM/DL (13.0-17.0); LYMPH % 6.5 % (9.0-44.0); LYMPHOCYTE # 0.4 TH/MM3 (1.0-4.8); MEAN CORPUSCULAR HEMOGLOBIN 29.1 PG (27.0-34.0); MEAN CORPUSCULAR HGB CONC 33.4 % (32.0-36.0); MEAN PLATELET VOLUME 9.1 FL (7.0-11.0); MONO % 10.8 % (0.0-8.0); MONOCYTE # 0.6 TH/MM3 (0-0.9); NEUT % 79.5 % (16.0-70.0); PLATELET COUNT 205 TH/MM3 (150-450); RED CELL DISTRIBUTION WIDTH 13.2 % (11.6-17.2); WHITE BLOOD COUNT 5.9 TH/MM3 (4.0-11.0)
--- NOTE | 2018-03-22 12:28 | RADRPT ---
EXAM DATE/TIME: 03/22/2018 12:07 [facility] COMPARISON: CT BRAIN W/O CONTRAST, March 03, 2018, 17:05. INDICATIONS : Nursing center staff stated patient went into asystole and after 3 chest compressions patient told th em to stop RADIATION DOSE: 38.84 CTDIvol (mGy) MEDICAL HISTORY : Cardiovascular disease. Hypertension. SURGICAL HISTORY : Total knee replacement, right. ENCOUNTER: Initial ACUITY: 1 day PAIN SCALE: 0/10 LOCATION: cranial TECHNIQUE: Multiple contiguous axial images were obtained of the head. Using automated exposure control and adj ustment of the mA and/or kV according to patient size, radiation dose was kept as low as reasonably a chievable to obtain optimal diagnostic quality images. DICOM format image data is available electro nically for review and comparison. FINDINGS: CEREBRUM: The CSF spaces are stable continuing to demonstrate mild ventriculomegaly.. No evidence of midline s hift, mass lesion, hemorrhage or acute infarction. No extra-axial fluid collections are seen. POSTERIOR FOSSA: The cerebellum and brainstem are intact. The 4th ventricle is midline. The cerebellopontine angle i s unremarkable. EXTRACRANIAL: The visualized portion of the orbits is intact. SKULL: The calvaria is intact. No evidence of skull fracture. CONCLUSION: 1. Stable evaluation of the brain without evidence of acute infarct, hemorrhage, mass or edema. 2. Mild ventriculomegaly characteristic of age-related volume loss. Josh English MD on March 22, 2018 at 12:24 Board Certified Radiologist. This report was verified electronically.
[2018-03-22 12:34] LABS: ALBUMIN 2.7 GM/DL (3.4-5.0); AST (GOT) 17 U/L (15-37); BICARBONATE 26.3 MEQ/L (21.0-32.0); BLOOD UREA NITROGEN 24 MG/DL (7-18); CALCIUM 8.5 MG/DL (8.5-10.1); CHLORIDE 101 MEQ/L (98-107); GLOMERULAR FILTRATION RATE 64 ML/MIN (>89); GLUCOSE,RANDOM 104 MG/DL (74-106); MAGNESIUM 2.2 MG/DL (1.5-2.5); SODIUM (NA) 137 MEQ/L (136-145)
[2018-03-22 12:35] LABS: ALT (GPT) 8 U/L (12-78)
[2018-03-22 12:39] LABS: ALKALINE PHOSPHATASE 73 U/L (45-117); TOTAL BILIRUBIN ADULT 0.6 MG/DL (0.2-1.0); TOTAL PROTEIN 6.7 GM/DL (6.4-8.2); TROPONIN I LESS THAN 0.02 NG/ML (0.02-0.05)
--- NOTE | 2018-03-22 12:41 | RADRPT ---
EXAM DATE/TIME: 03/22/2018 12:19 [facility] COMPARISON: CHEST SINGLE AP, March 17, 2018, 0:03. INDICATIONS : Shortness of breath and syncope episode. MEDICAL HISTORY : Cardiovascular disease. Hypertension. SURGICAL HISTORY : Total knee replacement, right. ENCOUNTER: Initial ACUITY: 1 day PAIN SCORE: 6/10 LOCATION: Bilateral chest FINDINGS: Lungs are hyperinflated but otherwise clear. There is no evidence of acute air space disease, suspici ous nodular densities or pleural effusions. Heart and mediastinal structures are stable. CONCLUSION: 1. COPD. 2. Stable chest without evidence of acute cardiopulmonary process. Josh English MD on March 22, 2018 at 12:38 Board Certified Radiologist. This report was verified electronically.
[2018-03-22] MEDS ORDERED: PANTOPRAZOLE SODIUM 40 MG VIAL IVP ONE (13:00)
[2018-03-22] MEDS ORDERED: NALOXONE HCL 0.4 MG/ML AMP IV PUSH PRN (13:15)
[2018-03-22] MEDS ORDERED: SODIUM CHLORIDE 0.9% FLUSH 10 ML FLUSH IV FLUSH PRN (13:15)
[2018-03-22] MEDS ORDERED: ACETAMINOPHEN 325 MG TAB PO PRN (13:15)
[2018-03-22] MEDS ORDERED: cloNIDine HCL 0.1 MG TAB PO PRN (13:15)
[2018-03-22] MEDS ORDERED: MAGNESIUM HYDROXIDE SUSP 30 ML CUP PO PRN (13:15)
[2018-03-22] MEDS ORDERED: CARBIDOPA/LEVODOPA 25 MG/100 MG TAB PO SCH (13:30)
--- NOTE | 2018-03-22 14:31 | HHI.HP ---
HPI Service [facility] Hospitalists Primary Care Physician Larry Monae M.D. 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 Sheehan. Patient was discharged . Patient was at rehab today during PT when he had a syncopal episode. Patient reportedly lost consciousness and fell to the ground. Per ER notes EMS had a concern that he was pulseless and thus 3 chest compressions were performed. The patient promptly woke up and asked that the compression to be stopped. Patient is currently awake and alert appears to be at his baseline confusion due to his dementia. Information gathered from patient as well as prior charting. Patient denies syncopal episode. He denies any acute headache , blurred vision, chest pain, shortness of breath, nausea, vomiting, abdominal pain, diarrhea, constipation, focal weakness, slurred speech. Patient recently started on Keppra 500 mg BID for potential seizure disorder. There was no reported seizure-like activity today. Neurologist Dr. Cobos. Review of Systems ROS Limitations: Poor Historian Past Family Social History Past Medical History Osteoarthritis BPH Hyperlipidemia Hypothyroid lumbar radiculopathy Parkinson's disease, patient follows with Dr. Cobos GERD peripheral neuropathy skin cancer, unspecified L3 compression fracture, dx 06/06/17 Past Surgical History ORIF right hip, IM татьяна/troch nail 03/17/[address] Sheehan cataract surgery epidural steroid injection knee arthroscopy needle biopsy of the prostate Reported Medications Keppra (Levetiracetam) 500 Mg Tab 500 Mg PO Q12HR 30 Days Hydrocodone-Acetamin 7.5-325 (Hydrocodone/Acetaminophen) 7.5 Mg-325 Mg Tablet 1 Tab PO Q4H PRN Seroquel (Quetiapine Fumarate) 25 Mg Tab 25 Mg PO BID Eq Acetaminophen (Acetaminophen) 325 Mg Tab 650 Mg PO Q6H PRN 10 Days Nifedipine ER 24 HR (Nifedipine) 30 Mg Tab 30 Mg PO DAILY Lopressor (Metoprolol Tartrate) 50 Mg Tab 50 Mg PO Q12H Catapres (Clonidine) 0.1 Mg Tab 0.1 Mg PO Q6H PRN 10 Days Plavix (Clopidogrel Bisulfate) 75 Mg Tab 75 Mg PO DAILY Aspirin 81 Mg Chew 81 Mg CHEW DAILY 30 Days Citalopram (Citalopram Hydrobromide) 10 Mg Tab 10 Mg PO DAILY Vitamin D-1000 (Cholecalciferol) 1,000 Unit Tab 1,000 Units PO DAILY Pepcid (Famotidine) 20 Mg Tab 20 Mg PO DAILY Calcium 1000 + D (Calcium Carbonate-Cholecalciferol) 1,000-800 Mg-Unit Tab 1 Tab PO Avodart (Dutasteride) 0.5 Mg Cap 0.5 Mg PO DAILY Gemfibrozil 600 Mg Tab 600 Mg PO DAILY Take 30 minutes prior to breakfast and dinner. Carbidopa-Levodopa 25-100 Mg Tab 1.5 Tab PO TID Nothing by mouth for a hour or after the medication Allergies: Coded Allergies: enalaprilat (Verified Allergy, Severe, SWELLING, 03/22/18) Family History No family history significant of early coronary artery disease or strokes Social History Negative for tobacco, alcohol, or illicit drug abuse Physical Exam Vital Signs Vital Signs Date Time Temp Pulse Resp B/P (MAP) Pulse Ox O2 Delivery O2 Flow Rate FiO2 03/22/18 13:57 78 17 163/67 (99) 96 Room Air 03/22/18 11:50 99 Room Air 03/22/18 11:43 98.5 66 16 147/66 (93) 97 Room Air 03/22/18 11:38 75 03/22/18 11:17 97.3 66 17 159/70 (99) 99 Physical Exam GENERAL: This is an elderly 82 year old confused male patient SKIN: abrasion right knee HEAD: Atraumatic. Normocephalic. No temporal or scalp tenderness. EYES: Extraocular motions intact. No scleral icterus. No injection or drainage. CARDIOVASCULAR: Regular rate and rhythm RESPIRATORY: Clear to auscultation. Breath sounds equal bilaterally. GASTROINTESTINAL: Abdomen soft, non-tender, nondistended. MUSCULOSKELETAL: Extremities without clubbing, cyanosis, or edema. No joint tenderness, effusion, or edema noted. No calf tenderness. Negative Homans sign bilaterally. NEUROLOGICAL: Awake and alert, confused and agitated. Motor and sensory grossly within normal limits Laboratory Laboratory Tests Test 03/22/18 12:00 White Blood Count 5.9 Red Blood Count 2.80 Hemoglobin 8.1 Hematocrit 24.4 Mean Corpuscular Volume 87.0 Mean Corpuscular Hemoglobin 29.1 Mean Corpuscular Hemoglobin Concent 33.4 Red Cell Distribution Width 13.2 Platelet Count 205 Mean Platelet Volume 9.1 Neutrophils (%) (Auto) 79.5 Lymphocytes (%) (Auto) 6.5 Monocytes (%) (Auto) 10.8 Eosinophils (%) (Auto) 2.4 Basophils (%) (Auto) 0.8 Neutrophils # (Auto) 4.7 Lymphocytes # (Auto) 0.4 Monocytes # (Auto) 0.6 Eosinophils # (Auto) 0.1 Basophils # (Auto) 0.0 CBC Comment DIFF FINAL Differential Comment Blood Urea Nitrogen 24 Creatinine 1.10 Random Glucose 104 Total Protein 6.7 Albumin 2.7 Calcium Level 8.5 Magnesium Level 2.2 Alkaline Phosphatase 73 Aspartate Amino Transf (AST/SGOT) 17 Alanine Aminotransferase (ALT/SGPT) 8 Total Bilirubin 0.6 Sodium Level 137 Potassium Level 4.2 Chloride Level 101 Carbon Dioxide Level 26.3 Anion Gap 10 Estimat Glomerular Filtration Rate 64 Total Creatine Kinase 95 Troponin I LESS THAN 0.02 Result Diagram: 03/22/18 1200 03/22/18 1200 Imaging Last Impressions Head CT 03/22/18 1148 Signed Impressions: Service Date/Time: Thursday, March 22, 2018 12:07 - CONCLUSION: 1. Stable evaluation of the brain without evidence of acute infarct, hemorrhage, mass or edema. 2. Mild ventriculomegaly characteristic of age-related volume loss. Josh English MD Chest X-Ray 03/22/18 1148 Signed Impressions: Service Date/Time: Thursday, March 22, 2018 12:19 - CONCLUSION: 1. COPD. 2. Stable chest without evidence of acute cardiopulmonary process. MD Tawanda Riddle VTE Risk Assessment Caprini VTE Risk Assessment: Mod/High Risk (score >= 2) Caprini Risk Assessment Model Point Value = 1 Point Value = 2 Point Value = 3 Point Value = 5 Age 41-60 Minor surgery BMI > 25 kg/m2 Swollen legs Varicose veins or History of unexplained or recurrent spontaneous Oral contraceptives or hormone replacement Sepsis (< 1 month) Serious lung disease, including pneumonia (< 1 month) Abnormal pulmonary function Acute myocardial infarction Congestive heart failure (< 1 month) History of inflammatory bowel disease Medical patient at bed rest Age 61-74 Arthroscopic surgery Major open surgery (> 45 min) Laparoscopic surgery (> 45 min) Malignancy Confined to bed (> 72 hours) Immobilizing plaster cast Central venous access Age >= 75 History of VTE Family history of VTE Factor V Leiden Prothrombin [id number] Lupus anticoagulant Anticardiolipin antibodies Elevated serum homocysteine Heparin-induced thrombocytopenia Other congenital or acquired thrombophilia Stroke (< 1 month) Elective arthroplasty Hip, pelvis, or leg fracture Acute spinal cord injury (< 1 month) Prophylaxis Regimen Total Risk Factor Score Risk Level Prophylaxis Regimen 0-1 Low Early ambulation 2 Moderate Order ONE of the following: *Sequential Compression Device (SCD) *Heparin 5000 units SQ BID 3-4 Higher Order ONE of the following medications: *Heparin 5000 units SQ TID *Enoxaparin/Lovenox 40 mg SQ daily (WT < 150 kg, CrCl > 30 mL/min) *Enoxaparin/Lovenox 30 mg SQ daily (WT < 150 kg, CrCl > 10-29 mL/min) *Enoxaparin/Lovenox 30 mg SQ BID (WT < 150 kg, CrCl > 30 mL/min) AND/OR *Sequential Compression Device (SCD) 5 or more Highest Order ONE of the following medications: *Heparin 5000 units SQ TID (Preferred with Epidurals) *Enoxaparin/Lovenox 40 mg SQ daily (WT < 150 kg, CrCl > 30 mL/min) *Enoxaparin/Lovenox 30 mg SQ daily (WT < 150 kg, CrCl > 10-29 mL/min) *Enoxaparin/Lovenox 30 mg SQ BID (WT < 150 kg, CrCl > 30 mL/min) AND *Sequential Compression Device (SCD) Assessment and Plan Problem List: (1) Syncope ICD Codes: R55 - Syncope and collapse Status: Acute Plan: Syncope CTA neck (02/27) --> NO hemodynamically significant stenosis - LDL 87 (02/28) - Holter monitor (02/2018) completed: Patient was monitored for 17 hours and 45 minutes. Patient was in normal sinus rhythm. Average heart rate 80 bpm. Appears in sinus bradycardia 53 bpm at 11:32 AM. Appears in sinus tachycardia at 122 bpm at 6:20 AM. 111 PVCs and 416 PACs. Interpretation is limited by intermittent baseline artifact - echocardiogram (02/2018)--> In limited views, the left ventricular systolic function is normal with an estimated ejection fraction in the range of 55-60%. Trace mitral valve regurgitation. There is trace tricuspid valve regurgitation. Check orthostatic vital signs continuous telemetry Recent hip fracture ORIF right hip, IM татьяна/troch nail 03/17/[address] Sheehan Continue PT BPH (benign prostatic hyperplasia) Continue patient's home Avodart HTN (hypertension) Continue patient's home Metoprolol 50 mg Q12H, Nifedipine 30 mg daily clonidine as needed Parkinson disease with periods of confusion Continue home Carbidopa-Levodopa 25-100 mg continue Seroquel low dose one time Ativan 0.5 mg IV Assessment and Plan Patient examined. Assessment and plan formulated with Eli Saleh PA-C. I agree with the above. admitted after syncope at snf PT checked orthostatics..strongly positive with symptoms per nursing. they say he became more unresponsive with sitting up and just staring will give blood transfusion for the symptomatic anemia related to his recent surgery. pt has dementia and agitation. was restrained upon our arrival. Eli Saleh March 22, 2018 14:31 Enrike Gomez MD March 22, 2018 17:42
[2018-03-22] MEDS ORDERED: PILL SPLITTER OTHER PRN (14:45)
[2018-03-22] MEDS: METOPROLOL TARTRATE 50 MG TAB PO SCH (15:00)
[2018-03-22] MEDS ORDERED: LORazepam 2 MG/ML VIAL IV PUSH ONE (16:00)
[2018-03-22] MEDS ORDERED: SODIUM CHLOR 0.9% 250 ML INJ 250 ML IV ONE (17:00)
[2018-03-22] MEDS: CARBIDOPA/LEVODOPA 25 MG/100 MG TAB PO SCH (17:40)
[2018-03-22] MEDS: QUEtiapine FUMARATE 25 MG TAB PO SCH (21:52)
[2018-03-22] MEDS: levETIRAcetam 500 MG TAB PO SCH (21:52)
[2018-03-22] MEDS: DOCUSATE SODIUM 50 MG/SENNA 8.6 MG TAB PO SCH (21:52)
[2018-03-22] MEDS: SODIUM CHLORIDE 0.9% FLUSH 10 ML FLUSH IV FLUSH SCH (21:53)
[2018-03-23] VITALS (10 sets, daily range): BP systolic 117–166; BP diastolic 46–80; PULSE 61–88; RESP 16–18; TEMP 97.9–98.5; O2SAT 96–100
[2018-03-23] MEDS: METOPROLOL TARTRATE 50 MG TAB PO SCH ×2 (02:29→15:24)
[2018-03-23 08:31] LABS: AUTOMATED NEUTROPHIL # 4.7 TH/MM3 (1.8-7.7); BASOPHIL % 0.5 % (0.0-2.0); EOSINOPHIL # 0.1 TH/MM3 (0-0.4); EOSINOPHIL % 1.6 % (0.0-4.0); HEMATOCRIT 29.1 % (39.0-51.0); HEMOGLOBIN 9.7 GM/DL (13.0-17.0); LYMPHOCYTE # 0.8 TH/MM3 (1.0-4.8); MEAN CELL VOLUME 82.8 FL (80.0-100.0); MEAN CORPUSCULAR HEMOGLOBIN 27.7 PG (27.0-34.0); MEAN CORPUSCULAR HGB CONC 33.5 % (32.0-36.0); MEAN PLATELET VOLUME 9.1 FL (7.0-11.0); MONO % 12.6 % (0.0-8.0); MONOCYTE # 0.8 TH/MM3 (0-0.9); NEUT % 73.3 % (16.0-70.0); PLATELET COUNT 217 TH/MM3 (150-450); RED BLOOD COUNT 3.51 MIL/MM3 (4.50-5.90); RED CELL DISTRIBUTION WIDTH 15.2 % (11.6-17.2); WHITE BLOOD COUNT 6.4 TH/MM3 (4.0-11.0)
[2018-03-23 08:51] LABS: BICARBONATE 26.5 MEQ/L (21.0-32.0); CALCIUM 8.9 MG/DL (8.5-10.1); CREATININE 1.02 MG/DL (0.60-1.30)
[2018-03-23] MEDS: SODIUM CHLORIDE 0.9% FLUSH 10 ML FLUSH IV FLUSH SCH ×2 (09:00→19:40)
[2018-03-23] MEDS: GEMFIBROZIL 600 MG TAB PO SCH (09:00)
[2018-03-23] MEDS: CITALOPRAM HYDROBROMIDE 20 MG TAB PO SCH (09:47)
[2018-03-23] MEDS: CARBIDOPA/LEVODOPA 25 MG/100 MG TAB PO SCH ×2 (09:47→15:24)
[2018-03-23] MEDS: DOCUSATE SODIUM 50 MG/SENNA 8.6 MG TAB PO SCH ×2 (09:47→19:39)
[2018-03-23] MEDS: ASPIRIN 81 MG CHEW TAB CHEW SCH (09:48)
[2018-03-23] MEDS: FAMOTIDINE 20 MG TAB PO SCH (09:48)
[2018-03-23] MEDS: FINASTERIDE 5 MG TAB PO SCH (09:48)
[2018-03-23] MEDS: CLOPIDOGREL 75 MG TAB PO SCH (09:48)
[2018-03-23] MEDS: QUEtiapine FUMARATE 25 MG TAB PO SCH ×2 (09:48→19:40)
[2018-03-23] MEDS: NIFEdipine 30 MG SUSTAINED RELEASE TAB PO SCH (09:48)
[2018-03-23] MEDS: levETIRAcetam 500 MG TAB PO SCH ×2 (09:51→19:39)
--- NOTE | 2018-03-23 10:29 | HHI.PR ---
Subjective Remarks on chair. restrained. demented. agitated. Objective Vitals agitated. follows directions demented restained Vital Signs Date Time Temp Pulse Resp B/P (MAP) Pulse Ox O2 Delivery O2 Flow Rate FiO2 03/23/18 08:18 98.1 65 18 149/68 (95) 96 03/23/18 05:34 66 16 117/46 (69) 96 03/23/18 05:32 98.1 61 18 145/67 (93) 97 03/23/18 02:35 72 03/23/18 00:51 98.1 88 18 166/80 96 03/22/18 22:40 97.9 85 18 167/71 95 03/22/18 22:22 98.0 88 18 185/85 95 03/22/18 19:09 97.2 94 17 157/67 100 03/22/18 18:54 98.4 95 19 148/65 99 03/22/18 18:39 98.7 94 18 125/59 100 03/22/18 16:00 98.1 87 18 148/66 (93) 88/51 (63) 03/22/18 13:57 78 17 163/67 (99) 96 Room Air 03/22/18 11:50 99 Room Air 03/22/18 11:43 98.5 66 16 147/66 (93) 97 Room Air 03/22/18 11:38 75 03/22/18 11:17 97.3 66 17 159/70 (99) 99 Result Diagram: 03/23/18 0717 03/23/18 0717 Imaging Last Impressions Head CT 03/22/18 1148 Signed Impressions: Service Date/Time: Thursday, March 22, 2018 12:07 - CONCLUSION: 1. Stable evaluation of the brain without evidence of acute infarct, hemorrhage, mass or edema. 2. Mild ventriculomegaly characteristic of age-related volume loss. Josh English MD Chest X-Ray 03/22/18 1148 Signed Impressions: Service Date/Time: Thursday, March 22, 2018 12:19 - CONCLUSION: 1. COPD. 2. Stable chest without evidence of acute cardiopulmonary process. Josh English MD A/P Problem List: (1) Syncope ICD Codes: R55 - Syncope and collapse Status: Acute Plan: Syncope CTA neck (02/27) --> NO hemodynamically significant stenosis - LDL 87 (02/28) - Holter monitor (02/2018) completed: Patient was monitored for 17 hours and 45 minutes. Patient was in normal sinus rhythm. Average heart rate 80 bpm. Appears in sinus bradycardia 53 bpm at 11:32 AM. Appears in sinus tachycardia at 122 bpm at 6:20 AM. 111 PVCs and 416 PACs. Interpretation is limited by intermittent baseline artifact - echocardiogram (02/2018)--> In limited views, the left ventricular systolic function is normal with an estimated ejection fraction in the range of 55-60%. Trace mitral valve regurgitation. There is trace tricuspid valve regurgitation. Pt was found to be significantly orthostatic on admission with repeat of his sx' s gave 2 units of blood reevaluate with PT and if able to participated w/out pre-syncope/syncope then back to snf needs out of restraints x 24hrs. discussed with RN Recent hip fracture ORIF right hip, IM татьяна/troch nail 03/17/[address] Sheehan Continue PT BPH (benign prostatic hyperplasia) Continue patient's home Avodart HTN (hypertension) Continue patient's home Metoprolol 50 mg Q12H, Nifedipine 30 mg daily clonidine as needed Parkinson disease with periods of confusion Continue home Carbidopa-Levodopa 25-100 mg continue Seroquel low dose Enrike Gomez MD March 23, 2018 10:29
--- NOTE | 2018-03-23 22:50 | EKG ---
Date Performed: 03/22/2018 Time Performed: 11:48:01 PTAGE: 82 years EKG: Sinus rhythm WITH OCCASIONAL VENTRICULAR PREMATURE COMPLEXES SEPTAL MYOCARDIAL INFARCTION ABNORMAL ECG PREVIOUS TRACING : 03/18/2018 09.23 Since the previous tracing, no significant change noted DOCTOR: Wilfredo Aguilar Interpretating Date/Time 03/23/2018 22:48:25
[2018-03-24] VITALS (7 sets, daily range): BP systolic 135–197; BP diastolic 64–86; PULSE 63–86; RESP 16–20; TEMP 97–97.8; O2SAT 98–99
[2018-03-24] MEDS: METOPROLOL TARTRATE 50 MG TAB PO SCH ×2 (03:21→15:00)
[2018-03-24] MEDS: CARBIDOPA/LEVODOPA 25 MG/100 MG TAB PO SCH ×3 (06:10→16:19)
[2018-03-24] MEDS ORDERED: cloNIDine HCL 0.1 MG TAB PO PRN (07:30)
[2018-03-24] MEDS: CITALOPRAM HYDROBROMIDE 20 MG TAB PO SCH (08:34)
[2018-03-24] MEDS: levETIRAcetam 500 MG TAB PO SCH (08:34)
[2018-03-24] MEDS: FINASTERIDE 5 MG TAB PO SCH (08:35)
[2018-03-24] MEDS: NIFEdipine 30 MG SUSTAINED RELEASE TAB PO SCH (08:35)
[2018-03-24] MEDS: DOCUSATE SODIUM 50 MG/SENNA 8.6 MG TAB PO SCH (08:35)
[2018-03-24] MEDS: QUEtiapine FUMARATE 25 MG TAB PO SCH (08:35)
[2018-03-24] MEDS: FAMOTIDINE 20 MG TAB PO SCH (08:35)
[2018-03-24] MEDS: GEMFIBROZIL 600 MG TAB PO SCH (08:35)
[2018-03-24] MEDS: CLOPIDOGREL 75 MG TAB PO SCH (08:35)
[2018-03-24] MEDS: ASPIRIN 81 MG CHEW TAB CHEW SCH (08:35)
[2018-03-24] MEDS: SODIUM CHLORIDE 0.9% FLUSH 10 ML FLUSH IV FLUSH SCH (08:36)
[2018-03-24] MEDS ORDERED: NIFE30TA8 PO (11:17)
--- NOTE | 2018-03-24 11:24 | HHI.DCPOC ---
Discharge Care Plan Diagnosis: (1) Orthostatic hypotension (2) Syncope (3) Hip fracture, right (4) Parkinson disease (5) CVA (cerebral vascular accident) (6) HTN (hypertension) (7) BPH (benign prostatic hyperplasia) Goals to Promote Your Health * To prevent worsening of your condition and complications * To maintain your health at the optimal level Directions to Meet Your Goals Take your medications as prescribed Follow your dietary instruction Follow activity as directed Keep your appointments as scheduled Take your immunizations and boosters as scheduled If your symptoms worsen call your PCP, if no PCP go to Urgent Care Center or Emergency Room Smoking is Dangerous to Your Health. Avoid second hand smoke Call the 24-hour hour crisis hotline for domestic abuse at [facility]el[facility] Wills March 24, 2018 11:24
--- NOTE | 2018-03-24 11:38 | HHI.PR ---
Subjective Remarks Pt much more alert/oriented and cooperative this morning He has been out of restraints since yesterday evening Tolerating oral intake Working with PT this morning Still with some orthostasis but BP isn't dropping as low with standing up Objective Vitals Vital Signs Date Time Temp Pulse Resp B/P (MAP) Pulse Ox O2 Delivery O2 Flow Rate FiO2 03/24/18 08:00 97.8 86 19 149/74 (99) 99 03/24/18 03:18 97.5 63 18 174/78 (110) 98 03/24/18 01:50 148/65 (92) 03/24/18 00:27 188/86 (120) 175/80 (111) 03/24/18 00:02 63 03/24/18 00:00 97.8 71 16 197/82 (120) 99 03/23/18 20:00 98.5 69 16 165/72 (103) 100 03/23/18 18:09 98 21 03/23/18 16:00 97.9 71 18 132/61 (84) 98 03/23/18 12:00 97.9 65 18 145/66 (92) 98 03/24/18 03/24/18 03/25/18 14:59 22:59 06:59 Intake Total 240 ml Balance 240 ml Intake Oral 240 ml Result Diagram: 03/23/1871603/23/18716 Other Results Laboratory Tests Test 03/22/18 12:00 03/23/18 07:17 White Blood Count 5.9 TH/MM3 6.4 TH/MM3 Red Blood Count 2.80 MIL/MM3 3.51 MIL/MM3 Hemoglobin 8.1 GM/DL 9.7 GM/DL Hematocrit 24.4 % 29.1 % Mean Corpuscular Volume 87.0 FL 82.8 FL Mean Corpuscular Hemoglobin 29.1 PG 27.7 PG Mean Corpuscular Hemoglobin Concent 33.4 % 33.5 % Red Cell Distribution Width 13.2 % 15.2 % Platelet Count 205 TH/MM3 217 TH/MM3 Mean Platelet Volume 9.1 FL 9.1 FL Neutrophils (%) (Auto) 79.5 % 73.3 % Lymphocytes (%) (Auto) 6.5 % 12.0 % Monocytes (%) (Auto) 10.8 % 12.6 % Eosinophils (%) (Auto) 2.4 % 1.6 % Basophils (%) (Auto) 0.8 % 0.5 % Neutrophils # (Auto) 4.7 TH/MM3 4.7 TH/MM3 Lymphocytes # (Auto) 0.4 TH/MM3 0.8 TH/MM3 Monocytes # (Auto) 0.6 TH/MM3 0.8 TH/MM3 Eosinophils # (Auto) 0.1 TH/MM3 0.1 TH/MM3 Basophils # (Auto) 0.0 TH/MM3 0.0 TH/MM3 CBC Comment DIFF FINAL DIFF FINAL Differential Comment Blood Urea Nitrogen 24 MG/DL 22 MG/DL Creatinine 1.10 MG/DL 1.02 MG/DL Random Glucose 104 MG/DL 87 MG/DL Total Protein 6.7 GM/DL Albumin 2.7 GM/DL Calcium Level 8.5 MG/DL 8.9 MG/DL Magnesium Level 2.2 MG/DL Alkaline Phosphatase 73 U/L Aspartate Amino Transf (AST/SGOT) 17 U/L Alanine Aminotransferase (ALT/SGPT) 8 U/L Total Bilirubin 0.6 MG/DL Sodium Level 137 MEQ/L 140 MEQ/L Potassium Level 4.2 MEQ/L 3.7 MEQ/L Chloride Level 101 MEQ/L 105 MEQ/L Carbon Dioxide Level 26.3 MEQ/L 26.5 MEQ/L Anion Gap 10 MEQ/L 9 MEQ/L Estimat Glomerular Filtration Rate 64 ML/MIN 70 ML/MIN Total Creatine Kinase 95 U/L Troponin I LESS THAN 0.02 NG/ML Imaging Last Impressions Head CT 03/22/18 1148 Signed Impressions: Service Date/Time: Thursday, March 22, 2018 12:07 - CONCLUSION: 1. Stable evaluation of the brain without evidence of acute infarct, hemorrhage, mass or edema. 2. Mild ventriculomegaly characteristic of age-related volume loss. Josh English MD Chest X-Ray 03/22/18 1148 Signed Impressions: Service Date/Time: Thursday, March 22, 2018 12:19 - CONCLUSION: 1. COPD. 2. Stable chest without evidence of acute cardiopulmonary process. Josh English MD A/P Problem List: (1) Orthostatic hypotension ICD Codes: I95.1 - Orthostatic hypotension Status: Acute Plan: Orthostatic hypotension Syncope Anemia - Pt is an 82 year male with recent CVA who received TPA 01/27/18, osteoarthritis , BPH, hyperlipidemia, hypothyroidism, lumbar radiculopathy, Parkinson's disease with dementia, GERD, peripheral neuropathy, skin cancer, unspecified, L3 compression fracture 05/24. - He was recently admitted for right hip fracture S/P ORIF right hip, IM татьяна/ troch nail 03/17/[address] Sheehan. Patient was discharged on 03/20/18. Patient was at rehab and on the day of admission, during PT when he had a syncopal episode. Patient reportedly lost consciousness and fell to the ground. Previous workup during his admission for CVA in 01/2018 included: - CTA neck (02/27) --> NO hemodynamically significant stenosis - LDL 87 (02/28) - Holter monitor (02/2018) completed: Patient was monitored for 17 hours and 45 minutes. Patient was in normal sinus rhythm. Average heart rate 80 bpm. Appears in sinus bradycardia 53 bpm at 11:32 AM. Appears in sinus tachycardia at 122 bpm at 6:20 AM. 111 PVCs and 416 PACs. Interpretation is limited by intermittent baseline artifact - 2D echocardiogram (02/2018)--> In limited views, the left ventricular systolic function is normal with an estimated ejection fraction in the range of 55-60%. Trace mitral valve regurgitation. There is trace tricuspid valve regurgitation. - With this admission pt was found to be significantly orthostatic with reproduction of his sx's - He was noted to be anemic with Hgb 8.1 at admission. Pt was given 2 units of blood - Pt has improved clinically during admission. - His orthostatic hypotension is likely related to his chronic Parkinson's and exacerbated by his anemia. - Will make some adjustments to his BP medications, change his Nifedipine 30mg to be taken at night. He will continue on his Metoprolol 50mg Q12H. - Pt will need to have his BP checked while standing prior to his BP medications being given and if his systolic BP is less than 130 then hold that dose of BP meds - Pt to have BERNARDO hose - He is to transition/change positions slowly, with a 10 count between movements. Recent hip fracture - Pt s/p ORIF right hip, IM татьяна/troch nail 03/17/[address] Sheehan - Continue PT - Followup with Dr. Sheehan in 2 weeks as previously ordered BPH (benign prostatic hyperplasia) - Continue patient's home Avodart HTN (hypertension) - Continue patient's home Metoprolol 50 mg Q12H, Nifedipine 30 mg HS - clonidine as needed Parkinson disease with periods of confusion - Continue home Carbidopa-Levodopa 25-100 mg - continue Seroquel low dose - Pt recently had reported been having "staring spells" prior to this admission - EEG (03/18) --> impression mild slowing of background likely consistent with encephalopathia process without any epileptic activity or discharges. - Patient has been following outpatient with Dr. Cobos and was recently started in an "antiseizure medication." - Pt was resumed on Keppra 500mg BID by outpt Neurologist, Dr. Cobos. This was continued during this admission. - Pt is to followup with Dr. Cobos in 3-5 days per previous orders during last admission. (2) Syncope ICD Codes: R55 - Syncope and collapse Status: Acute (3) Hip fracture, right ICD Codes: S72.001A - Fracture of unspecified part of neck of right femur, initial encounter for closed fracture (4) CVA (cerebral vascular accident) ICD Codes: I63.9 - Cerebral infarction, unspecified Status: Acute (5) Parkinson disease ICD Codes: G20 - Parkinson's disease Status: Chronic (6) HTN (hypertension) ICD Codes: I10 - Essential (primary) hypertension Status: Chronic (7) BPH (benign prostatic hyperplasia) ICD Codes: N40.0 - Benign prostatic hyperplasia without lower urinary tract symptoms Status: Chronic Assessment and Plan Patient examined. Assessment and plan formulated with Carmelina Wills PA-C. I agree with the above. acute on chronic orthostasis aggravated by recent blood loss anemia s/p 2 units discussed with son. change positions slowly. bernardo hose. move majority bp med to nighttime check bp in AM before giving any bp meds he may need to allow for supine htn to avoid standing hypotension specific instruction written for snf. Carmelina Wills March 24, 2018 11:38 Enrike Gomez MD March 24, 2018 14:05
--- NOTE | 2018-03-24 17:21 | PD.WCN.NOT ---
Wound Consult Description: Received consult from Doctor Patricia regarding wound management of R knee Communicated with: HAWA Mckinney [address] [place] [id number] and Doctor Recommendation: Please cleanse wounds to R knee with normal saline or wound cleanser and pat dry. Apply oil emulsion gauze over open wounds only and cover with dry 4x4 gauze , secure dressing with rolled gauze and tape or stockinette. Change dressing every other day or as needed for saturation is dislodgement Additional Information: Patient seen on [address] [place] [address] for evaluation of wound to R knee around 1530. Patient' s spouse in room Skin tears with surround ecchymosis noted to R knee and R distal knee.Wounds are dry with out drainage or odor. No induration, erythema is present. Wounds were cleansed with normal saline and applied single layer of oil emulsion gauze over skin tears and covered with dry gauze, secured with rolled gauze and tape. Jeane Steven [facility] March 24, 2018 17:21
== END 2018-03-24 17:31 | DRG 312 ==
LOC: NEPE 11:01 → NEDA 13:08 → N05B 14:19
PROVIDERS: ADMIT Hospitalist; ATTEND Hospitalist
PROC: 30233N1 Transfusion of Nonautologous Red Blood Cells into Peripheral Vein, Percutaneous Approach (ICD-10-PCS; principal; 2018-03-22)
DX: I95.1 Orthostatic hypotension (principal); G20 Parkinson's disease; F02.80 Dementia in other diseases classified elsewhere, unspecified severity, without behavioral disturbance, psychotic disturbance, mood disturbance, and anxiety; I10 Essential (primary) hypertension; I25.10 Atherosclerotic heart disease of native coronary artery without angina pectoris; K21.9 Gastro-esophageal reflux disease without esophagitis; E78.5 Hyperlipidemia, unspecified; N40.0 Benign prostatic hyperplasia without lower urinary tract symptoms; M19.90 Unspecified osteoarthritis, unspecified site; E03.9 Hypothyroidism, unspecified; G62.9 Polyneuropathy, unspecified; D50.0 Iron deficiency anemia secondary to blood loss (chronic); Z86.73 Personal history of transient ischemic attack (TIA), and cerebral infarction without residual deficits; Z79.02 Long term (current) use of antithrombotics/antiplatelets; Z79.82 Long term (current) use of aspirin; Z85.828 Personal history of other malignant neoplasm of skin; Z91.81 History of falling
CPT/HCPCS: 36430; 70450; 71045; 80048; 80053; 82550; 83735; 84484; 85025; 86850; 86900; 86901; 86920; 93005; C9113; J2060; J7050; P9016

== ENCOUNTER 2018-10-18 19:16 | Observation (INO) ==
--- NOTE | 2018-10-18 19:43 | ED ---
HPI General Chief Complaint: Syncope Stated Complaint: Poss Syncope Time Seen by Provider: 10/18/18 19:35 History of Present Illness HPI Narrative: 83 yo WM presents via [facility] after a possible syncopal episode witnessed by his . He also complains of a mass and extra phlegm in the right posterior aspect of mouth. Pt has a PMHx notable for dementia, Parkinsons , A Fib, and CVA treated with TPA in 01/2018. Note that he had a previous syncopal episode with workup 03/2018 where he was found to be anemic. Not able to provide sufficient hx Pt remarks feeling dizziness before passing out but does not feel dizzy right now. He says that he hit his the right lateral aspect of his head when he passed out. He has shortness of breath as well. He also complains the mass he feels in his right posterior pharynx with associated phlegm. Note: further hx was obtained from his . She says he appeared confused and altered and had urinated on himself while he was in his wheelchair. She did not actually witness him pass out, but says he told her that he did. She does not believe he hit his head. He has had some left-sided mouth drooping and change in speech as result of his previous stroke. Related Data Home Medications Medication Instructions Recorded Confirmed aspirin [Aspirin Low Dose] 81 mg PO DAILY 06/21/18 10/18/18 atorvastatin 20 mg PO HS 06/21/18 10/18/18 carbidopa-levodopa 1.5 tab PO TID 06/21/18 10/18/18 citalopram 10 mg PO DAILY 06/21/18 10/18/18 clonazepam 2 tab PO HS 06/21/18 10/18/18 docusate sodium [Colace] 100 mg PO BID 06/21/18 10/18/18 dutasteride [Avodart] 0.5 mg PO DAILY 06/21/18 10/18/18 famotidine 20 mg PO DAILY 06/21/18 10/18/18 gemfibrozil 600 mg PO DAILY 06/21/18 10/18/18 levetiracetam 500 mg PO BID 06/21/18 10/18/18 polyethylene glycol 3350 [Miralax] 17 gm PO DAILY 06/21/18 10/18/18 quetiapine 25 mg PO BID 06/21/18 10/18/18 Allergies Allergy/AdvReac Type Severity Reaction Status Date / Time MACKENZIE Inhibitors Allergy Severe Swelling Verified 10/18/18 19:24 of Lip/Tongue/Throat enalaprilat Allergy Severe SWELLING Verified 10/18/18 19:24 Review of Systems Constitutional Reports as per HPI ENT Reports mouth lesions and Reports neck mass Respiratory Reports excessive phlegm production Gastrointestinal Reports as per HPI and Reports constipation Neurologic Reports as per HPI PMFSH Social History Social History Substance History: No History of Abuse Smoking Status: Former smoker How Often Do You Have a Drink Containing Alcohol: Never Recent Travel in [place] within the Last 8 Weeks: No Recent Out of Country Travel within the Last 8 Weeks: No Immunization History Tetanus Immunization: Unsure Exam Narrative Exam Narrative: 83 Year old gentleman who appears anxious and is not oriented to time Const General: anxious and frail appearing Nutritional Appearance: thin and underweight Orientation: alert, awake, oriented to person and oriented to place HENLA Head: normal to inspection, normocephalic and atraumatic Mouth: tongue abnormal (plaque vs normal tongue variant) Teeth and gingiva: multiple restorations Neuro General: alert, awake, moves all extremities, normal light touch, pain and propioception, no focal motor deficits and CN's II-XI intact bilaterally Cranial Nerves: EOM intact bilaterally, no nystagmus and able to elevate shoulders bilaterally Speech: other (speech somewhat difficult to understand, possibly post-CVA related) Motor: strength 5/5 throughout Course Consultations Consultation #1: The patient's case including history, pertinent physical examination findings, and laboratory studies were discussed with Dr. Lee. It was agreed that the patient would be admitted to the [facility] hospitalist service. Initial Documented Vital Signs Pulse Rate 98 H 10/18/18 19:32 Respiratory Rate 22 10/18/18 19:32 Blood Pressure 136/69 10/18/18 19:32 Pulse Oximetry 100 10/18/18 19:32 Last Documented Vital Signs Pulse Rate 98 H 10/18/18 19:32 Respiratory Rate 22 10/18/18 19:32 Blood Pressure 136/69 10/18/18 19:32 Pulse Oximetry 100 10/18/18 20:07 Medical Decision Making MDM Narrative Medical decision making narrative: I, Dr. Mckeon, have reviewed the medical student's documentation, and I am in agreement, met with the patient face to face, made the diagnosis, and the medical decision making was done by me. The patient was initially evaluated by YONI Kuhn. Please see their complete history and physical. *My assessment and Findings: The patient presents with a history of reportedly having a syncopal event that was witnessed by his prior to arrival. The patient unfortunately is difficult to obtain a history from, however according to ambulance services that brought the patient in, the patient was noted by his to be sitting in his wheelchair when he slumped over. It is unknown the period of time that he was syncopal. The patient subsequent to the syncopal event has been short of breath, respiratory rate according to ambulance services in the 30s, CO2 15-20. The patient arrives anxious appearing. The patient's O2 saturation on room air is 100%. The patient repeatedly reports that he has a sensation of a foreign body in the right side of the back of his throat. According to his he has been complaining of the sensation for the last 2 weeks and has recently been going to the dentist as it was thought to be related to his teeth. He went to the dentist earlier today for evaluation of this. Patient's examination is remarkable for mouth exam that reveals firmness on palpation along the posterior aspect of the right side of the patient's tongue, asymmetry to the posterior oropharynx with prominence on the right side. Uvula continues to be midline. Airway is patent. Patient's neurologic examination is nonfocal. During the course of the patient's emergency department visit, the patient's history, examination, and differential diagnosis were reviewed with the patient. The patient was placed on a nuclear monitoring technician with oximetry and frequent blood pressure monitoring. The patient had IV access obtained and blood work sent for analysis. The patient was initially provided Zofran 4 mg IV for nausea, normal saline at 250 mL bolus x1 after he was noted to be orthostatic. The patient's diagnostic studies were reviewed and remarkable for Medical Screen Exam Complete: Yes Emergency Medical Condition: Yes Differential Diagnosis Differential Diagnosis: Orthostatic syncope, versus vasovagal syncope, versus seizure activity, versus intracranial abnormality, versus pulmonary embolism, versus cardiac arrhythmia, versus acute coronary syndrome Medical Records Medical records reviewed: Yes I reviewed the patient's medical records. Lab Data Lab results reviewed: Yes I reviewed the patient's lab results. Result diagrams: 10/18/18 19:45 10/18/18 19:45 Lab Results 10/18/18 10/18/18 10/18/18 Range/Units 19:36 19:45 19:45 WBC (4.0-11.0) th/mm3 RBC (4.50-5.90) mil/mm3 Hgb (13.0-17.0) gm/dL Hct (39.0-51.0) % MCV (80.0-100.0) fL MCH (27.0-34.0) pg MCHC (32.0-36.0) % RDW (11.6-17.2) % Plt Count (150-450) th/mm3 MPV (7.0-11.0) fL Neut % (Auto) (16.0-70.0) % Lymph % (Auto) (9.0-44.0) % [place] % (Auto) (0.0-8.0) % Eos % (Auto) (0.0-4.0) % Baso % (Auto) (0.0-2.0) % Neut # (Auto) (1.8-7.7) th/mm3 Lymph # (Auto) (1.0-4.8) th/mm3 [place] # (Auto) (0.0-0.9) th/mm3 Eos # (Auto) (0.0-0.4) th/mm3 Baso # (Auto) (0.0-0.2) th/mm3 WBC Differential Differential Comment PT 10.7 (9.8-11.6) sec INR 1.1 Ratio APTT 24.0 (23.4-31.7) sec D-Dimer Quant (PE/DVT) 1.40 H (0.00-0.50) mg/L FEU Sodium 136 (136-145) meq/L Potassium 4.0 (3.5-5.1) meq/L Chloride 102 (98-107) meq/L Carbon Dioxide 20.0 L (21.0-32.0) meq/L Anion Gap 14 (5-15) meq/L BUN 22 H (7-18) mg/dL Creatinine 1.41 H (0.60-1.30) mg/dL Estimated GFR 48 L (>89) mL/min POC Glucose 119 H (68-110) mg/dl Random Glucose 133 H (74-106) mg/dL Calcium 9.6 (8.5-10.1) mg/dL Magnesium 1.9 (1.5-2.5) mg/dL Total Bilirubin 0.7 (0.2-1.0) mg/dL AST 15 (15-37) U/L ALT Less than 6 L (12-78) U/L Alkaline Phosphatase 87 (45-117) U/L Troponin I (0.02-0.05) ng/mL B-Natriuretic Peptide (0-100) pg/mL Total Protein 7.7 (6.4-8.2) g/dL Albumin 3.8 (3.4-5.0) g/dL Lipase 70 L (73-393) U/L Urine Color (Yellw/Straw) Urine Clarity (Clear) Urine pH (5.0-8.5) Ur Specific Joice (1.002-1.035) Urine Protein (Neg-Trace) mg/dL Urine Glucose (UA) (Negative) mg/dL Urine Ketones (Negative) mg/dL Urine Occult Blood (Negative) Urine Nitrate (Negative) Urine Bilirubin (Negative) Urine Urobilinogen (Less than 2) mg/dL Ur Leukocyte Esterase (Negative) Urine RBC (0-3) /hpf Amorphous Sediment (None) /hpf Hyaline Casts (0-3) /lpf Urine Mucus (Occasional) /lpf Micro UA Comment Ur Microscopic Review Urine Culture Comments 10/18/18 10/18/18 10/18/18 Range/Units 19:45 19:45 19:45 WBC 9.9 (4.0-11.0) th/mm3 RBC 4.37 L (4.50-5.90) mil/mm3 Hgb 13.3 (13.0-17.0) gm/dL Hct 38.4 L (39.0-51.0) % MCV 87.8 (80.0-100.0) fL MCH 30.5 (27.0-34.0) pg MCHC 34.7 (32.0-36.0) % RDW 13.3 (11.6-17.2) % Plt Count 216 (150-450) th/mm3 MPV 8.8 (7.0-11.0) fL Neut % (Auto) 77.3 H (16.0-70.0) % Lymph % (Auto) 15.6 (9.0-44.0) % [place] % (Auto) 5.8 (0.0-8.0) % Eos % (Auto) 0.8 (0.0-4.0) % Baso % (Auto) 0.5 (0.0-2.0) % Neut # (Auto) 7.6 (1.8-7.7) th/mm3 Lymph # (Auto) 1.5 (1.0-4.8) th/mm3 [place] # (Auto) 0.6 (0.0-0.9) th/mm3 Eos # (Auto) 0.1 (0.0-0.4) th/mm3 Baso # (Auto) 0.0 (0.0-0.2) th/mm3 WBC Differential . Differential Comment Auto diff final PT (9.8-11.6) sec INR Ratio APTT (23.4-31.7) sec D-Dimer Quant (PE/DVT) (0.00-0.50) mg/L FEU Sodium (136-145) meq/L Potassium (3.5-5.1) meq/L Chloride (98-107) meq/L Carbon Dioxide (21.0-32.0) meq/L Anion Gap (5-15) meq/L BUN (7-18) mg/dL Creatinine (0.60-1.30) mg/dL Estimated GFR (>89) mL/min POC Glucose (68-110) mg/dl Random Glucose (74-106) mg/dL Calcium (8.5-10.1) mg/dL Magnesium (1.5-2.5) mg/dL Total Bilirubin (0.2-1.0) mg/dL AST (15-37) U/L ALT (12-78) U/L Alkaline Phosphatase (45-117) U/L Troponin I Less than 0.02 L (0.02-0.05) ng/mL B-Natriuretic Peptide 58 (0-100) pg/mL Total Protein (6.4-8.2) g/dL Albumin (3.4-5.0) g/dL Lipase (73-393) U/L Urine Color (Yellw/Straw) Urine Clarity (Clear) Urine pH (5.0-8.5) Ur Specific Joice (1.002-1.035) Urine Protein (Neg-Trace) mg/dL Urine Glucose (UA) (Negative) mg/dL Urine Ketones (Negative) mg/dL Urine Occult Blood (Negative) Urine Nitrate (Negative) Urine Bilirubin (Negative) Urine Urobilinogen (Less than 2) mg/dL Ur Leukocyte Esterase (Negative) Urine RBC (0-3) /hpf Amorphous Sediment (None) /hpf Hyaline Casts (0-3) /lpf Urine Mucus (Occasional) /lpf Micro UA Comment Ur Microscopic Review Urine Culture Comments 10/18/18 Range/Units 21:30 WBC (4.0-11.0) th/mm3 RBC (4.50-5.90) mil/mm3 Hgb (13.0-17.0) gm/dL Hct (39.0-51.0) % MCV (80.0-100.0) fL MCH (27.0-34.0) pg MCHC (32.0-36.0) % RDW (11.6-17.2) % Plt Count (150-450) th/mm3 MPV (7.0-11.0) fL Neut % (Auto) (16.0-70.0) % Lymph % (Auto) (9.0-44.0) % [place] % (Auto) (0.0-8.0) % Eos % (Auto) (0.0-4.0) % Baso % (Auto) (0.0-2.0) % Neut # (Auto) (1.8-7.7) th/mm3 Lymph # (Auto) (1.0-4.8) th/mm3 [place] # (Auto) (0.0-0.9) th/mm3 Eos # (Auto) (0.0-0.4) th/mm3 Baso # (Auto) (0.0-0.2) th/mm3 WBC Differential Differential Comment PT (9.8-11.6) sec INR Ratio APTT (23.4-31.7) sec D-Dimer Quant (PE/DVT) (0.00-0.50) mg/L FEU Sodium (136-145) meq/L Potassium (3.5-5.1) meq/L Chloride (98-107) meq/L Carbon Dioxide (21.0-32.0) meq/L Anion Gap (5-15) meq/L BUN (7-18) mg/dL Creatinine (0.60-1.30) mg/dL Estimated GFR (>89) mL/min POC Glucose (68-110) mg/dl Random Glucose (74-106) mg/dL Calcium (8.5-10.1) mg/dL Magnesium (1.5-2.5) mg/dL Total Bilirubin (0.2-1.0) mg/dL AST (15-37) U/L ALT (12-78) U/L Alkaline Phosphatase (45-117) U/L Troponin I (0.02-0.05) ng/mL B-Natriuretic Peptide (0-100) pg/mL Total Protein (6.4-8.2) g/dL Albumin (3.4-5.0) g/dL Lipase (73-393) U/L Urine Color Yellow (Yellw/Straw) Urine Clarity Clear (Clear) Urine pH 7.0 (5.0-8.5) Ur Specific Joice 1.016 (1.002-1.035) Urine Protein Negative (Neg-Trace) mg/dL Urine Glucose (UA) Negative (Negative) mg/dL Urine Ketones Trace H (Negative) mg/dL Urine Occult Blood Negative (Negative) Urine Nitrate Negative (Negative) Urine Bilirubin Negative (Negative) Urine Urobilinogen Less than 2 (Less than 2) mg/dL Ur Leukocyte Esterase Negative (Negative) Urine RBC Less than 1 (0-3) /hpf Amorphous Sediment Rare H (None) /hpf Hyaline Casts 4 (0-3) /lpf Urine Mucus Few H (Occasional) /lpf Micro UA Comment Culture not ind Ur Microscopic Review Not Reportable Urine Culture Comments Culture not ind Imaging Data Radiologist's impression: Cervical Spine CT 10/18/18 19:38 CONCLUSION: 1. Degenerative changes without fracture. 2. Right neck mass. Head CT 10/18/18 19:38 CONCLUSION: 1. Cerebral atrophy and chronic ischemic small vessel vasculopathy. 2. No acute intracranial abnormality. . Chest X-Ray 10/18/18 19:40 CONCLUSION: No active disease. Soft Tissue Neck CT 10/18/18 19:40 CONCLUSION: 1. Mass along the base of the right tongue/peritonsillar region measuring 3.0 x 2.7 cm. 2. Prominent adenopathy right neck. Chest CTA 10/18/18 20:23 CONCLUSION: 1. Negative for pulmonary embolus. 2. 7 mm nodule right lower lobe. Follow-up chest CT recommended within the next 6 months. 3. Mild emphysema. Mild peribronchial thickening and distal airway disease. 4. Moderate coronary calcifications. No effusions. Stenosis of the proximal celiac artery. ECG Data Attestation: I personally reviewed and interpreted this ECG as follows: Interpretation: Patient had an EKG done on arrival. The patient's EKG reveals a sinus rhythm heart rate of 96, QRS duration 89 ms, QTC [address] segment elevation. The baseline is tremulous on this patient's EKG which could be affecting interpretation, however the patient has a tremor related to his Parkinson's. Discharge Plan Discharge Disposition Patient Disposition: ED Admit(ED Internal Use Only) Discharge Order Discharge Orders: ED Use Only Admit Order (Routine); Ordered 10/18/18 Ordered By: Liza Mckeon Discharge Details Diagnosis: Syncope, Orthostasis, Oropharyngeal mass Physicians Team ED Provider: Liza Mckeon Primary Care Provider: Larry Monae Attending Provider: Enrike Gomez Status ED Status: Admitted Observation Patient
[2018-10-18] MEDS ORDERED: Sod Chloride 0.9% Inj 1,000 ML IV.CONT SCH (19:45)
[2018-10-18 19:58] LABS: Baso % (Auto) 0.5 % (0.0-2.0); Eos # (Auto) 0.1 th/mm3 (0.0-0.4); Eos % (Auto) 0.8 % (0.0-4.0); Hematocrit 38.4 % (39.0-51.0); Hemoglobin 13.3 gm/dL (13.0-17.0); Lymph # (Auto) 1.5 th/mm3 (1.0-4.8); Lymph % (Auto) 15.6 % (9.0-44.0); Mean Corpuscular HGB Conc 34.7 % (32.0-36.0); Mean Corpuscular Hemoglobin 30.5 pg (27.0-34.0); Mean Corpuscular Volume 87.8 fL (80.0-100.0); Mean Platelet Volume 8.8 fL (7.0-11.0); Mono # (Auto) 0.6 th/mm3 (0.0-0.9); Mono % (Auto) 5.8 % (0.0-8.0); Neut # (Auto) 7.6 th/mm3 (1.8-7.7); Neut % (Auto) 77.3 % (16.0-70.0); Platelet Count 216 th/mm3 (150-450); Red Blood Count 4.37 mil/mm3 (4.50-5.90); Red Cell Distribution Width 13.3 % (11.6-17.2); White Blood Count 9.9 th/mm3 (4.0-11.0)
--- NOTE | 2018-10-18 20:12 | XR ---
EXAM DATE: 10/18/2018 8:06 PM EST AGE/SEX: 83 years / Male INDICATIONS: Shortness of breath. CLINICAL DATA: This is the patient's initial encounter. Patient reports that signs and symptoms have been present for 1 day and indicates a pain score of 0/10. MEDICAL/SURGICAL HISTORY: Gastroesophageal reflux disease. Seizures. Stroke. Parkinson's. C arotid endarterectomy. Right knee surgery. COMPARISON: . FINDINGS: A single AP view of the chest demonstrates the lungs to be symmetrically aerated without evidence of mass, infiltrate or effusion. The cardiomediastinal contours are unremarkable. Osseous structures a re intact. CONCLUSION: No active disease. Electronically signed by: Dae Foster MD 10/18/2018 8:10 PM EST
[2018-10-18 20:13] LABS: INR 1.1 Ratio; Prothrombin Time 10.7 sec (9.8-11.6)
[2018-10-18 20:15] LABS: D-Dimer 1.4 mg/L FEU (0.00-0.50)
[2018-10-18 20:16] LABS: Albumin 3.8 g/dL (3.4-5.0); Anion Gap 14 meq/L (5-15); Aspartate Aminotransferase 15 U/L (15-37); Blood Urea Nitrogen 22 mg/dL (7-18); Calcium 9.6 mg/dL (8.5-10.1); Chloride 102 meq/L (98-107); Glomerular Filtration Rate 48 mL/min (>89); Glucose,Random 133 mg/dL (74-106); Lipase 70 U/L (73-393); Magnesium 1.9 mg/dL (1.5-2.5); Sodium 136 meq/L (136-145)
[2018-10-18 20:19] LABS: Alkaline Phosphatase 87 U/L (45-117); Total Protein 7.7 g/dL (6.4-8.2)
[2018-10-18] MEDS ORDERED: Sodium Chlor 0.9% Inj 250 ML IV.SIG ONE (20:23)
--- NOTE | 2018-10-18 21:30 | CT ---
EXAM DATE: 10/18/2018 9:26 PM EST AGE/SEX: 83 years / Male INDICATIONS: Trauma, fall. Hit right side of head. CLINICAL DATA: This is the patient's initial encounter. Patient reports that signs and symptoms have been present for 1 day and indicates a pain score of 5/10. MEDICAL/SURGICAL HISTORY: Hypertension. Parkinson's disease. Cerebrovascular disease. None. RADIATION DOSE: 35.67 CTDI (mGy) COMPARISON: [facility], CT BRAIN W/O CONTRAST, 03/22/2018. . TECHNIQUE: CT of the head without contrast. Using automated exposure control and adjustment of the mA and/or kV according to patient size, radiation dose was kept as low as reasonably achievable to ob tain optimal diagnostic quality images. DICOM format image data is available electronically for revi ew and comparison. FINDINGS: Cerebrum: The ventricles are prominent. Areas of low-density in the periventricular white matter.. No evidence of midline shift, mass lesion, hemorrhage or acute infarction. No extraaxial fluid colle ctions are seen. Posterior Fossa: The cerebellum and brainstem are intact. The 4th ventricle is midline. The cerebe llopontine angle is unremarkable. Extracranial: The visualized portion of the orbits is intact. Skull: The calvaria is intact. No evidence of skull fracture. CONCLUSION: 1. Cerebral atrophy and chronic ischemic small vessel vasculopathy. 2. No acute intracranial abnormality. . Electronically signed by: Evelio Montanez MD 10/18/2018 9:29 PM EST
--- NOTE | 2018-10-18 21:30 | CT ---
EXAM DATE: 10/18/2018 9:24 PM EST AGE/SEX: 83 years / Male INDICATIONS: Dysphagia. CLINICAL DATA: This is the patient's initial encounter. Patient reports that signs and symptoms have been present for 1 day and indicates a pain score of 5/10. MEDICAL/SURGICAL HISTORY: Gastroesophageal reflux disease. Hypertension. Parkinson's disease. CV A. Cardiac. None. RADIATION DOSE: 14.72 CTDI (mGy) COMPARISON: [facility], CT CERVICAL SPINE W/O CONTRAST, 10/18/2018. . TECHNIQUE: Helical acquisition was performed using a multirow detector CT scanner during the adminis tration of 40 ml Omnipaque 350 (iohexol) nonionic water-soluble contrast as a single exam dose. Usi ng automated exposure control and adjustment of the mA and/or kV according to patient size, radiation dose was kept as low as reasonably achievable to obtain optimal diagnostic quality images. DICOM fo rmat image data is available electronically for review and comparison. FINDINGS: Nasopharynx: The nasopharyngeal airway has a normal configuration. No mucosal thickening or mass is seen. Oropharynx: Mass along the base of the right tongue/right peritonsillar region measures 3.0 x 2.7 cm . There is a prominent lymph node in the right neck measuring 2 cm seen just posterior to the right s ubmandibular region. Larynx: The supraglottic, glottic, and infraglottic structures are intact. Parapharyngeal: The parapharyngeal space is intact. Salivary Glands: The parotid and submandibular glands are intact. Lymph Nodes: No enlarged or necrotic-appearing nodes. Thyroid: Homogeneous enhancement without evidence of nodule. Bones: Unremarkable. CONCLUSION: 1. Mass along the base of the right tongue/peritonsillar region measuring 3.0 x 2.7 cm. 2. Prominent adenopathy right neck. Electronically signed by: Evelio Montanez MD 10/18/2018 9:28 PM EST
--- NOTE | 2018-10-18 21:35 | CT ---
EXAM DATE: 10/18/2018 9:28 PM EST AGE/SEX: 83 years / Male INDICATIONS: Trauma, fall. Hit right side of head. CLINICAL DATA: This is the patient's initial encounter. Patient reports that signs and symptoms have been present for 1 day and indicates a pain score of 5/10. MEDICAL/SURGICAL HISTORY: Hypertension. Parkinson's disease. Cerebrovascular disease. None. RADIATION DOSE: 15.32 CTDI (mGy) COMPARISON: [facility], CTA CAROTID ARTERIES W 3D RECON, 02/27/2018. . TECHNIQUE: Contiguous axial images were obtained using helical multirow detector technique. The vol umetric data was post-processed with multiplanar reconstruction in oblique axial, sagittal, and coron al planes. Using automated exposure control and adjustment of the mA and/or kV according to patient s ize, radiation dose was kept as low as reasonably achievable to obtain optimal diagnostic quality jolly ges. DICOM format image data is available electronically for review and comparison. FINDINGS: Vertebrae: Normal vertebral body height. Right neck mass partially seen. Advanced multilevel degener ative changes. Alignment: Normal. No subluxation. C2-3: The bony spinal canal is normal in size. No evidence of disc bulge or herniation. The neural foramina are bilaterally patent. Hypertrophic facet on the left. C3-4: The bony spinal canal is normal in size. No evidence of disc bulge or herniation. Moderate na rrowing the left neural foramen. Right neural foramen patent. Hypertrophic facet on the left. C4-5: The bony spinal canal is normal in size. No evidence of disc bulge or herniation. Hypertrop hic facet on the left with moderate narrowing of the left neural foramen. Right neural foramen patent . C5-6: The bony spinal canal is normal in size. No evidence of disc bulge or herniation. The neural foramina are bilaterally patent. C6-7: The bony spinal canal is normal in size. No evidence of disc bulge or herniation. Moderate na rrowing the left neural foramen. Right neural foramen patent. C7-T1: The bony spinal canal is normal in size. No evidence of disc bulge or herniation. The neura l foramina are bilaterally patent. CONCLUSION: 1. Degenerative changes without fracture. 2. Right neck mass. Electronically signed by: Evelio Montanez MD 10/18/2018 9:33 PM EST
--- NOTE | 2018-10-18 21:40 | CT ---
EXAM DATE: 10/18/2018 9:32 PM EST AGE/SEX: 83 years / Male INDICATIONS: Shortness of breath, elevated d-dimer. CLINICAL DATA: This is the patient's initial encounter. Patient reports that signs and symptoms have been present for 1 day and indicates a pain score of 0/10. MEDICAL/SURGICAL HISTORY: Hypertension. Parkinson's disease. Cerebrovascular disease. None. RADIATION DOSE: 19.52 CTDI (mGy) COMPARISON: No prior exams available for comparison. TECHNIQUE: Volumetric scanning was performed using a multi-row detector CT scanner during bolus infu carl of 60 ml Omnipaque 350 (iohexol) nonionic water-soluble contrast as a single exam dose. The aba a was post processed with a variety of visualization algorithms including full volume maximum intensi ty projection and sliding thin slab reformation. Using automated exposure control and adjustment of the mA and/or kV according to patient size, radiation dose was kept as low as reasonably achievable t o obtain optimal diagnostic quality images. DICOM format image data is available electronically for review and comparison. FINDINGS: No filling defects identified to suggest pulmonary embolic disease. There is mild emphysema and apical lung scarring. There is a 7 mm nodule in the right lower lobe, sebastian rly well-circumscribed. There is some mild distal airway disease predominantly in the superior segmen t right lower lobe. Moderate coronary calcifications. No acute findings in the upper abdomen. CONCLUSION: 1. Negative for pulmonary embolus. 2. 7 mm nodule right lower lobe. Follow-up chest CT recommended within the next 6 months. 3. Mild emphysema. Mild peribronchial thickening and distal airway disease. 4. Moderate coronary calcifications. No effusions. Stenosis of the proximal celiac artery. Electronically signed by: Dae Foster MD 10/18/2018 9:39 PM EST
[2018-10-18 21:54] LABS: Amorphous Sediment,Urine Rare /hpf; Bilirubin,Urine Negative (Negative); Clarity,Urine Clear (Clear); Color,Urine Yellow (Yellw/Straw); Glucose,Urine (UA) Negative (Negative); Hyaline Casts,Urine 4 /lpf (0-3); Leukocyte Esterase,Urine Negative (Negative); Mucus,Urine Few /lpf (Occasional); Nitrite,Urine Negative (Negative); Specific Gravity,Urine 1.016 (1.002-1.035)
[2018-10-18] MEDS: Sod Chloride 0.9% Inj 1,000 ML IV.CONT SCH (23:53)
[2018-10-19] MEDS: Famotidine 20 MG Tablet PO SCH (08:17)
[2018-10-19] MEDS: Docusate Sodium 100 MG Capsule PO SCH ×2 (08:17→20:09)
[2018-10-19] MEDS: levETIRAcetam 500 MG Tablet PO SCH ×2 (08:17→20:09)
[2018-10-19] MEDS: QUEtiapine 25 MG Tablet PO SCH ×2 (08:17→20:09)
[2018-10-19] MEDS: Citalopram 20 MG Tablet PO SCH (08:17)
[2018-10-19] MEDS: Finasteride 5 MG Tablet PO SCH (08:18)
[2018-10-19] MEDS: Polyethylene Glycol 3350 255 GM Bottle PO SCH (08:18)
[2018-10-19 08:27] LABS: Calcium 8.9 mg/dL (8.5-10.1); Carbon Dioxide 26.5 meq/L (21.0-32.0); Potassium 4.8 meq/L (3.5-5.1)
--- NOTE | 2018-10-19 10:05 | P.HPIM ---
History of Present Illness Primary Care Physician: Larry Monae History of Present Illness: Mr. 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 Sheehan. [place] [facility] [place] after a questionable syncopal episode. He also complained of a mass and extra phlegm in the right posterior aspect of mouth. Note that he had a previous syncopal episode with workup 03/2018 where he was found to have orthostatic hypotension and anemia. According to the ED notes, the pts reported that the pt appeared confused and altered yesterday and had urinated on himself while he was in his wheelchair. She did not actually witness him pass out, but says he told her that he did. He has had some left- sided mouth drooping and change in speech as result of his previous stroke. Head CT in the ED noted cerebral atrophy and chronic ischemic small vessel vasculopathy otherwise no acute intracranial abnormality. Pt is somewhat of a difficult historian and his was unavailable at the time of exam by phone. Pt tells me that he has been having pain in the right side of his mouth/throat for several months and in the last few weeks has felt that his swallowing has been more difficult. He thinks that he has list 25-30lbs weight loss but is unclear of how long of a period of time that has been. In the ED the pt had a cervical spine CT which revealed a right neck mass. A soft tissue neck CT revealed a mass along the base of the right tongue/peritonsillar region measuring 3.0 x 2.7 cm and prominent adenopathy right neck. Chest CTA was negative for pulmonary embolus, but did noted a 7 mm nodule right lower lobe, mild emphysema with mild peribronchial thickening and distal airway disease, and moderate coronary calcifications and stenosis of the proximal celiac artery. He denies any acute headache, blurred vision, chest pain, shortness of breath, nausea, vomiting, abdominal pain, diarrhea, constipation, focal weakness, slurred speech. There was no reported seizure-like activity today. Past Medical History CVA s/p TPA in 01/2018 Osteoarthritis BPH Hyperlipidemia Hypothyroid lumbar radiculopathy Parkinson's disease, patient follows with Dr. Cobos GERD peripheral neuropathy skin cancer, unspecified L3 compression fracture, dx 06/06/17 Past Surgical History ORIF right hip, IM татьяна/troch nail 03/17/[address] Sheehan Cataract surgery Epidural steroid injection Knee arthroscopy Needle biopsy of the prostate Family History Noncontributory Social History No reported alcohol, tobacco or illicit drug use Medications and Allergies Allergies Allergy/AdvReac Type Severity Reaction Status Date / Time MACKENZIE Inhibitors Allergy Severe Swelling Verified 10/18/18 19:24 of Lip/Tongue/Throat enalaprilat Allergy Severe SWELLING Verified 10/18/18 19:24 Home Medications Medication Instructions Recorded Confirmed Type aspirin [Aspirin Low Dose] 81 mg PO DAILY 06/21/18 10/18/18 History atorvastatin 20 mg PO HS 06/21/18 10/18/18 History carbidopa-levodopa 1.5 tab PO TID 06/21/18 10/18/18 History citalopram 10 mg PO DAILY 06/21/18 10/18/18 History clonazepam 2 tab PO HS 06/21/18 10/18/18 History docusate sodium [Colace] 100 mg PO BID 06/21/18 10/18/18 History dutasteride [Avodart] 0.5 mg PO DAILY 06/21/18 10/18/18 History famotidine 20 mg PO DAILY 06/21/18 10/18/18 History gemfibrozil 600 mg PO DAILY 06/21/18 10/18/18 History levetiracetam 500 mg PO BID 06/21/18 10/18/18 History polyethylene glycol 3350 [Miralax] 17 gm PO DAILY 06/21/18 10/18/18 History quetiapine 25 mg PO BID 06/21/18 10/18/18 History Active Medications: Active Medications Aspirin (Ecotrin) 81 mg PO DAILY [facility] Last Admin: 10/19/18 08:17 Dose: 81 mg Atorvastatin Calcium (Lipitor) 20 mg PO [facility] Carbidopa/Levodopa (Sinemet 25/100 Mg) 1.5 tab PO TID [facility] Last Admin: 10/19/18 08:16 Dose: 1.5 tab Citalopram Hydrobromide (Celexa) 10 mg PO DAILY [facility] Last Admin: 10/19/18 08:17 Dose: 10 mg Docusate Sodium (Colace) 100 mg PO BID [facility] Last Admin: 10/19/18 08:17 Dose: 100 mg Famotidine (Pepcid) 20 mg PO DAILY [facility] Last Admin: 10/19/18 08:17 Dose: 20 mg Finasteride (Proscar) 5 mg PO DAILY [facility] Last Admin: 10/19/18 08:18 Dose: 5 mg Sodium Chloride (Ns Inj) 1,000 mls @ 70 mls/hr IV.CONT .[id number] [facility] Last Admin: 10/18/18 23:53 Dose: 70 mls/hr Levetiracetam (Keppra) 500 mg PO BID [facility] Last Admin: 10/19/18 08:17 Dose: 500 mg Miscellaneous (Pill Splitter) 0 each OTHER UNSCH PRN PRN Reason: SEE LABEL COMMENTS Last Admin: 10/19/18 08:18 Dose: 1 each Polyethylene Glycol (Miralax) 17 gm PO DAILY [facility] Last Admin: 10/19/18 08:18 Dose: 17 gm Quetiapine Fumarate (Seroquel) 25 mg PO BID [facility] Last Admin: 10/19/18 08:17 Dose: 25 mg Physical Exam Vital signs: Last Vital Signs Temp 98.5 F 10/19/18 08:00 Pulse 75 10/19/18 08:00 Resp 16 10/19/18 08:00 BP 175/81 H 10/19/18 08:00 Pulse Ox 99 10/19/18 08:00 Narrative: GENERAL: NAD, Alert and oriented to self and place SKIN: Warm and dry. HEENT: Atraumatic. Normocephalic. Pupils equal and round. No scleral icterus. No injection or drainage. No nasal bleeding or discharge. Mucous membranes pink and moist. NECK: Trachea midline. No JVD. CARDIO: Regular RESP: No accessory muscle use. Clear to auscultation. Breath sounds equal bilaterally. ABD: +BS, soft, non-tender, nondistended. Hepatic and splenic margins not palpable. EXT: Extremities without clubbing, cyanosis, or edema. No obvious deformities. NEURO: Awake and alert. Left sided facial droop. Motor grossly within normal limits. Five out of 5 muscle strength in the arms and legs. Normal speech. PSYCH: Appropriate mood and affect; insight and judgment normal. Results Labs CBC & Chem 7: 10/19/18 10:29 10/19/18 07:[address] 10/18/18 19:38 CONCLUSION: 1. Degenerative changes without fracture. 2. Right neck mass. Head CT 10/18/18 19:38 CONCLUSION: 1. Cerebral atrophy and chronic ischemic small vessel vasculopathy. 2. No acute intracranial abnormality. Chest X-Ray 10/18/18 19:40 CONCLUSION: No active disease. Soft Tissue Neck CT 10/18/18 19:40 CONCLUSION: 1. Mass along the base of the right tongue/peritonsillar region measuring 3.0 x 2.7 cm. 2. Prominent adenopathy right neck. Chest CTA 10/18/18 20:23 CONCLUSION: 1. Negative for pulmonary embolus. 2. 7 mm nodule right lower lobe. Follow-up chest CT recommended within the next 6 months. 3. Mild emphysema. Mild peribronchial thickening and distal airway disease. 4. Moderate coronary calcifications. No effusions. Stenosis of the proximal celiac artery. Caprini VTE Risk Assessment Caprini VTE Risk Assessment: Moderate/High Risk (score >= 2) Caprini Risk Assessment Model: Point Value = 1 Point Value = 2 Point Value = 3 Point Value = 5 Age 41-60 Minor surgery BMI > 25 kg/m2 Swollen legs Varicose veins or History of unexplained or recurrent spontaneous Oral contraceptives or hormone replacement Sepsis (< 1 month) Serious lung disease, including pneumonia (< 1 month) Abnormal pulmonary function Acute myocardial infarction Congestive heart failure (< 1 month) History of inflammatory bowel disease Medical patient at bed rest Age 61-74 Arthroscopic surgery Major open surgery (> 45 min) Laparoscopic surgery (> 45 min) Malignancy Confined to bed (> 72 hours) Immobilizing plaster cast Central venous access Age >= 75 History of VTE Family history of VTE Factor V Leiden Prothrombin [id number] Lupus anticoagulant Anticardiolipin antibodies Elevated serum homocysteine Heparin-induced thrombocytopenia Other congenital or acquired thrombophilia Stroke (< 1 month) Elective arthroplasty Hip, pelvis, or leg fracture Acute spinal cord injury (< 1 month) Prophylaxis Regimen: Total Risk Factor Score Risk Level Prophylaxis Regimen 0-1 Low Early ambulation 2 Moderate Order ONE of the following: *Sequential Compression Device (SCD) *Heparin 5000 units SQ BID 3-4 Higher Order ONE of the following medications: *Heparin 5000 units SQ TID *Enoxaparin/Lovenox 40 mg SQ daily (WT < 150 kg, CrCl > 30 mL/min) *Enoxaparin/Lovenox 30 mg SQ daily (WT < 150 kg, CrCl > 10-29 mL/min) *Enoxaparin/Lovenox 30 mg SQ BID (WT < 150 kg, CrCl > 30 mL/min) AND/OR *Sequential Compression Device (SCD) 5 or more Highest Order ONE of the following medications: *Heparin 5000 units SQ TID (Preferred with Epidurals) *Enoxaparin/Lovenox 40 mg SQ daily (WT < 150 kg, CrCl > 30 mL/min) *Enoxaparin/Lovenox 30 mg SQ daily (WT < 150 kg, CrCl > 10-29 mL/min) *Enoxaparin/Lovenox 30 mg SQ BID (WT < 150 kg, CrCl > 30 mL/min) AND *Sequential Compression Device (SCD) Assessment and Plan Plan Possible syncope vs. seizure - Pt is an 83 year male with previous CVA s/p TPA 01/27/18, osteoarthritis, BPH, hyperlipidemia, hypothyroidism, lumbar radiculopathy, Parkinson's disease with dementia, GERD, peripheral neuropathy, skin cancer unspecified, L3 compression fracture 05/24. - Pt presented to the ED after a suspected syncopal episode at home on . Pt had a previous syncopal episode in 03/2018 which was felt to be related to orthostatic hypotension and anemia. He also complained of a mass and extra phlegm in the right posterior aspect of mouth. - Previous workup during his admission for CVA in 01/2018 included: - CTA neck (02/27) --> NO hemodynamically significant stenosis - Holter monitor (02/2018) completed: Patient was monitored for 17 hours and 45 minutes. Patient was in normal sinus rhythm. Average heart rate 80 bpm. Appears in sinus bradycardia 53 bpm at 11:32 AM. Appears in sinus tachycardia at 122 bpm at 6:20 AM. 111 PVCs and 416 PACs. Interpretation is limited by intermittent baseline artifact - 2D echocardiogram (02/2018)--> In limited views, the left ventricular systolic function is normal with an estimated ejection fraction in the range of 55-60%. Trace mitral valve regurgitation. There is trace tricuspid valve regurgitation. - After discussion with the pts at re-evaluation, its not clear that the pt had a true syncopal episode as this was not witnessed. She reported that she had called the pt for dinner but he did not respond and when she went to check on him he was in his wheelchair and had urinated on himself and was rather confused and agitated. He has a hx of seizures and is on Keppra as an outpt. He has chronic left-sided mouth drooping and change in speech as result of his previous stroke. - Head CT in the ED noted cerebral atrophy and chronic ischemic small vessel vasculopathy otherwise no acute intracranial abnormality. - Pts labs appeared that he had some degree of dehydration at admission. - Repeat BMP is improved. - Await repeat CBC today - Telemetry - Cont. Keppra 500mg BID Peritonsillar mass Weight loss - Pt tells me that he has been having pain in the right side of his mouth/ throat for several months and in the last few weeks has felt that his swallowing has been more difficult. He thinks that he has list 25-30lbs weight loss but is unclear of how long of a period of time that has been. - In the ED the pt had a cervical spine CT which revealed a right neck mass. - A soft tissue neck CT revealed a mass along the base of the right tongue/ peritonsillar region measuring 3.0 x 2.7 cm and prominent adenopathy right neck. - Chest CTA was negative for pulmonary embolus, but did noted a 7 mm nodule right lower lobe, mild emphysema with mild peribronchial thickening and distal airway disease, and moderate coronary calcifications and stenosis of the proximal celiac artery. - Consult ENT to further evaluate BPH (benign prostatic hyperplasia) - Continue patient's home Avodart HTN (hypertension) - Continue patient's home Metoprolol 50 mg Q12H - clonidine as needed Parkinson disease with periods of confusion - Continue home Carbidopa-Levodopa 25-100 mg - continue Seroquel low dose - EEG (03/18/18) --> impression mild slowing of background likely consistent with encephalopathia process without any epileptic activity or discharges. - Patient has been following outpatient with Dr. Cobos Attending Attestation Patient examined. Assessment and plan formulated with Carmelina Wills PA-C. I agree with the above. dehydration. poor po due to difficulty eating. right tongue base/tonsillar mass/swelling. ENT evalution. f/u pending w/up.
[2018-10-19 10:40] LABS: Baso % (Auto) 0.2 % (0.0-2.0); Eos % (Auto) 0.1 % (0.0-4.0); Hematocrit 35.4 % (39.0-51.0); Hemoglobin 11.8 gm/dL (13.0-17.0); Lymph # (Auto) 0.5 th/mm3 (1.0-4.8); Lymph % (Auto) 12.2 % (9.0-44.0); Mean Corpuscular HGB Conc 33.4 % (32.0-36.0); Mean Corpuscular Hemoglobin 30.7 pg (27.0-34.0); Mean Corpuscular Volume 91.8 fL (80.0-100.0); Mean Platelet Volume 8.4 fL (7.0-11.0); Mono # (Auto) 0.3 th/mm3 (0.0-0.9); Mono % (Auto) 7.3 % (0.0-8.0); Neut # (Auto) 3.5 th/mm3 (1.8-7.7); Neut % (Auto) 80.2 % (16.0-70.0); Platelet Count 175 th/mm3 (150-450); Red Blood Count 3.86 mil/mm3 (4.50-5.90); Red Cell Distribution Width 13.9 % (11.6-17.2); White Blood Count 4.4 th/mm3 (4.0-11.0)
[2018-10-19] MEDS: Sod Chloride 0.9% Inj 1,000 ML IV.CONT SCH (12:29)
--- NOTE | 2018-10-19 22:27 | ECG ---
Date Performed: 10/18/2018 Time Performed: 19:39:57 PTAGE: 83 years EKG: Sinus rhythm POSSIBLE LEFT ATRIAL ENLARGEMENT POSSIBLE RIGHT VENTRICULAR CONDUCTION DELAY SEPTAL MYOCARDIAL INFAR CTION ABNORMAL ECG PREVIOUS ECG 03/22/2018 11.48AM: Since the PREVIOUS TRACING , no significant change noted DOCTOR: Steve Louis Interpretating Date/Time 10/19/2018 22:25:57
[2018-10-20] MEDS: Sod Chloride 0.9% Inj 1,000 ML IV.CONT SCH (02:55)
[2018-10-20 07:24] VITALS: RESP 16
[2018-10-20] MEDS: QUEtiapine 25 MG Tablet PO SCH (08:41)
[2018-10-20] MEDS: Famotidine 20 MG Tablet PO SCH (08:42)
[2018-10-20] MEDS: Citalopram 20 MG Tablet PO SCH (08:42)
[2018-10-20] MEDS: Finasteride 5 MG Tablet PO SCH (08:42)
[2018-10-20] MEDS: Docusate Sodium 100 MG Capsule PO SCH (08:42)
[2018-10-20] MEDS: levETIRAcetam 500 MG Tablet PO SCH (08:43)
--- NOTE | 2018-10-20 10:41 | MB ---
cc: Greg Tuttle MD DATE: 10/20/2018 CHIEF COMPLAINT: Throat and neck mass. HISTORY OF PRESENT ILLNESS: The patient is a pleasant 83-year-old male, known to Dr. Llamas, who has a history of pain in the right side of the mouth and throat for several months and having roughly 3 weeks of some increasing pain with swallowing. He has a history of tobacco use, but not for roughly 30 years as per the patient. In the emergency room he had a CT which revealed a 3 cm right base of tongue mass as well as a right upper cervical adenopathy. He has been on aspirin. He has many medical problems as well including dementia, which contributed to his recent broken hip that he had. He also has high blood pressure and numerous other medical issues. CAT scan was done on his neck and soft tissue which showed a mass on the base of the right tongue peritonsillar area 3 cm as well as 2 cm prominent lymph node just posterior to the right submandibular region. Throat examination confirmed the above and the mass is visible when depressing the base of the tongue as well on the right. There is mild tenderness to palpation and there is definite thickening of the tissue at the right tongue base on palpation; the right cervical adenopathy is easily palpable as well. ASSESSMENT AND PLAN: Right tongue base, tonsillar mass as well as right cervical adenopathy. The patient has numerous medical issues as well. A conservative but effective approach to diagnosis is having radiology obtain an ultrasound-guided core biopsy of the right cervical lymph node. This may avoid the need of having the patient go sleep for tongue base biopsy, especially when the patient is on blood thinners and has other medical problems as well. The patient would also benefit from a PET-CT scan. If the ultrasound-guided core biopsy is not sufficient for diagnosis, a diagnostic laryngoscopy with biopsy would be the next step. However, if a general anesthetic could be avoided and diagnosis obtained from the right neck, then that would obviously be a more conservative option to getting the same diagnosis ideally. The patient is anxious to be discharged home if possible. A reasonable approach would be to get the ultrasound-guided core biopsy of the right neck while he is in-house, getting the PET scan shortly afterwards if he was to be discharged and followup with ENT for possible tongue base biopsy if needed afterwards. We are certainly available for further consultation. Thank you very much for this consult on this interesting patient. Greg Tuttle MD PCC/matthias , 08:48 AM , 08:59 AM
--- NOTE | 2018-10-20 10:51 | P.PNIM ---
Subjective Interval history: Pt without any new complaints He states that he is still having difficulty with swallowing but the soft diet does help. He reports that he has not had a BM in several days Physical Exam Vital signs: Last Vital Signs Temp 96.8 F L 10/20/18 07:22 Pulse 61 10/20/18 07:22 Resp 16 10/20/18 07:22 BP 181/86 H 10/20/18 07:25 Pulse Ox 99 10/20/18 07:22 Narrative: GENERAL: NAD, Alert and oriented to self and place ENT: Mucous membranes pink and moist. Abnormal tissue projecting in the right posterior pharynx CARDIO: Regular RESP: No accessory muscle use. Clear to auscultation. Breath sounds equal bilaterally. ABD: +BS, soft, non-tender, nondistended. Hepatic and splenic margins not palpable. EXT: Extremities without clubbing, cyanosis, or edema. No obvious deformities. Results Labs CBC & Chem 7: 10/19/18 10:29 10/19/18 07:[address] 10/18/18 19:38 CONCLUSION: 1. Degenerative changes without fracture. 2. Right neck mass. Head CT 10/18/18 19:38 CONCLUSION: 1. Cerebral atrophy and chronic ischemic small vessel vasculopathy. 2. No acute intracranial abnormality. Chest X-Ray 10/18/18 19:40 CONCLUSION: No active disease. Soft Tissue Neck CT 10/18/18 19:40 CONCLUSION: 1. Mass along the base of the right tongue/peritonsillar region measuring 3.0 x 2.7 cm. 2. Prominent adenopathy right neck. Chest CTA 10/18/18 20:23 CONCLUSION: 1. Negative for pulmonary embolus. 2. 7 mm nodule right lower lobe. Follow-up chest CT recommended within the next 6 months. 3. Mild emphysema. Mild peribronchial thickening and distal airway disease. 4. Moderate coronary calcifications. No effusions. Stenosis of the proximal celiac artery. Assessment and Plan Plan Possible syncope vs. seizure - Pt is an 83 year male with previous CVA s/p TPA 01/27/18, osteoarthritis, BPH, hyperlipidemia, hypothyroidism, lumbar radiculopathy, Parkinson's disease with dementia, GERD, peripheral neuropathy, skin cancer unspecified, L3 compression fracture 05/24. - Pt presented to the ED after a suspected syncopal episode at home on . Pt had a previous syncopal episode in 03/2018 which was felt to be related to orthostatic hypotension and anemia. He also complained of a mass and extra phlegm in the right posterior aspect of mouth. - Previous workup during his admission for CVA in 01/2018 included: - CTA neck (02/27) --> NO hemodynamically significant stenosis - Holter monitor (02/2018) completed: Patient was monitored for 17 hours and 45 minutes. Patient was in normal sinus rhythm. Average heart rate 80 bpm. Appears in sinus bradycardia 53 bpm at 11:32 AM. Appears in sinus tachycardia at 122 bpm at 6:20 AM. 111 PVCs and 416 PACs. Interpretation is limited by intermittent baseline artifact - 2D echocardiogram (02/2018)--> In limited views, the left ventricular systolic function is normal with an estimated ejection fraction in the range of 55-60%. Trace mitral valve regurgitation. There is trace tricuspid valve regurgitation. - After discussion with the pts at re-evaluation, its not clear that the pt had a true syncopal episode as this was not witnessed. She reported that she had called the pt for dinner but he did not respond and when she went to check on him he was in his wheelchair and had urinated on himself and was rather confused and agitated. He has a hx of seizures and is on Keppra as an outpt. He has chronic left-sided mouth drooping and change in speech as result of his previous stroke. - Head CT in the ED noted cerebral atrophy and chronic ischemic small vessel vasculopathy otherwise no acute intracranial abnormality. - Pts labs appeared that he had some degree of dehydration at admission. - Repeat BMP is improved. - Telemetry - Cont. Keppra 500mg BID Peritonsillar mass Weight loss - Pt tells me that he has been having pain in the right side of his mouth/ throat for several months and in the last few weeks has felt that his swallowing has been more difficult. He thinks that he has list 25-30lbs weight loss but is unclear of how long of a period of time that has been. - In the ED the pt had a cervical spine CT which revealed a right neck mass. - A soft tissue neck CT revealed a mass along the base of the right tongue/ peritonsillar region measuring 3.0 x 2.7 cm and prominent adenopathy right neck. - Chest CTA was negative for pulmonary embolus, but did noted a 7 mm nodule right lower lobe, mild emphysema with mild peribronchial thickening and distal airway disease, and moderate coronary calcifications and stenosis of the proximal celiac artery. - Pt was given Decadron 4mg IV x one dose in the ED. - Appreciate Consult from ENT - ENT is recommending US guided core needle biopsy of right cervical LN - Recommended for outpt PET/CT and if the ultrasound-guided core biopsy is not sufficient for diagnosis, a diagnostic laryngoscopy with biopsy would be the next step. BPH (benign prostatic hyperplasia) - Continue patient's home Avodart HTN (hypertension) - Continue patient's home Metoprolol 50 mg Q12H - clonidine as needed Parkinson disease with periods of confusion - Continue home Carbidopa-Levodopa 25-100 mg - continue Seroquel low dose - EEG (03/18/18) --> impression mild slowing of background likely consistent with encephalopathia process without any epileptic activity or discharges. - Patient has been following outpatient with Dr. Cobos Constipation - Colace, Miralax daily, Lactulose PRN ADDENDUM: - The case was discussed with Radiologist, Dr. Leon, who explained that the they did not feel the US guided biopsy would be appropriate for this patient as there could be compromise to adjacent structures in trying to perform this particular biopsy and felt that direct visualization by ENT would be more appropriate for this patient. - The patient and his would like to followup as an outpt with Dr. Clifton, the ENT physician who he was previously established with. Dr. Martinez called Dr. Clifton and left a message for him to return the call to discuss the case. Dr. Gomez also called the pts PCP, Dr. Larry Monae, to inform him of the patients current situation and need for garcia followup with ENT incase a referral needed to be obtained as well. - Pt is eating and drinking without too much difficulty and is protecting his own airway. - We will give him another shot of Decadron prior to discharge today. - Pt will resume him home medications and will need to followup with Dr. Clifton in the next week and with Dr. Monae in the next 7-10 days as he will likely need a PET/CT scan. Progress Note: Quality VTE Deep Vein Thrombosis/Pulmonary Embolism Present on Admission: No
[2018-10-20] MEDS ORDERED: Polyethylene Glycol 3350 17 GM Packet PO SCH (11:00)
[2018-10-20] MEDS: Polyethylene Glycol 3350 255 GM Bottle PO SCH (11:22)
[2018-10-20 12:01] VITALS: BP 168/70; PULSE 69; TEMP 98; O2SAT 98
--- NOTE | 2018-10-20 14:17 | US ---
EXAM DATE: 10/20/2018 2:09 PM EST AGE/SEX: 83 years / Male INDICATIONS: Neck mass seen on CT. CLINICAL DATA: This is the patient's initial encounter. Patient reports that signs and symptoms have been present for 1 day and indicates a pain score of 3/10. MEDICAL/SURGICAL HISTORY: Hypertension. Hypercholesterolemia. GERD. [place]. Right leg fracture. B PH. Spinal stenosis. Stoke. Carotid endarterectomy. Right knee surgery. Bilateral cataract removal. COMPARISON: [facility] [place] CAROTID ARTERIES, 09/13/2017. . FINDINGS: Ultrasound examination does demonstrate a 2 cm node in group 2 on the right at the site of the CT fin dings. This is directly adjacent to branches of the external carotid artery and potentially in the pl ane of the facial nerve. Direct infiltration of the primary mass and biopsy of this site would be rec ommended for confirmation of malignancy. CONCLUSION: 1. Enlarged group 2 lymph node on the right characteristic of metastatic disease. If the patient garcia s have head and neck carcinoma PET scanning would be helpful for staging purposes of clinically indic ated Electronically signed by: Vicente Evans MD Board Certified Radiologist 10/20/2018 2:16 PM EST
--- NOTE | 2018-10-20 16:16 | P.DCO ---
Physical Therapy Order: Evaluate and treat Home Health Nursing Order: Nursing assessment with vital signs Case Management Consult Case Management Consult-Home Health: Yes I have seen patient Damien Garcia on 10/20/18. My clinical findings support the need for the requested home health care services because: Deconditioned with increased weakness and High risk of falls I certify that my clinical findings support that this patient is homebound because: Impaired cognitive ability/safety and Unsteady gait/balance
== END 2018-10-20 16:59 | disposition home health service (06) ==
LOC: NEPC 19:16 → NEDA 19:16 → NEPHCDU 23:15
PROVIDERS: ADMIT Hospitalist; ATTEND Hospitalist